=== PATIENT | female | born 1980 ===

== ENCOUNTER 2020-05-21 14:13 | Outpatient (REF) | payer OTHER, SELFPAY ==
[2020-05-22 10:16] LABS: BV Int Neg Control Negative (Negative); BV Int Pos Control Positive (Positive)
== END 2020-05-21 14:14 | disposition home or self-care (01) ==
LOC: HO.LAB 14:13
PROVIDERS: PCP Internal Medicine; Referring Provider Internal Medicine; Visit Provider Obstetrics & Gynecology
DX: B37.3 Candidiasis of vulva and vagina (principal); R87.610 Atypical squamous cells of undetermined significance on cytologic smear of cervix (ASC-US); R87.810 Cervical high risk human papillomavirus (HPV) DNA test positive
CPT/HCPCS: 57454; 87480; 87510; 87660; 88305; 99212

== ENCOUNTER → 2020-05-30 12:16 | Outpatient (BNVA) | payer OTHER, SELFPAY | PROVIDERS: PCP Internal Medicine; Visit Provider Obstetrics & Gynecology | DX: Z76.89 Persons encountering health services in other specified circumstances (principal) ==

== ENCOUNTER 2020-06-02 14:23 | Outpatient (REF) | payer OTHER, SELFPAY | END 2020-06-02 14:24 | disposition home or self-care (01) | LOC: HO.LAB 14:23 | PROVIDERS: PCP Internal Medicine; Visit Provider Internal Medicine | DX: Z20.822 Contact with and (suspected) exposure to COVID-19 (principal) | CPT/HCPCS: 36415; C9803; U0003 ==

== ENCOUNTER 2021-03-04 09:56 | Outpatient (REF) | payer OTHER, SELFPAY ==
[2021-03-04 11:57] LABS: Hematocrit 33.8 % (37-47); Hemoglobin 11.3 g/dl (12.0-16.0); Mean Corpuscular HGB Conc 33.4 g/dl (31.0-35.0); Mean Corpuscular Hemoglobin 31.3 pg (27.0-33.0); Mean Corpuscular Volume 93.6 fL (80-98); Mean Platelet Volume 10.5 fL (9.4-12.3); Platelet Count 194 X10*3/uL (160-400); Red Blood Count 3.61 X10*6/uL (4.20-5.50); Red Cell Distribution Width 13.1 % (11.0-16.0); White Blood Count 4.9 X10*3/uL (4.8-10.8)
[2021-03-04 12:49] LABS: Thyroid Stimulating Hormone 1.56 uIU/mL (0.32-4.0)
[2021-03-04 13:56] LABS: CT PCR NOT DETECTED (Not Detect.); NG PCR NOT DETECTED (Not Detect.)
[2021-03-05 08:40] LABS: BV Int Neg Control Negative (Negative); BV Int Pos Control Positive (Positive)
== END 2021-03-04 09:57 | disposition home or self-care (01) ==
LOC: HO.LAB 09:56
PROVIDERS: PCP Internal Medicine; Visit Provider Advanced Practice Midwife
DX: R10.2 Pelvic and perineal pain (principal); Z20.2 Contact with and (suspected) exposure to infections with a predominantly sexual mode of transmission; N76.0 Acute vaginitis; N92.0 Excessive and frequent menstruation with regular cycle
CPT/HCPCS: 36415; 84443; 85027; 87480; 87491; 87510; 87591; 87660; 99212

== ENCOUNTER 2021-03-23 09:40 | Outpatient (REF) | payer OTHER, SELFPAY ==
[2021-03-23 11:34] LABS: HBsAGNum1 0.77 S/CO (0.00-0.99); HIV AB/AG Nonreactive (Nonreactive); HIV Num 1 0.09 S/CO (0.00-0.99); Hepatitis B Surface Antigen Negative (Negative); ~HepC Num1 0.16 S/CO (0.00-0.79); ~Hepatitis C Antibody Nonreactive (Nonreactive)
[2021-03-23 12:04] LABS: Syphilis Screen Nonreactive (Nonreactive)
[2021-03-23 14:40] LABS: CT PCR NOT DETECTED (Not Detect.); NG PCR NOT DETECTED (Not Detect.)
[2021-03-24 11:12] LABS: BV Int Neg Control Negative (Negative); BV Int Pos Control Positive (Positive)
== END 2021-03-23 09:41 | disposition home or self-care (01) ==
LOC: HO.LAB 09:40
PROVIDERS: PCP Internal Medicine; Visit Provider Obstetrics & Gynecology
DX: Z11.3 Encounter for screening for infections with a predominantly sexual mode of transmission (principal); Z11.4 Encounter for screening for human immunodeficiency virus [HIV]; N76.0 Acute vaginitis; D22.9 Melanocytic nevi, unspecified
CPT/HCPCS: 36415; 86780; 86803; 87340; 87389; 87480; 87491; 87510; 87591; 87660; 99212

== ENCOUNTER 2021-03-26 09:55 | Outpatient (REF) | payer OTHER, SELFPAY ==
--- NOTE | ~2021-03-26 | US_ITS ---
EXAMINATION: ULTRASOUND OF THE PELVIS CLINICAL INFORMATION: Excessive and frequent menstruation. COMPARISON: 01/16/2020. TECHNIQUE: Transabdominal and transvaginal pelvic ultrasound. A transvaginal study was performed in addition to the transabdominal study which did not yield an adequate examination of the uterus and ovaries due to superimposed distended gas-filled loops of bowel. FINDINGS: The uterus is normal in size and appearance, measuring 10.9 x 4.3 x 6.2 cm longitudinally, anteroposteriorly and transversely. The endometrial stripe thickness is normal, measuring 0.7 cm in thickness. There is a 0.9 cm fibroid along the right uterine fundus myometrium. The ovaries bilaterally are visualized and appear normal, with the right ovary measuring 3.7 x 1.4 x 2.1 cm and the left ovary measuring 2.7 x 0.9 x 3.7 cm. No adnexal mass or free fluid collection seen. US/US pelvic and transvaginal IMPRESSION: Subcentimeter uterine fibroid. Otherwise unremarkable pelvic ultrasound.
== END 2021-03-26 09:56 | disposition home or self-care (01) ==
LOC: HO.US 09:55
PROVIDERS: PCP Internal Medicine; Visit Provider Advanced Practice Midwife
DX: N92.0 Excessive and frequent menstruation with regular cycle (principal)
CPT/HCPCS: 76830; 76856

== ENCOUNTER 2021-04-09 13:16 | Outpatient (REF) | payer OTHER, SELFPAY ==
[2021-04-10 08:42] LABS: BV Int Neg Control Negative (Negative); BV Int Pos Control Positive (Positive)
[2021-04-10 08:54] LABS: CT PCR NOT DETECTED (Not Detect.); NG PCR NOT DETECTED (Not Detect.)
== END 2021-04-09 13:17 | disposition home or self-care (01) ==
LOC: HO.LAB 13:16
PROVIDERS: PCP Internal Medicine; Visit Provider Advanced Practice Midwife
DX: Z12.4 Encounter for screening for malignant neoplasm of cervix (principal); Z11.3 Encounter for screening for infections with a predominantly sexual mode of transmission; N76.0 Acute vaginitis; N93.9 Abnormal uterine and vaginal bleeding, unspecified; D22.9 Melanocytic nevi, unspecified; Z71.2 Person consulting for explanation of examination or test findings
CPT/HCPCS: 58100; 87480; 87491; 87510; 87591; 87660; 88142; 88305

== ENCOUNTER → 2021-04-21 11:40 | Outpatient (BNVA) | payer OTHER, SELFPAY | PROVIDERS: PCP Internal Medicine; Visit Provider Advanced Practice Midwife ==

== ENCOUNTER 2021-05-21 14:09 | Outpatient (REF) | payer OTHER, SELFPAY | END 2021-05-21 14:10 | disposition home or self-care (01) | LOC: HO.LAB 14:09 | PROVIDERS: PCP Internal Medicine; Visit Provider Obstetrics & Gynecology | DX: R87.612 Low grade squamous intraepithelial lesion on cytologic smear of cervix (LGSIL) (principal); L91.8 Other hypertrophic disorders of the skin; E66.9 Obesity, unspecified; F17.210 Nicotine dependence, cigarettes, uncomplicated; Z68.23 Body mass index [BMI] 23.0-23.9, adult; Z98.51 Tubal ligation status; Z88.8 Allergy status to other drugs, medicaments and biological substances | CPT/HCPCS: 57454; 81025; 88305 ==

== ENCOUNTER → 2021-05-26 10:56 | Outpatient (BNVA) | payer OTHER, SELFPAY | PROVIDERS: PCP Internal Medicine; Visit Provider Advanced Practice Midwife ==

== ENCOUNTER 2021-06-15 11:35 | Outpatient (REF) | payer OTHER, SELFPAY ==
[2021-06-15 13:57] LABS: Syphilis Screen Nonreactive (Nonreactive)
[2021-06-15 16:25] LABS: CT PCR NOT DETECTED (Not Detect.); NG PCR NOT DETECTED (Not Detect.)
[2021-06-16 09:11] LABS: HBsAGNum1 0.17 S/CO (0.00-0.99); HIV AB/AG Nonreactive (Nonreactive); HIV Num 1 0.09 S/CO (0.00-0.99); Hepatitis B Surface Antigen Negative (Negative); ~HepC Num1 0.16 S/CO (0.00-0.79); ~Hepatitis C Antibody Nonreactive (Nonreactive)
[2021-06-16 09:17] LABS: BV Int Neg Control Negative (Negative); BV Int Pos Control Positive (Positive)
== END 2021-06-15 11:36 | disposition home or self-care (01) ==
LOC: HO.LAB 11:35
PROVIDERS: PCP Internal Medicine; Visit Provider Obstetrics & Gynecology
DX: Z11.4 Encounter for screening for human immunodeficiency virus [HIV] (principal); B96.89 Other specified bacterial agents as the cause of diseases classified elsewhere; N87.0 Mild cervical dysplasia; N76.0 Acute vaginitis
CPT/HCPCS: 36415; 86780; 86803; 87340; 87389; 87480; 87491; 87510; 87591; 87660; 99212

== ENCOUNTER 2021-07-09 09:26 | Day surgery (SDC) | payer OTHER, SELFPAY ==
--- NOTE | 2021-07-08 11:02 | HO.ANESPROP2 ---
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 (Acute) Multiple nevi (Acute) Encounter to discuss test results (Acute) Numerous moles (Acute) Screen for STD (sexually transmitted disease) (Acute) Vaginitis (Acute) Skin tag (Acute) Overweight (Acute) Past Medical History Medical History 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 Overweight Skin tag Takotsubo syndrome Family History Family History Father Medical history unknown Mother HIV (human immunodeficiency virus infection) Myocardial infarction Hypertension CVD (cardiovascular disease) Drug abuse Brother Legally blind Cancer Brother Albinism Maternal Grandfather Stroke H/O ETOH abuse Surgical History Surgical History History of section History of tubal ligation Social History Social History Alcohol intake: current Alcohol intake frequency: holidays/special occasions only Patient Tobacco Use Status: Current everyday Tobacco user Tobacco use type: Cigarette Cigarettes Per Day: 2 Years Smoked: 10 Use of substances other than those prescribed or required for medical reasons: Yes Substance Use Frequency: Daily Are you DNR?: No Advance Directives: No Advance Directives Information Provided: Yes Sexual orientation: Straight/Heterosexual Gender identity: Female Meds Allergies Allergy/AdvReac Type Severity Reaction Status Date / Time docusate [From COLACE] Allergy Intermediate SWELLING, Verified 07/03/21 10:37 swollen Home Medications Medication Instructions Recorded Confirmed Last Taken Type multivitamin (Daily Multi-Vitamin) 1 tab PO DAILY 05/21/21 07/03/21 Unknown History Exam Exam Date and Time: July 08, 2021 1102 Pertinent Lab Results Pertinent Lab Results: Laboratory Tests 03/04/21 11:15 WBC 4.9 Hgb 11.3 L Hct 33.8 L Plt Count 194 Assessment and Plan Assessment Anesthesia Assessment: Chart Reviewed Documented by User: Sri Dunne MD 07/09/21 12:19 PMFSH Past Medical History Medical History 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 Overweight Skin tag Takotsubo syndrome Family History Family History Father Medical history unknown Mother HIV (human immunodeficiency virus infection) Myocardial infarction Hypertension CVD (cardiovascular disease) Drug abuse Brother Legally blind Cancer Brother Albinism Maternal Grandfather Stroke H/O ETOH abuse Surgical History Surgical History History of section History of tubal ligation History of Problems with Anesthesia: No Social History Social History Alcohol intake: current Alcohol intake frequency: holidays/special occasions only Patient Tobacco Use Status: Current everyday Tobacco user Tobacco use type: Cigarette Cigarettes Per Day: 2 Years Smoked: 10 Use of substances other than those prescribed or required for medical reasons: Yes Substance Use Frequency: Daily Are you DNR?: No Advance Directives: No Advance Directives Information Provided: Yes Sexual orientation: Straight/Heterosexual Gender identity: Female Meds Allergies Allergy/AdvReac Type Severity Reaction Status Date / Time docusate [From COLACE] Allergy Intermediate SWELLING, Verified 07/03/21 10:37 swollen Home Medications Medication Instructions Recorded Confirmed Last Taken Type multivitamin (Daily Multi-Vitamin) 1 tab PO DAILY 05/21/21 07/03/21 Unknown History Exam Airway Mallampati Class: I TM Dist: >3cm Neck ROM: Full Loose/Missing/Broken Teeth: No Heart: RRR Lungs: CTA Assessment and Plan Assessment Anesthesia Assessment: Anesthesia Plan Discussed Final Anesthetic Review History of Problems with Anesthesia: No NPO: Yes ASA Class: II Final Preanesthetic Review: Meds/Allgs Chart Reviewed, Consent Obtained/Reviewed and Anes Risks/Benef Reviewed Patient Risk: Low Procedure Risk: Low Anesthetic Plan Anesthetic Plan: GA Disposition: Standard PACU
[2021-07-09] VITALS (9 sets, daily range): BP systolic 94–141; BP diastolic 51–69; PULSE 55–76; RESP 16–20; TEMP 36.2–36.6; O2SAT 98–100; BMI 23.3
[2021-07-09 10:27] LABS: UPreg QC Valid YES; Urine Pregnancy NEGATIVE (NEGATIVE)
[2021-07-09] MEDS: Lactated Ringers 1,000 ML 100 ML IVCONT (11:00)
--- NOTE | 2021-07-09 11:03 | MHC.SHP ---
Pre-Procedural Eval Section A Date of Service: 07/09/21 The patient is an INPATIENT: No Changes since office visit: No Cold of Flu in the past 2 weeks, No New Medical Problems, No Changes in Medication and No Patient answered all questions The History & Physical has been completed within 30 days and I have reviewed it.: Yes Section B Chief Complaint: C1N1 Allergies: Allergies Allergy/AdvReac Type Severity Reaction Status Date / Time docusate [From COLACE] Allergy Intermediate SWELLING, Verified 07/03/21 10:37 swollen Plan Diagnosis/Plan: Unchanged I have reviewed the history and physical and performed a pertinent physical examination on my patient. No changes have occurred unless specified.
--- NOTE | 2021-07-09 12:25 | P.BOP_ITS ---
Brief Operative Note Date of Service: 07/09/21 Pre-op diagnosis: Persistent DENIS 1, positive ECC Post-op diagnosis: same Procedure: LEEP CONE with post CONE ECC Surgeon: Isidro Mcpherson MD Anesthesia: MAC, local and other (Paracervical block) Was an Ep Specialist used for this Procedure?: No Estimated blood loss (mL): 0 Pathology: other (Cervical cone, Endocx, Post cone ECC) Condition: stable Disposition: other (Home)
--- NOTE | 2021-07-09 12:27 | P.OP_ITS ---
Operative Note Operative Note Date of Service: 07/09/21 Narrative: Preop diagnosis: Persistent DENIS 1 with + ECC Operation: LEEP Cone with post cone ECC Post op diagnosis: same Anesthesia: paracervical block Complications: none Pathology: Anterior and Posterior cervical lip with endocervix & post cone RCC QBL: minimal Procedure: The patient was put in the dorsal lithotomy position, was prepped and draped in the usual sterile fashion. A sterile speculum was inserted inside the pat ient vagina. Using Lugol solution the cervix with Dyed with Lugol solution to identifiy the abnormal demarcating line. 10 cc of Marcaine0.5% with epinephrine were given at 2,4 , 8, and 10 o'clock. Two 0 Vicryl sutures were put at 3 and 09:00 o'clock. a medium-size loop wire, the cervical cone was excised followed by the endocervix, post cone ECC was done afterwards. Hemostasis was assured us ing cautery and Monsel solution. All instruments were taken out of the patient's vaginal cavity. the patient tolerated the procedure well and was discharged home with the following instructions: call if temperature is above 100.4, vaginal bleeding, abdominal pain or nausea or vomiting. Follow-up in the office in 2 weeks for postop visit
[2021-07-09] MEDS: oxyCODONE HCl Immed Release 5 MG TABLET PO (12:54)
== END 2021-07-09 14:16 | disposition home or self-care (01) ==
PROVIDERS: PCP Internal Medicine; Visit Provider Obstetrics & Gynecology
PROC: 0UBC7ZZ Excision of Cervix, Via Natural or Artificial Opening (ICD-10-PCS; CPT 57522; principal; 2021-07-09 11:00)
DX: N87.0 Mild cervical dysplasia (principal); N76.0 Acute vaginitis; B96.89 Other specified bacterial agents as the cause of diseases classified elsewhere; F17.210 Nicotine dependence, cigarettes, uncomplicated
CPT/HCPCS: 57522; 81025; 88305; 88307; J1100; J2250; J2405; J3010

== ENCOUNTER → 2021-07-23 15:54 | Outpatient (BNVA) | payer OTHER, SELFPAY | PROVIDERS: PCP Internal Medicine; Visit Provider Obstetrics & Gynecology ==

== ENCOUNTER 2021-08-24 10:05 | Outpatient (REF) | payer OTHER, SELFPAY ==
[2021-08-24 10:22] LABS: MANUAL DIFF FLAG NO
[2021-08-24 10:39] LABS: Basophils Percent Auto 0.4 % (0-2); Eosinophils Absolute Auto 0.1 X10*3/uL (0.0-0.4); Eosinophils Percent Auto 1.7 % (0-4); Hematocrit 36.3 % (37.0-47.0); Hemoglobin 11.9 g/dl (12.0-16.0); Imm Gran Abs Auto 0.03 X10*3/uL (0.00-0.03); Imm Gran Pct Auto 0.6 % (0.0-0.4); Lymphocytes Absolute Auto 0.9 X10*3/uL (1.2-4.9); Lymphocytes Percent Auto 19.7 % (20-40); Mean Corpuscular HGB Conc 32.8 g/dl (31.0-35.0); Mean Corpuscular Hemoglobin 31.2 pg (27.0-33.0); Mean Corpuscular Volume 95.3 fL (80.0-98.0); Mean Platelet Volume 9.8 fL (9.4-12.3); Monocytes Absolute Auto 0.5 X10*3/uL (0.1-1.2); Monocytes Percent Auto 10.3 % (2-11); Neutrophils Absolute Auto 3.2 x10*3/uL (2.0-8.3); Neutrophils Percent Auto 67.3 % (45-73); Platelet Count 217 X10*3/uL (160-400); Red Blood Count 3.81 X10*6/uL (4.20-5.50); White Blood Count 4.8 X10*3/uL (4.8-10.8)
[2021-08-24 11:16] LABS: Appearance Urine CLEAR; Color Urine YELLOW; Glucose Urine UA NEG (NEG); Leukocyte Esterase Urine NEG (NEG); Nitrite Urine NEG (NEG); PH 5.5 (5.0-8.0); Specific Gravity - Urine >= 1.030 (1.005-1.025); Urine Blood NEG (NEG); Urine Ketones NEG (NEG); Urine Protein NEG (NEG-TRACE)
[2021-08-24 11:21] LABS: Alanine Aminotransferase 47 U/L (0-31); Albumin Level 4.1 g/dL (3.5-5.0); Alkaline Phosphatase 87 U/L (39-117); Anion Gap 11 (12-20); Aspartate Amino Transferase 34 U/L (5-31); Bilirubin Total 0.5 mg/dL (0.0-1.0); Blood Urea Nitrogen 7 mg/dL (9-16); Calcium 9.5 mg/dL (8.4-10.2); Carbon Dioxide 24 mmol/L (22-29); Chloride 105 mmol/L (96-108); Cholesterol 183 mg/dL; Estimated Glomerular Filt Rate > 60; Glucose Fasting 88 mg/dL (60-99); HDL Cholesterol 46 mg/dL; LDL Cholesterol Calculated 123 mg/dl; Sodium 136 mmol/L (135-145); Total Protein 7.9 g/dL (6.5-8.0); Triglycerides 70 mg/dL
[2021-08-24 12:00] LABS: Free T4 (Free Thyroxine) 0.95 ng/dL (0.71-1.85)
== END 2021-08-24 10:06 | disposition home or self-care (01) ==
LOC: HO.LAB 10:05
PROVIDERS: Obstetrics & Gynecology; PCP Internal Medicine; Visit Provider Internal Medicine
DX: Z00.00 Encounter for general adult medical examination without abnormal findings (principal); D72.819 Decreased white blood cell count, unspecified; R63.4 Abnormal weight loss; N39.0 Urinary tract infection, site not specified
CPT/HCPCS: 36415; 80053; 80061; 81003; 84439; 85025

== ENCOUNTER → 2022-05-26 14:51 | Outpatient (BNVA) | payer OTHER, SELFPAY | PROVIDERS: PCP Internal Medicine; Visit Provider Psychiatry & Neurology Neurology | DX: R20.2 Paresthesia of skin (principal); R20.0 Anesthesia of skin | CPT/HCPCS: 99202 ==

== ENCOUNTER 2022-07-15 13:44 | Outpatient (REF) | payer OTHER, SELFPAY ==
--- NOTE | 2022-07-15 09:00 | EMG_ITS ---
Bilateral median and ulnar motor and sensory studies were performed. Bilateral radial sensory studies were performed and paraspinal muscles were tested with a needle. IMPRESSION: Mild bilateral median neuropathy across carpal tunnel. MD BERE Senior/DINAH / [id number]
[2022-07-15 09:52] LABS: MANUAL DIFF FLAG NO
[2022-07-15 10:31] LABS: Basophils Percent Auto 0.6 % (0-2); Eosinophils Absolute Auto 0.1 X10*3/uL (0.0-0.4); Eosinophils Percent Auto 1.4 % (0-4); Hematocrit 37.5 % (37.0-47.0); Hemoglobin 12.2 g/dl (12.0-16.0); Imm Gran Abs Auto 0.01 X10*3/uL (0.00-0.03); Imm Gran Pct Auto 0.2 % (0.0-0.4); Lymphocytes Absolute Auto 1.3 X10*3/uL (1.2-4.9); Lymphocytes Percent Auto 25.3 % (20-40); Mean Corpuscular HGB Conc 32.5 g/dl (31.0-35.0); Mean Corpuscular Hemoglobin 28.6 pg (27.0-33.0); Mean Platelet Volume 10.5 fL (9.4-12.3); Monocytes Absolute Auto 0.6 X10*3/uL (0.1-1.2); Monocytes Percent Auto 10.8 % (2-11); Neutrophils Absolute Auto 3.1 x10*3/uL (2.0-8.3); Neutrophils Percent Auto 61.7 % (45-73); Platelet Count 216 X10*3/uL (160-400); Red Blood Count 4.26 X10*6/uL (4.20-5.50); Red Cell Distribution Width 14.6 % (11.0-16.0); White Blood Count 5.1 X10*3/uL (4.8-10.8)
[2022-07-15 11:07] LABS: Erythrocyte Sedimentation Rate 33 MM/HR (0-20)
[2022-07-15 12:07] LABS: Rheumatoid Factor < 13.0 IU/mL (<15.0)
[2022-07-16 21:49] LABS: Anti DNA DS Antibody 19 IU/mL
[2022-07-19 13:15] LABS: Cyclic Citrullinated Peptide <16 UNITS
[2022-07-19 13:48] LABS: Smooth Muscle Antibody <20 U (<20)
[2022-07-19 14:54] LABS: ANA Pattern 2 Nuclear, Homogeneous; Anti Nuclear Antibody Screen POSITIVE (NEGATIVE)
== END 2022-07-15 13:45 | disposition home or self-care (01) ==
LOC: HO.NEURO 13:44
PROVIDERS: PCP Internal Medicine; Visit Provider Internal Medicine
DX: R20.0 Anesthesia of skin (principal); D64.9 Anemia, unspecified; M25.50 Pain in unspecified joint
CPT/HCPCS: 36415; 85025; 85652; 86015; 86038; 86039; 86200; 86225; 86431; 95886; 95911

== ENCOUNTER → 2022-07-30 14:31 | Outpatient (BNVA) | payer OTHER, SELFPAY | PROVIDERS: PCP Internal Medicine; Visit Provider Nurse Practitioner Family | DX: R20.0 Anesthesia of skin (principal); R20.2 Paresthesia of skin; G56.03 Carpal tunnel syndrome, bilateral upper limbs | CPT/HCPCS: 99212 ==

== ENCOUNTER → 2022-08-05 10:54 | Outpatient (BNVA) | payer OTHER, SELFPAY | PROVIDERS: PCP Internal Medicine; Visit Provider Internal Medicine Rheumatology | DX: G56.03 Carpal tunnel syndrome, bilateral upper limbs (principal); M25.531 Pain in right wrist; M25.532 Pain in left wrist; R74.01 Elevation of levels of liver transaminase levels; R76.8 Other specified abnormal immunological findings in serum | CPT/HCPCS: 99202 ==

== ENCOUNTER 2022-08-05 12:38 | Outpatient (REF) | payer OTHER, SELFPAY ==
[2022-08-05 14:03] LABS: MANUAL DIFF FLAG NO
[2022-08-05 14:32] LABS: Basophils Percent Auto 0.4 % (0-2); Eosinophils Absolute Auto 0.1 X10*3/uL (0.0-0.4); Eosinophils Percent Auto 1.3 % (0-4); Hematocrit 33.9 % (37.0-47.0); Hemoglobin 11.1 g/dl (12.0-16.0); Imm Gran Abs Auto 0.01 X10*3/uL (0.00-0.03); Imm Gran Pct Auto 0.2 % (0.0-0.4); Lymphocytes Absolute Auto 1.3 X10*3/uL (1.2-4.9); Lymphocytes Percent Auto 28.2 % (20-40); Mean Corpuscular HGB Conc 32.7 g/dl (31.0-35.0); Mean Corpuscular Hemoglobin 29.5 pg (27.0-33.0); Mean Corpuscular Volume 90.2 fL (80.0-98.0); Mean Platelet Volume 11.4 fL (9.4-12.3); Monocytes Absolute Auto 0.5 X10*3/uL (0.1-1.2); Monocytes Percent Auto 9.8 % (2-11); Neutrophils Absolute Auto 2.8 x10*3/uL (2.0-8.3); Neutrophils Percent Auto 60.1 % (45-73); Platelet Count 221 X10*3/uL (160-400); Red Blood Count 3.76 X10*6/uL (4.20-5.50); Red Cell Distribution Width 14.8 % (11.0-16.0); White Blood Count 4.6 X10*3/uL (4.8-10.8)
[2022-08-05 15:06] LABS: Alanine Aminotransferase 9 U/L (0-31); Albumin Level 4.1 g/dL (3.5-5.0); Alkaline Phosphatase 79 U/L (39-117); Anion Gap 9 (12-20); Aspartate Amino Transferase 17 U/L (5-31); Bilirubin Total 0.2 mg/dL (0.0-1.0); Blood Urea Nitrogen 10 mg/dL (9-16); C Reactive Protein < 0.10 mg/dL (< or = 0.50); Calcium 9.4 mg/dL (8.4-10.2); Carbon Dioxide 25 mmol/L (22-29); Chloride 107 mmol/L (96-108); Estimated Glomerular Filt Rate > 60; Glucose Random 83 mg/dL (60-115); Potassium 4.4 mmol/L (3.3-5.1); Sodium 137 mmol/L (135-145); Total Protein 7.9 g/dL (6.5-8.0)
[2022-08-05 15:07] LABS: Creatinine Urine 49.71 mg/dL; Total Protein Urine Random < 7 mg/dL (<12)
[2022-08-09 11:14] LABS: Complement C3 94 mg/dL (83-193)
[2022-08-09 13:54] LABS: Anti DNA DS Antibody 24 IU/mL; SM/Ribonucleoprotein Ab <1.0 NEG AI (<1.0 NEG); Smith Protein <1.0 NEG AI (<1.0 NEG)
== END 2022-08-05 12:39 | disposition home or self-care (01) ==
LOC: HO.10HDL 12:38
PROVIDERS: Visit Provider Internal Medicine Rheumatology
DX: R76.8 Other specified abnormal immunological findings in serum (principal); M25.50 Pain in unspecified joint; G56.03 Carpal tunnel syndrome, bilateral upper limbs; R74.01 Elevation of levels of liver transaminase levels; M25.531 Pain in right wrist; M25.532 Pain in left wrist; Z79.899 Other long term (current) drug therapy
CPT/HCPCS: 36415; 80053; 84156; 85025; 86140; 86160; 86225; 86235

== ENCOUNTER 2022-09-07 10:46 | Outpatient (REF) | payer OTHER, SELFPAY ==
[2022-09-07 16:48] LABS: CT PCR NOT DETECTED (Not Detect.); NG PCR NOT DETECTED (Not Detect.)
[2022-09-08 09:38] LABS: BV Int Neg Control Negative (Negative); BV Int Pos Control Positive (Positive)
[2022-09-10 21:53] LABS: HPV 16 RNA DETECTED (NOT DETECTED); HPV mRNA E6/E7 rflx Detected (Not Detected)
== END 2022-09-07 10:47 | disposition home or self-care (01) ==
LOC: HO.LNP 10:46
PROVIDERS: PCP Internal Medicine; Visit Provider Advanced Practice Midwife
DX: Z01.419 Encounter for gynecological examination (general) (routine) without abnormal findings (principal); Z11.51 Encounter for screening for human papillomavirus (HPV); N87.0 Mild cervical dysplasia; N89.8 Other specified noninflammatory disorders of vagina; Z20.2 Contact with and (suspected) exposure to infections with a predominantly sexual mode of transmission
CPT/HCPCS: 0353U; 87480; 87510; 87624; 87625; 87660; 88142

== ENCOUNTER 2022-09-07 11:16 | Outpatient (REF) | payer OTHER, SELFPAY | END 2022-09-07 11:17 | disposition home or self-care (01) | LOC: HO.LAB 11:16 | PROVIDERS: Visit Provider Advanced Practice Midwife | DX: Z13.89 Encounter for screening for other disorder (principal) ==

== ENCOUNTER 2022-09-16 15:55 | Emergency (ER) | payer OTHER, SELFPAY ==
--- NOTE | ~2022-09-16 | XR_ITS ---
EXAMINATION: XR ABDOMEN KUB CLINICAL INDICATION: Pain. Question constipation. COMPARISON: None available. TECHNIQUE: AP view of the abdomen. FINDINGS: Nonobstructive bowel gas pattern. No dilated loops of bowel. Scattered gas throughout the small and large bowel. Mild stool burden. The lung bases are clear. No acute osseous abnormality. XR/XR KUB IMPRESSION: Nonobstructive bowel gas pattern. Mild stool burden.
[2022-09-16 16:38] LABS: MANUAL DIFF FLAG NO
[2022-09-16 16:40] LABS: Basophils Percent Auto 0.2 % (0-2); Eosinophils Absolute Auto 0.1 X10*3/uL (0.0-0.4); Eosinophils Percent Auto 1.6 % (0-4); Hematocrit 32.1 % (37.0-47.0); Hemoglobin 10.4 g/dl (12.0-16.0); Imm Gran Abs Auto 0.02 X10*3/uL (0.00-0.03); Imm Gran Pct Auto 0.4 % (0.0-0.4); Lymphocytes Absolute Auto 0.8 X10*3/uL (1.2-4.9); Lymphocytes Percent Auto 17.8 % (20-40); Mean Corpuscular HGB Conc 32.4 g/dl (31.0-35.0); Mean Corpuscular Volume 89.4 fL (80.0-98.0); Mean Platelet Volume 9.4 fL (9.4-12.3); Monocytes Absolute Auto 0.5 X10*3/uL (0.1-1.2); Monocytes Percent Auto 10.5 % (2-11); Neutrophils Absolute Auto 3.1 x10*3/uL (2.0-8.3); Neutrophils Percent Auto 69.5 % (45-73); Platelet Count 187 X10*3/uL (160-400); Red Blood Count 3.59 X10*6/uL (4.20-5.50); Red Cell Distribution Width 16.2 % (11.0-16.0); White Blood Count 4.5 X10*3/uL (4.8-10.8)
[2022-09-16 16:53] LABS: Alanine Aminotransferase 9 U/L (0-31); Albumin Level 4.1 g/dL (3.5-5.0); Alkaline Phosphatase 72 U/L (39-117); Anion Gap 11 (12-20); Aspartate Amino Transferase 17 U/L (5-31); Bilirubin Total 0.2 mg/dL (0.0-1.0); Blood Urea Nitrogen 17 mg/dL (9-16); Calcium 8.7 mg/dL (8.4-10.2); Carbon Dioxide 23 mmol/L (22-29); Chloride 109 mmol/L (96-108); Estimated Glomerular Filt Rate > 60; Glucose Random 75 mg/dL (60-115); Lipase 25 U/L (8-78); Magnesium 1.7 mg/dL (1.6-2.6); Sodium 139 mmol/L (135-145); Total Protein 7.6 g/dL (6.5-8.0)
--- NOTE | 2022-09-16 17:22 | ED_ITS ---
HPI - Abdominal Pain General Chief Complaint: Urogenital-Female <MABLE Sims - Last Filed: 09/16/22 17:23> Stated Complaint: Abdominal Pain <MABLE Sims - Last Filed: 09/16/22 17:23> Time Seen by Provider: 09/16/22 21:25 <MABLE Sims - Last Filed: 09/16/22 17:23> Source: patient, RN notes reviewed and old records reviewed <Surendra Schumacher - Last Filed: 09/17/22 01:44> Mode of arrival: ambulatory <Surendra Schumacher - Last Filed: 09/17/22 01:44> Limitations: no limitations <Surendra Schumacher - Last Filed: 09/17/22 01:44> History of Present Illness HPI narrative: 42-year-old female with history of lupus, MS presents for evaluation of left lower quadrant abdominal pain. The pain started at noon today, about 9-1/2 hours prior to my evaluation Patient denies any associated symptoms including fevers, chills, nausea vomiting diarrhea, constipation, black or bloody stool She reports that 2 days ago she finished a course of antibiotics for a UTI This feels different than the pain she is experiencing while that was being treated Currently her pain is an 8/10 and the pain is worse with movement. Denies any abnormal vaginal bleeding or discharge <Surendra Schumacher - Last Filed: 09/17/22 01:44> Related Data Home Medications: Home Medications Medication Instructions Recorded Confirmed multivitamin (Daily Multi-Vitamin 1 tab PO DAILY 05/21/21 08/18/22 tablet) ibuprofen 800 mg tablet 800 mg PO Q8H 03/23/22 08/18/22 Previous Rx's Medication Instructions Recorded hydroxyzine HCl 10 mg tablet 10 mg PO TID PRN anxiety 30 days 04/29/22 #90 tabs bupropion HCl 150 mg 24 hr tablet, 150 mg PO QAM 90 days #90 tabs 08/18/22 extended release fluconazole 150 mg tablet 150 mg PO ONCE 1 day #1 tab 09/08/22 (Diflucan) metronidazole 0.75 % (37.5 mg/5 1 appful vaginal BEDTIME 5 days 09/08/22 gram) vaginal gel #70 grams tramadol 50 mg tablet 50 mg PO TID PRN severe pain 09/17/22 (scale score 7-10) #12 tabs <MABLE Sims - Last Filed: 09/16/22 17:23> Allergies/Adverse Reactions: Allergies Allergy/AdvReac Type Severity Reaction Status Date / Time docusate [From COLACE] Allergy Intermediate SWELLING, Verified 09/16/22 17:28 swollen <MABLE Sims - Last Filed: 09/16/22 17:23> Review of Systems Constitutional: Reports as per HPI, Denies chills, Denies fatigue and Denies fever(s) <Surendra Schumacher - Last Filed: 09/17/22 01:44> Cardiovascular: Denies chest pain and Denies dyspnea <Surendra Schumacher - Last Filed: 09/17/22 01:44> Respiratory: Denies cough and Denies dyspnea <Surendra Schumacher - Last Filed: 09/17/22 01:44> Gastrointestinal: Denies constipation and Denies vomiting <Surendra Schumacher - Last Filed: 09/17/22 01:44> Genitourinary: Denies dysuria <Surendra Schumacher - Last Filed: 09/17/22 01:44> Denies focal weakness <Surendra Schumacher - Last Filed: 09/17/22 01:44> Endocrine: Denies fatigue <Surendra Schumacher - Last Filed: 09/17/22 01:44> PMFSH Past Medical History Medical History: Medical History Leukopenia 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 Lupus Overweight Physical exam Skin tag Takotsubo syndrome Transaminitis <MABLE Sims - Last Filed: 09/16/22 17:23> Surgical History: Surgical History H/O LEEP History of section History of tubal ligation <MABLE Sims - Last Filed: 09/16/22 17:23> Family History Family History: Family History Father Brain cancer Mother HIV (human immunodeficiency virus infection) Myocardial infarction Hypertension CVD (cardiovascular disease) Drug abuse Brother Legally blind Cancer Brother Albinism Maternal Grandfather Stroke H/O ETOH abuse Family/Other Mental health disorder <MABLE Sims - Last Filed: 09/16/22 17:23> Social History Social History: Social History Housing: Apartment Alcohol intake: current Alcohol intake frequency: holidays/special occasions only Alcohol type: hard liquor Patient Tobacco Use Status: Current everyday Tobacco user Tobacco use type: Cigarette Cigarettes Per Day: 6 Years Smoked: 10 Smoked in Last 30 Days: Yes e-Cigarette/Vaping Use: Never Used Second Hand Smoke Exposure: No Use of substances other than those prescribed or required for medical reasons: No Advance Directives: No Advance Directives Information Provided: Yes service: No Current occupational status: employed Current occupational exposures/hazards: No Sexual orientation: Straight/Heterosexual Gender identity: Female Cognitive needs: No Hearing needs: No Vision needs: Yes <MABLE Sims - Last Filed: 09/16/22 17:23> Physical Exam ED Vital Signs: Vital Signs - 24 hr 09/16/22 17:24 09/16/22 20:53 09/16/22 22:58 Temperature 98.2 F 98.3 F 97.0 F Pulse Rate 65 67 72 Respiratory Rate 18 16 18 Blood Pressure 114/68 133/74 149/82 H Pulse Oximetry 100 100 100 Oxygen Delivery Method Room Air Room Air Room Air Oxygen Flow Rate 09/16/22 23:36 09/17/22 01:03 09/17/22 01:31 Temperature 98.2 F Pulse Rate 112 H 62 56 Respiratory Rate 24 H 12 17 Blood Pressure 165/118 H 130/70 128/71 Pulse Oximetry 96 98 100 Oxygen Delivery Method Nasal Cannula Room Air Room Air Oxygen Flow Rate 2 BMI result Body Mass Index 21.9 <MABLE Sims Last Filed: 09/16/22 17:23> Vital Signs - 24 hr 09/16/22 17:24 09/16/22 20:53 09/16/22 22:58 Temperature 98.2 F 98.3 F 97.0 F Pulse Rate 65 67 72 Respiratory Rate 18 16 18 Blood Pressure 114/68 133/74 149/82 H Pulse Oximetry 100 100 100 Oxygen Delivery Method Room Air Room Air Room Air Oxygen Flow Rate 09/16/22 23:36 09/17/22 01:03 09/17/22 01:31 Temperature 98.2 F Pulse Rate 112 H 62 56 Respiratory Rate 24 H 12 17 Blood Pressure 165/118 H 130/70 128/71 Pulse Oximetry 96 98 100 Oxygen Delivery Method Nasal Cannula Room Air Room Air Oxygen Flow Rate 2 BMI result Body Mass Index 21.9 < - Last Filed: 09/17/22 01:44> Const General: healthy appearing, comfortable, no acute distress, alert and awake < - Last Filed: 09/17/22 01:44> Nutritional Appearance: well nourished < Last Filed: 09/17/22 01:44> Orientation/consciousness: patient oriented x3 < Last Filed: 09/17/22 01:44> HENMT Head: Yes normocephalic and Yes atraumatic < Last Filed: 09/17/22 01:44> Throat: Yes posterior oropharynx normal < Last Filed: 09/17/22 01:44> Eyes Eyelids: Yes eyelids normal < Last Filed: 09/17/22 01:44> Conjunctivae: conjunctivae normal < Last Filed: 09/17/22 01:44> Sclerae: sclerae normal < Last Filed: 09/17/22 01:44> Corneas: corneas normal < Last Filed: 09/17/22 01:44> Pupils: Equal, round and reactive pupils present < Last Filed: 09/17/22 01:44> EOM: EOMs intact bilaterally < Last Filed: 09/17/22 01:44> Neck Neck: Yes full ROM < Last Filed: 09/17/22 01:44> Resp Effort & Inspection: normal respiratory effort, able to speak in complete sentences, no audible wheezes and not labored <Surendra Ledezma Last Filed: 09/17/22 01:44> Auscultation: clear to auscultation bilaterally <Surendra [place] - Last Filed: 09/17/22 01:44> Cardio Rate: regular rate <Surendra Harish Last Filed: 09/17/22 01:44> Rhythm: regular rhythm <Surendra [place] - Last Filed: 09/17/22 01:44> GI Inspection: No distended <Surendra Harish Last Filed: 09/17/22 01:44> Palpation (GI): Soft to palpation, not firm, Tenderness to palpation present (GI) in the LLQ and Guarding due to palpation present (GI) <Surendra O Last Filed: 09/17/22 01:44> Auscultation: normoactive bowel sounds <Surendra [place] - Last Filed: 09/17/22 01:44> Skin General skin exam: no rashes or lesions noted and elasticity normal <Surendra Harish Last Filed: 09/17/22 01:44> Neuro General: patient oriented x3 <Surendra O Last Filed: 09/17/22 01:44> Cranial nerves: Yes CN's II-XII intact bilaterally, Yes Equal, round and reactive pupils present and Yes Bilaterally intact EOM present <Surendra [place] - Last Filed: 09/17/22 01:44> Cognition (Neuro): normal cognition <Surendra Harish Last Filed: 09/17/22 01:44> Extrem Other: Moving all extremities well without any obvious deformities <Surendra O Last Filed: 09/17/22 01:44> Course Course Course Narrative: This is an RME: Additional HPI, ROS, PE not included below will be deferred to primary provider 42-year-old female presents with suprapubic discomfort going on for the past few days, worsening despite antibiotics which she was taking for yeast and a ?bladder infection ?. Patient reports pain is ongoing and symptoms have persisted. Denies fevers, chills, nausea, vomiting, vaginal bleeding or discharge. Exam benign Plan labs, urine <MABLE Sims - Last Filed: 09/16/22 17:23> Reevaluation(s) Reevaluation #1: Unfortunately, psis somehow the patient's CT scan the abdomen pelvis had been canceled without my knowledge. I have been waiting to get the CT scan. However the patient reports feeling better at this time. Her labs are reassuring, urine is negative. She is quite comfortable after medication. The patient most likely has constipation versus ovarian cyst. The patient has OBGYN follow-up next week on 09/22/2022. I discussed the patient because still do the CT scan but will likely be at least another hour or 2. She is comfortable with getting a KUB to rule out constipation at this time. And she will follow-up with her OBGYN. I have a very low suspicion for surgical abdomen <Surendra Schumacher - Last Filed: 09/17/22 01:44> Time: 00:58 <Surendra Schumacher - Last Filed: 09/17/22 01:44> Medical Decision Making Medical Decision Making [facility] Narrative: 42-year-old female presents for evaluation abdominal pain. Her abdomen is soft, but tender exam with guarding left lower quadrant. She denies associated symptoms including nausea vomiting, diarrhea, bloody stool, urinary complaints or complaints. There is a broad diagnosis at this time including muscle str ain, ovarian cyst, constipation, diverticulitis. Her labs are significant for a mild anemia which is chronic for the patient. Will be a CT scan to better evaluate. Patient medicated with Toradol <Surendra Schumacher - Last Filed: 09/17/22 01:44> Differential Diagnosis Abdominal pain Abdominal wall strain Constipation Colitis Diverticulitis UTI Obstructive uropathy Ovarian cyst Inguinal hernia <Surendra Schumacher - Last Filed: 09/17/22 01:44> Lab Data [facility] Lab Attestation statement: I reviewed the patient's lab results. <Surendra Schumacher - Last Filed: 09/17/22 01:44> Result Diagrams: 09/16/22 16:35 09/16/22 16:35 <MABLE Sims - Last Filed: 09/16/22 17:23> Labs: Lab Results 09/16/22 09/16/22 09/16/22 Range/Units 16:35 16:35 17:33 WBC 4.5 L (4.8-10.8) X10*3/uL RBC 3.59 L (4.20-5.50) X10*6/uL Hgb 10.4 L (12.0-16.0) g/dl Hct 32.1 L (37.0-47.0) % MCV 89.4 (80.0-98.0) fL MCH 29.0 (27.0-33.0) pg MCHC 32.4 (31.0-35.0) g/dl RDW 16.2 H (11.0-16.0) % Plt Count 187 (160-400) X10*3/uL MPV 9.4 (9.4-12.3) fL Immature Gran % (Auto) 0.4 (0.0-0.4) % Neut % (Auto) 69.5 (45-73) % Lymph % (Auto) 17.8 L (20-40) % [place] % (Auto) 10.5 (2-11) % Eos % (Auto) 1.6 (0-4) % Baso % (Auto) 0.2 (0-2) % Lymph # (Auto) 0.8 L (1.2-4.9) X10*3/uL [place] # (Auto) 0.5 (0.1-1.2) X10*3/uL Eos # (Auto) 0.1 (0.0-0.4) X10*3/uL Baso # (Auto) 0.0 (0.0-0.2) X10*3/uL Abs Immat Gran (auto) 0.02 (0.00-0.03) X10*3/uL Absolute Neuts (auto) 3.1 (2.0-8.3) x10*3/uL Absolute Nucleated RBC 0.000 (0.0-0.012) X10*3/uL Nucleated RBC % (auto) 0.0 (0.0-0.2) /100WBC Sodium 139 (135-145) mmol/L Potassium 4.0 (3.3-5.1) mmol/L Chloride 109 H (96-108) mmol/L Carbon Dioxide 23 (22-29) mmol/L Anion Gap 11 L (12-20) BUN 17 H (9-16) mg/dL Creatinine 0.76 (0.5-1.4) mg/dL Estim Creat Clear Calc TNP Estimated GFR > 60 Random Glucose 75 (60-115) mg/dL Calcium 8.7 D (8.4-10.2) mg/dL Magnesium 1.7 (1.6-2.6) mg/dL Total Bilirubin 0.2 (0.0-1.0) mg/dL AST 17 (5-31) U/L ALT 9 (0-31) U/L Alkaline Phosphatase 72 (39-117) U/L Total Protein 7.6 (6.5-8.0) g/dL Albumin 4.1 (3.5-5.0) g/dL Lipase 25 (8-78) U/L Beta HCG, Quant < 2 mIU/mL Urine Color Yellow Urine Appearance Clear Urine pH 6.0 (5.0-9.0) Ur Specific [place] >= 1.030 H (1.005-1.025) Urine Protein Negative (Neg-Trace) mg/dL Urine Glucose (UA) Negative (Negative) mg/dL Urine Ketones Negative (Negative) mg/dL Urine Blood Negative (Negative) Urine Nitrite Negative (Negative) Ur Leukocyte Esterase Negative (Negative) <MABLE Sims - Last Filed: 09/16/22 17:23> Lab Results 09/16/22 09/16/22 09/16/22 Range/Units 16:35 16:35 17:33 WBC 4.5 L (4.8-10.8) X10*3/uL RBC 3.59 L (4.20-5.50) X10*6/uL Hgb 10.4 L (12.0-16.0) g/dl Hct 32.1 L (37.0-47.0) % MCV 89.4 (80.0-98.0) fL MCH 29.0 (27.0-33.0) pg MCHC 32.4 (31.0-35.0) g/dl RDW 16.2 H (11.0-16.0) % Plt Count 187 (160-400) X10*3/uL MPV 9.4 (9.4-12.3) fL Immature Gran % (Auto) 0.4 (0.0-0.4) % Neut % (Auto) 69.5 (45-73) % Lymph % (Auto) 17.8 L (20-40) % [place] % (Auto) 10.5 (2-11) % Eos % (Auto) 1.6 (0-4) % Baso % (Auto) 0.2 (0-2) % Lymph # (Auto) 0.8 L (1.2-4.9) X10*3/uL [place] # (Auto) 0.5 (0.1-1.2) X10*3/uL Eos # (Auto) 0.1 (0.0-0.4) X10*3/uL Baso # (Auto) 0.0 (0.0-0.2) X10*3/uL Abs Immat Gran (auto) 0.02 (0.00-0.03) X10*3/uL Absolute Neuts (auto) 3.1 (2.0-8.3) x10*3/uL Absolute Nucleated RBC 0.000 (0.0-0.012) X10*3/uL Nucleated RBC % (auto) 0.0 (0.0-0.2) /100WBC Sodium 139 (135-145) mmol/L Potassium 4.0 (3.3-5.1) mmol/L Chloride 109 H (96-108) mmol/L Carbon Dioxide 23 (22-29) mmol/L Anion Gap 11 L (12-20) BUN 17 H (9-16) mg/dL Creatinine 0.76 (0.5-1.4) mg/dL Estim Creat Clear Calc TNP Estimated GFR > 60 Random Glucose 75 (60-115) mg/dL Calcium 8.7 D (8.4-10.2) mg/dL Magnesium 1.7 (1.6-2.6) mg/dL Total Bilirubin 0.2 (0.0-1.0) mg/dL AST 17 (5-31) U/L ALT 9 (0-31) U/L Alkaline Phosphatase 72 (39-117) U/L Total Protein 7.6 (6.5-8.0) g/dL Albumin 4.1 (3.5-5.0) g/dL Lipase 25 (8-78) U/L Beta HCG, Quant < 2 mIU/mL Urine Color Yellow Urine Appearance Clear Urine pH 6.0 (5.0-9.0) Ur Specific [place] >= 1.030 H (1.005-1.025) Urine Protein Negative (Neg-Trace) mg/dL Urine Glucose (UA) Negative (Negative) mg/dL Urine Ketones Negative (Negative) mg/dL Urine Blood Negative (Negative) Urine Nitrite Negative (Negative) Ur Leukocyte Esterase Negative (Negative) <Surendra Schumacher - Last Filed: 09/17/22 01:44> Radiology Impression Discussion of test interpretation with radiology: I have reviewed the radiologist's reading. (Mild constipation) <Surendra Schumacher - Last Filed: 09/17/22 01:44> Medications Administered Discontinued Medications Generic Name Dose Route Start Last Admin Trade Name Freq PRN Reason Stop Dose Admin Ketorolac Tromethamine 30 mg 09/16/22 21:33 09/16/22 21:37 Ketorolac Tromethamine 30 Mg/Ml Vial IVPUSH 09/16/22 21:34 30 mg ONCE ONE Administration Morphine Sulfate 4 mg 09/16/22 22:24 09/16/22 22:34 Morphine Sulfate 4 Mg/Ml Cartridge IVPUSH 09/16/22 22:25 4 mg ONCE ONE Administration Protocol Ondansetron HCl 4 mg 09/16/22 22:24 09/16/22 22:34 Ondansetron Hcl 4 Mg/2 Ml Vial IVPUSH 09/16/22 22:25 4 mg ONCE ONE Administration <MABLE Sims - Last Filed: 09/16/22 17:23> Medications Administered Discontinued Medications Generic Name Dose Route Start Last Admin Trade Name Freq PRN Reason Stop Dose Admin Ketorolac Tromethamine 30 mg 09/16/22 21:33 09/16/22 21:37 Ketorolac Tromethamine 30 Mg/Ml Vial IVPUSH 09/16/22 21:34 30 mg ONCE ONE Administration Morphine Sulfate 4 mg 09/16/22 22:24 09/16/22 22:34 Morphine Sulfate 4 Mg/Ml Cartridge IVPUSH 09/16/22 22:25 4 mg ONCE ONE Administration Protocol Ondansetron HCl 4 mg 09/16/22 22:24 09/16/22 22:34 Ondansetron Hcl 4 Mg/2 Ml Vial IVPUSH 09/16/22 22:25 4 mg ONCE ONE Administration <Surendra Schumacher - Last Filed: 09/17/22 01:44> Discharge Plan Discharge Clinical Impression: Abdominal pain, left lower quadrant <MABLE Sims - Last Filed: 09/16/22 17:23> Patient Disposition: Home, Self-Care <MABLE Sims - Last Filed: 09/16/22 17:23> Instructions: Acute Abdominal Pain (ED) <MABLE Sims Last Filed: 09/16/22 17:23> Additional Instructions: Your blood work was reassuring today. Your urine did not show any signs of persistent UTI. Your x-ray showed mild constipation but no other significant abnormalities Your pain is most likely from an ovarian cyst. Follow-up with your OBGYN next week as planned In the meantime you can use tramadol for severe or breakthrough pain This may make you sleepy, did not drink alcohol or drive after taking <MABLE Sims - Last Filed: 09/16/22 17:23> Prescriptions: New tramadol 50 mg tablet 50 mg PO TID PRN (Reason: severe pain (scale score 7-10)) Qty: 12 0RF No Action metronidazole 0.75 % (37.5mg/5 gram) gel 1 appful vaginal BEDTIME 5 Days Qty: 70 0RF fluconazole [Diflucan] 150 mg tablet 150 mg PO ONCE 1 Days Qty: 1 0RF bupropion HCl 150 mg tablet extended release 24 hr 150 mg PO QAM 90 Days Qty: 90 1RF hydroxyzine HCl 10 mg tablet 10 mg PO TID PRN (Reason: anxiety) 30 Days Qty: 90 0RF ibuprofen 800 mg tablet 800 mg PO Q8H multivitamin [Daily Multi-Vitamin] Tablet 1 tab PO DAILY <MABLE Sims Last Filed: 09/16/22 17:23>
[2022-09-16 17:24] VITALS: BP 114/68; PULSE 65; RESP 18; TEMP 36.8; O2SAT 100; BMI 21.9
[2022-09-16 17:44] LABS: Appearance Urine Clear; Color Urine Yellow; Glucose Urine UA Negative (Negative); Leukocyte Esterase Urine Negative (Negative); Nitrite Urine Negative (Negative); Specific Gravity - Urine >= 1.030 (1.005-1.025); Urine Blood Negative (Negative); Urine Ketones Negative (Negative); Urine Protein Negative (Neg-Trace)
[2022-09-16 20:53] VITALS: BP 133/74; PULSE 67; RESP 16; TEMP 36.8; O2SAT 100
--- NOTE | 2022-09-16 20:59 | PC.NURSE ---
pt a&o, no sob or chest pain, pt report in frequency of urination, voiding a small amount, denied any n/v or any issues with bowel movement. pt reports intermittent pain ranges from 5 or 7/10. Will continue to monitor.
[2022-09-16] MEDS: Ketorolac Tromethamine 30 MG/ML VIAL IVPUSH (21:37)
--- NOTE | 2022-09-16 21:39 | PC.NURSE ---
pt medicated per mar for pain management. Will continue monitor.
[2022-09-16] MEDS: ondansetron HCL 4 MG/2 ML VIAL IVPUSH (22:34)
[2022-09-16] MEDS: Morphine Sulfate 4 MG/ML CARTRIDGE IVPUSH (22:34)
--- NOTE | 2022-09-16 22:36 | PC.NURSE ---
pt medicated per mar for pain management. Will continue monitor
[2022-09-16 22:58] VITALS: BP 149/82; PULSE 72; RESP 18; TEMP 36.1; O2SAT 100
[2022-09-16 23:06] LABS: HCG Quantitative < 2 mIU/mL
[2022-09-16 23:36] VITALS: BP 165/118; PULSE 112; RESP 24; O2SAT 96
--- NOTE | 2022-09-16 23:45 | PC.NURSE ---
pt is comfortable and sleeping at this time, no sign of distress.
[2022-09-17 01:03] VITALS: BP 130/70; PULSE 62; RESP 12; O2SAT 98
--- NOTE | 2022-09-17 01:04 | PC.NURSE ---
Pt states feels better now, no longer in pain. Vitals done.
[2022-09-17 01:31] VITALS: BP 128/71; PULSE 56; RESP 17; TEMP 36.8; O2SAT 100
--- NOTE | 2022-09-17 01:40 | PC.NURSE ---
provider into discuss Kub results, will medicate per order, plan is for pt to be discharge home.
[2022-09-17] MEDS: oxyCODONE HCl Immed Release 5 MG TABLET PO (01:50)
--- NOTE | 2022-09-17 01:52 | PC.NURSE ---
Medicated pt at discharge, Reviewed discharge instruction with pt, pt verbalized understanding. pt a&o, no sob or chest pain, no sign of respiratory distress.
== END 2022-09-17 01:54 | disposition home or self-care (01) ==
PROVIDERS: Physician Assistant; Emergency Provider Emergency Medicine; PCP Internal Medicine
DX: R10.32 Left lower quadrant pain (principal); F17.210 Nicotine dependence, cigarettes, uncomplicated; Z79.899 Other long term (current) drug therapy
CPT/HCPCS: 36415; 74018; 80053; 81003; 83690; 83735; 84702; 85025; 96374; 96375; 99284; 99285; J1885; J2270; J2405

== ENCOUNTER 2022-09-22 14:35 | Outpatient (REF) | payer OTHER, SELFPAY ==
--- NOTE | ~2022-09-22 | US_ITS ---
EXAMINATION: US PELVIS CLINICAL INFORMATION: Abnormal uterine vaginal bleeding; the last menstrual period was 3 weeks prior. COMPARISON: Pelvic ultrasound dated 03/26/2021. TECHNIQUE: Ultrasound of the pelvis is performed using both transabdominal and transvaginal transducers along with Doppler. Transvaginal imaging is performed due to inadequate visualization transabdominally. FINDINGS: Uterus: The uterus is anteverted and retroflexed. The uterus measures 8.9 x 4.1 x 4.6 cm. Within the rightward fundus, a 6 x 5 x 7 mm myometrial cyst is noted. The double wall endometrial thickness is 0.3 mm. The uterus is smooth in contour and has normal myometrial echogenicity. No uterine fibroid is presently seen. Adnexa: Both ovaries are visualized. There is normal color flow to the adnexa. There is no ovarian torsion. The right ovary measures 4.7 x 4.0 x 4.6 cm, volume 44.9 mL. The right ovary contains a 3.2 x 3.3 x 3.2 cm hemorrhagic cyst with characteristic internal reticulated contents. This shows a small amount of adjacent free fluid. The left ovary measures 3.2 x 1.2 x 2.2 cm, volume 4.6 mL. The left ovary contains a 1.7 cm in maximal diameter benign, simple cyst. US/US pelvic and transvaginal IMPRESSION: 1. A 3.3 cm right ovarian hemorrhagic cyst and a 1.7 cm simple left ovarian cyst are noted. 2. A nabothian cyst is seen within the cervix. 3. No uterine fibroid is presently seen. 4. A 7 mm myometrial cyst is seen, which can be seen in association with adenomyosis. If of continued clinical concern, this can be further evaluated with MRI.
== END 2022-09-22 14:36 | disposition home or self-care (01) ==
LOC: HO.US 14:35
PROVIDERS: PCP Internal Medicine; Visit Provider Advanced Practice Midwife
DX: N93.9 Abnormal uterine and vaginal bleeding, unspecified (principal)
CPT/HCPCS: 76830; 76856

== ENCOUNTER 2022-10-07 11:02 | Outpatient (REF) | payer OTHER, SELFPAY ==
[2022-10-08 03:07] LABS: Syphilis Screen Nonreactive (Nonreactive)
[2022-10-08 04:19] LABS: HBc Num1 0.13 S/CO (0.00-0.79); HIV AB/AG Nonreactive (Nonreactive); Hepatitis B Core Antibody Nonreactive (Nonreactive); ~HepC Num1 0.19 S/CO (0.00-0.79); ~Hepatitis C Antibody Nonreactive (Nonreactive)
== END 2022-10-07 11:03 | disposition home or self-care (01) ==
LOC: HO.LAB 11:02
PROVIDERS: PCP Internal Medicine; Visit Provider Advanced Practice Midwife
DX: N83.202 Unspecified ovarian cyst, left side (principal); N92.1 Excessive and frequent menstruation with irregular cycle; R53.83 Other fatigue; N88.8 Other specified noninflammatory disorders of cervix uteri; N93.9 Abnormal uterine and vaginal bleeding, unspecified; R10.2 Pelvic and perineal pain; Z71.2 Person consulting for explanation of examination or test findings; Z32.02 Encounter for pregnancy test, result negative; Z20.2 Contact with and (suspected) exposure to infections with a predominantly sexual mode of transmission
CPT/HCPCS: 36415; 81025; 84443; 86704; 86780; 86803; 87389; 99212

== ENCOUNTER 2022-10-09 14:31 | Outpatient (REF) | payer OTHER, SELFPAY ==
--- NOTE | ~2022-10-09 | MR_ITS ---
EXAMINATION: MR PELVIS WITHOUT AND WITH CONTRAST CLINICAL INFORMATION: Other specified noninflammatory disorder of uterus. Abnormal Pap smear. Pelvic pain. COMPARISON: Previous pelvic ultrasound most recent September 2022 TECHNIQUE: Sagittal, axial, and coronal sequences through the pelvis with and without contrast. Patient received 6.5 mL IV Gadavist contrast. FINDINGS: The uterus is anteverted and retroflexed. There is abnormal signal in the anterior body of the uterus probably related to a scar. Endometrial thickness is normal measuring up to 4 mm. The junctional zone does not appear thickened. No evidence of adenomyomatosis is seen. There is a small cyst in the right fundus of the uterus near the endometrium measuring 5 mm. No other focal uterine lesion. The left ovary is normal-appearing. There is a 1.5 cm complex cyst in the right ovary that is low signal on T1 and heterogeneous signal on T2-weighted sequences. This has a low signal, slightly thickened wall, and demonstrates no evidence of enhancement. This probably represents a hemorrhagic cyst and is decreased from 3.2 x 3.3 x 3.2 cm on September 2022 ultrasound. The bladder is empty. No ascites or adenopathy. Visualized bowel is normal. Signal loss from postsurgical changes in the anterior abdominal wall. No hernia. Visualized bowel is normal. Visualized vascular structures are normal. Degenerative disc disease at L5-S1. MR/MR pelvis wo/w con IMPRESSION: A 5 mm cyst in the right fundus of the uterus near the endometrium. Normal thickness junctional zone with no evidence of adenomyosis. Abnormal signal in the anterior wall of the uterus likely related to a scar. Interval decrease in size in the now 1.5 cm complex right ovarian cyst probably representing a hemorrhagic cyst.
== END 2022-10-09 14:32 | disposition home or self-care (01) ==
LOC: HO.MRI 14:31
PROVIDERS: Visit Provider Advanced Practice Midwife
DX: N85.8 Other specified noninflammatory disorders of uterus (principal); R10.2 Pelvic and perineal pain; N93.9 Abnormal uterine and vaginal bleeding, unspecified
CPT/HCPCS: 72197; A9585

== ENCOUNTER 2022-11-10 10:59 | Outpatient (REF) | payer OTHER, SELFPAY | END 2022-11-10 11:00 | disposition home or self-care (01) | LOC: HO.LNP 10:59 | PROVIDERS: PCP Internal Medicine; Visit Provider Obstetrics & Gynecology | DX: N93.9 Abnormal uterine and vaginal bleeding, unspecified (principal); R87.612 Low grade squamous intraepithelial lesion on cytologic smear of cervix (LGSIL); Z32.02 Encounter for pregnancy test, result negative | CPT/HCPCS: 57454; 58100; 58110; 81025; 88305 ==

== ENCOUNTER → 2022-11-17 10:14 | Outpatient (BNVA) | payer OTHER, SELFPAY | PROVIDERS: PCP Internal Medicine; Visit Provider Internal Medicine Rheumatology | DX: N93.9 Abnormal uterine and vaginal bleeding, unspecified (principal); R87 Abnormal findings in specimens from female genital organs; N83.209 Unspecified ovarian cyst, unspecified side; R76.8 Other specified abnormal immunological findings in serum; G56.03 Carpal tunnel syndrome, bilateral upper limbs | CPT/HCPCS: 99212 ==

== ENCOUNTER 2022-12-05 16:45 | Emergency (ER) | payer OTHER, SELFPAY ==
--- NOTE | ~2022-12-05 | XR_ITS ---
EXAMINATION: XR LUMBOSACRAL SPINE CLINICAL INFORMATION: Atraumatic low back pain COMPARISON: Pelvic MR 10/09/2022 TECHNIQUE: Three views of the lumbosacral spine. FINDINGS: The vertebral bodies and posterior elements are unremarkable aside from some mild spondylitic endplate changes at L4 and L5.. The disc spaces are preserved and the vertebral alignment is normal. The paraspinal soft tissues are normal. The degenerative disc changes present at L5-S1 seen on the prior MR with protrusion of disc material posteriorly cannot be appreciated on the plain film radiograph. XR/XR lumbar spine 2-3V IMPRESSION: Minimal degenerative changes at L4 and L5. The disc spaces are preserved.
--- NOTE | 2022-12-05 17:17 | ED_ITS ---
HPI - Back Pain/Injury General Chief Complaint: Back Pain/Injury Stated Complaint: lower back pain Time Seen by Provider: 12/05/22 18:51 Source: patient, RN notes reviewed and old records reviewed Mode of arrival: ambulatory Limitations: no limitations History of Present Illness HPI Narrative: 42-year-old female presents for evaluation of lower back pain Patient denies any trauma or heavy lifting. She reports that she woke up at noon today, 7 hours ago with the pain Her pain does not radiate She reports that it is mild but aching in nature She reports history of back pain related to constipation but ?this feels different. ? Denies any numbness or tingling No other complaints or concerns at this time Related Data Home Medications Medication Instructions Recorded Confirmed multivitamin (Daily Multi-Vitamin 1 tab PO DAILY 05/21/21 11/17/22 tablet) Previous Rx's Medication Instructions Recorded nicotine 7 mg/24 hr daily 1 patch transdermal Q24H #14 ea 09/29/22 transdermal patch bupropion HCl 150 mg 24 hr tablet, 150 mg PO QAM 90 days #90 tabs 11/15/22 extended release hydroxyzine HCl 10 mg tablet 10 mg PO TID PRN anxiety 30 days 11/15/22 #90 tabs ibuprofen 200 mg capsule 600 mg PO Q6H 10 days #120 caps 11/15/22 methocarbamol 500 mg tablet 500 mg PO TID #15 tabs 12/05/22 Allergies Allergy/AdvReac Type Severity Reaction Status Date / Time docusate [From COLACE] Allergy Intermediate SWELLING, Verified 12/05/22 17:17 swollen Review of Systems Constitutional: Constitutional: Reports as per HPI, Denies chills, Denies fatigue, Denies fever(s) and Denies headache(s) ENT: Denies headache(s) Cardiovascular: Cardiovascular: Denies chest pain and Denies dyspnea Respiratory: Respiratory: Denies cough and Denies dyspnea Gastrointestinal: Gastrointestinal: Denies abdominal pain, Denies constipation and Denies vomiting Genitourinary: Genitourinary: Denies dysuria Musculoskeletal: Musculoskeletal: Reports back pain, Denies numbness, Reports stiffness and Denies tingling Neurologic: Denies headache(s), Denies focal weakness, Denies numbness and Denies tingling Endocrine: Endocrine: Denies fatigue [facility] Past Medical History Medical History (Updated 12/05/22 @ 19:08 by Surendra Schumacher) Left ovarian cyst Leukopenia 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 Lupus Nabothian cyst Overweight Physical exam Prolonged menstrual cycle Skin tag Takotsubo syndrome Transaminitis Surgical History H/O LEEP History of section History of tubal ligation Family History Family History Father Brain cancer Mother HIV (human immunodeficiency virus infection) Myocardial infarction Hypertension CVD (cardiovascular disease) Drug abuse Brother Legally blind Cancer Brother Albinism Maternal Grandfather Stroke H/O ETOH abuse Family/Other Mental health disorder Social History Social History Housing: Apartment Alcohol intake: current Alcohol intake frequency: holidays/special occasions only Alcohol type: hard liquor Patient Tobacco Use Status: Current everyday Tobacco user Tobacco use type: Cigarette Cigarettes Per Day: 6 Years Smoked: 10 e-Cigarette/Vaping Use: Never Used Second Hand Smoke Exposure: No Advance Directives: No Advance Directives Information Provided: Yes service: No Current occupational status: employed Current occupational exposures/hazards: No Sexual orientation: Straight/Heterosexual Gender identity: Female Cognitive needs: No Hearing needs: No Vision needs: Yes Physical Exam Vital Signs: Vital Signs: Last Vital Signs Temp 96.8 F 12/05/22 17:18 Pulse 62 12/05/22 17:18 Resp 18 12/05/22 17:18 BP 121/81 12/05/22 17:18 Pulse Ox 99 12/05/22 17:18 O2 Del Method Room Air 12/05/22 17:18 BMI result Body Mass Index 23.0 Const: General: healthy appearing, comfortable, no acute distress, alert and awake Nutritional Appearance: well nourished Orientation/consciousness: patient oriented x3 HEENT: Head: Yes normocephalic and Yes atraumatic Eyes: Eyelids: Yes eyelids normal Conjunctivae: conjunctivae normal Sclerae: sclerae normal Corneas: corneas normal Pupils: Equal, round and reactive pupils present EOM: EOMs intact bilaterally Neck: Neck: Yes full ROM Resp: Effort & Inspection: normal respiratory effort, able to speak in complete sentences and not labored Back/Spine/Pelvis: Cervical Spine: No cervical muscular tenderness Thoracic/Lumbar Spine: thoracic and lumbar spine normal to inspection, straight leg raise negative bilaterally, No thoracic spinal tenderness and lumbar spinal tenderness Sacrum: tenderness Skin: General skin exam: elasticity normal Neuro: General: patient oriented x3 Cranial nerves: Yes Equal, round and reactive pupils present and Yes Bilaterally intact EOM present Cognition (Neuro): normal cognition Motor exam (neuro): 5/5 motor strength present throughout Course Course Course Narrative: RME- 17:20pm - 42yoF with a PMHx of Lupus, MS and scoliosis presenting to the ED with c/o of a stiff back since 12 noon. Currently has a brace which she placed on today only due to the pain she does not normally wear this every day. It is worse when she is sitting on the toilet near her tailbone and with movement and sitting. She reports it feels better when she stays still standing. Currently on her menstrual period. She reports she took Motrin [id number] 3 hours ago which provided little symptomatic relief. Denies fevers, dysuria, hematuria, recent falls or trauma, paresthesias, saddle anesthesia or any other symptoms complaints or concerns at this time. Plan: UA and x-ray of lumbar spine ordered. Patient will be sent back to the waiting room to be evaluated in EM. Medical Decision Making Medical Decision Making [facility] Narrative: 6-year-old female presents for evaluation of atraumatic lower back pain. Her pain is reproducible on exam, she has no neuro signs or symptoms. She has a reassuring exam. X-ray lumbar spine shows mild arthritic changes. She is not . Symptoms are most likely musculoskeletal in origin, will treat with ibuprofen and methocarbamol. Differential Diagnosis Muscle strain Radiculopathy Sciatica Arthritis Back pain Lab Data Labs: Lab Results 12/05/22 12/05/22 Range/Units 17:33 17:33 Urine Color Yellow Urine Appearance Clear Urine pH 5.5 (5.0-9.0) Ur Specific [place] >= 1.030 H (1.005-1.025) Urine Protein Negative (Neg-Trace) mg/dL Urine Glucose (UA) Negative (Negative) mg/dL Urine Ketones Trace (Negative) mg/dL Urine Blood Negative (Negative) Urine Nitrite Negative (Negative) Ur Leukocyte Esterase Negative (Negative) Urine Test NEGATIVE (NEGATIVE) Independent Interpretation I performed an independent interpretation of an: Plain X-Ray Interpretation: No acute compression fractures Radiology Impression Radiologist Impression: Mild arthritic changes of the lumbar spine Discharge Plan Discharge Clinical Impression: Lower back pain Patient Disposition: Home, Self-Care Instructions: Acute Low Back Pain (ED) Additional Instructions: Your x-ray showed mild arthritis of the lumbar spine. Your pain is most likely musculoskeletal in origin Use ibuprofen as needed for discomfort Use methocarbamol as needed for muscle spasms This may make you sleepy, did not drink alcohol or drive after taking it Follow-up with your primary doctor Prescriptions: New methocarbamol 500 mg tablet 500 mg PO TID Qty: 15 0RF No Action bupropion HCl 150 mg tablet extended release 24 hr 150 mg PO QAM 90 Days Qty: 90 1RF hydroxyzine HCl 10 mg tablet 10 mg PO TID PRN (Reason: anxiety) 30 Days Qty: 90 0RF ibuprofen 200 mg capsule 600 mg PO Q6H 10 Days Qty: 120 0RF nicotine 7 mg/24 hr patch 24 hour 1 patch transdermal Q24H Qty: 14 2RF multivitamin [Daily Multi-Vitamin] Tablet 1 tab PO DAILY Stand Alone Forms: Work/School Release
[2022-12-05 17:18] VITALS: BP 121/81; PULSE 62; RESP 18; TEMP 36; O2SAT 99; BMI 23.0
[2022-12-05 17:40] LABS: Appearance Urine Clear; Color Urine Yellow; Glucose Urine UA Negative (Negative); Leukocyte Esterase Urine Negative (Negative); Nitrite Urine Negative (Negative); PH 5.5 (5.0-9.0); Specific Gravity - Urine >= 1.030 (1.005-1.025); Urine Blood Negative (Negative); Urine Ketones Trace mg/dL (Negative); Urine Protein Negative (Neg-Trace)
[2022-12-05 18:26] LABS: UPreg QC Valid YES; Urine Pregnancy NEGATIVE (NEGATIVE)
[2022-12-05] MEDS: Ketorolac Tromethamine 30 MG/ML VIAL IM (19:03)
== END 2022-12-05 19:14 | disposition home or self-care (01) ==
PROVIDERS: Physician Assistant Medical; Emergency Provider Emergency Medicine; PCP Internal Medicine
DX: M54.50 Low back pain, unspecified (principal); F17.210 Nicotine dependence, cigarettes, uncomplicated; Z71.6 Tobacco abuse counseling; Z79.899 Other long term (current) drug therapy
CPT/HCPCS: 72100; 81003; 81025; 96372; 99283; 99284; J1885

== ENCOUNTER 2022-12-29 09:45 | Outpatient (AMB) | payer OTHER, SELFPAY ==
[2022-12-29 09:47] VITALS: BP 98/72; PULSE 64; O2SAT 99; BMI 23.0
--- NOTE | 2022-12-29 09:47 | A.OFFPC_ITS ---
Vital Signs 12/29/22 09:47 Height 5 ft 7 in Weight 147 lb BMI 23.0 BP 98/72 Blood Pressure Location Lt brachial Position Sitting Pulse 64 Pulse Source Pulse Oximeter Temp Source Skin Pulse Oximetry (%) 99 Oxygen Delivery Method Room Air [place] [facility] Back Pain Intake Note: Patient is here to follow-up after a visit [place] [facility] for back pain Humane Agent Required: No Allergies docusate [From COLACE] Allergy (Intermediate, Verified 12/29/22 09:54) SWELLING, swollen Medication List - Last Reconciled 12/29/22 by Charo Barcenas, SUPPLIER QUALITY SPECIALIST bupropion HCl 150 mg PO QAM 90 days hydroxyzine HCl 10 mg PO TID PRN 30 days ibuprofen 600 mg (3 x 200 mg) PO Q6H 10 days methocarbamol 500 mg PO TID multivitamin (Daily Multi-Vitamin tablet) 1 tab PO DAILY nicotine 1 patch transdermal Q24H Tobacco use date assessed: 12/29/22 Dental Screening Dental Screen Date: 12/29/22 Did you have a dental visit in the last 12 months?: Yes Did you have a dental problem in the last 6 months where you did not have access to dental care?: No [place]PI [facility] Back Pain HPI Details Patient is a 42-year-old female presents today to follow-up after [place] [facility] visit 12/05/2022 due to back pain. Patient of Dr. Huffman. Per ED notes: 42-year-old female presents for evaluation of lower back pain Patient denies any trauma or heavy lifting. She reports that she woke up at noon today, 7 hours ago with the pain Her pain does not radiate She reports that it is mild but aching in nature She reports history of back pain related to constipation but ?this feels different. ? Denies any numbness or tingling No other complaints or concerns at this time. 42yoF with a PMHx of Lupus, MS and scoliosis presenting to the ED with c/o of a stiff back since 12 noon. Currently has a brace which she placed on today only due to the pain she does not normally wear this every day. It is worse when she is sitting on the toilet near her tailbone and with movement and sitting. She reports it feels better when she stays still standing. Currently on her menstrual period. She reports she took Motrin [id number] 3 hours ago which provided little symptomatic relief. Denies fevers, dysuria, hematuria, recent falls or trauma, paresthesias, saddle anesthesia or any other symptoms complaints or concerns at this time. 42-year-old female presents for evaluation of atraumatic lower back pain. Her pain is reproducible on exam, she has no neuro signs or symptoms. She has a reassuring exam. X-ray lumbar spine shows mild arthritic changes. She is not . Symptoms are most likely musculoskeletal in origin, will treat with ibuprofen and methocarbamol. Today, patient reports that this low back pain resolved after emergency department visit, although she woke up yesterday with the same back pain. She reports taking methocarbamol and ibuprofen with improvement in pain. She denies changes in bowel/bladder, no numbness or tingling, no extremity weakness. She reports low back pain/tailbone 3/10 scale throbbing. Pain is worse with sitting, bending, pain is better with standing and walking. No shortness of breath or chest pain. Denies injury. COUNTS INCLUDE 234 BEDS AT THE [facility] Medical History Left ovarian cyst Leukopenia 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 Lupus Nabothian cyst Overweight Physical exam Prolonged menstrual cycle Skin tag Takotsubo syndrome Transaminitis Surgical History H/O LEEP History of section History of tubal ligation Family History Father Brain cancer Mother HIV (human immunodeficiency virus infection) Myocardial infarction Hypertension CVD (cardiovascular disease) Drug abuse Brother Legally blind Cancer Brother Albinism Maternal Grandfather Stroke H/O ETOH abuse Family/Other Mental health disorder Social History Housing: Apartment Alcohol intake: current Alcohol intake frequency: holidays/special occasions only Alcohol type: hard liquor Patient Tobacco Use Status: Current everyday Tobacco user Tobacco use type: Cigarette Cigarettes Per Day: 6 Years Smoked: 10 Packs per year/per ci.00 e-Cigarette/Vaping Use: Never Used Second Hand Smoke Exposure: No service: No Current occupational status: employed Current occupational exposures/hazards: No Sexual orientation: Straight/Heterosexual Gender identity: Female Cognitive needs: No Hearing needs: No Vision needs: Yes Questionnaire PHQ-9 Over the last 2 weeks, how often have you been bothered by any of the following problems? 1. Little interest or pleasure in doing things: more than half the days 2. Feeling down, depressed, or hopeless: several days 3. Trouble falling or staying asleep, or sleeping too much: not at all 4. Feeling tired or having little energy: more than half the days 5. Poor appetite or overeating: more than half the days 6. Feeling bad about yourself - or that you are a failure or have let yourself or your family down: several days 7. Trouble concentrating on things, such as reading the newspaper or watching television: not at all 8. Moving or speaking so slowly that other people could have noticed. Or the opposite - being so fidgety or restless that you have been moving around a lot more than usual: not at all 9. Thoughts that you would be better off or of hurting yourself in some way: not at all Total score: 8 Depression Screening Interpretation: Positive Depression Screening Follow-up: Existing condition [id number] - PHQ-9 Billing: Yes Source: Developed by Drs. Nathaniel Khalil, Chelsea Garcia, Fercho Hathaway and colleagues, with an educational shay from [employer]. Thrive Questionnaire Date Thrive assessed: 12/29/22 I am a: Patient What is your living situation today?: I have a steady place to live Within the past 12 months, did the food you bought not last and you didn't have the money to get more?: Never true Within the past 12 months, did you worry whether your food would run out before you got money to buy more?: Never true Currently or been in a relationship where the following occur: no concerns reported AUDIT C Alcohol Use Questionnaire (AUDIT-C) 1. How often do you have a drink containing alcohol?: Never 3. How often do you have six or more drinks on one occasion?: Never Total Score: 0 Score Reviewed/Action Taken: No NISHI-7 AMB Questionnaire NISHI-7 Date NISHI - 7 assessed: 08/18/22 Source: Developed by Drs. Nathaniel Khalil, Chelsea Garcia, Fercho Hathaway and colleagues, with an educational shay from [employer]. Review of Systems Const Denies body aches, Denies chills, Denies fever(s) and Denies headache(s) Eyes Denies change in vision ENT Denies dizziness, Denies otalgia, Denies headache(s), Denies nasal discharge, Denies sinus pain and Denies sore throat Card Denies chest pain, Denies edema, Denies lightheadedness and Denies dyspnea Resp Denies cough, Denies dyspnea and Denies wheezing GI Denies constipation, Denies diarrhea, Denies nausea and Denies vomiting Denies dysuria Musc Reports back pain, Denies myalgias, Denies numbness and Denies tingling Skin/Breast Denies rash Neuro Denies dizziness, Denies headache(s), Denies numbness and Denies tingling Aller/Immun Denies wheezing Physical exam (Primary Care) Vital Signs: Last Vital Signs Pulse 64 12/29/22 09:47 BP 98/72 12/29/22 09:47 Pulse Ox 99 12/29/22 09:47 Oxygen Delivery Method Room Air 12/29/22 09:47 BMI result Body Mass Index 23.0 Tobacco/Smoking Status: Tobacco use Status Tobacco use date assessed 12/29/22 12/29/22 09:48 Patient Tobacco Use Status Current everyday Tobacco 12/29/22 09:48 Tobacco use type Cigarette 12/29/22 09:48 e-Cigarette/Vaping Use Never Used 12/29/22 09:48 PHQ-9: PHQ-9 Score PHQ-9: Total score 8 12/29/22 09:48 Depression Screening Interpretation: Positive Depression Screening Follow-up: Existing condition Thrive Assessment: Date of Thrive Assessment Date Thrive assessed 12/29/22 12/29/22 09:48 Currently or been in a relationship where the following occur: no concerns reported Const General: cooperative and no acute distress Orientation/consciousness: patient oriented x3 HENMT Head: Yes normocephalic and Yes atraumatic Face and sinus: Yes sinuses nontender Mouth: oropharynx normal and moist mucous membranes Throat: Yes posterior oropharynx normal Eyes General: appearance normal, both eyes and all related structures Neck Neck: Yes normal visual inspection, Yes full ROM and Yes no lymphadenopathy Resp Effort & Inspection: normal respiratory effort and able to speak in complete sentences Auscultation: clear to auscultation bilaterally, no crackles, no rales, no rhonchi and no wheezes Cardio Rate: regular rate Rhythm: regular rhythm Heart sounds: S1 normal heart sound present and S2 normal heart sound present GI Auscultation: normal bowel sounds General: No CVA tenderness Back/Spine/Pelvis Back: No CVA tenderness Thoracic/Lumbar Spine: straight leg raise negative bilaterally, pain with thoraco-lumbar ROM, No paraspinal muscle tenderness, No thoracic spinal tenderness and No lumbar spinal tenderness Pelvis: no buttock tenderness Skin General skin exam: no rashes or lesions noted Neuro General: patient oriented x3 Gait exam (Neuro): Normal gait present Extrem General: Yes full ROM and No edema Assessment and Plan Assessment & Plan (1) Lower back pain: Code(s): M54.50 - Low back pain, unspecified Plan: Patient presents today to follow-up after emergency department visit in regards to low back pain. Most likely musculoskeletal in origin. Urgent referral to physical therapy. Encouraged heating packs p.r.n.. Patient is to continue ibuprofen 600 mg every 6 hours as needed, methocarbamol 500 mg t.i.d. p.r.n.- educated about drowsiness. Follow-up if no improvement after physical therapy. Signs and symptoms reviewed when to notify provider or go to the emergency department. Patient agreed with the plan. Orders: Orders PT Evaluation and Treatment Today M54.50 - Low back pain, unspecified Medications: Refilled methocarbamol 500 mg PO TID 15 tabs 0RF Coding Level of Care Code Est Pt Level 3 (45107) Diagnoses Lower back pain M54.50
== END 2022-12-29 10:13 | disposition home or self-care (01) ==
PROVIDERS: PCP Internal Medicine; Visit Provider Nurse Practitioner Family
DX: M54.50 Low back pain, unspecified (principal)
CPT/HCPCS: 99213

== ENCOUNTER 2022-12-30 11:48 | Outpatient (AMB) | payer OTHER, SELFPAY ==
[2022-12-30 11:54] VITALS: BMI 23.0
--- NOTE | 2022-12-30 11:54 | A.OFFVIS_ITS ---
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 States both hands are as bad. States her numbness has worsen in the last year. Patient has tried wrist brace but states its uncomfortable. EMG done. Patient referred by her PCP Dr. Blanchard. Allergies docusate [From COLACE] Allergy (Intermediate, Verified 12/30/22 11:58) SWELLING, swollen Medication List - Last Reconciled 12/30/22 by Roxanne Fuentes MD bupropion HCl 150 mg PO QAM 90 days hydroxyzine HCl 10 mg PO TID PRN 30 days ibuprofen 600 mg (3 x 200 mg) PO Q6H 10 days methocarbamol 500 mg PO TID multivitamin (Daily Multi-Vitamin tablet) 1 tab PO DAILY HPI HPI Comments History of Present Illness Details Over a year of hand numbness. No injuries. All fingers/whole hand goes numb, radiates to her elbow. Feels like funny bone on elbows. Also has feet numbness but seldom. No DM. No neck pain. No noted atrophy. Drops things. Walking is ok. Did go recently to ED for low back pain. Takes muscle relaxer. Patient was following Dr. Carlin from Rheumatology. He was considering repeat EMG, and consideration of surgery and/or injection. [facility] Medical History Left ovarian cyst Leukopenia 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 Lupus Nabothian cyst Overweight Physical exam Prolonged menstrual cycle Skin tag Takotsubo syndrome Transaminitis Surgical History H/O LEEP History of section History of tubal ligation Family History Father Brain cancer Mother HIV (human immunodeficiency virus infection) Myocardial infarction Hypertension CVD (cardiovascular disease) Drug abuse Brother Legally blind Cancer Brother Albinism Maternal Grandfather Stroke H/O ETOH abuse Family/Other Mental health disorder Social History (Updated 12/30/22 @ 11:58 by ALEX Suh Housing: Apartment Alcohol intake: current Alcohol intake frequency: holidays/special occasions only Alcohol type: hard liquor Patient Tobacco Use Status: Current everyday Tobacco user Tobacco use type: Cigarette Cigarettes Per Day: 6 Years Smoked: 10 e-Cigarette/Vaping Use: Never Used Second Hand Smoke Exposure: No service: No Current occupational status: employed 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 MSK: Inspection reveals appropriate head and neck positioning. Tender and trigger point on the upper trapezius. Cervical ROM was full. Spurling's sign slightly positive on left which I think is from presence of trigger point on left upper trapezius. Bilateral shoulder ROM WNL. No ligamentous laxity or crepitance. No increased effusion. Hawkin's test is negative. No joint effusion noted. No deformity noted. No intrinsic hand weakness noted. No atrophy noted. Monie test negative. Carpal compression test positive bilateral. Tinel sign positive bilaterally on wrist and elbows. Strength is 5/5 in all muscle groups tested. No increased tone noted. Neurological: Neurologic examination of the upper and lower extremities was nonfocal with intact sensation, muscle stretch reflexes and without focal motor deficits . Acevedo?s negative bilaterally. Babinski was down going bilaterally. Clonus was negative. Gait is non-antalgic without loss of balance. Results Reviewed Results Reviewed: I independently revied: Nerve conduction/EMG she reported mild bilateral Carpal Tunnel Syndrome. However nerve conduction tables actually showed increased distal latency the left APB and prolonged bilateral palmar sensory median, which would make left- sided moderate Carpal Tunnel Syndrome. Bilateral median and ulnar motor and sensory studies were performed. Bilateral radial sensory studies were performed and paraspinal muscles were tested with a needle. IMPRESSION: Mild bilateral median neuropathy across carpal tunnel. 07/15/22 I reviewed records from the following: Rheumatology Assessment & Plan Assessment & Plan (1) Carpal tunnel syndrome on both sides: Code(s): G56.03 - Carpal tunnel syndrome, bilateral upper limbs Plan: It is reasonable to repeat nerve conduction/EMG to see for any worsening of median neuropathy and also to rule out ulnar neuropathy. Continue to wear wrist splints at night. Patient may consider surgery depending on NCS/EMG studies. (2) Myofascial pain on left side: Code(s): M79.18 - Myalgia, other site Plan: Will watch this for now, there is some trigger points on upper trapezius. Patient has been already referred to physical therapy and await scheduling. Plan Assessment and plan discussed with patent, and patient was agreeable. All questions were answered thoroughly. Orders: Orders NE nerve conduction velocity Today G56.03 - Carpal tunnel syndrome, bilateral upper limbs Coding Level of Care Code New Pt Level 4 (78523) Diagnoses Carpal tunnel syndrome on both sides G56.03 Myofascial pain on left side M79.18
== END 2022-12-30 12:16 | disposition home or self-care (01) ==
PROVIDERS: PCP Internal Medicine; Visit Provider Physical Medicine & Rehabilitation
DX: G56.03 Carpal tunnel syndrome, bilateral upper limbs (principal); M79.18 Myalgia, other site
CPT/HCPCS: 99204

== ENCOUNTER → 2022-12-30 11:48 | Outpatient (BNVA) | payer OTHER, SELFPAY | PROVIDERS: PCP Internal Medicine; Visit Provider Physical Medicine & Rehabilitation | DX: G56.03 Carpal tunnel syndrome, bilateral upper limbs (principal); M79.18 Myalgia, other site | CPT/HCPCS: 99202 ==

== ENCOUNTER 2023-02-15 17:00 | Outpatient (RCR) | payer OTHER, SELFPAY ==
--- NOTE | 2023-01-18 15:40 | MHC.PT.EP ---
[facility] [place] Office [place] Office [place] Office [address] [phone] F: [phone] F: [phone] F: [phone] F: [phone] Physical Therapy Plan of Care Date of Evaluation: Date of Surgery: Diagnosis: low back pain (MD Dx) post disc protrusion L5/S1 seen on pelvic MRI (PT Dx) Assessment: Patient is a 42 y.o. female with PMHx of lupus and multiple sclerosis who is referred to PT by JAE Lamas with Dx of low back pain. PT diagnosis is L5/S1 post disc protrusion. Patient impairments include poor posture, pain, hypermobility of lumbar spine, decreased core strength/stability. Patient current functional limitations are prolonged sitting and bending. Patient will benefit from skilled PT to address aforementioned impairments and functional limitations to meet established goals. Frequency and Duration: The patient will be seen 2x/week for 4 weeks Short Term Goals: 2 weeks Patient demonstrates consistency and independence with HEP to self manage symptoms. Patient demonstrates good lumbar posture in neutral with prolonged sitting. Entertainment Musician Goals: 4 weeks Patient presents with increased TA contraction, strong on both sides to improve stability to be able to sit for 1 hour. Treatment Plan: Modalities to reduce pain, spasms and effusion. Manual therapy to restore motion and function. Therapeutic exercise to improve strength and flexibility. Neuromuscular re-education for posture and balance. Therapeutic activities to return to functional activities of daily living. Electronically signed by: Milly Mcdonald, PT, DPT Please sign and return to therapist. Thank you for your referral.
--- NOTE | 2023-05-02 16:26 | MHC.PT.DC ---
[facility] [place] Office [place] Office [place] Office [address] Jordan Mendes [address] [phone] F: [phone] F: [phone] F: [phone] F: [phone] Physical Therapy Discharge Report Diagnosis: low back pain (MD Dx) post disc protrusion L5/S1 seen on pelvic MRI (PT Dx) Date of Surgery: Date of Evaluation: 01/18/23 Date of Discharge: 05/02/23 Treatments to Date: 8 Cancellations to Date: 1 No Shows to Date: Discharge Status: Improved Function Independent with HEP Discharge Summary: Stephanie attended all scheduled PT visits then finished attending on her own accord. Her last PT visit on 02/15/23 the assessment reads, She did well with core stabilization exercises without c/o sacral pain or LE sxs. Trialed lumbar traction this session due to c/o radicular sxs in bilateral feet at night. She reports relief during traction in low back feels like I have space/air in my back. Will continue with traction if patient finds it is beneficial. Electronically signed by: Milly Mcdonald, PT, DPT Please sign and return to therapist. Thank you for your referral.
== END 2023-05-02 16:26 | disposition home or self-care (01) ==
LOC: HO.PT 17:00
PROVIDERS: PCP Internal Medicine; Visit Provider Nurse Practitioner Family
DX: M54.50 Low back pain, unspecified (principal)
CPT/HCPCS: 97012; 97110; 97140; 97162; 97530

== ENCOUNTER 2023-02-17 10:57 | Outpatient (REF) | payer OTHER, SELFPAY ==
--- NOTE | ~2023-02-17 | US_ITS ---
EXAMINATION: US PELVIS CLINICAL INFORMATION: Follow-up ovarian cyst; the last menstrual period was on 02/13/2023. COMPARISON: Portions of the MRI pelvis dated 10/09/2022; prior pelvic ultrasound examinations, most recently 09/22/2022. TECHNIQUE: Ultrasound of the pelvis is performed using both transabdominal and transvaginal transducers along with Doppler. Transvaginal imaging is performed due to inadequate visualization transabdominally. FINDINGS: Uterus: The uterus is anteverted and measures 9.4 x 3.3 x 5.0 cm. Within the rightward uterine body, a 7 mm simple appearing cyst is redemonstrated. The double wall endometrial thickness is 0.8 mm (poorly visualized). Nabothian cysts are seen within the cervix. The uterus is smooth in contour and has normal myometrial echogenicity. No visible fibroid. Adnexa: Both ovaries are visualized. There is normal color flow to the adnexa. There is no ovarian torsion. There is no pelvic ascites or fluid collection. Right ovary measures 2.4 x 1.6 x 1.6 cm, volume 3.2 mL. Left ovary measures 2.3 x 1.2 x 2.4 cm, volume 3.5 mL. The left ovary contains a 1.2 x 0.9 x 1.0 cm anechoic cyst with hyperechoic, nonshadowing wall, likely a resorbing hemorrhagic cyst. US/US pelvic and transvaginal IMPRESSION: 1. There is interim resolution of the previously seen complex right ovarian cyst. 2. The left ovary contains a 1.2 cm probable resorbing hemorrhagic cyst. 3. Nabothian cysts are seen within the cervix.
== END 2023-02-17 10:58 | disposition home or self-care (01) ==
LOC: HO.US 10:57
PROVIDERS: PCP Internal Medicine; Visit Provider Obstetrics & Gynecology
DX: N83.209 Unspecified ovarian cyst, unspecified side (principal)
CPT/HCPCS: 76830; 76856

== ENCOUNTER 2023-02-17 13:32 | Outpatient (AMB) | payer OTHER, SELFPAY ==
[2023-02-17 13:36] VITALS: BP 112/80; BMI 22.9
--- NOTE | 2023-02-17 13:36 | A.OFFPC_ITS ---
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 Required: No Accompanied by: Self / Same As Patient Allergies docusate [From COLACE] Allergy (Intermediate, Verified 02/17/23 13:43) SWELLING, swollen Medication List - Last Reconciled 02/17/23 by Donna Levine MD bupropion HCl 150 mg PO QAM 90 days hydroxyzine HCl 10 mg PO TID PRN 30 days ibuprofen 600 mg (3 x 200 mg) PO Q6H 30 days methocarbamol 500 mg PO TID multivitamin (Daily Multi-Vitamin tablet) 1 tab PO DAILY Tobacco use date assessed: 12/29/22 Dental Screening Dental Screen Date: 02/17/23 Did you have a dental visit in the last 12 months?: No Did you have a dental problem in the last 6 months where you did not have access to dental care?: No Was dental information given to patient?: Patient has dentist HPI HPI Comments History of Present Illness Details This is a 42-year-old female with mild major depression and positive DONNA that comes today for follow-up on her conditions. Depression has been st able with bupropion. Still has diffuse joint pain and hand numbness. Nerve conduction studies pending. Has a positive DONNA with low complement C4 and mildly positive [id number]-[id number] DNA with mild leukopenia that may be related to a connective tissue disease and this is follow by Rheumatology. Needs to see Ophthalmology to rule out bull's-eye just in case hydroxychloroquine needs to be started. No chest pain or shortness of breath. PFSH Medical History Nabothian cyst Left ovarian cyst Prolonged menstrual cycle Lupus Transaminitis Leukopenia Physical exam Takotsubo syndrome 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 Skin tag Overweight Surgical History H/O LEEP History of tubal ligation History of section Family History Father Brain cancer Mother HIV (human immunodeficiency virus infection) Myocardial infarction Hypertension CVD (cardiovascular disease) Drug abuse Brother Legally blind Cancer Brother Albinism Maternal Grandfather Stroke H/O ETOH abuse Family/Other Mental health disorder Social History Housing: Apartment Alcohol intake: current Alcohol intake frequency: holidays/special occasions only Alcohol type: hard liquor Patient Tobacco Use Status: Current everyday Tobacco user Tobacco use type: Cigarette Cigarettes Per Day: 6 Years Smoked: 10 e-Cigarette/Vaping Use: Never Used Second Hand Smoke Exposure: No service: No Current occupational status: employed 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 Nathaniel Khalil, Chelsea Garcia, Fercho Hathaway and colleagues, with an educational shay from [employer]. Review of Systems Const All systems reviewed & are unremarkable except as noted in HPI and below Eyes Reports no additional complaints, Denies change in vision and Denies other visual disturbances Card Denies chest pain at rest, Denies chest pain with activity, Denies edema, Denies irregular heart rhythm, Denies claudication, Denies dyspnea, Denies dyspnea on exertion, Denies orthopnea, Denies paroxysmal nocturnal dyspnea and Denies slow heart rate Resp Denies cough, Denies dyspnea and Denies dyspnea on exertion GI Denies abdominal pain, Denies change in bowel habits, Denies excessive flatus, Denies nausea and Denies vomiting Denies urinary incontinence, Denies urinary hesitancy and Denies urinary urgency Musc Denies abnormal gait, Denies atrophy, Denies deformity, Reports arthralgias, Denies limited range of motion and Reports numbness Skin/Breast Denies bleeding lesions, Denies changing lesions and Denies rash Neuro Denies abnormal gait, Denies lack of coordination and Reports numbness Psych Reports depression Physical exam (Primary Care) Vital Signs: Last Vital Signs BP 112/80 02/17/23 13:36 BMI result Body Mass Index 22.9 Tobacco/Smoking Status: Tobacco use Status Tobacco use date assessed 12/29/22 02/17/23 13:41 Patient Tobacco Use Status Current everyday Tobacco 02/17/23 13:41 Tobacco use type Cigarette 02/17/23 13:41 e-Cigarette/Vaping Use Never Used 02/17/23 13:41 Thrive Assessment: Date of Thrive Assessment Date Thrive assessed 12/29/22 02/17/23 13:41 Eyes General: appearance normal, both eyes and all related structures Eyelids: Yes eyelids normal Conjunctivae: conjunctivae normal Neck Neck: Yes normal visual inspection and Yes supple Resp Effort & Inspection: normal respiratory effort Auscultation: clear to auscultation bilaterally Cardio Jugular venous distension: no JVD Rate: regular rate Rhythm: regular rhythm Heart sounds: S1 normal heart sound present and S2 normal heart sound present Extrem General: Yes full ROM Assessment and Plan Assessment & Plan (1) Mild major depression: Code(s): F32.0 - Major depressive disorder, single episode, mild Plan: Continue bupropion (2) Positive DONNA (antinuclear antibody): Comment: 2022 DONNA 1:1280, homogeneuous. Mildly positive anti DNA antibody. Clinical syndrome not suggestive of SLE. Code(s): R76.8 - Other specified abnormal immunological findings in serum Plan: Follow-up with rheumatology Orders: Referrals Ophthalmology Referral H53.8 - Other visual disturbances Coding Level of Care Code Est Pt Level 3 (51832) Diagnoses Mild major depression F32.0 Positive DONNA (antinuclear antibody) R76.8 Time Spent (min) 19
== END 2023-02-17 13:56 | disposition home or self-care (01) ==
PROVIDERS: Visit Provider Internal Medicine
DX: F32.0 Major depressive disorder, single episode, mild (principal); R76.0 Raised antibody titer
CPT/HCPCS: 99213

== ENCOUNTER 2023-03-03 10:22 | Outpatient (AMB) | payer OTHER, SELFPAY ==
--- NOTE | 2023-03-03 10:22 | MHC.OFFVIS ---
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 Ultrasound done recently showed the following: Uterus: The uterus is anteverted and measures 9.4 x 3.3 x 5.0 cm. Within the rightward uterine body, a 7 mm simple appearing cyst is redemonstrated. The double wall endometrial thickness is 0.8 mm (poorly visualized). Nabothian cysts are seen within the cervix. The uterus is smooth in contour and has normal myometrial echogenicity. No visible fibroid. Adnexa: Both ovaries are visualized. There is normal color flow to the adnexa. There is no ovarian torsion. There is no pelvic ascites or fluid collection. Right ovary measures 2.4 x 1.6 x 1.6 cm, volume 3.2 mL. Left ovary measures 2.3 x 1.2 x 2.4 cm, volume 3.5 mL. The left ovary contains a 1.2 x 0.9 x 1.0 cm anechoic cyst with hyperechoic, nonshadowing wall, likely a resorbing hemorrhagic cyst. [facility] Medical History (Reviewed 03/03/23 @ 10:24 by Yadira Mak [facility]) Nabothian cyst Left ovarian cyst Prolonged menstrual cycle Lupus Transaminitis Leukopenia Physical exam Takotsubo syndrome 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 Skin tag Overweight Surgical History H/O LEEP History of tubal ligation History of section Family History Father Brain cancer Mother HIV (human immunodeficiency virus infection) Myocardial infarction Hypertension CVD (cardiovascular disease) Drug abuse Brother Legally blind Cancer Brother Albinism Maternal Grandfather Stroke H/O ETOH abuse Family/Other Mental health disorder Social History Housing: Apartment Alcohol intake: current Alcohol intake frequency: holidays/special occasions only Alcohol type: hard liquor Patient Tobacco Use Status: Current everyday Tobacco user Tobacco use type: Cigarette Cigarettes Per Day: 6 Years Smoked: 10 e-Cigarette/Vaping Use: Never Used Second Hand Smoke Exposure: No service: No Current occupational status: employed 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 Current occupational exposures/hazards: No Sexual orientation: Straight/Heterosexual Gender identity: Female Cognitive needs: No Hearing needs: No Vision needs: Yes Female Reproductive History Menstrual Date of last menstrual period: 02/22/23 Review of Systems Const All systems reviewed & are unremarkable except as noted in HPI and below Reports as per HPI and Reports no additional complaints GI Reports no additional complaints Reports no additional complaints Assessment & Plan Assessment & Plan (1) Ovarian cyst: Comment: Right hemorrhagic cyst resolved Left resolving hemorrhagic cyst Code(s): N83.209 - Unspecified ovarian cyst, unspecified side Plan: Discussed with the patient ultrasound findings showing the previously identified right complex cyst/hemorrhagic cyst has resolved. In addition discussed with the patient in you left resolving hemorrhagic cyst identified by ultrasound. Repeat follow-up pelvic ultrasound in 3-4 months to ensure resolution of the left resolving hemorrhagic cyst. The patient was instructed to schedule an ultrasound follow-up appointment. All questions were answered the patient verbalized understanding. Orders: Orders US pelvic and transvaginal 4 Months N83.299 - Other ovarian cyst, unspecified side Coding Level of Care Code Est Pt Level 3 (69840) Diagnoses Ovarian cyst N83.209
[2023-03-03 10:24] VITALS: BP 110/74; BMI 22.8
== END 2023-03-03 10:42 | disposition home or self-care (01) ==
LOC: HO.HWS 10:22
PROVIDERS: PCP Internal Medicine; Visit Provider Obstetrics & Gynecology
DX: N83.209 Unspecified ovarian cyst, unspecified side (principal)
CPT/HCPCS: 99213

== ENCOUNTER → 2023-03-03 10:22 | Outpatient (BNVA) | payer OTHER, SELFPAY | PROVIDERS: PCP Internal Medicine; Visit Provider Obstetrics & Gynecology | DX: N83.202 Unspecified ovarian cyst, left side (principal) | CPT/HCPCS: 99212 ==

== ENCOUNTER 2023-04-28 12:15 | Outpatient (AMB) | payer OTHER, SELFPAY ==
[2023-04-28 12:27] VITALS: BP 120/60; PULSE 75; TEMP 36.1; O2SAT 98; BMI 22.7
--- NOTE | 2023-04-28 12:27 | AM.OFFWIN_ITS ---
Intake Vital Signs 3 04/28/23 12:27 Height 5 ft 7 in Weight 145 lb BMI 22.7 BP 120/60 Blood Pressure Location Lt brachial Position Sitting Pulse 75 Pulse Source Pulse Oximeter Temp 96.9 F Temp Source Temporal Artery Scan Pulse Oximetry (%) 98 Oxygen Delivery Method Room Air Intake Visit Reasons: EP, Left ankle pain Intake Note: pt is here today for lft ankle pain started last tuesday Patient Tobacco Use Status: Current everyday Tobacco user Allergies docusate [From COLACE] Allergy (Intermediate, Verified 04/28/23 12:27) SWELLING, swollen Do you need a note to return to daycare/school/sports/work: Yes HPI EP, Left ankle pain 2 HPI0 Details 43 year old female patient presents toda y with a 9 day history of left foot pain. Reports pain along lower/lateral aspect of left foot and also at the bottom of her left foot beneath first and second toes. Denies trauma or injury. Has been taking Motrin and doing epsom salt soaks. Also has been wearing compression socks and supportive shoes. Denies any warmth or redness of foot. [facility] Medical History Nabothian cyst Left ovarian cyst Prolonged menstrual cycle Lupus Transaminitis Leukopenia Physical exam Takotsubo syndrome 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 Skin tag Overweight Surgical History H/O LEEP History of tubal ligation History of section Family History Father Brain cancer Mother HIV (human immunodeficiency virus infection) Myocardial infarction Hypertension CVD (cardiovascular disease) Drug abuse Brother Legally blind Cancer Brother Albinism Maternal Grandfather Stroke H/O ETOH abuse Family/Other Mental health disorder Social History Housing: Apartment Alcohol intake: current Alcohol intake frequency: holidays/special occasions only Alcohol type: hard liquor Patient Tobacco Use Status: Current everyday Tobacco user Tobacco use type: Cigarette Cigarettes Per Day: 6 Years Smoked: 10 e-Cigarette/Vaping Use: Never Used Second Hand Smoke Exposure: No service: No Current occupational status: employed 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 Current occupational exposures/hazards: No Sexual orientation: Straight/Heterosexual Gender identity: Female Cognitive needs: No Hearing needs: No Vision needs: Yes Review of Systems Const All systems reviewed & are unremarkable except as noted in HPI and below Physical Exam Vital Signs: Last Vital Signs Temp 96.9 F 04/28/23 12:27 Pulse 75 04/28/23 12:27 BP 120/60 04/28/23 12:27 Pulse Ox 98 04/28/23 12:27 Oxygen Delivery Method Room Air 04/28/23 12:27 BMI result Body Mass Index 22.7 Const General: cooperative and healthy appearing Resp Effort & Inspection: normal respiratory effort Skin General skin exam: no rashes or lesions noted Extrem Left lower extremity: foot (no excessive warmth, no erythema) Details: normal capillary refill, normal to inspection, tenderness Location: of the plantar foot Location: distally and of the lateral foot Location: proximally, toes with normal ROM and no edema Ankle/foot/toe images: 2 1. tenderness 2. tenderness Psych Appearance: grossly normal Mental Status: mental status grossly normal Speech and movement: Normal speech and movement present Assessment & Plan Assessment & Plan (1) Left foot pain: Code(s): M79.672 - Pain in left foot Plan: Patient's presentation consistent with plantar fasciitis. XR left foot in the office today was normal with no fracture or dislocation. We reviewed treatment modalities including NSAIDs, foot stretches, rolling of the plantar fascia. I will start her on a short course of meloxicam. We reviewed indications, use, possible s/e. We discussed an orthotic to help with this and she states she will purchase one otc or online to help. If she does not improve with this she will discuss podiatry referral from PCP. She agrees with plan today. Work note provided. (2) Plantar fasciitis, left: Code(s): M72.2 - Plantar fascial fibromatosis Plan: See above plan. Orders: Orders 2 XR foot LT 2V 04/28/23 M79.672 - Pain in left foot Medications: New 2 meloxicam 15 mg PO DAILY 7 tabs 0RF 7 days M72.2 - Plantar fascial fibromatosis Coding Level of Care Code Est Pt Level 3 (53397) Diagnoses Left foot pain M79.672 Plantar fasciitis, left M72.2
== END 2023-04-28 13:56 | disposition home or self-care (01) ==
PROVIDERS: PCP Internal Medicine; Visit Provider Nurse Practitioner Family
DX: M79.672 Pain in left foot (principal); M72.2 Plantar fascial fibromatosis
CPT/HCPCS: 99213

== ENCOUNTER 2023-04-28 13:16 | Outpatient (REF) | payer OTHER, SELFPAY ==
--- NOTE | ~2023-04-28 | XR_ITS ---
EXAMINATION: XR FOOT, LEFT CLINICAL INFORMATION: Left foot pain beneath the left lateral malleolus and base of first and second metatarsals COMPARISON: None available. TECHNIQUE: AP, lateral, and oblique views of the left foot. FINDINGS: BONES: Bony structures are intact. There is no focal bone destruction or periosteal reaction seen. JOINTS: Alignment of joints is normal. SOFT TISSUE: Soft tissue is normal. No radiopaque foreign body or abnormal air collection is seen. XR/XR foot LT 2V IMPRESSION: 1. Normal x-rays of left foot. No fracture or dislocation or signs of osteomyelitis are found.
== END 2023-04-28 13:17 | disposition home or self-care (01) ==
LOC: HO.HMGCX 13:16
PROVIDERS: PCP Internal Medicine; Visit Provider Nurse Practitioner Family
DX: M79.672 Pain in left foot (principal)
CPT/HCPCS: 73620

== ENCOUNTER 2023-05-02 14:53 | Outpatient (AMB) | payer OTHER, SELFPAY ==
--- NOTE | 2023-05-02 14:54 | A.OFFVIS_ITS ---
Intake Vital Signs 05/02/23 14:55 Height 5 ft 7 in Weight 153 lb 3.54 oz BMI 24.0 BP 102/70 Blood Pressure Location Rt brachial Position Sitting Pulse 71 Pulse Source Pulse Oximeter Intake Visit Reasons: pos flora Intake Note: Patient presents today to follow up on +FLORA. Last seen by LAKE on 11/17/22. 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 At her last visit we determined she had carpal tunnel symptoms, worse in the left hand. She did see physiatry and another EMG was recommended to look at the possibility of ulnar neuropathy. For whatever reason that never got scheduled. She is wearing the wrist splints every night. In spite of that she is getting hand paresthesias most nights and often in the daytime. She also notes a small cystic structure on the volar aspect of the left wrist. This is only occasionally uncomfortable to palpation. There is no redness or swelling in the wrist area. On TuesdayApril 26 she woke with pain in the left foot. This is described as pain mostly over the 1st and 2nd metatarsal heads and a little bit with the lateral instep region. There was no obvious trauma involved. She did visit urgent care on the . An x-ray was read as normal. The patient was told she probably had plantar fasciitis. She was told to acquire a brace which she has ordered. She has been missing work intermittently and did not going to work today because of increased pain in the foot. 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 Skin tag Overweight Surgical History H/O LEEP History of tubal ligation History of section Family History Father Brain cancer Mother HIV (human immunodeficiency virus infection) Myocardial infarction Hypertension CVD (cardiovascular disease) Drug abuse Brother Legally blind Cancer Brother Albinism Maternal Grandfather Stroke H/O ETOH abuse Family/Other Mental health disorder Social History Housing: Apartment Alcohol intake: current Alcohol intake frequency: holidays/special occasions only Alcohol type: hard liquor Patient Tobacco Use Status: Current everyday Tobacco user Tobacco use type: Cigarette Cigarettes Per Day: 6 Years Smoked: 10 e-Cigarette/Vaping Use: Never Used Second Hand Smoke Exposure: No service: No Current occupational status: employed 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 Card Details: Negative chest pain, edema and syncope Resp Details: Negative for SOB, cough and wheezing GI Details: Negative indigestion/heartburn, nausea, abdominal pain, bowel changes, diarrhea, constipation and bloody stool. Skin/Breast Details: Negative for itching, rash, hives, Raynaud's symptoms, sun sensitivity, and skin cancer Neuro Details: Intermittent hand paresthesias as noted above. Negative for epilepsy, palsy, stroke, changes in speech, and weakness Endo Details: Negative for polyuria and polydypsia Tone/Lymph Details: Negative for excessive bruising or bleeding. Physical Exam Vital Signs: Last Vital Signs Pulse 71 05/02/23 14:55 BP 102/70 05/02/23 14:55 BMI result Body Mass Index 24.0 APPEARANCE: Patient in no acute distress EYES no redness, pupils equal and reactive to light, eyelids normal THROAT: Oral mucosa moist, no ulcerations NECK: No thyromegaly or masses, no adenopathy, trachea midline. HEART: Regulrar rhythm, S1-S2 heard, no murmurs, rubs or gallops. LUNG: Clear to percussion and auscultation ABD: Normal bowel sounds, no organomegaly, masses or tenderness. EXTREMITIES: No edema, no calf tenderness, normal peripheral pulses. SKIN: No inflammatory or neoplastic lesions. Normal color and turgor JOINT EXAM: ?? Cervical Spine:.? Full range of motion without pain; no tenderness. Thoracic Spine:.? No scoliosis.? No tenderness on palpation. Lumbar Spine:.? Alignment normal.? Full range of motion without pain, no tenderness. Chest Wall:.? No tenderness, swelling, increased warmth or erythema. Hands: Right: Normal pain-free range of motion. There is some slight tenderness along the thumb flexor tendon but other joints do not have any tenderness or swelling. No thenar atrophy or sensory loss. Left: Slight pain with range of motion at the 1st 2 digits. Most of this pain is along the flexor tendons with there is some mild tenderness but no triggering today. There is a 4-5 mm soft tissue swelling on the radial aspect of the volar side of the wri st. This is not tender. It looks like a ganglion cyst. There is no thenar atrophy or sensory loss. Wrists:.? Right: Slight discomfort with flexion extension at 80 degrees with some minimal volar tenderness. Slightly positive Phalen's test and negative Tinel sign. Left: There is mild pain with flexion extension at 60 degrees with some mild dorsal and ventral tenderness.? I do not detect any outside of the ganglion cyst as noted above. There was a positive Phalen's sign and negative Tinel sign. Elbows:. Normal pain-free range of motion without tenderness, swelling, increased warmth or erythema. Shoulders:.?? Full range of motion without pain. No tenderness, weakness, swelling, increased warmth or erythema. Hips:.? Full range of motion without pain. Hip bursa:.? No tenderness. Knees:.?? Normal pain-free range of motion without tenderness, swelling, increased warmth or erythema.? There is no effusion or crepitation Ankles:.? Normal pain-free range of motion without tenderness, swelling, increased warmth or erythema. Feet:? Left: There is moderate tenderness at the 2nd MTP and metatarsal. There is some less severe tenderness at the 1st MTP in the 1st metatarsal and over the instep around the 3rd metatarsal. There may be some puffiness in the instep info anterior foot. There is no redness, warmth, or bruising. No sensory loss. Right: Normal pain-free range of motion without tenderness, swelling, increased warmth or erythema. Tender points:? No tenderness to digital palpation at the occiput, trapezius, second rib, lateral epicondyle, knees, greater trochanter and gluteal area bilaterally. Results Reviewed Results Reviewed: Laboratory Tests 07/15/22 07/15/22 08/05/22 09:49 09:49 12:42 WBC Hgb C-Reactive Protein Rheumatoid Factor < 13.0 Cycl Citrul Peptide IgG <16 Sm (Rodriguez) Antibody <1.0 NEG SM/LIP AND GATE BUILDER IgG Antibody <1.0 NEG Double Strand DNA Ab 24 H Complement C3 94 Complement C4 10 L 08/05/22 09/16/22 12:42 16:35 WBC 4.5 L Hgb 10.4 L C-Reactive Protein < 0.10 Rheumatoid Factor Cycl Citrul Peptide IgG Sm (Rodriguez) Antibody SM/LIP AND GATE BUILDER IgG Antibody Double Strand DNA Ab Complement C3 Complement C4 Assessment & Plan Assessment & Plan (1) Bilateral hand numbness: Code(s): R20.0 - Anesthesia of skin (2) Ganglion cyst of flexor tendon sheath of finger of left hand: Code(s): M67.442 - Ganglion, left hand (3) Positive FLORA (antinuclear antibody): Comment: 2022 FLORA 1:1280, homogeneuous. Mildly positive anti DNA antibody. Clinical syndrome not suggestive of SLE. Code(s): R76.8 - Other specified abnormal immunological findings in serum (4) Left foot pain: Code(s): M79.672 - Pain in left foot (5) Carpal tunnel syndrome on both sides: Code(s): G56.03 - Carpal tunnel syndrome, bilateral upper limbs Plan The patient still has hand paresthesias consistent with bilateral carpal tunnel syndrome, worse on the left. I will put in a request for the nerve conduction study to look at the possibility of ulnar neuropathy as well. She is to call us when she gets that appointment and I will then refer her to Hand surgery for definitive management. There is also evidence for ganglion cyst in the left wrist and this could also be evaluated in Hand surgery. The current problem with pain in the foot is a new problem. On exam it is localized over the 1st 2 metatarsals and is not accompanied by much swelling. The location is suggestive of the pain that one might get with a stress fracture so I think a repeat x-ray next week would be helpful. I have ordered that x-ray if she is not any better at the time. Further orthopedic evaluation may be necessary. Also, she is given a work note to be out until next Tuesday. We will see if the foot pain symptoms improve with the prescription of the support prescribed by urgent care. This monoarticular pain is not particularly suggestive of SLE although she does have a positive FLORA and anti DNA double-stranded DNA antibody; she has not had inflammatory symptoms before. A follow-up will be planned on the basis of her x-ray and clinical improvement. Orders: Orders NE nerve conduction velocity Today G56.03 - Carpal tunnel syndrome, bilateral upper limbs, R20.0 - Anesthesia of skin XR foot LT min 3V Today M79.672 - Pain in left foot Coding Level of Care Code Est Pt Level 4 (67138) Diagnoses Bilateral hand numbness R20.0 Ganglion cyst of flexor tendon sheath of finger of left hand M67.442 Positive FLORA (antinuclear antibody) R76.8 Left foot pain M79.672 Carpal tunnel syndrome on both sides G56.03
[2023-05-02 14:55] VITALS: BP 102/70; PULSE 71; BMI 24.0
== END 2023-05-02 15:34 | disposition home or self-care (01) ==
PROVIDERS: PCP Internal Medicine; Visit Provider Internal Medicine Rheumatology
DX: R20.0 Anesthesia of skin (principal); M67.442 Ganglion, left hand; R76.8 Other specified abnormal immunological findings in serum; M79.672 Pain in left foot; G56.03 Carpal tunnel syndrome, bilateral upper limbs
CPT/HCPCS: 99214

== ENCOUNTER → 2023-05-02 14:53 | Outpatient (BNVA) | payer OTHER, SELFPAY | PROVIDERS: PCP Internal Medicine; Visit Provider Internal Medicine Rheumatology | DX: R76.8 Other specified abnormal immunological findings in serum (principal); R20.0 Anesthesia of skin; M67.442 Ganglion, left hand; M79.672 Pain in left foot; G56.03 Carpal tunnel syndrome, bilateral upper limbs | CPT/HCPCS: 99212 ==

== ENCOUNTER 2023-05-18 10:21 | Outpatient (REF) | payer OTHER, SELFPAY ==
--- NOTE | 2023-05-18 10:23 | EMG_ITS ---
Please see scanned EMG / Nerve Conduction Report. MTDD
== END 2023-05-18 10:22 | disposition home or self-care (01) ==
LOC: HO.NEURO 10:21
PROVIDERS: PCP Internal Medicine; Visit Provider Internal Medicine Rheumatology
DX: G56.03 Carpal tunnel syndrome, bilateral upper limbs (principal); R20.0 Anesthesia of skin
CPT/HCPCS: 95885; 95913

== ENCOUNTER 2023-06-02 11:11 | Outpatient (AMB) | payer OTHER, SELFPAY ==
--- NOTE | 2023-06-02 11:19 | A.OFFVIS_ITS ---
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 EMG was done on the left. She states that both of her hands are equal to the numbness and tingling. Patient reports off and on tingling and then it goes numb every day. Allergies docusate [From COLACE] Allergy (Intermediate, Verified 06/02/23 11:23) SWELLING, swollen Medication List - Last Reconciled 06/02/23 by Roxanne Fuentes MD amoxicillin 500 mg PO Q12H 7 days bupropion HCl 150 mg PO QAM 90 days hydroxyzine HCl 10 mg PO TID PRN 30 days ibuprofen 600 mg (3 x 200 mg) PO Q6H 30 days meloxicam 15 mg PO DAILY 7 days methocarbamol 500 mg PO TID multivitamin (Daily Multi-Vitamin tablet) 1 tab PO DAILY HPI HPI Comments History of Present Illness Details Over a year of hand numbness. No injuries. All fingers/whole hand goes numb, radiates to her elbow. Feels like funny bone on elbows. Also has feet numbness but seldom. No DM. No neck pain. No noted atrophy. Drops things. Walking is ok. Patient was following Dr. Carlin from Rheumatology. He was considering repeat EMG, and consideration of surgery and/or injection. I saw her in December 2022. We agreed on repeating EMG. It was done by Dr. Rodriguez on 05/18/2023. Patient says symptoms are the same. Affects both hands, all fingers goes numb, wrist pain, left worse than right. She had the episode of plantar fasciitis last April, left foot, much improved. 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 Skin tag Overweight Surgical History H/O LEEP History of tubal ligation History of section Family History Father Brain cancer Mother HIV (human immunodeficiency virus infection) Myocardial infarction Hypertension CVD (cardiovascular disease) Drug abuse Brother Legally blind Cancer Brother Albinism Maternal Grandfather Stroke H/O ETOH abuse Family/Other Mental health disorder Social History Housing: Apartment Alcohol intake: current Alcohol intake frequency: holidays/special occasions only Alcohol type: hard liquor Patient Tobacco Use Status: Current everyday Tobacco user Tobacco use type: Cigarette Cigarettes Per Day: 6 Years Smoked: 10 e-Cigarette/Vaping Use: Never Used Second Hand Smoke Exposure: No service: No Current occupational status: employed 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 MSK: No joint effusion noted. No deformity noted. No intrinsic hand weakness noted. No atrophy noted. Monie test negative. Carpal compression test positive left. Tinel sign negative on wrist and elbows. Strength is 5/5 in all muscle groups tested. No increased tone noted. Neurological: Neurologic examination of the upper and lower extremities was nonfocal with intact sensation, muscle stretch reflexes and without focal motor deficits . Acevedo?s negative bilaterally. Gait is non-antalgic without loss of balance. Office Procedures Therapeutic Injection Therapeutic Injection Details: Consent obtained. Patient places left hand palm up. Wrist is cleansed with betadine solution. A 27 gauge 1/2 inch needle is inserted just ulnar to the palmaris longus tendon and at the proximal wrist crease. The needle is inserted at a 30-degree angle and directed towards the ring finger. A solution containing 20mg Kenalog is injected. Patient tolerated procedure well without complications. Post-injection instructions given. [id number]-[id number] Tunnel Injection, therapeutic All charges added?: Procedure code (CPT) selection complete Office Meds triamcinolone acetonide 40 mg/mL suspension for injection Performing Provider: Roxanne Fuentes MD Performing Location: [facility] [place] Orthopedic Surgeons Documented (not given) by: Roxanne Fuentes MD on 06/02/23 13:28 Dose Route Admin Location Dispensed Lot Number Expiration Date NDC Business Analytics Specialist 20 mg Tendon Sheath Inj. mL Results Reviewed Results Reviewed: EMG done by Dr. Rodriguez 05/18/2023 Independently reviewed by me- mildly prolonged median palmar sensory? No other findings suggestive of ulnar neuropathy or radiculopathy. Assessment & Plan Assessment & Plan (1) Carpal tunnel syndrome on both sides: Comment: emg 04/2023: more prominent on the left with mild ulnar neuropathy Code(s): G56.03 - Carpal tunnel syndrome, bilateral upper limbs Plan Clinically her symptoms are consistent with carpal tunnel syndrome. EMG shows at least mild bilateral. We discussed typical treatment options which include but are not limited to therapy, injections, surgery. She would like to trial injections first. I agree because first, it could give her enough relief. An 2nd, it could confirm diagnosis. We can do injection to left side today. It if it helps, we could do right side in 3 weeks. Assessment and plan discussed with patient, and patient was agreeable. All questions were answered thoroughly. Follow-up 3 weeks. Roxanne Fuentes MD, PASQUAEL Board Certified, [place] Board of Physical Medicine and Rehabilitation (ABPMR) Board Certified, [place] Board of Electrodiagnostic Medicine (ABEM) Orders: Orders Trigger Point Injection Today G56.03 - Carpal tunnel syndrome, bilateral upper limbs Medications: New triamcinolone acetonide 20 mg (0.5 mL) Tendon Sheath Inj. ONCE 0.5 mL 0RF G56.03 - Carpal tunnel syndrome, bilateral upper limbs Coding Level of Care Code Est Pt Level 4 (44237) Diagnoses Carpal tunnel syndrome on both sides G56.03 CPT Codes Therapeutic Injection - Ther Injection 3: 08164-Yxokbn Tunnel Injection, therapeutic ([id number])
[2023-06-02 11:24] VITALS: BMI 24.0
== END 2023-06-02 11:50 | disposition home or self-care (01) ==
PROVIDERS: PCP Internal Medicine; Visit Provider Physical Medicine & Rehabilitation
DX: G56.03 Carpal tunnel syndrome, bilateral upper limbs (principal)
CPT/HCPCS: 20526; 99214

== ENCOUNTER → 2023-06-02 11:11 | Outpatient (BNVA) | payer OTHER, SELFPAY | PROVIDERS: PCP Internal Medicine; Visit Provider Physical Medicine & Rehabilitation | DX: G56.03 Carpal tunnel syndrome, bilateral upper limbs (principal) | CPT/HCPCS: 20526; 99212; J3301 ==

== ENCOUNTER 2023-06-22 12:41 | Outpatient (REF) | payer OTHER, SELFPAY ==
--- NOTE | ~2023-06-22 | US_ITS ---
EXAMINATION: US PELVIS COMPLETE CLINICAL INFORMATION: Ovarian cyst COMPARISON: Pelvic ultrasound 02/09/2023 TECHNIQUE: Transabdominal and transvaginal imaging was performed. FINDINGS: The uterus is of normal size and echogenicity measuring 9.8 x 3.6 x 4.8 cm. And is anteverted and retroflexed in position A regular homogeneous endometrium is identified measuring 1.0 cm. Minimal subendometrial cystic change which can be seen in the setting of adenomyosis though the junctional zone appears otherwise unremarkable. Both ovaries are unremarkable in appearance. The right measures 2.2 x 1.3 x 1.5 cm for a volume of 2.2 mL. The left measures 3.1 x 3.1 x 2.9 cm for a volume of 14.6 mL. No suspicious ovarian cyst. There is no pelvic free fluid. US/US pelvic and transvaginal IMPRESSION: 1. Minimal subendometrial cystic change which can be seen in the setting of adenomyosis though the junctional zone appears otherwise unremarkable. MR pelvis could be confirmatory if warranted clinically. 2. Unremarkable sonographic appearance of the ovaries. No suspicious ovarian cyst.
== END 2023-06-22 12:42 | disposition home or self-care (01) ==
LOC: HO.US 12:41
PROVIDERS: PCP Internal Medicine; Visit Provider Obstetrics & Gynecology
DX: N83.299 Other ovarian cyst, unspecified side (principal)
CPT/HCPCS: 76830; 76856

== ENCOUNTER 2023-06-23 09:52 | Outpatient (AMB) | payer OTHER, SELFPAY ==
[2023-06-23 09:54] VITALS: BMI 24.0
--- NOTE | 2023-06-23 09:54 | A.OFFVIS_ITS ---
Intake Vital Signs 06/23/23 09:54 Height 5 ft 7 in Weight 153 lb BMI 24.0 Intake Visit Reasons: ov-CTS B/L EMG done L Intake Note: Stephanie 43 yr old female presents today for her follow up visit s/p rt hand CTS injection from 06/02/[address] Koch. States injection helped and would like to have her right hand injected. Allergies docusate [From COLACE] Allergy (Intermediate, Verified 06/23/23 09:58) SWELLING, swollen HPI HPI Comments History of Present Illness Details Did very well from left Carpal Tunnel Syndrome injection, without complications. Happy with improvement. Here for right Carpal Tunnel Syndrome injection. 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 Skin tag Overweight Surgical History H/O LEEP History of tubal ligation History of section Family History Father Brain cancer Mother HIV (human immunodeficiency virus infection) Myocardial infarction Hypertension CVD (cardiovascular disease) Drug abuse Brother Legally blind Cancer Brother Albinism Maternal Grandfather Stroke H/O ETOH abuse Family/Other Mental health disorder Social History Housing: Apartment Alcohol intake: current Alcohol intake frequency: holidays/special occasions only Alcohol type: hard liquor Patient Tobacco Use Status: Current everyday Tobacco user Tobacco use type: Cigarette Cigarettes Per Day: 6 Years Smoked: 10 e-Cigarette/Vaping Use: Never Used Second Hand Smoke Exposure: No service: No Current occupational status: employed 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 Patient places right hand palm up. Wrist is cleansed with betadine solution. A 25 gauge needle is inserted just ulnar to the palmaris longus tendon and at the proximal wrist crease. The needle is inserted at a 30- degree angle and directed towards the ring finger. A solution containing 20mg Kenalog is injected. Patient tolerated procedure well without complications. Post-injection instructions given. [id number] Tunnel Injection, therapeutic All charges added?: Procedure code (CPT) selection complete Office Meds triamcinolone acetonide 40 mg/mL suspension for injection Performing Provider: Roxanne Fuentes MD Performing Location: [facility] [place] Orthopedic Surgeons Documented (not given) by: Roxanne Fuentes MD on 06/23/23 10:37 Dose Route Admin Location Dispensed Lot Number Expiration Date [facility] Supervisor [employer] 20 mg Tendon Sheath Inj. mL Assessment & Plan Assessment & Plan (1) Carpal tunnel syndrome of right wrist: Code(s): G56.01 - Carpal tunnel syndrome, right upper limb Plan Procedure done as above. Patient tolerated procedure well. Post-injection instructions given. No heavy lifting for at least 4 hours. Out of work note requested, can return to work on Tuesday. If Carpal Tunnel Syndrome symptoms return, we may consider repeat EMG. She showed me that she was having mouth sores around/below lower lip. Advised to see PCP to ask for possible antivirals medication. Discussed that steroid injection can lower her immune system temporarily. She will continue to wear a mask. Assessment and plan discussed with patient, and patient was agreeable. All questions were answered thoroughly. Roxanne Fuentes MD, PASQUALE Board Certified, [place] Board of Physical Medicine and Rehabilitation (ABPMR) Board Certified, [place] Board of Electrodiagnostic Medicine (ABEM) Orders: Orders Trigger Point Injection Today G56.01 - Carpal tunnel syndrome, right upper limb Medications: New triamcinolone acetonide 20 mg (0.5 mL) Tendon Sheath Inj. ONCE 0.5 mL 0RF G56.01 - Carpal tunnel syndrome, right upper limb Coding Level of Care Code Procedure Only Diagnoses Carpal tunnel syndrome of right wrist G56.01 CPT Codes Therapeutic Injection - Ther Injection 3: [id number] Tunnel Injection, therapeutic ([id number])
== END 2023-06-23 10:16 | disposition home or self-care (01) ==
PROVIDERS: PCP Internal Medicine; Visit Provider Physical Medicine & Rehabilitation
DX: G56.01 Carpal tunnel syndrome, right upper limb (principal)
CPT/HCPCS: 20526

== ENCOUNTER → 2023-06-23 09:52 | Outpatient (BNVA) | payer OTHER, SELFPAY | PROVIDERS: PCP Internal Medicine; Visit Provider Physical Medicine & Rehabilitation | DX: G56.01 Carpal tunnel syndrome, right upper limb (principal) | CPT/HCPCS: 20526; J3301 ==

== ENCOUNTER 2023-08-09 12:55 | Outpatient (AMB) | payer OTHER, SELFPAY ==
--- NOTE | 2023-08-09 13:21 | A.OFFPC_ITS ---
Vital Signs 08/09/23 13:22 Height 5 ft 7 in Weight 149 lb BMI 23.3 BP 120/70 Blood Pressure Location Lt brachial Position Sitting Intake Visit Reasons: pe Intake Note: Patient here for a physical exam Procurement Cost Coordinator Required: No Accompanied by: Self / Same As Patient Allergies docusate [From COLACE] Allergy (Intermediate, Verified 08/09/23 14:10) SWELLING, swollen Medication List - Last Reconciled 08/09/23 by Donna Levine MD bupropion HCl 150 mg PO QAM 90 days hydroxyzine HCl 10 mg PO TID PRN 30 days ibuprofen 600 mg (3 x 200 mg) PO Q6H 30 days meloxicam 15 mg PO DAILY 7 days methocarbamol 500 mg PO TID multivitamin (Daily Multi-Vitamin tablet) 1 tab PO DAILY Tobacco use date assessed: 08/09/23 Dental Screening Dental Screen Date: 08/09/23 Did you have a dental visit in the last 12 months?: No Did you have a dental problem in the last 6 months where you did not have access to dental care?: No Was dental information given to patient?: Patient has dentist HPI HPI Comments History of Present Illness Details This is a 43-year-old female with mild major depression that comes for her physical exam. Depression still present with bupropion. Last Pap smear was 2022 showing HPV and had a biopsy after. No chest pain or shortness of breath. 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 Skin tag Overweight Surgical History H/O LEEP History of tubal ligation History of section Family History (Updated 08/09/23 @ 14:13 by Donna Levine MD) Father Brain cancer Mother HIV (human immunodeficiency virus infection) Myocardial infarction Hypertension CVD (cardiovascular disease) Drug abuse Brother Legally blind Cancer H/O ETOH abuse Albinism Stroke Maternal Grandfather Stroke H/O ETOH abuse Family/Other Mental health disorder Social History (Updated 08/09/23 @ 14:13 by Donna Levine MD) Housing: Apartment Alcohol intake: former Patient Tobacco Use Status: Former Tobacco user Tobacco use type: Cigarette Years Smoked: 10 e-Cigarette/Vaping Use: Never Used Second Hand Smoke Exposure: No service: No Current occupational status: employed 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 1. Little interest or pleasure in doing things: several days 2. Feeling down, depressed, or hopeless: more than half the days 3. Trouble falling or staying asleep, or sleeping too much: more than half the days 4. Feeling tired or having little energy: not at all 5. Poor appetite or overeating: more than half the days 6. Feeling bad about yourself - or that you are a failure or have let yourself or your family down: not at all 7. Trouble concentrating on things, such as reading the newspaper or watching television: several days 8. Moving or speaking so slowly that other people could have noticed. Or the opposite - being so fidgety or restless that you have been moving around a lot more than usual: several days 9. Thoughts that you would be better off or of hurting yourself in some way: not at all Total score: 9 Depression Screening Interpretation: Positive Depression Screening Follow-up: Existing condition and Community Mental Health Worker F/U Depression Screening Done: Yes 88656 - PHQ-9 Billing: Yes Source: Developed by Drs. Nathaniel Khalil, Chelsea Garcia, Fercho Hathaway and colleagues, with an educational shay from [employer]. Thrive Questionnaire Date Thrive assessed: 08/09/23 I am a: Patient What is your living situation today?: I have a steady place to live Within the past 12 months, did the food you bought not last and you didn't have the money to get more?: Never true Within the past 12 months, did you worry whether your food would run out before you got money to buy more?: Never true Do you have trouble paying for medicines?: No Do you have trouble getting transportation to medical appointments?: No Do you have trouble paying your heating and electricity bill?: No Do you have trouble taking care of your child, family member or friend?: No Do you have trouble with day-to-day activities such as bathing, preparing meals, shopping, managing finances, etc.?: No Are you currently unemployed and looking for a job?: No Are you interested in more education?: No Please select the resources that you would like help with: None Currently or been in a relationship where the following occur: no concerns reported THRIVE Score: 0 AUDIT C Alcohol Use Questionnaire (AUDIT-C) 1. How often do you have a drink containing alcohol?: Never Total Score: 0 NISHI-7 AMB Questionnaire NISHI-7 Date NISHI - 7 assessed: 08/09/23 Feeling nervous, anxious, or on edge: 3 = Nearly every day Not being able to stop or control worryin = Several days Worrying too much about different things: 2 = More than half the days Trouble relaxin = More than half the days Being so restless that it is hard to sit still: 1 = Several days Becoming easily annoyed or irritable: 0 = Not at all Feeling afraid as if something awful might happen: 1 = Several days Total NISHI-7 score (0-4 normal; 5-9 mild; 10-14 moderate; 15-21 severe): 10 Source: Developed by Drs. Nathaniel Khalil, Chelsea Garcia, Fercho Hathaway and colleagues, with an educational shay from [employer]. NISHI-7 Assessment Billing NISHI-7 Assessment Tool: NISHI-7 Assessment 04579 Review of Systems Const All systems reviewed & are unremarkable except as noted in HPI and below Eyes Reports no additional complaints, Denies change in vision and Denies other visual disturbances Card Denies chest pain at rest, Denies chest pain with activity, Denies edema, Denies irregular heart rhythm, Denies claudication, Denies dyspnea, Denies dyspnea on exertion, Denies orthopnea, Denies paroxysmal nocturnal dyspnea and Denies slow heart rate Resp Denies cough, Denies dyspnea and Denies dyspnea on exertion GI Denies abdominal pain, Denies change in bowel habits, Denies excessive flatus, Denies nausea and Denies vomiting Denies urinary incontinence, Denies urinary hesitancy and Denies urinary urgency Musc Denies abnormal gait, Denies atrophy, Denies deformity and Denies limited range of motion Skin/Breast Denies bleeding lesions, Denies changing lesions and Denies rash Neuro Denies abnormal gait, Denies behavioral changes, Denies confusion and Denies lack of coordination Psych Denies behavioral changes and Denies confusion Physical exam (Primary Care) Vital Signs: Last Vital Signs BP 120/70 08/09/23 13:22 BMI result Body Mass Index 23.3 Tobacco/Smoking Status: Tobacco use Status Tobacco use date assessed 08/09/23 08/09/23 13:31 Patient Tobacco Use Status Former Tobacco user 08/09/23 14:13 Tobacco use type Cigarette 08/09/23 14:13 e-Cigarette/Vaping Use Never Used 08/09/23 14:13 PHQ-9: PHQ-9 Score PHQ-9: Total score 9 08/09/23 14:14 Depression Screening Interpretation: Positive Depression Screening Follow-up: Existing condition and Community Mental Health Worker F/U Thrive Assessment: Date of Thrive Assessment Date Thrive assessed 08/09/23 08/09/23 13:31 Currently or been in a relationship where the following occur: no concerns reported Const General: No confusion Orientation/consciousness: patient oriented x3 and No confusion HENMT Head: Yes normal to inspection, Yes normocephalic and Yes atraumatic Ears: external ears normal Eyes General: appearance normal, both eyes and all related structures Eyelids: Yes eyelids normal Conjunctivae: conjunctivae normal Neck Neck: Yes normal visual inspection and Yes supple Resp Effort & Inspection: normal respiratory effort Auscultation: clear to auscultation bilaterally Cardio Jugular venous distension: no JVD Rate: regular rate Rhythm: regular rhythm Heart sounds: S1 normal heart sound present and S2 normal heart sound present GI Inspection: Yes normal to inspection Palpation (GI): Soft to palpation and nontender Auscultation: normal bowel sounds Skin General skin exam: no rashes or lesions noted Neuro General: patient oriented x3, no focal motor deficits and No confusion Extrem General: Yes full ROM Psych Appearance: grossly normal Assessment and Plan Assessment & Plan (1) Physical exam: Code(s): Z00.00 - Encounter for general adult medical examination without abnormal findings Plan: Repeat in a year. (2) Mild major depression: Code(s): F32.0 - Major depressive disorder, single episode, mild Plan: Continue bupropion. Orders: Orders Comprehensive Tunas. Panel Fast Today Z00.00 - Encounter for general adult medical examination without abnormal findings Celiac Diagnostic Gliadin TTG Today R14.0 - Abdominal distension (gaseous) Lipid Panel Today Z00.00 - Encounter for general adult medical examination without abnormal findings Complete Blood Count Auto Diff Today D64.9 - Anemia, unspecified Coding Level of Care Code Est Pt Prev Care 40-64y(77777) Diagnoses Physical exam Z00.00 Mild major depression F32.0 Additional Codes NISHI-7 Assessment Billing - NISHI-7 Assessment Tool: NISHI-7 Assessment 55911 ([id number]) Time Spent (min) 32
[2023-08-09 13:22] VITALS: BP 120/70; BMI 23.3
== END 2023-08-09 14:26 | disposition home or self-care (01) ==
PROVIDERS: PCP Internal Medicine; Visit Provider Internal Medicine
DX: Z00.00 Encounter for general adult medical examination without abnormal findings (principal); F32.0 Major depressive disorder, single episode, mild; Z87.891 Personal history of nicotine dependence
CPT/HCPCS: 99396

== ENCOUNTER 2023-08-12 08:22 | Emergency (ER) | payer OTHER, SELFPAY ==
--- NOTE | ~2023-08-12 | XR_ITS ---
EXAMINATION: XR FINGER, LEFT CLINICAL INFORMATION: Thumb laceration COMPARISON: None available. TECHNIQUE: 2 views of the left thumb. FINDINGS: There is mild deformity of the first digit but no visible acute fracture, dislocation or subluxation seen. There is mild soft tissue swelling. XR/XR finger LT min 2V IMPRESSION: Mild soft tissue swelling without any bony abnormality or skin laceration.
[2023-08-12 08:33] VITALS: BP 130/81; PULSE 64; RESP 18; TEMP 36.6; O2SAT 99; BMI 23.1
--- NOTE | 2023-08-12 09:20 | ED_ITS ---
HPI - Wound/Laceration General Chief Complaint: Wound/Laceration Stated Complaint: R Hand Lac Work Injury 08/12/23 Time Seen by Provider: 08/12/23 09:08 Source: patient and RN notes reviewed Mode of arrival: ambulatory Limitations: no limitations History of Present Illness HPI narrative: This is a 43-year-old female with no known medical problems, presenting to the emergency department with complaints of laceration to left thumb which occurred just prior to arrival. She states that while at work she accidentally lacerated the dorsum of her left thumb on a hot box checker. She endorses slight numbness and tingling down her finger. She states that she is right handed. No fevers or chills. She is unsure when her last tetanus immunization was. Denies any other complaints or concerns at this time. Onset (ago): day(s) Place: work Patient tetanus UTD: No Context: accidental Associated symptoms: loss of feeling/numbness Treatments prior to arrival: bandage Related Data Home Medications Medication Instructions Recorded Confirmed multivitamin (Daily Multi-Vitamin 1 tab PO DAILY 05/21/21 08/09/23 tablet) Previous Rx's Medication Instructions Recorded methocarbamol 500 mg tablet 500 mg PO TID #15 tabs 12/29/22 meloxicam 15 mg tablet 15 mg PO DAILY 7 days #7 tabs 04/28/23 bupropion HCl 150 mg 24 hr tablet, 150 mg PO QAM 90 days #90 tabs 07/04/23 extended release hydroxyzine HCl 10 mg tablet 10 mg PO TID PRN anxiety 30 days 07/04/23 #90 tabs ibuprofen 200 mg capsule 600 mg (3 x 200 mg) PO Q6H 30 days 07/04/23 #360 caps acetaminophen 500 mg tablet 1,000 mg (2 x 500 mg) PO Q6H PRN 08/12/23 (Tylenol Extra Strength) pain #30 tabs cephalexin 250 mg capsule 250 mg PO QID 5 days #20 caps 08/12/23 ibuprofen 600 mg tablet 600 mg PO Q6H PRN pain #30 tabs 08/12/23 Allergies Allergy/AdvReac Type Severity Reaction Status Date / Time docusate [From COLACE] Allergy Intermediate SWELLING, Verified 08/16/23 13:45 swollen Review of Systems 2 Review of Systems: Yes all other systems are reviewed and are negative Constitutional: Constitutional: Reports as per HPI PMFSH Past Medical History Attestation statement: The following information was validated with the patient. 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 Skin tag Overweight Surgical History H/O LEEP History of tubal ligation History of section Family History Family History Father Brain cancer Mother HIV (human immunodeficiency virus infection) Myocardial infarction Hypertension CVD (cardiovascular disease) Drug abuse Brother Legally blind Cancer H/O ETOH abuse Albinism Stroke Maternal Grandfather Stroke H/O ETOH abuse Family/Other Mental health disorder Social History Social History Housing: Apartment Alcohol intake: former Patient Tobacco Use Status: Former Tobacco user Tobacco use type: Cigarette Years Smoked: 10 e-Cigarette/Vaping Use: Never Used Second Hand Smoke Exposure: No Substance Use Type: Marijuana service: No Current occupational status: employed 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 Current occupational exposures/hazards: No Sexual orientation: Straight/Heterosexual Gender identity: Female Cognitive needs: No Hearing needs: No Vision needs: Yes Physical Exam 2 Vital Signs: Vital Signs: Last Vital Signs Temp 97.0 F 08/12/23 12:25 Pulse 56 08/12/23 12:25 Resp 16 08/12/23 12:25 BP 125/76 08/12/23 12:25 Pulse Ox 95 08/12/23 12:25 O2 Del Method Room Air 08/12/23 12:25 BMI result Body Mass Index 23.1 Const: General: cooperative, comfortable and no acute distress O rientation/consciousness: patient oriented x3 Limitations: no limitations HEENT: Head: Yes normal to inspection, Yes normocephalic and Yes atraumatic Ears: hearing grossly normal bilaterally General nose exam: Normal external nose present Face and sinus: Yes normal facial exam Mouth: Normal oral and palatal mucosa present, oropharynx normal and moist mucous membranes Throat: Yes posterior oropharynx normal Eyes: General: appearance normal, both eyes and all related structures E yelids: Yes eyelids normal Conjunctivae: conjunctivae normal Sclerae: s clerae normal Pupils: Equal, round and reactive pupils present EOM: EOMs intact bilaterally Neck: Neck: Yes normal visual inspection, Yes full ROM and Yes no lymphadenopathy Lymphatic: no lymphadenopathy noted Chest: Chest palpation & inspection: normal inspection of the chest Resp: Effort & Inspection: normal respiratory effort and able to speak in complete sentences Auscultation: clear to auscultation bilaterally, no crackles, no rales, no rhonchi and no wheezes Cardio: Rate: regular rate Rhythm: regular rhythm Heart sounds: S1 normal heart sound present and S2 normal heart sound present GI: Inspection: Yes normal to inspection Skin: General skin exam: no rashes or lesions noted Trauma: no lacerations or abrasions Wounds: no wounds Neuro: General: patient oriented x3 and moves all extremities Cranial nerves: Yes Equal, round and reactive pupils present Extrem: Other: Left dorsum of the thumb with 2 cm laceration noted just distal to the IP. Able to flex at DIP an IP however , able to extend thumb upwards. Severed tendon noted. Able to oppose thumb to all digits. Strong radial pulse. See photo for further evaluation. General: Yes normal to inspection Right upper extremity: normal to inspection Left upper extremity: normal to inspection Right lower extremity: normal to inspection Left lower extremity: normal to inspection Medications Administered Discontinued Medications Generic Name Dose Route Start Last Admin Trade Name Freq PRN Reason Stop Dose Admin Acetaminophen 975 mg 08/12/23 10:10 08/12/23 11:05 Acetaminophen 325 Mg Tablet PO 08/12/23 10:11 975 mg ONCE ONE Administration Bacitracin 1 appl 08/12/23 12:07 08/12/23 12:21 Bacitracin Oint 0.9 Gm Packet TOPICAL 08/12/23 12:08 1 appl ONCE ONE Administration Protocol Diphtheria/Tetanus/Acell Pertussis 0.5 ml 08/12/23 09:08 08/12/23 09:56 Diphth,Pertus(Acell),Tet Adult 0.5 Ml Syringe IM 08/12/23 09:09 0.5 ml .ONCE ONE Administration Hydroxyzine HCl 10 mg 08/12/23 11:52 08/12/23 11:57 Hydroxyzine Hcl 10 Mg Tablet PO 08/12/23 11:53 10 mg ONCE ONE Administration Lidocaine HCl 5 ml 08/12/23 09:22 08/12/23 09:56 Lidocaine Hcl 1 % Mpf 5 Ml Vial INFILTRATI 08/12/23 09:23 5 ml ONCE ONE Administration Lidocaine HCl 5 ml 08/12/23 09:26 08/12/23 11:06 Lidocaine Hcl 1 % Mpf 5 Ml Vial INFILTRATI 08/12/23 09:27 Not Given ONCE ONE Medical Decision Making Medical Decision Making MDM Narrative: This is a 43-year-old female presenting to the emergency department for evaluation of left thumb laceration. On arrival, vital signs within normal limits. On examination, patient has severed thumb tendon. I consulted orthopedic PAMarcia, who recommends extensive cleaning, and repair with sutures. She will follow-up with the orthopedic surgeon on August 15 at 1:15PM outpatient. Wound repaired using 6 5-0 nylon sutures, see procedure note for details. Patient placed on Keflex. Also placed in thumb spica splint. Patient given return precautions. She understands and agrees with plan. Patient stable for discharge. X-ray was performed, no bony involvement seen on images. Differential Diagnosis Differential Diagnoses: The differential diagnosis associated with the presentation includes Laceration, tendon involvement, contusion, fracture Admission/Observation Consideration of admission/observation: Escalation of care including admission/observation considered Escalation of care including admission/observation considered however given workup today not warranted at this time. Consult Healthcare Provider Management of the patient was discussed with: Die Engraving Supervisor Orthopedic Marcia AKINS Independent Interpretation I performed an independent interpretation of an: Plain X-Ray Interpretation: I reviewed the x-ray and agree with the radiology report. Radiology Impression Discussion of test interpretation with radiology: I have reviewed the radiologist's reading. Radiologist Impression: FINDINGS: There is mild deformity of the first digit but no visible acute fracture, dislocation or subluxation seen. There is mild soft tissue swelling. XR/XR finger LT min 2V IMPRESSION: Mild soft tissue swelling without any bony abnormality or skin laceration. Prescription Management I considered prescription management with: Pain Medication and Antibiotic Procedures Laceration Laceration 1: Side (If applicable): left Size (cm): 3 Description: linear Depth: involves tendon Local Anesthetic: lidocaine 1% Amount of anesthesia used (mL): 4 Pre-repair: wound explored and irrigated extensively Skin layer closed with: nylon Size (cm): 5-0 Number of sutures: 6 Technique: simple, interrupted Critical Care Time Critical Care Time Critical Care Time: Yes Total Critical Care Time: 35 Attestation: I have personally provided critical care time exclusive of time spent on separately billable procedures. Time includes review of lab data, radiology results, discussion with consultants, and monitoring for potential decompensation. Intervention performed as documented. Discharge Plan Discharge Clinical Impression: Laceration of thumb, left, with tendon involvement Patient Disposition: Home, Self-Care Instructions: Laceration (ED), Finger Laceration (ED) Additional Instructions: You were seen in the emergency department after lacerating your left thumb. You unfortunately have lacerated the tendon, it is unclear how much damage to the tendon there is. You need to follow-up with Orthopedics as you may need surgery to have this repaired. Please take prescribed antibiotic as directed. Finish the entire course. Keep wound clean and dry. Do not submerge wound. Keep a close eye on her symptoms, return if you have any increased redness, swelling, fevers, chills, or drainage. Keep splint on at all times, you may remove to wash wound however please placed back on afterwards. You have an appointment with Orthopedics on August 15 at 1:15PM. You may alternate between ibuprofen and Tylenol as needed for pain. If any new or worsening symptoms occur including but not limited to worsening pain, swelling, redness, drainage, fevers or chills, please return for re- evaluation. Prescriptions: New cephalexin 250 mg capsule 250 mg PO QID 5 Days Qty: 20 0RF ibuprofen 600 mg tablet 600 mg PO Q6H PRN (Reason: pain) Qty: 30 0RF acetaminophen [Tylenol Extra Strength] 500 mg tablet 1,000 mg PO Q6H PRN (Reason: pain) Qty: 30 0RF No Action methocarbamol 500 mg tablet 500 mg PO TID Qty: 15 0RF ibuprofen 200 mg capsule 600 mg PO Q6H 30 Days Qty: 360 0RF hydroxyzine HCl 10 mg tablet 10 mg PO TID PRN (Reason: anxiety) 30 Days Qty: 90 0RF bupropion HCl 150 mg tablet extended release 24 hr 150 mg PO QAM 90 Days Qty: 90 1RF meloxicam 15 mg tablet 15 mg PO DAILY 7 Days Qty: 7 0RF multivitamin [Daily Multi-Vitamin] Tablet 1 tab PO DAILY triamcinolone acetonide 40 mg/mL suspension 20 mg Tendon Sheath Inj. ONCE Qty: 0.5 0RF triamcinolone acetonide 40 mg/mL suspension 20 mg Tendon Sheath Inj. ONCE Qty: 0.5 0RF [place] [facility] [place] [facility] [place] Group[place] Stand Alone Forms: Work/School Release Interventions: ED Discharge Assessment Last Done: 08/12/23 12:25 Discharge Date/Time: 08/12/23 12:26
[2023-08-12] MEDS: Diphth,Pertus(ACell),Tet Adult 0.5 ML SYRINGE IM (09:56)
[2023-08-12] MEDS: Lidocaine HCl 1 % MPF 5 ML VIAL INFILTRATI (09:56)
[2023-08-12] MEDS: Acetaminophen 325 MG TABLET 975 MG PO (11:05)
[2023-08-12] MEDS: hydrOXYzine HCL 10 MG TABLET PO (11:57)
[2023-08-12 12:12] VITALS: BP 125/76; PULSE 56; RESP 16; TEMP 36.1; O2SAT 95
[2023-08-12] MEDS: Bacitracin Oint 0.9 GM PACKET 1 APPL TOPICAL (12:21)
[2023-08-12 12:22] VITALS: BP 125/76; PULSE 56; RESP 16; TEMP 36.1
[2023-08-12 12:25] VITALS: BP 125/76; PULSE 56; RESP 16; TEMP 36.1; O2SAT 95
== END 2023-08-12 12:26 | disposition home or self-care (01) ==
PROVIDERS: Emergency Provider Emergency Medicine; PCP Internal Medicine
DX: S61.012A Laceration without foreign body of left thumb without damage to nail, initial encounter (principal); S56.322A Laceration of extensor or abductor muscles, fascia and tendons of left thumb at forearm level, initial encounter; W26.8XXA Contact with other sharp object(s), not elsewhere classified, initial encounter; Y93.9 Activity, unspecified; Y92.89 Other specified places as the place of occurrence of the external cause; Y99.0 Civilian activity done for income or pay
CPT/HCPCS: 12042; 73140; 90471; 90715; 99284

== ENCOUNTER 2023-08-16 13:29 | Outpatient (AMB) | payer OTHER, SELFPAY ==
[2023-08-16 13:37] VITALS: BMI 23.0
--- NOTE | 2023-08-16 13:37 | MHC.OFFVIS ---
Intake Vital Signs 08/16/23 13:37 Height 5 ft 7 in Weight 147 lb BMI 23.0 Intake Visit Reasons: FC - lt thumb extensor tendon lac., DOI 08/12/23 Intake Note: Stephanie is a 43 year old female who presents with Left thumb laceration, DOI 08/12/2023. Patient reports she cut her thumb cutting a box at work. She state she has minor pain and swelling and denies numbness and tingling. Allergies docusate [From COLACE] Allergy (Intermediate, Verified 08/16/23 13:45) SWELLING, swollen HPI FC - lt thumb extensor tendon lac., DOI 08/12/23 HPI Details Stephanie is a 43 year old right hand dominant woman who presents for a left thumb laceration, DOI: 08/12/23. this is a work-related injury form a boxcutter. She was seen in the ED on 08/12/23, this was cleaned, sutured, and she was placed on Keflex before being referred here. She says she has some pain in her thumb, along with some swelling. She says she has a childhood injury to her left thumb, where it was severed by a metal window frame and was re-attached. This occurred when she was 4 years old. She denies any numbness or tingling. She has a hx of bilateral carpal tunnel syndrome and has received bilateral carpal tunnel injections by Dr. Koch. She says prior to her injections she had numbness daily, which has improved since she had her injections. She says she has Lupus & MS, and denies any current medications for Lupus while she is waiting for another test. She has Takotsubo syndrome/stress cardiomyopathy and occasionally sees a sales engineering manager for this. Of note, she is got some significant stressors at this time. Evidently her 9-year-old daughter recently came down with lice. Her fortunately also just asked for a divorce. She did become briefly tearful when describing this to me in clinic. [facility] Medical History (Updated 08/16/23 @ 13:58 by Ranjit Oconnell) Physical exam Carpal tunnel syndrome on both sides Nabothian cyst Left ovarian cyst Prolonged menstrual cycle Lupus Transaminitis Leukopenia Takotsubo syndrome 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 Skin tag Overweight Surgical History H/O LEEP History of tubal ligation History of section Family History Father Brain cancer Mother HIV (human immunodeficiency virus infection) Myocardial infarction Hypertension CVD (cardiovascular disease) Drug abuse Brother Legally blind Cancer H/O ETOH abuse Albinism Stroke Maternal Grandfather Stroke H/O ETOH abuse Family/Other Mental health disorder Social History Housing: Apartment Alcohol intake: former Patient Tobacco Use Status: Former Tobacco user Tobacco use type: Cigarette Years Smoked: 10 e-Cigarette/Vaping Use: Never Used Second Hand Smoke Exposure: No Substance Use Type: Marijuana service: No Current occupational status: employed 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 Current occupational exposures/hazards: No Sexual orientation: Straight/Heterosexual Gender identity: Female Cognitive needs: No Hearing needs: No Vision needs: Yes Review of Systems Const All systems reviewed & are unremarkable except as noted in HPI and below Physical Exam Vital Signs: BMI result Body Mass Index 23.0 Const General: cooperative, healthy appearing and no acute distress Orientation/consciousness: patient oriented x3 HEENT Head: Yes normocephalic and Yes atraumatic Eyes EOM: EOMs intact bilaterally Resp Effort & Inspection: normal respiratory effort and able to speak in complete sentences Cardio Jugular venous distension: no JVD Skin General skin exam: turgor normal Rashes: no rashes Neuro General: patient oriented x3 Extrem Other: Evaluation of Left Upper Extremity: The patient is alert, oriented, and in no acute distress Neuro: Median, Ulnar, Radial nerves motor and sensory intact Decreased sensation over the dorsal aspect of the left thumb distal to the laceration. Vascular: Cap refill brisk ROM: She can make a fist and extend all her digits She has a 2 cm oblique laceration over the dorsal aspect of the left thumb roughly over the MCP joint or just distal to it. A photograph of the laceration taken in the ED on the day of injury shows a laceration of the extensor tendon. She has decreased sensation over the dorsal aspect of the left thumb distal to the laceration Intact sensation to the palmar aspect of the thumb at the pad. She is able to weakly demonstrates some flexion at the IP joint. No laceration or other new injury on the volar aspect of the thumb Cap refill brisk to the tip of all digits. No other lacerations or injury seen. Mild swelling generally in the left hand. Of note, the left thumb is noted to be shortened in comparison with the right thumb. Patient describes an amputation or near amputation with reconstruction of the thumb as a 4 or 5-year-old child Psych Appearance: grossly normal Affect: normal affect Attitude: cooperative Assessment & Plan Assessment & Plan (1) Laceration of thumb, left, with tendon involvement: Code(s): S61.012A - Laceration without foreign body of left thumb without damage to nail, initial encounter Qualifiers: Encounter type: initial encounter Qualified Code(s): S61.012A - Laceration without foreign body of left thumb without damage to nail, initial encounter (2) Carpal tunnel syndrome on both sides: Comment: emg 04/2023: more prominent on the left with mild ulnar neuropathy Code(s): G56.03 - Carpal tunnel syndrome, bilateral upper limbs (3) Takotsubo syndrome: Comment: diagnosed in 20s Code(s): I51.81 - Takotsubo syndrome Plan Assessment & Plan: 1. 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 These risks include, but are not limited to risk of damage to blood vessels, nerves, tendons, infection, recurrence, incomplete relief of preoperative symptoms, persistent pain, possible need for further surgery and the risks associated with regional blocks and anesthesia. The plan is to take the patient to the operating room sometime in the next few weeks for the following procedures: 1. Left thumb extensor tendon repair, under general All of the preoperative paperwork including the consent was reviewed today. All the patient's questions were answered. The patient understands that they will be contacted by our press machine operator soon to schedule this procedure She denies Diabetes, blood thinners, asthma, lung, kidney issues She has stress cardiomyopathy and occasionally sees a Personal Property Assessor. She will need cardiac clearance prior to surgery She has Lupus & MS, and denies any current medications for this Scribed for Elham Barreto MD by Ranjit Oconnell, medical or surgical instrument maker, on 08/16/23 at 2:00 PM, EST. Coding Level of Care Code New Pt Level 4 (63019) Diagnoses Laceration of thumb, left, with tendon involvement S61.012A Encounter type: initial encounter Carpal tunnel syndrome on both sides G56.03 Takotsubo syndrome I51.81
== END 2023-08-16 14:04 | disposition home or self-care (01) ==
PROVIDERS: PCP Internal Medicine; Visit Provider Orthopaedic Surgery
DX: S61.012A Laceration without foreign body of left thumb without damage to nail, initial encounter (principal); G56.03 Carpal tunnel syndrome, bilateral upper limbs; I51.81 Takotsubo syndrome
CPT/HCPCS: 99204

== ENCOUNTER → 2023-08-16 13:29 | Outpatient (BNVA) | payer OTHER, SELFPAY | PROVIDERS: PCP Internal Medicine; Visit Provider Orthopaedic Surgery | DX: S61.012A Laceration without foreign body of left thumb without damage to nail, initial encounter (principal); G56.03 Carpal tunnel syndrome, bilateral upper limbs; I51.81 Takotsubo syndrome | CPT/HCPCS: 99202 ==

== ENCOUNTER → 2023-08-23 10:40 | Outpatient (REF) | payer OTHER, SELFPAY ==
--- NOTE | 2023-08-23 10:43 | CA_ITS ---
Transthoracic Echocardiogram Patient (Last, First, Middle): Stephanie Silva, Gender: Female Date of : 1980 Age: 43 Procedure Date: 08/23/2023 Procedure Type: Transthoracic Echocardiogram Location: OP Height: 170.18 cm Weight: 65.77 kg BSA: 1.76 m2 Heart Rate: bpm BP: 120 / 70 mmHg Porter Head: TO Referring MD: Donna Levine MD Ceramics Artist: Neto Ellison MD Symptoms: I51.81 - Takotsubo syndrome Study Quality: Adequate w contrast ECG Rhythm: Sinus Conclusions: - Normal study Findings Procedure Information Contrast agent, definity, is being given per protocol without apparent complications. Left Ventricle Normal left ventricular size, thickness, and systolic function. The visually estimated ejection fraction is between 60-65%. Diastolic function is normal for age. Peak GLS is -22.9%, within normal limits. Right Ventricle Normal right ventricular cavity size and systolic function. Atria Both atria are normal in size. There is no evidence of interatrial shunt. Aortic Valve Normal aortic valve structure and function. There is no aortic valve stenosis. There is no aortic valve regurgitation. Mitral Valve Normal mitral valve structure and function. There is trace mitral valve regurgitation. There is no mitral valve stenosis. Pulmonic Valve The pulmonic valve is likely normal. There is trace pulmonic valve regurgitation. Tricuspid Valve Normal tricuspid valve structure. There is trace tricuspid valve regurgitation. The right ventricular systolic pressure is normal. The right ventricular systolic pressure is 22 mmHg. Normal right atrial pressure. There is no evidence of pulmonary hypertension. Great Vessels All visible segments of the aorta are normal in size. The pulmonary artery was not well visualized. Venous The inferior vena cava is normal in size and collapses greater than 50% with inspiration. Pericardium/Pleural There is no evidence of pericardial effusion. Prior Study Comparison No change compared to prior study dated: 04/18/2017. Measurements 2D Linear Measurements IVSd: 0.99 0.6-0.9/0.6-1.0 cm LVIDd: 4.83 3.9-5.3/4.2-5.9 cm LVIDd Index: 2.74 2.4-3.2/2.2-3.1 cm/m2 LVIDs: 3.19 2.0-3.6 cm LVPWd: 0.79 0.7-1.1 cm LA Diam: 3.20 2.7-3.8/3.0-4.0 cm LAIDs Index: 1.82 1.5-2.3 cm/m2 LV Mass: 183.44 67-162/88-224 g LV Mass Index: 104.23 43-95/49-115 g/m2 LVOT Diam: 2.00 3.0+(-)1.3 cm Mitral Valve MV Pk E: 0.87 MV PK A: 0.35 MV Decel Time: 215.00 E/A: 2.50 E'Lateral: 11.30 E'Medial: 8.49 E/E' Med: 10.20 E/E' Lat: 7.70 PHT: 63.00 MVA PHT: 3.49 Decel [place]: 4.02 Aortic Valve AoV Pk Pablo: 1.43 AoV Mn Pablo: 1.01 AoV VTI: 0.36 AoV Pk Grad: 8.00 Aov Mn Grad: 4.00 ISHA Cont.VTI: 2.23 LVOT LVOT Pk Pablo: 1.13 LVOT Mn Pablo: 0.71 LVOT VTI: 0.26 LVOT Pk Grad: 5.00 LVOT Mn Grad: 2.00 LVOT Diam: 2.00 LVOT Area: 3.14 Diastolic Function MV Pk E: 0.87 MV Pk A: 0.35 E/A: 2.50 E'Medial: 8.49 E/E' Med: 10.20 E' Laterial: 11.30 E/E' Lat: 7.70 Right Ventricle TAPSE (mm): 21.20 TVS' Pablo: 10.70 Tricuspid Valve TR Pk Pablo: 2.19 TR Pk Grad: 19.00 RA Press: 3.00 RVSP: 22.00 Great Vessels Aorta Sinus of Valsalva: 3.01 2.0-3.[address] [place]: 2.53 1.7-3.4 cm Ao Asc: 3.20 2.1-3.4 cm Ao Arch: 2.70 Updated in Other Vendor System with Status of Final Neto Ellison MD electronically signed on 08/23/2023 4:07:01 PM with status of Final
== END ==
LOC: HO.CARD 10:40
PROVIDERS: PCP Internal Medicine; Visit Provider Internal Medicine
DX: I51.81 Takotsubo syndrome (principal)
CPT/HCPCS: 93306; 93356; Q9957

== ENCOUNTER → 2023-08-23 10:43 | Outpatient (BNV) | payer OTHER, SELFPAY | PROVIDERS: PCP Internal Medicine; Visit Provider Internal Medicine Cardiovascular Disease | DX: I51.81 Takotsubo syndrome (principal) | CPT/HCPCS: 93306; 93356 ==

== ENCOUNTER 2023-08-25 05:56 | Day surgery (SDC) | payer OTHER, SELFPAY ==
--- NOTE | 2023-08-18 13:51 | HO.ANESPROP2 ---
Documented by User: Natali Cerda NP 08/24/23 09:20 HPI - Anesthesia Eval Consult details Narrative: 43yo F for Left Thumb Extensor Tendon Repair, I&D MCP Joint Cardiac clearance requested by surgeon for hx laya. Echo completed 08/2023 and nml. [facility] Active Problems Active Problems: All Active Problems (Updated 08/18/23 @ 05:31 by Heri High) Takotsubo syndrome (Acute) Abdominal bloating (Acute) Physical exam (Acute) Carpal tunnel syndrome of right wrist (Acute) Carpal tunnel syndrome on both sides (Acute) Ganglion cyst of flexor tendon sheath of finger of left hand (Acute) Left foot pain (Acute) Bilateral hand numbness (Acute) Ovarian cyst (Acute) Abnormal uterine bleeding (Acute) Nabothian cyst (Acute) Left ovarian cyst (Acute) Nicotine dependence (Acute) Mild major depression (Acute) Positive CHEVY (antinuclear antibody) (Acute) Anxiety (Acute) Transaminitis (Acute) Leukopenia (Acute) UTI (urinary tract infection) (Acute) Numerous moles (Acute) LGSIL on Pap smear of cervix (Acute) Dysplasia of cervix, low grade (DENIS 1) (Acute) 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 (Acute) Overweight (Acute) Past Medical History Medical History (Updated 08/25/23 @ 06:34 by Shirley Chow RN) Anxiety Depression Nabothian cyst Left ovarian cyst Prolonged menstrual cycle Lupus Carpal tunnel syndrome on both sides Transaminitis Leukopenia Physical exam Takotsubo syndrome 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 Skin tag Overweight Family History Family History Father Brain cancer Mother HIV (human immunodeficiency virus infection) Myocardial infarction Hypertension CVD (cardiovascular disease) Drug abuse Brother Legally blind Cancer H/O ETOH abuse Albinism Stroke Maternal Grandfather Stroke H/O ETOH abuse Family/Other Mental health disorder Surgical History Surgical History (Updated 08/25/23 @ 06:07 by Shirley Chow RN) Hx of foot surgery H/O LEEP History of tubal ligation History of section History of Problems with Anesthesia: No Social History Social History Housing: Apartment Alcohol intake: former Patient Tobacco Use Status: Former Tobacco user Quit Date: 2022 Tobacco use type: Cigarette Years Smoked: 10 e-Cigarette/Vaping Use: Never Used Second Hand Smoke Exposure: No Use of substances other than those prescribed or required for medical reasons: Yes Substance Use Type: Marijuana Substance Use Frequency: Daily Are you DNR?: No Advance Directives: No Advance Directives Information Provided: Yes service: No Current occupational status: employed 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 Current occupational exposures/hazards: No Sexual orientation: Straight/Heterosexual Gender identity: Female Cognitive needs: No Hearing needs: No Vision needs: Yes Meds Allergies Allergy/AdvReac Type Severity Reaction Status Date / Time docusate [From COLACE] Allergy Intermediate SWELLING, Verified 08/25/23 06:07 swollen Home Medications ?Medication ?Instructions ?Recorded ?Confirmed ?Last Taken ?Type multivitamin (Daily Multi-Vitamin 1 tab PO DAILY 05/21/21 08/25/23 Unknown History tablet) Exam Narrative Narrative: ECHO 08/2023 Conclusions: - Normal study Assessment and Plan Assessment Anesthesia Assessment: Chart Reviewed Final Anesthetic Review History of Problems with Anesthesia: No Documented by User: Zack Rodriguez MD 08/25/23 07:20 PMFSH Past Medical History Medical History (Updated 08/25/23 @ 06:34 by Shirley Chow RN) Anxiety Depression Nabothian cyst Left ovarian cyst Prolonged menstrual cycle Lupus Carpal tunnel syndrome on both sides Transaminitis Leukopenia Physical exam Takotsubo syndrome 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 Skin tag Overweight Family History Family History Father Brain cancer Mother HIV (human immunodeficiency virus infection) Myocardial infarction Hypertension CVD (cardiovascular disease) Drug abuse Brother Legally blind Cancer H/O ETOH abuse Albinism Stroke Maternal Grandfather Stroke H/O ETOH abuse Family/Other Mental health disorder Family history of problems with anesthesia: No Surgical History Surgical History (Updated 08/25/23 @ 06:07 by Shirley Chow RN) Hx of foot surgery H/O LEEP History of tubal ligation History of section Social History Social History Housing: Apartment Alcohol intake: former Patient Tobacco Use Status: Former Tobacco user Quit Date: 2022 Tobacco use type: Cigarette Years Smoked: 10 e-Cigarette/Vaping Use: Never Used Second Hand Smoke Exposure: No Use of substances other than those prescribed or required for medical reasons: Yes Substance Use Type: Marijuana Substance Use Frequency: Daily Are you DNR?: No Advance Directives: No Advance Directives Information Provided: Yes service: No Current occupational status: employed 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 Current occupational exposures/hazards: No Sexual orientation: Straight/Heterosexual Gender identity: Female Cognitive needs: No Hearing needs: No Vision needs: Yes Meds Allergies Allergy/AdvReac Type Severity Reaction Status Date / Time docusate [From COLACE] Allergy Intermediate SWELLING, Verified 08/25/23 06:07 swollen Home Medications ?Medication ?Instructions ?Recorded ?Confirmed ?Last Taken ?Type multivitamin (Daily Multi-Vitamin 1 tab PO DAILY 05/21/21 08/25/23 Unknown History tablet) Exam Airway Mallampati Class: I TM Dist: >3cm Neck ROM: Full Loose/Missing/Broken Teeth: No Heart: rrr Lungs: cta Assessment and Plan Final Anesthetic Review Family History of Problems with Anesthesia: No NPO: Yes ASA Class: II Final Preanesthetic Review: No Changes in Pt Med Stat, Meds/Allgs Chart Reviewed, Consent Obtained/Reviewed and Anes Risks/Benef Reviewed Patient Risk: Low Procedure Risk: Low Anesthetic Plan Anesthetic Plan: GA Disposition: Standard PACU
[2023-08-25] VITALS (9 sets, daily range): BP systolic 117–151; BP diastolic 64–86; PULSE 53–73; RESP 14–16; TEMP 36.3–36.7; O2SAT 92–100; BMI 23.8
[2023-08-25] MEDS: Lactated Ringers 1,000 ML 100 ML IVCONT (06:32)
--- NOTE | 2023-08-25 07:45 | MHC.SHP ---
Pre-Procedural Eval Section A - 24 Hr Update-Section A only Date of Service: 08/25/23 The patient is an INPATIENT: No Changes since office visit: No Cold of Flu in the past 2 weeks, No New Medical Problems, No Changes in Medication and No Patient answered all questions The patient has been examined within 24 hours of the surgical procedure. The History & Physical has been completed within 30 days and I have reviewed it.: Yes Section B - Complete if H&P > 30 days Chief Complaint: Laceration without foreign body of left thumb with Allergies: Allergies Allergy/AdvReac Type Severity Reaction Status Date / Time docusate [From COLACE] Allergy Intermediate SWELLING, Verified 08/25/23 06:07 swollen Plan I have reviewed the history and physical and performed a pertinent physical examination on my patient. No changes have occurred unless specified. Time Spent With Patient Time: Total time managing care of this patient today ____ minutes.
--- NOTE | 2023-08-25 07:46 | W.PM.OPN ---
Operative Note Operative Note Date of Service: 08/25/23 Narrative: Operative Note Narrative: Preop diagnosis: 1. Left thumb extensor pollicis longus tendon laceration 2. Left thumb extensor pollicis brevis tendon laceration Postop diagnosis: 1. Left thumb extensor pollicis longus tendon laceration 2. Left thumb extensor pollicis brevis tendon laceration 3. Left thumb open MCP joint laceration Procedure: 1. Left thumb extensor pollicis longus tendon repair 2. Left thumb extensor pollicis brevis tendon repair 3. Left thumb MCP joint and irrigation and debridement Surgeon: Elham Barreto MD Anesthesia: General Anesthesia Findings: Laceration of the EPL and EPB tendons directly over the MCP joint. Laceration also of the dorsal capsule of the MCP joint, penetrating the MCP joint. There was also some watery fluid within the MCP joint that was cultured. Implants: None Tourniquet time: 43 minutes EBL: 5.0 ml Specimen: Left thumb MCP joint culture Drains: None Complications: None Disposition: Brought to the recovery room in stable condition Plan: Follow-up in 10-14 days for wound check, suture removal, check cultures and placement in a short-arm thumb spica cast Indications: The patient is a 43 year old left dorsal thumb laceration with laceration of the extensor tendons . The risks and benefits of operative treatment, including but not limited to risk of damage to blood vessels, nerves, tendons, infection, recurrence, persistent pain or numbness, incomplete resolution of preoperative symptoms, or need for further surgery were discussed with the patient and they wished to proceed with surgery. Procedure: Once consent was obtained patient was brought back to the operating suite and placed in the operating table in a supine position. Perioperative antibiotics and anesthesia was administered by the anesthesia team. A tourniquet was applied to the proximal aspect of the left upper extremity and the limb was prepped and draped in a standard surgical fashion. The limb was elevated exsanguinated with Esmarch bandage and the tourniquet inflated to 250 mm of mercury for a total tourniquet time of 43 minutes. The sutures were removed from the left dorsal thumb laceration. I then extended with an incision proximally on 1 end and distally on the other extending on each side by approximately 1 cm. The incisions were made with a 15. Blade through the skin to the subcutaneous tissues. Then carefully dissected down to the level of the extensor tendon lacerations. The wound was then evaluated. She had a laceration across both the EPL and EPB tendons where they crossed over the MCP joint. The laceration also extended deeply through the dorsal capsule of the MCP joint and into the MCP joint itself. There was some watery fluid found within the MCP joint, and I cultured this fluid. I then performed an I&D of this wound end of the MCP joint, copiously irrigated the MCP joint with normal saline using an Angiocath and a 10 mL syringe. I then turned my attention to the tendon repairs. First the EPB tendon was repaired using some 4-0 FiberWire suture. Then the EPL tendon was also repaired using some 4-0 FiberWire suture. I was satisfied with our repair. At this point the tourniquet was deflated and hemostasis obtained with a brief period of local pressure and bipolar electrocautery. The wound was copiously irrigated with normal saline. The skin edges were reapproximated with 4-0 and 5 0 Prolene suture. The wound was infiltrated with some 0.5% plain ropivacaine for postop pain control and a sterile dressing and a short-arm thumb spica splint were applied. The patient appears to have tolerated the procedure well and with no complications. All digits were well vascularized conclusion of the case.
[2023-08-25] MEDS: ondansetron HCL 4 MG/2 ML VIAL IVPUSH (10:15)
--- NOTE | 2023-08-25 13:37 | PC.NURSE ---
12:50- patient had returned to PACU after DC for episode of diaphoresis+N/V. VSS. No further nausea, patient rested without issue in Bed 10. Tolerated small sips PO and small bites of crackers. Patient verbalized feeling better and departed PACU at 1255. HR 73, BP 142/73, SpO2 100% RA. No diaphoresis noted. Patient stood/pivoted to wheelchair without dizziness. Accompanied to main entrance to wait for her spouse to get the car. Transferred into car without complication at 12:55.
== END 2023-08-25 12:55 | disposition home or self-care (01) ==
PROVIDERS: PCP Internal Medicine; Visit Provider Orthopaedic Surgery
PROC: (CPT 26080; principal; 2023-08-25 07:30)
PROC: (CPT 26080; 2023-08-25 07:30)
DX: S61.012A Laceration without foreign body of left thumb without damage to nail, initial encounter (principal); S66.222A Laceration of extensor muscle, fascia and tendon of left thumb at wrist and hand level, initial encounter; W27.8XXA Contact with other nonpowered hand tool, initial encounter; Y93.89 Activity, other specified; Y92.69 Other specified industrial and construction area as the place of occurrence of the external cause; Y99.8 Other external cause status; M32.9 Systemic lupus erythematosus, unspecified; G35 Multiple sclerosis; G56.03 Carpal tunnel syndrome, bilateral upper limbs; I51.81 Takotsubo syndrome; Z98.890 Other specified postprocedural states; Z87.891 Personal history of nicotine dependence
CPT/HCPCS: 26080; 26418 ×2; 87070; 87205; J0690; J1100; J1170; J2250; J2405; J2704; J2795; J3010

== ENCOUNTER → 2023-08-25 05:56 | Outpatient (BNV) | payer OTHER, SELFPAY | PROVIDERS: PCP Internal Medicine; Visit Provider Orthopaedic Surgery | DX: S66.222A Laceration of extensor muscle, fascia and tendon of left thumb at wrist and hand level, initial encounter (principal) | CPT/HCPCS: 26418 ==

== ENCOUNTER 2023-09-07 14:05 | Outpatient (AMB) | payer OTHER, SELFPAY ==
--- NOTE | 2023-09-07 14:11 | A.OFFVIS_ITS ---
Intake Vital Signs 09/07/23 14:15 Height 5 ft 7 in Weight 140 lb BMI 21.9 Intake Visit Reasons: PO LT Thumb tendon repair 08/25/23 AR Intake Note: Stephanie 43 yr old female presents today for her p/o visit for her left thumb tendon repair from 08/25/23. States she has minimally pain. Dressing removed in office. Allergies docusate [From COLACE] Allergy (Intermediate, Verified 09/07/23 14:18) SWELLING, swollen HPI PO LT Thumb tendon repair 08/25/23 AR HPI Details Stephanie is a 43 year old right hand dominant woman who presents S/P left thumb EPL & EPB tendon repair and MCP joint I&D, DOS: 08/25/23. This was a work- related injury form a boxcutter, DOI: 08/12/23. She says she is doing well, and says she has only minimal pain. She says she was taking Abx following her surgery, but she developed a yeast infection which she is now treating. She completed her course of Abx prescribed after her surgery. 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 Skin tag Overweight Surgical History Hx of foot surgery H/O LEEP History of tubal ligation History of section Family History Father Brain cancer Mother HIV (human immunodeficiency virus infection) Myocardial infarction Hypertension CVD (cardiovascular disease) Drug abuse Brother Legally blind Cancer H/O ETOH abuse Albinism Stroke Maternal Grandfather Stroke H/O ETOH abuse Family/Other Mental health disorder Social History Housing: Apartment Alcohol intake: former Patient Tobacco Use Status: Former Tobacco user Quit Date: 2022 Tobacco use type: Cigarette Years Smoked: 10 e-Cigarette/Vaping Use: Never Used Second Hand Smoke Exposure: No Substance Use Type: Marijuana service: No Current occupational status: employed 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 Sutures removed and Steri-Strips applied Her splint was intact and her thumb held in an extended position. Sensation is intact Cap refill is brisk Microbiology Report: 08/25/23 Routine Culture Final 08/27/23-1016 Organism 1 Coag negative Staphylococcus Quantity 1+ Unlikely pathogen; call Micro if full workup indicate Psych Appearance: grossly normal Affect: normal affect Attitude: cooperative Assessment & Plan Assessment & Plan (1) Takotsubo syndrome: Comment: diagnosed in 20s Code(s): I51.81 - Takotsubo syndrome Plan Assessment & Plan: 1. Left thumb EPL tendon laceration 2. Left thumb EPB tendon laceration 3. 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 Her cultures grew out coag-negative staph. She has completed her course of Augmentin given to her on her day of surgery. Her wound appears to be healing well and with no evidence of infection. 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 She will follow up in 4 weeks She will likely need a referral to OT hand therapy at her next appointment. Scribed for Elham Barreto MD by Ranjit Oconnell, medical information officer, on 09/07/23 at 2:40 PM, EST. Coding Level of Care Code Global (31646) Diagnoses Takotsubo syndrome I51.81
[2023-09-07 14:15] VITALS: BMI 21.9
== END 2023-09-07 15:15 | disposition home or self-care (01) ==
PROVIDERS: PCP Internal Medicine; Visit Provider Orthopaedic Surgery
DX: I51.81 Takotsubo syndrome (principal)
CPT/HCPCS: 99024

== ENCOUNTER → 2023-09-07 14:05 | Outpatient (BNVA) | payer OTHER, SELFPAY | PROVIDERS: PCP Internal Medicine; Visit Provider Orthopaedic Surgery | DX: I51.81 Takotsubo syndrome (principal) | CPT/HCPCS: 99212 ==

== ENCOUNTER 2023-09-13 10:10 | Outpatient (AMB) | payer OTHER, SELFPAY ==
--- NOTE | 2023-09-13 10:24 | A.OFFVIS_ITS ---
Vital Signs 09/13/23 10:26 Height 5 ft 7 in Weight 140 lb BMI 21.9 Handedness Right Intake Visit Reasons: PO-LT thumb tendon repair, 08/25/23 AR Intake Note: Stephanie is a 43 year old right hand dominate female who presents today for a cast change. She reports that she was giving her daughter lice treatments and got the chemicals on the cast as well as it is dirty and smells bad. This is a WC injury from 08/12/23 & S/P tendon repair & MCP joint I&D 08/25/23. Routine follow up is booked for 10/05/23 Allergies docusate [From COLACE] Allergy (Intermediate, Verified 09/13/23 10:25) SWELLING, swollen HPI HPI PO-LT thumb tendon repair, 08/25/23 AR: Details: Stephanie is a 43 year old right hand dominant woman who presents S/P left thumb EPL & EPB tendon repair and MCP joint I&D, DOS: 08/25/23. This was a work-related injury form a boxcutter, DOI: 08/12/23. She is here for a cast change, she says her cast became dirty while she was treating her daughter for lice. She says she is doing well, and says she has only minimal pain. She is happy with the results of her surgery. She says she was taking Abx following her surgery, but she developed a yeast infection which she is now treating. She completed her course of Abx prescribed after her surgery. [facility] Medical History Anxiety Depression Nabothian cyst Left ovarian cyst Prolonged menstrual cycle Lupus Carpal tunnel syndrome on both sides Transaminitis Leukopenia Physical exam Takotsubo syndrome 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 Skin tag Overweight Surgical History Hx of foot surgery H/O LEEP History of tubal ligation History of section Family History Father Brain cancer Mother HIV (human immunodeficiency virus infection) Myocardial infarction Hypertension CVD (cardiovascular disease) Drug abuse Brother Legally blind Cancer H/O ETOH abuse Albinism Stroke Maternal Grandfather Stroke H/O ETOH abuse Family/Other Mental health disorder Social History Housing: Apartment Alcohol intake: former Patient Tobacco Use Status: Former Tobacco user Quit Date: 2022 Tobacco use type: Cigarette Years Smoked: 10 e-Cigarette/Vaping Use: Never Used Second Hand Smoke Exposure: No Substance Use Type: Marijuana service: No Current occupational status: employed 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 She is seen holding her CMC joint in slight flexion and with some hyperflexion of the MCP joint Sensation is intact Cap refill is brisk Microbiology Report: 08/25/23 Routine Culture Final 08/27/23-1016 Organism 1 Coag negative Staphylococcus Quantity 1+ Unlikely pathogen; call Micro if full workup indicate Psych Appearance: grossly normal Affect: normal affect Attitude: cooperative Assessment & Plan Assessment & Plan (1) Laceration of thumb, left, with tendon involvement: Code(s): S61.012A - Laceration without foreign body of left thumb without damage to nail, initial encounter Category: Medical Qualifiers: Encounter type: initial encounter Qualified Code(s): S61.012A - Laceration without foreign body of left thumb without damage to nail, initial encounter (2) Takotsubo syndrome: Comment: diagnosed in 20s Code(s): I51.81 - Takotsubo syndrome Category: Medical Plan Assessment & Plan: 1. Left thumb EPL tendon laceration 2. Left thumb EPB tendon laceration 3. 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 Her cultures grew out coag-negative staph. She has completed her course of Augmentin given to her on her day of surgery. Her wound appears to be healing well and with no evidence of infection. She was placed in a new short arm thumb spica cast to be worn for the next 3 weeks I discussed activity modifications, she is to lift nothing heavier than a cellphone for the next 3 weeks She will follow up as scheduled on 10/05/23 She will likely need a referral to OT hand therapy at her next appointment. Scribed for Elham Barreto MD by karlos Lacy scribe, on 09/13/23 at 10:35 AM, EST. Scribe Plan - Not visible on output: Scribed for Elham Barreto MD by karlos Lacy scribe, on [ ] at [ ], EST. Coding Level of Care Code Global (07229) Diagnoses Laceration of thumb, left, with tendon involvement S61.012A Encounter type: initial encounter Takotsubo syndrome I51.81
[2023-09-13 10:26] VITALS: BMI 21.9
== END 2023-09-13 11:00 | disposition home or self-care (01) ==
PROVIDERS: PCP Internal Medicine; Visit Provider Orthopaedic Surgery
DX: S61.012A Laceration without foreign body of left thumb without damage to nail, initial encounter (principal); I51.81 Takotsubo syndrome
CPT/HCPCS: 99024

== ENCOUNTER → 2023-09-13 10:10 | Outpatient (BNVA) | payer OTHER, SELFPAY | PROVIDERS: PCP Internal Medicine; Visit Provider Orthopaedic Surgery | DX: S61.012D Laceration without foreign body of left thumb without damage to nail, subsequent encounter (principal); I51.81 Takotsubo syndrome; Z98.890 Other specified postprocedural states; W26.8XXD Contact with other sharp object(s), not elsewhere classified, subsequent encounter | CPT/HCPCS: 99212 ==

== ENCOUNTER 2023-09-14 14:03 | Outpatient (REF) | payer OTHER, SELFPAY ==
[2023-09-20 20:18] LABS: HPV 16 RNA DETECTED (NOT DETECTED); HPV mRNA E6/E7 rflx Detected (Not Detected)
== END 2023-09-14 14:04 | disposition home or self-care (01) ==
LOC: HO.LNP 14:03
PROVIDERS: PCP Internal Medicine; Visit Provider Advanced Practice Midwife
DX: Z01.419 Encounter for gynecological examination (general) (routine) without abnormal findings (principal); Z11.51 Encounter for screening for human papillomavirus (HPV); N87.0 Mild cervical dysplasia
CPT/HCPCS: 87624; 87625; 88142; 99396

== ENCOUNTER 2023-09-14 14:03 | Outpatient (AMB) | payer OTHER, SELFPAY ==
[2023-09-14 14:05] VITALS: BP 100/64; BMI 24.1
--- NOTE | 2023-09-14 14:05 | A.OFFVIS_ITS ---
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 Doing well with no concerns. She tries to eat healthy and stays active with exercise. Regular monthly menses, up to 2 wks, US in September, follow up w/Dr. Mcpherson for US/AUB. Currently is not sexually active. She denies vaginal itching and irritation. STI screening offered; she declines. Denies family history of breast, ovarian or colon cancer. Colpo CIN1/HPV+-pap today. Mammogram: not up to date. [facility] Medical History Anxiety Depression Nabothian cyst Left ovarian cyst Prolonged menstrual cycle Lupus Carpal tunnel syndrome on both sides Transaminitis Leukopenia Physical exam Takotsubo syndrome 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 Skin tag Overweight Surgical History (Updated 09/14/23 @ 14:19 by SCOT Shi) History of surgery on arm Hx of foot surgery H/O LEEP History of tubal ligation History of section Family History Father Brain cancer Mother HIV (human immunodeficiency virus infection) Myocardial infarction Hypertension CVD (cardiovascular disease) Drug abuse Brother Legally blind Cancer H/O ETOH abuse Albinism Stroke Maternal Grandfather Stroke H/O ETOH abuse Family/Other Mental health disorder Social History Housing: Apartment Alcohol intake: former Patient Tobacco Use Status: Former Tobacco user Quit Date: 2022 Tobacco use type: Cigarette Years Smoked: 10 e-Cigarette/Vaping Use: Never Used Second Hand Smoke Exposure: No Substance Use Type: Marijuana service: No Current occupational status: employed 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 Current occupational exposures/hazards: No Sexual orientation: Straight/Heterosexual Gender identity: Female Cognitive needs: No Hearing needs: No Vision needs: Yes Female Reproductive History Menstrual Date of last menstrual period: 08/22/23 control method: permanent sterilization Permanent Sterilization: BTL Date of last pap smear: 09/07/22 (lgsil +hpv 11/12 colpo) History of abnormal pap smear: Yes (see intake note) Date of Mammogram: 05/08/22 (Birad 1) Review of Systems Const All systems reviewed & are unremarkable except as noted in HPI and below Reports as per HPI Eyes Reports no additional complaints ENT Reports no additional complaints Card Reports no additional complaints Resp Reports no additional complaints GI Reports as per HPI and Reports no additional complaints Reports as per HPI Musc Reports no additional complaints Skin/Breast Reports as per HPI Neuro Reports no additional complaints Psych Reports no additional complaints Endo Reports no additional complaints Tone/Lymph Reports no additional complaints Aller/Immun Reports no additional complaints Physical Exam Vital Signs: Last Vital Signs BP 100/64 09/14/23 14:05 BMI result Body Mass Index 24.1 Const General: cooperative, healthy appearing, no acute distress, well developed and alert Orientation/consciousness: patient oriented x3 HEENT Head: Yes normal to inspection Eyes General: appearance normal, both eyes and all related structures Neck Neck: Yes normal visual inspection Thyroid: Thyroid normal Chest Chest palpation & inspection: normal inspection of the chest and other (no puckering, dimpling, peau de orange, retraction, discharge, masses) Breast/axilla inspection: normal inspection of the breasts Breast/axilla palpation: normal palpation of the breasts Resp Effort & Inspection: normal respiratory effort GI Inspection: Yes normal to inspection Palpation (GI): Soft to palpation Rectal Exam - Female: deferred Other: multiple nevi on vulva-pt. reports negative biopsy at derm General: Yes bladder normal to palpation External Female Exam: normal external appearance and normal appearance of the urethra Speculum Exam - Vagina: normal appearance of the vagina, normal palpation, normal vaginal discharge and vaginal bleeding Speculum Exam - Cervix: normal appearance of the cervix, normal palpation and Other cervical findings present (short, ant. Post LEEP appearance) Bimanual exam- vagina & uterus: normal bimanual exam, normal palpation, uterine size normal, bladder normal to palpation, normal palpation and non-tender Bimanual Exam- Adnexa, other: no masses OB/external & speculum: vaginal bleeding Skin General skin exam: no rashes or lesions noted Rashes: no rashes Neuro General: patient oriented x3 Cognition (Neuro): normal cognition Extrem General: Yes normal to inspection Psych Attitude: cooperative Thought process: Normal thought process present Assessment & Plan Assessment & Plan (1) Encounter for well woman exam with routine gynecological exam: Code(s): Z01.419 - Encounter for gynecological examination (general) (routine) without abnormal findings Plan Discussed: Current recommendations for pap smears per ASCCP guidelines. Breast awareness and periodic breast exams. Maintain a healthy lifestyle including a well balanced diet and routine exercise. Use condoms for STI prevention. Mammogram yearly. Patient verbalizes understanding and agrees to the plan of care. She was given opportunity to ask questions and all questions were answered to the best of my ability. RTO in one year for annual shelter case manager examination. This note is constructed using voice recognition software. While every effort has been made to ensure accuracy, religion instructor errors may have been included. Orders: Orders Pap Smear Today N87.0 - Mild cervical dysplasia, Z01.419 - Encounter for gynecological examination (general) (routine) without abnormal findings MM tomosynthesis screening BI Today Z12.31 - Encounter for screening mammogram for malignant neoplasm of breast Coding Level of Care Code Est Pt Prev Care 40-64y(28227) Diagnoses Encounter for well woman exam with routine gynecological exam Z01.419
== END 2023-09-14 14:52 | disposition home or self-care (01) ==
LOC: HO.HWS 14:03
PROVIDERS: PCP Internal Medicine; Visit Provider Advanced Practice Midwife
DX: Z01.419 Encounter for gynecological examination (general) (routine) without abnormal findings (principal)
CPT/HCPCS: 99396

== ENCOUNTER 2023-09-20 11:42 | Outpatient (REF) | payer OTHER, SELFPAY | END 2023-09-20 11:43 | disposition home or self-care (01) | LOC: HO.MAMMO 11:42 | PROVIDERS: PCP Internal Medicine; Visit Provider Advanced Practice Midwife | DX: Z12.31 Encounter for screening mammogram for malignant neoplasm of breast (principal) | CPT/HCPCS: 29075; 77063; 77067; 99212 ==

== ENCOUNTER → 2023-09-20 12:15 | Outpatient (BNV) | payer OTHER, SELFPAY | PROVIDERS: PCP Internal Medicine; Visit Provider Radiology Diagnostic Radiology | DX: Z12.31 Encounter for screening mammogram for malignant neoplasm of breast (principal) | CPT/HCPCS: 77063; 77067 ==

== ENCOUNTER 2023-09-20 12:23 | Outpatient (AMB) | payer OTHER, SELFPAY ==
--- NOTE | 2023-09-20 12:39 | MHC.OFFVIS ---
Intake Visit Reasons: PO- LT Thumb tendon repair 08/25/23-cast change Intake Note: Stephanie is a 43 year old right hand dominant female who presents today for a cast change do to it being too loose and its very itchy. Patient expresses that she was having throbbing pain for the last 2 days. Allergies docusate [From COLACE] Allergy (Intermediate, Verified 09/20/23 12:42) SWELLING, swollen HPI HPI PO- LT Thumb tendon repair 08/25/23-cast change: Details: 43-year-old female who presents in the office today for a cast change; 26 days status post left thumb extensor pollicis longus tendon repair, extensor pollicis brevis tendon repair, and MCP joint and irrigation and debridement, which was performed by Dr. Barreto on 08/25/2023. Patient was seen in the office on 09/13/[address] Barreto for a cast change. While in the office today the patient reports the cast is too loose and itchy. She also reports a throbbing pain for the past two days. [facility] Medical History Anxiety Depression Nabothian cyst Left ovarian cyst Prolonged menstrual cycle Lupus Carpal tunnel syndrome on both sides Transaminitis Leukopenia Physical exam Takotsubo syndrome 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 Skin tag Overweight Surgical History (Updated 09/14/23 @ 14:19 by SCOT Shi) History of surgery on arm Hx of foot surgery H/O LEEP History of tubal ligation History of section Family History Father Brain cancer Mother HIV (human immunodeficiency virus infection) Myocardial infarction Hypertension CVD (cardiovascular disease) Drug abuse Brother Legally blind Cancer H/O ETOH abuse Albinism Stroke Maternal Grandfather Stroke H/O ETOH abuse Family/Other Mental health disorder Social History Housing: Apartment Alcohol intake: former Patient Tobacco Use Status: Former Tobacco user Quit Date: 2022 Tobacco use type: Cigarette Years Smoked: 10 e-Cigarette/Vaping Use: Never Used Second Hand Smoke Exposure: No Substance Use Type: Marijuana service: No Current occupational status: employed 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 Current occupational exposures/hazards: No Sexual orientation: Straight/Heterosexual Gender identity: Female Cognitive needs: No Hearing needs: No Vision needs: Yes Review of Systems Const All systems reviewed & are unremarkable except as noted in HPI and below Physical Exam Const General: cooperative, healthy appearing and no acute distress Resp Effort & Inspection: normal respiratory effort and able to speak in complete sentences Cardio Rate: regular rate Peripheral pulses: Peripheral pulses 2+ throughout GI Palpation (GI): Soft to palpation Skin Lesions: no lesions Rashes: no rashes Extrem Other: Left hand: Incision site over the dorsal aspect of the left hand is clean, dry, and intact. No surrounding erythema or drainage. No signs of infection. Sensation intact. Capillary refill is brisk. Office Procedures Casting/Splints 42533-Tjkh/Wrist Cast Application Procedure code (CPT) selection complete Assessment & Plan Assessment & Plan (1) Takotsubo syndrome: Comment: diagnosed in 20s Code(s): I51.81 - Takotsubo syndrome Category: Medical Plan Ms. Silva is a 43-year-old female who presents in the office today for a cast change; 26 days status post left thumb extensor pollicis longus tendon repair, extensor pollicis brevis tendon repair, and MCP joint and irrigation and debridement, which was performed by Dr. Barreto on 08/25/2023. Patient was seen in the office on 09/13/[address] Barreto for a cast change. While in the office today the patient reports the cast is too loose and itchy. She also reports a throbbing pain for the past two days. Patient was placed into a new custom-made thumb spica short arm cast in the office today. Follow up will be at her regularly scheduled appointment, or sooner if needed. Patient Instructions: Scribed by Shahnaz Yanez medical staff credentialing coordinator, for Marcia Starr PA-C on 09/20/2023 at 12:34 pm, EST. Coding Level of Care Code Global (54747) Diagnoses Takotsubo syndrome I51.81 CPT Codes Casting - CPT: 50017-Nncu/Wrist Cast Application ([id number])
== END 2023-09-20 13:15 | disposition home or self-care (01) ==
LOC: HO.HOS 12:23
PROVIDERS: PCP Internal Medicine; Visit Provider Physician Assistant
DX: S66.222D Laceration of extensor muscle, fascia and tendon of left thumb at wrist and hand level, subsequent encounter (principal)
CPT/HCPCS: 29075; 99024

== ENCOUNTER 2023-09-20 13:18 | Outpatient (REF) | payer OTHER, SELFPAY ==
[2023-09-20 13:33] LABS: MANUAL DIFF FLAG NO
[2023-09-20 13:40] LABS: Basophils Percent Auto 0.2 % (0-2); Eosinophils Absolute Auto 0.1 X10*3/uL (0.0-0.4); Eosinophils Percent Auto 1.1 % (0-4); Hematocrit 34.6 % (37.0-47.0); Hemoglobin 12.1 g/dl (12.0-16.0); Imm Gran Abs Auto 0.04 X10*3/uL (0.00-0.03); Imm Gran Pct Auto 0.7 % (0.0-0.4); Lymphocytes Absolute Auto 1.2 X10*3/uL (1.2-4.9); Lymphocytes Percent Auto 20.2 % (20-40); Mean Corpuscular Hemoglobin 33.2 pg (27.0-33.0); Mean Corpuscular Volume 94.8 fL (80.0-98.0); Mean Platelet Volume 9.6 fL (9.4-12.3); Monocytes Absolute Auto 0.6 X10*3/uL (0.1-1.2); Monocytes Percent Auto 10.3 % (2-11); Neutrophils Absolute Auto 4.1 x10*3/uL (2.0-8.3); Neutrophils Percent Auto 67.5 % (45-73); Platelet Count 230 X10*3/uL (160-400); Red Blood Count 3.65 X10*6/uL (4.20-5.50); Red Cell Distribution Width 14.1 % (11.0-16.0); White Blood Count 6.1 X10*3/uL (4.8-10.8)
[2023-09-20 14:58] LABS: Alanine Aminotransferase 13 U/L (0-31); Albumin Level 4.2 g/dL (3.5-5.0); Alkaline Phosphatase 87 U/L (39-117); Anion Gap 13 (12-20); Aspartate Amino Transferase 16 U/L (5-31); Bilirubin Total 0.3 mg/dL (0.0-1.0); Blood Urea Nitrogen 9 mg/dL (9-16); Calcium 9.4 mg/dL (8.4-10.2); Carbon Dioxide 27 mmol/L (22-29); Chloride 102 mmol/L (96-108); Cholesterol 196 mg/dL (<200); Estimated Glomerular Filt Rate > 60; Glucose Fasting 86 mg/dL (60-99); HDL Cholesterol 41 mg/dL (>40); LDL Cholesterol Calculated 138 mg/dL (<100); Potassium 3.8 mmol/L (3.3-5.1); Sodium 138 mmol/L (135-145); Total Protein 8.1 g/dL (6.5-8.0); Triglycerides 86 mg/dL (<150)
[2023-09-21 18:38] LABS: Gliadin Deamidated IgA Ab <1.0 U/mL; Gliadin Deamidated IgG Ab 2.2 U/mL; Immunoglobulin A 334 mg/dL (47-310); Transglutaminase Ab IgG 2.8 U/mL; Transglutaminase IgA <1.0 U/mL
== END 2023-09-20 13:19 | disposition home or self-care (01) ==
LOC: HO.LAB 13:18
PROVIDERS: Visit Provider Internal Medicine
DX: Z00.00 Encounter for general adult medical examination without abnormal findings (principal); R14.0 Abdominal distension (gaseous); D64.9 Anemia, unspecified
CPT/HCPCS: 36415; 80053; 80061; 82784; 85025; 86258; 86364

== ENCOUNTER 2023-09-26 09:47 | Outpatient (AMB) | payer OTHER, SELFPAY ==
--- NOTE | 2023-09-26 09:49 | MHC.OFFVIS ---
Vital Signs 09/26/23 09:55 Height 5 ft 7 in Weight 154 lb BMI 24.1 Intake Visit Reasons: PO LT Thumb tendon repair 08/25/23 AR-cast change Intake Note: Patient presents today requesting cast change. She reports she wet it a little bit' but dried it with the blow dryer. Patient states Tuesday night she experienced pain on her thumb for which she took a total of 1000 mg of Ibuprofen that helped her pain. Rn Liaison Required: No Accompanied by: Self / Same As Patient Allergies docusate [From COLACE] Allergy (Intermediate, Verified 09/26/23 09:58) SWELLING, swollen HPI HPI PO LT Thumb tendon repair 08/25/23 AR-cast change: Details: 43-year-old female who returns to the office today for a cast change s/p left thumb tendon repair, 08/25/[address] Barreto. She reports she hugged her grandchild infested with lice infection and experienced itching in her cast. She is doing well overall and has no concerns today. 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 Skin tag Overweight Surgical History (Updated 09/14/23 @ 14:19 by SCOT Shi) History of surgery on arm Hx of foot surgery H/O LEEP History of tubal ligation History of section Family History Father Brain cancer Mother HIV (human immunodeficiency virus infection) Myocardial infarction Hypertension CVD (cardiovascular disease) Drug abuse Brother Legally blind Cancer H/O ETOH abuse Albinism Stroke Maternal Grandfather Stroke H/O ETOH abuse Family/Other Mental health disorder Social History Housing: Apartment Alcohol intake: former Patient Tobacco Use Status: Former Tobacco user Quit Date: 2022 Tobacco use type: Cigarette Years Smoked: 10 e-Cigarette/Vaping Use: Never Used Second Hand Smoke Exposure: No Substance Use Type: Marijuana service: No Current occupational status: employed 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 Current occupational exposures/hazards: No Sexual orientation: Straight/Heterosexual Gender identity: Female Cognitive needs: No Hearing needs: No Vision needs: Yes Review of Systems Const All systems reviewed & are unremarkable except as noted in HPI and below Physical Exam Vital Signs: BMI result Body Mass Index 24.1 Const General: cooperative, healthy appearing and no acute distress Resp Effort & Inspection: normal respiratory effort and able to speak in complete sentences Cardio Rate: regular rate Peripheral pulses: Peripheral pulses 2+ throughout GI Palpation (GI): Soft to palpation Skin Lesions: no lesions Rashes: no rashes Extrem Other: Left hand: Incision site over the dorsal aspect of the left hand is clean, dry, and intact. No surrounding erythema or drainage. No signs of infection. Sensation intact. Capillary refill is brisk. Office Procedures Casting/Splints 08229-Unxn/Wrist Cast Application Procedure code (CPT) selection complete Assessment & Plan Assessment & Plan (1) Laceration of thumb, left, with tendon involvement: Code(s): S61.012A - Laceration without foreign body of left thumb without damage to nail, initial encounter Category: Medical Qualifiers: Encounter type: initial encounter Qualified Code(s): S61.012A - Laceration without foreign body of left thumb without damage to nail, initial encounter Plan Patient was placed in a thumb spica cast which she will keep clean, dry and intact till her next appointment with Dr. Barreto, sooner if needed. Patient Instructions: Scribed for Tomi Garzon PA-C, by Julian Hua medical or surgical instrument maker, on 09/26/2023 at 10:00 AM EST. I, Tomi Garzon PA-C, have personally reviewed and agree with the information entered by the scribe. Scribe Plan - Not visible on output: Scribed for Elham Barreto MD by Ranjit Oconnell medical or surgical instrument maker, on [ ] at [ ], EST. Coding Level of Care Code Global (64002) Diagnoses Laceration of thumb, left, with tendon involvement S61.012A Encounter type: initial encounter CPT Codes Casting - CPT: 27709-Kdxx/Wrist Cast Application ([id number])
[2023-09-26 09:55] VITALS: BMI 24.1
== END 2023-09-26 10:26 | disposition home or self-care (01) ==
PROVIDERS: PCP Internal Medicine; Visit Provider Physician Assistant
DX: S61.012D Laceration without foreign body of left thumb without damage to nail, subsequent encounter (principal); Z48.89 Encounter for other specified surgical aftercare
CPT/HCPCS: 29125; 99024

== ENCOUNTER → 2023-09-26 09:47 | Outpatient (BNVA) | payer OTHER, SELFPAY | PROVIDERS: PCP Internal Medicine; Visit Provider Physician Assistant | DX: S61.012A Laceration without foreign body of left thumb without damage to nail, initial encounter (principal); X58.XXXA Exposure to other specified factors, initial encounter; Y93.9 Activity, unspecified; Y92.9 Unspecified place or not applicable; Y99.9 Unspecified external cause status | CPT/HCPCS: 29085; 99212 ==

== ENCOUNTER 2023-10-03 12:07 | Outpatient (AMB) | payer OTHER, SELFPAY ==
--- NOTE | 2023-10-03 12:12 | MHC.OFFVIS ---
Vital Signs 10/03/23 12:15 Height 5 ft 7 in Weight 150 lb BMI 23.5 BP 102/60 Intake Visit Reasons: Ultra sound follow up Grain Distributor Required: No Information Interpreted: clinical only Allergies docusate [From COLACE] Allergy (Intermediate, Verified 10/03/23 12:16) SWELLING, swollen Is last menstrual period known: Yes Last menstrual period: 10/03/23 Do you need a note to return to daycare/school/sports/work: No HPI Comments Details: Presenting for follow-up ultrasound regarding left ovarian probable hemorrhagic cyst on ultrasound done in 02/12. Pelvic ultrasound done in 06/15 showed the following: The uterus is of normal size and echogenicity measuring 9.8 x 3.6 x 4.8 cm. And is anteverted and retroflexed in position A regular homogeneous endometrium is identified measuring 1.0 cm. Minimal subendometrial cystic change which can be seen in the setting of adenomyosis though the junctional zone appears otherwise unremarkable. Both ovaries are unremarkable in appearance. The right measures 2.2 x 1.3 x 1.5 cm for a volume of 2.2 mL. The left measures 3.1 x 3.1 x 2.9 cm for a volume of 14.6 mL. No suspicious ovarian cyst. There is no pelvic free fluid. [facility] Medical History Anxiety Depression Nabothian cyst Left ovarian cyst Prolonged menstrual cycle Lupus Carpal tunnel syndrome on both sides Transaminitis Leukopenia Physical exam Takotsubo syndrome 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 Skin tag Overweight Surgical History History of surgery on arm Hx of foot surgery H/O LEEP History of tubal ligation History of section Family History Father Brain cancer Mother HIV (human immunodeficiency virus infection) Myocardial infarction Hypertension CVD (cardiovascular disease) Drug abuse Brother Legally blind Cancer H/O ETOH abuse Albinism Stroke Maternal Grandfather Stroke H/O ETOH abuse Family/Other Mental health disorder Social History Housing: Apartment Alcohol intake: former Patient Tobacco Use Status: Former Tobacco user Quit Date: 2022 Tobacco use type: Cigarette Years Smoked: 10 e-Cigarette/Vaping Use: Never Used Second Hand Smoke Exposure: No Substance Use Type: Marijuana service: No Current occupational status: employed 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 Current occupational exposures/hazards: No Sexual orientation: Straight/Heterosexual Gender identity: Female Cognitive needs: No Hearing needs: No Vision needs: Yes Female Reproductive History Menstrual Age of Menarche: 14 Duration of menses: other Date of last menstrual period: 10/03/23 control method: permanent sterilization Total pregnancies: 4 Full term: 4 Review of Systems Const All systems reviewed & are unremarkable except as noted in HPI and below Reports as per HPI and Reports no additional complaints GI Reports no additional complaints Reports no additional complaints Physical Exam Vital Signs: Last Vital Signs BP 102/60 10/03/23 12:15 BMI result Body Mass Index 23.5 Assessment & Plan Assessment & Plan (1) Ovarian cyst: Code(s): N83.209 - Unspecified ovarian cyst, unspecified side Category: Medical Plan: Discussed with the patient pelvic ultrasound findings showing the previously identified left hemorrhagic cyst has resolved. The patient was instructed to call if symptoms recur. All questions were answered the patient verbalized understanding. Coding Level of Care Code Est Pt Level 3 (65473) Diagnoses Ovarian cyst N83.209
[2023-10-03 12:15] VITALS: BP 102/60; BMI 23.5
== END 2023-10-03 14:06 | disposition home or self-care (01) ==
LOC: HO.HWS 12:07
PROVIDERS: PCP Internal Medicine; Visit Provider Obstetrics & Gynecology
DX: N83.209 Unspecified ovarian cyst, unspecified side (principal)
CPT/HCPCS: 99213

== ENCOUNTER → 2023-10-03 12:07 | Outpatient (BNVA) | payer OTHER, SELFPAY | PROVIDERS: PCP Internal Medicine; Visit Provider Obstetrics & Gynecology | DX: N83.209 Unspecified ovarian cyst, unspecified side (principal) | CPT/HCPCS: 99212 ==

== ENCOUNTER 2023-10-05 09:33 | Outpatient (AMB) | payer OTHER, SELFPAY ==
[2023-10-05 09:34] VITALS: BMI 23.5
--- NOTE | 2023-10-05 09:34 | A.OFFVIS_ITS ---
Vital Signs 10/05/23 09:34 Height 5 ft 7 in Weight 150 lb BMI 23.5 Intake Visit Reasons: PO LT Thumb tendon repair 08/25/23 AR Intake Note: Stephanie 43 yr old female presents today for her P/O visit for her WC injury from 08/12/23 & S/P tendon repair & MCP joint I&D 08/25/23. Cast removed in office. States she has no pain just dry skin and its itchy. Allergies docusate [From COLACE] Allergy (Intermediate, Verified 10/05/23 09:35) SWELLING, swollen HPI HPI PO LT Thumb tendon repair 08/25/23 AR: Details: Stepahnie is a 43-year-old right hand dominant woman who presents 5 weeks and 6 days status post S/P left thumb EPL & EPB tendon repair and MCP joint I&D, DOS: 08/25/23. This was a work-related injury from a boxcutter, DOI: 08/12/23. Her cast was removed in the office today. She confirms keeping her fingers moving while in the cast. 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 [facility] Medical History Anxiety Depression Nabothian cyst Left ovarian cyst Prolonged menstrual cycle Lupus Carpal tunnel syndrome on both sides Transaminitis Leukopenia Physical exam Takotsubo syndrome 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 Skin tag Overweight Surgical History History of surgery on arm Hx of foot surgery H/O LEEP History of tubal ligation History of section Family History Father Brain cancer Mother HIV (human immunodeficiency virus infection) Myocardial infarction Hypertension CVD (cardiovascular disease) Drug abuse Brother Legally blind Cancer H/O ETOH abuse Albinism Stroke Maternal Grandfather Stroke H/O ETOH abuse Family/Other Mental health disorder Social History Housing: Apartment Alcohol intake: former Patient Tobacco Use Status: Former Tobacco user Quit Date: 2022 Tobacco use type: Cigarette Years Smoked: 10 e-Cigarette/Vaping Use: Never Used Second Hand Smoke Exposure: No Substance Use Type: Marijuana service: No Current occupational status: employed 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 Current occupational exposures/hazards: No Sexual orientation: Straight/Heterosexual Gender identity: Female Cognitive needs: No Hearing needs: No Vision needs: Yes Female Reproductive History Menstrual Age of Menarche: 14 Review of Systems Const All systems reviewed & are unremarkable except as noted in HPI and below Physical Exam Vital Signs: BMI result Body Mass Index 23.5 Const General: cooperative, healthy appearing and no acute distress Orientation/consciousness: patient oriented x3 HEENT Head: Yes normocephalic and Yes atraumatic Eyes EOM: EOMs intact bilaterally Resp Effort & Inspection: normal respiratory effort and able to speak in complete sentences Cardio Jugular venous distension: no JVD Skin General skin exam: turgor normal Rashes: no rashes Neuro General: patient oriented x3 Extrem Other: Evaluation of Left Upper Extremity: The patient was alert oriented and in no acute distress The incision is now well healed with no erythema drainage or evidence of infection. Scab over the laceration site. Left thumb is somewhat smaller some than the other thumb because of the injury she had as a young child sensation to the tip of the thumb. Prior to her injury, she does not appear to have flexion at the IP joint of the thumb but she said that this is the way she was before the laceration. The thumb is in a held in an extended position. Able to make a closed fist and extend all digits. Sensation is normal for her to the tip of the digit, sensation intact and normal to other digits. Cap refill is brisk Microbiology Report: 08/25/23 Routine Culture Final 08/27/23-1016 Organism 1 Coag negative Staphylococcus Quantity 1+ Unlikely pathogen; call Micro if full workup indicate Psych Appearance: grossly normal Affect: normal affect Attitude: cooperative Assessment & Plan Assessment & Plan (1) Takotsubo syndrome: Comment: diagnosed in 20s Code(s): I51.81 - Takotsubo syndrome Category: Medical (2) Laceration of extensor tendon of left thumb at hand level: Code(s): S66.222A - Laceration of extensor muscle, fascia and tendon of left thumb at wrist and hand level, initial encounter Category: Medical Plan Assessment & Plan: 1. Left thumb EPL tendon laceration 2. Left thumb EPB tendon laceration 3. 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 I educated her about the postoperative course. We discontinued the cast today. Able to wash hand in the shower and since. Order for occupational therapy was placed. She may return to work on light duty with a 2 lb weight limit. Able to lift light weight, no more than 2 pounds. Will work up to a can of soup for light to medium weight activities increase. Follow up will be in 3-4 weeks for a ROM check. Hopefully we can return her to full duty at that time. Scribed by Shahnaz Yanez, medical billing instructor, for Dr. lEham Barreto on 10/05/2023 at 9:45 am, EST. Orders: Orders OT Evaluation and Treatment Today S66.222A - Laceration of extensor muscle, fascia and tendon of left thumb at wrist and hand level, initial encounter Scribe Plan - Not visible on output: Scribed for Elham Barreto MD by Ranjit Oconnell medical billing instructor, on [ ] at [ ], EST. Coding Level of Care Code Global (87593) Diagnoses Takotsubo syndrome I51.81 Laceration of extensor tendon of left thumb at hand level S66.222A
== END 2023-10-05 10:06 | disposition home or self-care (01) ==
PROVIDERS: PCP Internal Medicine; Visit Provider Orthopaedic Surgery
DX: I51.81 Takotsubo syndrome (principal); S66.222A Laceration of extensor muscle, fascia and tendon of left thumb at wrist and hand level, initial encounter
CPT/HCPCS: 99024

== ENCOUNTER → 2023-10-05 09:33 | Outpatient (BNVA) | payer OTHER, SELFPAY | PROVIDERS: PCP Internal Medicine; Visit Provider Orthopaedic Surgery | DX: S66.222D Laceration of extensor muscle, fascia and tendon of left thumb at wrist and hand level, subsequent encounter (principal); I51.81 Takotsubo syndrome | CPT/HCPCS: 99212 ==

== ENCOUNTER 2023-10-06 00:13 | Emergency (ER) | payer OTHER, SELFPAY ==
[2023-10-06 00:35] VITALS: BP 104/59; PULSE 83; RESP 16; TEMP 37.1; O2SAT 99; BMI 22.8
[2023-10-06 01:20] LABS: UPreg QC Valid YES; Urine Pregnancy NEGATIVE (NEGATIVE)
[2023-10-06 01:22] LABS: Bacteria Urine None Seen (None Seen); Hyaline Casts Urine 0-2 /LPF (0-2); RBC Urine >20 /HPF (0-2)
[2023-10-06 01:31] LABS: Appearance Urine Turbid; Color Urine Red; Glucose Urine UA Negative (Negative); Leukocyte Esterase Urine Small (1+) (Negative); Nitrite Urine Negative (Negative); Specific Gravity - Urine 1.025 (1.005-1.025); UACC Culture Trigger YES; UMIC TRIGGER UACC YES; Urine Blood Large (3+) (Negative); Urine Ketones Negative (Negative); Urine Protein 100 (2+) mg/dL (Neg-Trace)
--- NOTE | 2023-10-06 05:07 | ED.FEMALEGU ---
HPI - Female Genitourinary General Chief complaint: Urogenital-Female Stated complaint: lower back pain Time Seen by Provider: 10/06/23 04:57 Source: patient Mode of arrival: ambulatory Limitations: no limitations History of Present Illness HPI Narrative: Patient comes to the emergency room complaining of bilateral back pain. Patient states that she feels sort, denies any trauma. Patient states that her urine is very red. Denies foul-smelling urine, no fever chills, no abdominal pain. Patient states that she is prone to having UTIs, and usually when she starts having a UTI, her symptoms started with bilateral lower back pain. Related Data Home Medications ?Medication ?Instructions ?Recorded ?Confirmed multivitamin (Daily Multi-Vitamin 1 tab PO DAILY 05/21/21 08/25/23 tablet) Previous Rx's ?Medication ?Instructions ?Recorded bupropion HCl 150 mg 24 hr tablet, 150 mg PO QAM 90 days #90 tabs 07/04/23 extended release hydroxyzine HCl 10 mg tablet 10 mg PO TID PRN anxiety 30 days 07/04/23 #90 tabs ibuprofen 200 mg capsule 600 mg (3 x 200 mg) PO Q6H 30 days 07/04/23 #360 caps acetaminophen 500 mg tablet 1,000 mg (2 x 500 mg) PO Q6H PRN 08/12/23 (Tylenol Extra Strength) pain #30 tabs ibuprofen 600 mg tablet 600 mg PO Q6H PRN pain #30 tabs 08/12/23 levofloxacin 500 mg tablet 500 mg PO DAILY #9 tabs 10/06/23 Allergies Allergy/AdvReac Type Severity Reaction Status Date / Time docusate [From COLACE] Allergy Intermediate SWELLING, Verified 10/06/23 00:36 swollen Review of Systems Review of Systems: Constitutional : No Weight loss, No Fever, No Chills, No Night Sweats, No Fatigue, No Malaise ENT/Mouth : No Hearing loss, No Ear Pain, No Nasal Congestion, No Sinus Pain, No Hoarseness, No sore throat, No Rhinorrhea, No Swallowing Difficulty Eyes: No Eye Pain, No Swelling, No Redness, No Foreign Body, No Discharge, No Vision Changes Cardiovascular : No Chest Pain, No SOB, No Dyspnea on Exertion, No Orthopnea, No Edema, No Palpitations Respiratory : No Cough, No Sputum, No Wheezing, No Smoke Exposure, No Dyspnea Gastrointestinal : No Nausea, No Vomiting, No Diarrhea, No Constipation, No abdominal Pain, No Hematochezia, No Melena Genitourinary : no irregular bleeding, No Dysuria, No Urinary Frequency, complaining of reddish urine, hematuria, no foul-smelling urine. Complaining of bilateral lower back pain Musculoskeletal : No joint pain, No Myalgias, No Joint Swelling Skin : No Skin Lesions, No rash Neuro : No Weakness, No Numbness, No Paresthesias, No Loss of Consciousness, No Dizziness, No Headache Psych : No Anxiety/Panic, No Depression, No SI/HI/AH/VH, No Social Issues, Heme/Lymph: No Bruising, No Bleeding,No Lymphadenopathy Endocrine : No Polyuria, No Polydipsia, No Temperature Intolerance COUNTS INCLUDE 234 BEDS AT THE [facility] Past Medical History Medical History Anxiety Depression Nabothian cyst Left ovarian cyst Prolonged menstrual cycle Lupus Carpal tunnel syndrome on both sides Transaminitis Leukopenia Physical exam Takotsubo syndrome 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 Skin tag Overweight Surgical History History of surgery on arm Hx of foot surgery H/O LEEP History of tubal ligation History of section Family History Family History Father Brain cancer Mother HIV (human immunodeficiency virus infection) Myocardial infarction Hypertension CVD (cardiovascular disease) Drug abuse Brother Legally blind Cancer H/O ETOH abuse Albinism Stroke Maternal Grandfather Stroke H/O ETOH abuse Family/Other Mental health disorder Social History Social History Housing: Apartment Alcohol intake: former Patient Tobacco Use Status: Former Tobacco user Quit Date: 2022 Tobacco use type: Cigarette Years Smoked: 10 e-Cigarette/Vaping Use: Never Used Second Hand Smoke Exposure: No Substance Use Type: Marijuana Advance Directives: No service: No Current occupational status: employed 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 Oriented X3. No acute distress. Eyes: Pupils equal, round and reactive to light. ENT: Pharynx normal. Neck: Normal inspection. Neck supple. No lymph nodes noted. No crepitus CVS: Normal heart rate and rhythm. Pulses normal. Normal S1 and S2 Respiratory: No respiratory distress. Breath sounds normal. No Wheezing. No rales Abdomen: Soft and nontender. No rigidity. No distention. Skin: Skin warm and dry. Normal skin color. Normal skin turgor. Back: Pain to palpation in bilateral sides of the lower back Extremities: No lower extremity edema. No Lacerations. No Rash Neuro: Oriented X 3. No motor deficit. No sensory deficit. Moving all extremities. No slurred speech. CN 2 through 12 grossly intact Psych: calm, cooperative, normal affect Medical Decision Making Medical Decision Making MDM Narrative: Patient denies any suprapubic pain, no foul-smelling urine, no fever, vitals are normal. -patient's urine is positive for UTI. Sepsis is not suspected. Given the patient's symptoms, clinically patient has pyelonephritis. -patient was given the 1st dose of levofloxacin in the emergency room. Discussed with the patient that if she does not improve over if anything changes within the next few days, she needs to return immediately to the emergency room for possible admission. Agrees with plan. -patient declined pain medication at this time. States that she feels well. Lab Data MDM Lab Attestation statement: I reviewed the patient's lab results. Labs: Lab Results 10/06/23 Range/Units 01:12 Urine Color Red A Urine Appearance Turbid Urine pH 5.0 (5.0-9.0) Ur Specific Cecil 1.025 (1.005-1.025) Urine Protein 100 (2+) H (Neg-Trace) mg/dL Urine Glucose (UA) Negative (Negative) mg/dL Urine Ketones Negative (Negative) mg/dL Urine Blood Large (3+) H (Negative) Urine Nitrite Negative (Negative) Ur Leukocyte Esterase Small (1+) H (Negative) Urine RBC >20 H (0-2) /HPF Urine WBC 11-20 H (0-5) /HPF Ur Squamous Epith Cells 6-10 (0-2) /HPF Urine Bacteria None Seen (None Seen) Hyaline Casts 0-2 (0-2) /LPF Urine Test NEGATIVE (NEGATIVE) Discharge Plan Discharge Clinical Impression: Pyelonephritis Patient Disposition: Home, Self-Care Instructions: Kidney Infection (ED) Additional Instructions: Please follow-up with your primary care physician tomorrow. If you have any worsening or new symptoms, please return to the emergency room or call 911 Prescriptions: New levofloxacin 500 mg tablet 500 mg PO DAILY Qty: 9 0RF No Action ibuprofen 200 mg capsule 600 mg PO Q6H 30 Days Qty: 360 0RF hydroxyzine HCl 10 mg tablet 10 mg PO TID PRN (Reason: anxiety) 30 Days Qty: 90 0RF bupropion HCl 150 mg tablet extended release 24 hr 150 mg PO QAM 90 Days Qty: 90 1RF ibuprofen 600 mg tablet 600 mg PO Q6H PRN (Reason: pain) Qty: 30 0RF acetaminophen [Tylenol Extra Strength] 500 mg tablet 1,000 mg PO Q6H PRN (Reason: pain) Qty: 30 0RF multivitamin [Daily Multi-Vitamin] Tablet 1 tab PO DAILY triamcinolone acetonide 40 mg/mL suspension 20 mg Tendon Sheath Inj. ONCE Qty: 0.5 0RF Print Language: Danish
[2023-10-06] MEDS: levoFLOXacin 750 MG TABLET PO (05:49)
[2023-10-06 05:52] VITALS: BP 110/71; PULSE 72; RESP 16; TEMP 36.9; O2SAT 99
[2023-10-06 05:53] VITALS: BP 110/71; PULSE 72; RESP 16; TEMP 36.9; O2SAT 99
== END 2023-10-06 05:54 | disposition home or self-care (01) ==
PROVIDERS: Emergency Provider Emergency Medicine
DX: N12 Tubulo-interstitial nephritis, not specified as acute or chronic (principal); Z87.440 Personal history of urinary (tract) infections
CPT/HCPCS: 81001; 81025; 87086; 99283

== ENCOUNTER 2023-10-12 11:28 | Outpatient (AMB) | payer OTHER, SELFPAY ==
--- NOTE | 2023-10-12 11:28 | A.OFFVIS_ITS ---
Intake Visit Reasons: Questions about colposcopy Set Up Mechanic Required: No Information Interpreted: non-clinical & clinical Allergies docusate [From COLACE] Allergy (Intermediate, Verified 10/12/23 11:29) SWELLING, swollen HPI Comments Details: The patient is scheduled tele health visit regarding questions for colposcopy. Last Pap smear in 09/13 was ascus/HPV E6/E7 positive, HPV 16 positive, HPV 18/45 negative Here is a summary of the patient's history of abnormal Pap smears: 08/03 asc-h 09/05 ascus 01/07 ascus +hpv 12/ colpo/biopsy/ECC DENIS 1 02/09 ascus +hpv 05/11 colpo/biopsy/ECC DENIS 1 04/12 LGSIL 05/12 colpo/biopsy/ECC DENIS 1 07/14 Leep cone with post cone ECC, pathology DENIS 1 09/12 LGSIL HPV positive, colpo/biopsy/ECC atypical cells possible DENIS 1 09/13 ascus/HPV E6/E7 positive, HPV 16 positive, HPV 18/45 negative [facility] Medical History Anxiety Depression Nabothian cyst Left ovarian cyst Prolonged menstrual cycle Lupus Carpal tunnel syndrome on both sides Transaminitis Leukopenia Physical exam Takotsubo syndrome 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 Skin tag Overweight Surgical History History of surgery on arm Hx of foot surgery H/O LEEP History of tubal ligation History of section Family History Father Brain cancer Mother HIV (human immunodeficiency virus infection) Myocardial infarction Hypertension CVD (cardiovascular disease) Drug abuse Brother Legally blind Cancer H/O ETOH abuse Albinism Stroke Maternal Grandfather Stroke H/O ETOH abuse Family/Other Mental health disorder Social History Housing: Apartment Alcohol intake: former Patient Tobacco Use Status: Former Tobacco user Quit Date: 2022 Tobacco use type: Cigarette Years Smoked: 10 e-Cigarette/Vaping Use: Never Used Second Hand Smoke Exposure: No Substance Use Type: Marijuana service: No Current occupational status: employed 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 Current occupational exposures/hazards: No Sexual orientation: Straight/Heterosexual Gender identity: Female Cognitive needs: No Hearing needs: No Vision needs: Yes Female Reproductive History Menstrual Age of Menarche: 14 Review of Systems Const All systems reviewed & are unremarkable except as noted in HPI and below Reports as per HPI and Reports no additional complaints GI Reports no additional complaints Reports no additional complaints Telehealth Telehealth Telehealth Platform: Telephone Location of provider rendering services: practice address Location of patient: address on file Patient Identification confirmed using: Name, : Yes Telehealth method: video Patient verbally consented to treatment: Yes Patient verbally consented to billing insurance company: Yes Patient informed of any privacy concerns related to visit: Yes Assessment & Plan Assessment & Plan (1) ASCUS with positive high risk HPV cervical: Comment: h/o DENIS I s/p LEEP cone in 2021 Code(s): R87.610 - Atypical squamous cells of undetermined significance on cytologic smear of cervix (ASC-US); R87.810 - Cervical high risk human papillomavirus (HPV) DNA test positive Category: Medical Plan: Discussed with the patient the result of her abnormal pap, its significance, risk of progression, persistence, and regression. the false positive/negative rate of a Pap smear as a screening test in detecting cervical cancer and the indication for a diagnostic test -colposcopy, biopsy, endocervical curettage. The patient verbalized understanding and agreed with the plan, all questions answered. I spent a total of 20 minutes reviewing the chart, talking to the patient via video and documenting in the medical record. Coding Level of Care Code Tele Est Pt Level 1 (41532) Diagnoses ASCUS with positive high risk HPV cervical R87.610; R87.810
== END 2023-10-12 14:59 | disposition home or self-care (01) ==
LOC: HO.HWS 11:28
PROVIDERS: PCP Internal Medicine; Visit Provider Obstetrics & Gynecology
DX: R87.610 Atypical squamous cells of undetermined significance on cytologic smear of cervix (ASC-US) (principal); R87.810 Cervical high risk human papillomavirus (HPV) DNA test positive
CPT/HCPCS: 99211

== ENCOUNTER → 2023-10-12 11:28 | Outpatient (BNVA) | payer OTHER, SELFPAY | PROVIDERS: PCP Internal Medicine; Visit Provider Obstetrics & Gynecology ==

== ENCOUNTER 2023-11-08 09:54 | Outpatient (AMB) | payer OTHER, SELFPAY ==
--- NOTE | 2023-11-08 09:57 | A.OFFVIS_ITS ---
Vital Signs 11/08/23 10:12 Height 5 ft 7 in Weight 140 lb BMI 21.9 Handedness Right Intake Visit Reasons: PO LT Thumb tendon repair 08/25/23 AR Intake Note: Stephanie is a 43 yr old female presents today for a post op visit regarding her left thumb tendon repair 08/25/[address] Barreto and ROM check. Patient reports she has been going to OT twice a week. She feels she is gaining more mobility but when she closes her fist she feels tightness and stiffness in the volvar aspect of her hand that causes pain which she describes as electricity and zapping through the volvar aspect of her left hand that lingers after. This pain she describes causes her to have to release whatever object she grasps immediately. She has not returned to work because they do not have light duty and does not feel ready to return to full duty since she still is unable to hold to mop, broom, or her her tools. Allergies docusate [From COLACE] Allergy (Intermediate, Verified 11/08/23 10:07) SWELLING, swollen HPI HPI PO LT Thumb tendon repair 08/25/23 AR: Details: Stephanie is a 43-year-old right hand dominant woman who presents for a ROM check S/P left thumb EPL & EPB tendon repair and MCP joint I&D, DOS: 08/25/23. This was a work-related injury from a boxcutter, DOI: 08/12/23. 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 She says she is not doing well. She complains of a shooting, zapping pain in the volar aspect of her hand extending from the base of the middle finger up her volar forearm when making a fist. She says she is not able to hold objects with her left hand as this pain makes her release what she is holding. She say she cannot hold a cup or water bottle at home, let alone a broom or mop. She has been working on ROM with OT hand therapy and has made some improvement in her motion, but still feels limited. She complains of numbness to her entire hand bilaterally, R>L. She says her hands go numb & cold all the time . Symptoms intermittent but daily. She received a left carpal tunnel injection by Dr. Koch on 06/02/23, with relief & a right carpal tunnel injection by Dr. Koch on 06/23/23, with relief. She says she has not been able to return to work as she has not felt able to perform her duties. 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 Skin tag Overweight Surgical History History of surgery on arm Hx of foot surgery H/O LEEP History of tubal ligation History of section Family History Father Brain cancer Mother HIV (human immunodeficiency virus infection) Myocardial infarction Hypertension CVD (cardiovascular disease) Drug abuse Brother Legally blind Cancer H/O ETOH abuse Albinism Stroke Maternal Grandfather Stroke H/O ETOH abuse Family/Other Mental health disorder Social History Housing: Apartment Alcohol intake: former Patient Tobacco Use Status: Former Tobacco user Tobacco use type: Cigarette Years Smoked: 10 e-Cigarette/Vaping Use: Never Used Second Hand Smoke Exposure: No Substance Use Type: Marijuana service: No Current occupational status: employed 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 Current occupational exposures/hazards: No Sexual orientation: Straight/Heterosexual Gender identity: Female Cognitive needs: No Hearing needs: No Vision needs: Yes Female Reproductive History Menstrual Age of Menarche: 14 Review of Systems Const All systems reviewed & are unremarkable except as noted in HPI and below Physical Exam Vital Signs: BMI result Body Mass Index 21.9 Const General: no acute distress and alert Orientation/consciousness: patient oriented x3 Neuro General: patient oriented x3 Extrem Other: Evaluation of Left Upper Extremity: The patient is alert, oriented, and in no acute distress Neuro: Median, Ulnar, Radial nerves motor and sensory intact and sensation is normal to the tips of all digits Vascular: Cap refill brisk ROM: Her laceration and all surgical incisions are well healed with no evidence of infection. She has good active thumb extension, & can oppose her thumb to the index & middle fingertips. She has some trouble opposing to the ring & small fingers, but this may have been present prior to her injury No mass or abnormality felt in palm today, though the patient complains of a knot in her palm No swelling or tenderness in the palm. She can bring all her fingers close to a fist. Left thumb is somewhat smaller some than the other thumb because of the injury she had as a young child sensation to the tip of the thumb. Nerve Conduction Studies: Impression: Early right carpal tunnel syndrome Mild right cubital tunnel syndrome Normal left side with no carpal or cubital tunnel syndrome Dr. Rodriguez 05/18/23 IMPRESSION: Mild bilateral median neuropathy across carpal tunnel. Carol Marquez MD 07/15/2022 Psych Appearance: grossly normal Affect: normal affect Attitude: cooperative Assessment & Plan Assessment & Plan (1) Laceration of extensor tendon of left thumb at hand level: Code(s): S66.222A - Laceration of extensor muscle, fascia and tendon of left thumb at wrist and hand level, initial encounter Category: Medical (2) Takotsubo syndrome: Comment: diagnosed in 20s Code(s): I51.81 - Takotsubo syndrome Category: Medical (3) Carpal tunnel syndrome of right wrist: Code(s): G56.01 - Carpal tunnel syndrome, right upper limb Category: Medical (4) Carpal tunnel syndrome of left wrist: Code(s): G56.02 - Carpal tunnel syndrome, left upper limb Category: Medical (5) Cubital tunnel syndrome on right: Code(s): G56.21 - Lesion of ulnar nerve, right upper limb Category: Medical Plan Assessment & Plan: 1. Left thumb EPL tendon laceration 2. Left thumb EPB tendon laceration 3. 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 She complains of difficulty with grasping activities, and and worries that she will have difficulty holding a broom or a mop for periods of time. I recommend she continue with OT on ROM exercises, and begin using her hand for normal daily activities I do think that it is important to get her back to work, with think it is best to have her start with only half the hours as she starts to get her strength back. She was given a note for work saying she will return to work on half-time, maximum 4-5 hours daily and maximum 20 hours weekly. 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 Please note that the following conditions as a part of her health insurance rather than her workmen's compensation insurance: They will be addressed in a separate appointment. 4. Right carpal tunnel syndrome, early Symptoms intermittent, but daily, worse at night S/P injection by Dr. Koch on 06/02/23 5. Left carpal tunnel syndrome, mild Seen on [facility] on 07/15/22, not seen on [facility] on 05/18/23 S/P injection by Dr. Koch on 06/23/23 6. Right cubital tunnel syndrome, mild Symptoms intermittent, but daily, worse at night These issues were not addressed today She will make an appointment to be seen for this issue in the next few weeks. This should be a separate visit than her follow-up for her left thumb laceration as they are not related to the workplace injury Scribed for Elham Barreto MD by Ranjit Oconnell, medical equipment repair technician, on 11/08/23 at 10:10 AM, EST. Coding Level of Care Code Global (29598) Diagnoses Laceration of extensor tendon of left thumb at hand level S66.222A Takotsubo syndrome I51.81 Carpal tunnel syndrome of right wrist G56.01 Carpal tunnel syndrome of left wrist G56.02 Cubital tunnel syndrome on right G56.21
[2023-11-08 10:12] VITALS: BMI 21.9
== END 2023-11-08 10:24 | disposition home or self-care (01) ==
PROVIDERS: PCP Internal Medicine; Visit Provider Orthopaedic Surgery
DX: S66.222A Laceration of extensor muscle, fascia and tendon of left thumb at wrist and hand level, initial encounter (principal); I51.81 Takotsubo syndrome; G56.03 Carpal tunnel syndrome, bilateral upper limbs; G56.21 Lesion of ulnar nerve, right upper limb
CPT/HCPCS: 99024

== ENCOUNTER → 2023-11-08 09:54 | Outpatient (BNVA) | payer OTHER, SELFPAY | PROVIDERS: PCP Internal Medicine; Visit Provider Orthopaedic Surgery | DX: S66.222D Laceration of extensor muscle, fascia and tendon of left thumb at wrist and hand level, subsequent encounter (principal); G56.03 Carpal tunnel syndrome, bilateral upper limbs; G56.21 Lesion of ulnar nerve, right upper limb; I51.81 Takotsubo syndrome | CPT/HCPCS: 99212 ==

== ENCOUNTER 2023-11-16 13:30 | Outpatient (RCR) | payer OTHER, SELFPAY ==
--- NOTE | 2023-10-20 16:26 | MHC.OT.EP ---
[address] [phone] Occupational Therapy Plan of Care Patient Name: Stephanie Silva Date of Evaluation: 10/20/23 Diagnosis: laceration of extensor tendon; thumb Pain Location: dorsal side of thumb Pain Score: 6 Pain Scale Used: Numeric (0 - 10) Aggravating Factors: movement/ sharp sudden movemement Alleviating Factors: avoiding use Assessment: Pt is a L hand dominant 15 yr. old male who injured the distal tip of his R Thumb while helping his friend to fix his bicycle. He went to [place] that evening and had surgery; pt was placed in a prefabricated orthoses and was d/charged from that last week and a finger orthoses was fabricated by [employer] ([place]) to be worn while pt. is at school and during activity. Pt was referred to skilled OT therapy for increased ROM, and functional use of his non dominant hand Frequency and Duration: The patient will be seen 2 xs a week for 6 weeks Short Term Goals: Pt will be compliant w/ her HEP Pt will report 1/10 pain Pt will gain 40 (60) MP J flexion Usp Goals: Pt will RTW w/out restrictions Pt will report Bilaterally lifting 20 lbs Pt will use her L hand to push a broom to sweep w/ out difficulty Treatment Plan: Therapeutic Exercise Therapeutic Activity Home Exercise Program Splinting Neuro Re-ed Patient Education Desensitization/Sensory Re-ed Edema Control ADL Training Ultrasound NMES Iontophoresis Paraffin Fluidotherapy MHP Cold Packs Joint Mobilization Soft Tissue Mobilization Kinesiotaping Other (see comments) Electronically Signed By: Reema Garner OTR/L Please Sign and return to therapist. Thank you once again for your referral.
--- NOTE | 2023-10-24 13:38 | MHC.OT.EP ---
[address] [phone] Occupational Therapy Plan of Care Patient Name: Stephanie Silva Date of Evaluation: 10/20/23 Diagnosis: laceration of extensor tendon; thumb Pain Location: dorsal side of thumb Pain Score: 6 Pain Scale Used: Numeric (0 - 10) Aggravating Factors: movement/ sharp sudden movemement Alleviating Factors: avoiding use Assessment: Pt is a R hand dominant 43 yr. old female who lacerated her thumb while using a box strapper to break up boxes while at work. She reported originally seeing MD who stitched the laceration but had to have surgery on 09/06 to repair the extensor tendon. Pt has a pre morbid condition of a P1 injury of her L thumb which happened when she was a child (shortened thumb). She has been referred to skilled OT therapy for decreased pain/ sensitivity, and increased ROM, strength, and functional use of her L thumb Frequency and Duration: The patient will be seen 2 xs a week for 6 weeks Short Term Goals: Pt will be compliant w/ her HEP Pt will report 1/10 pain Pt will gain 40 (60) MP J flexion Champagne Maker Goals: Pt will RTW w/out restrictions Pt will report Bilaterally lifting 20 lbs Pt will use her L hand to push a broom to sweep w/ out difficulty Treatment Plan: Therapeutic Exercise Therapeutic Activity Home Exercise Program Splinting Neuro Re-ed Patient Education Desensitization/Sensory Re-ed Edema Control ADL Training Ultrasound NMES Iontophoresis Paraffin Fluidotherapy MHP Cold Packs Joint Mobilization Soft Tissue Mobilization Kinesiotaping Other (see comments) Electronically Signed By: Reema Garner OTR/L Please Sign and return to therapist. Thank you once again for your referral.
== END 2023-11-23 13:57 | disposition home or self-care (01) ==
LOC: HO.OT 13:30
PROVIDERS: PCP Internal Medicine; Visit Provider Orthopaedic Surgery
DX: S66.222D Laceration of extensor muscle, fascia and tendon of left thumb at wrist and hand level, subsequent encounter (principal)
CPT/HCPCS: 97035; 97110; 97112; 97140; 97166; 97535

== ENCOUNTER 2023-12-05 13:10 | Outpatient (AMB) | payer OTHER, SELFPAY ==
[2023-12-05 13:11] VITALS: BP 124/80; PULSE 80; O2SAT 98; BMI 23.0
--- NOTE | 2023-12-05 13:11 | AM.OFFWIN_ITS ---
Intake Vital Signs 12/05/23 13:11 Height 5 ft 7 in Weight 147 lb BMI 23.0 BP 124/80 Blood Pressure Location Lt brachial Position Sitting Pulse 80 Pulse Source Pulse Oximeter Pulse Oximetry (%) 98 Oxygen Delivery Method Room Air Intake Visit Reasons: EP pink eye/heat rash Intake Note: Pt is here today for a walk in visit. Pt c/o pink eye in her L eye. Pt states that she has a rash in her vaginal area that is itchy and pinsul and it spreads to her abdomen. Patient Tobacco Use Status: Former Tobacco user Allergies docusate [From COLACE] Allergy (Intermediate, Verified 12/05/23 13:15) SWELLING, swollen HPI HPI Comments History of Present Illness Details Patient is a 43-year-old female who is here today with 2 complaints. Her 1st complaint is that her left eye is runny with a yellow liquid, she states it is crusted shut in the morning and she keeps having to clear it. She is also complaining and is a little bloodshot. She denies any changes in her vision. Her 2nd complaint is that she has had vaginal itching and swelling for the past few days, she states she has a rash now above the hairline in her lower abdomen that is very itchy. She tried putting aloe and astringent patches on it with no relief. She states she is sexually active with her of 10 years and they are monogamous. 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 Skin tag Overweight Surgical History History of surgery on arm Hx of foot surgery H/O LEEP History of tubal ligation History of section Family History Father Brain cancer Mother HIV (human immunodeficiency virus infection) Myocardial infarction Hypertension CVD (cardiovascular disease) Drug abuse Brother Legally blind Cancer H/O ETOH abuse Albinism Stroke Maternal Grandfather Stroke H/O ETOH abuse Family/Other Mental health disorder Social History Housing: Apartment Alcohol intake: former Patient Tobacco Use Status: Former Tobacco user Tobacco use type: Cigarette Years Smoked: 10 e-Cigarette/Vaping Use: Never Used Second Hand Smoke Exposure: No Substance Use Type: Marijuana service: No Current occupational status: employed 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 Current occupational exposures/hazards: No Sexual orientation: Straight/Heterosexual Gender identity: Female Cognitive needs: No Hearing needs: No Vision needs: Yes Female Reproductive History Menstrual Age of Menarche: 14 Review of Systems Const All systems reviewed & are unremarkable except as noted in HPI and below Physical Exam Vital Signs: Last Vital Signs Pulse 80 12/05/23 13:11 BP 124/80 12/05/23 13:11 Pulse Ox 98 12/05/23 13:11 Oxygen Delivery Method Room Air 12/05/23 13:11 BMI result Body Mass Index 23.0 Const General: cooperative, healthy appearing, comfortable, no acute distress and well developed Orientation/consciousness: patient oriented x3 Limitations: no limitations HEENT Head: Yes normal to inspection Eyes Conjunctivae: conjunctival abnormal left conjunctival injection (slight) diffuse and discharge (slight) purulent Pupils: Equal, round and reactive pupils present EOM: EOMs intact bilaterally Neck Neck: Yes normal visual inspection and Yes full ROM Resp Effort & Inspection: normal respiratory effort and able to speak in complete sentences Other: Suprapubic area has a2cm x 1cm area of open erythematous lesions weeping liquid, no signs of infection noted External Female Exam: externally tender, external swelling and lesion (several small healed, scabbed lesions ) Neuro General: patient oriented x3 Cranial nerves: Yes Equal, round and reactive pupils present Extrem General: Yes normal to inspection Assessment & Plan Assessment & Plan (1) Itching with irritation: Code(s): L29.9 - Pruritus, unspecified Plan: See below (2) Vaginal itching: Code(s): N89.8 - Other specified noninflammatory disorders of vagina Plan: Swabbed lesions in the suprapubic area, sent to lab, recommended Vagisil until we have results. (3) Conjunctivitis: Code(s): H10.9 - Unspecified conjunctivitis Qualifiers: Conjunctivitis type: acute Acute conjunctivitis type: bacterial Laterality: left Qualified Code(s): H10.32 - Unspecified acute conjunctivitis, left eye Plan: Sent erythromycin ointment to pharmacy, educated patient if she experiences any visual changes she should go to the emergency department Plan See above Orders: Orders Viral Culture Today L29.9 - Pruritus, unspecified, N89.8 - Other specified noninflammatory disorders of vagina Medications: New erythromycin Apply to lower left eyelid as directed 0.5 inches ophthalmic (eye) QID 3.5 grams 0RF Coding Level of Care Code Est Pt Level 4 (74890) Diagnoses Itching with irritation L29.9 Vaginal itching N89.8 Acute bacterial conjunctivitis of left eye H10.32 Conjunctivitis type: acute Acute conjunctivitis type: bacterial Laterality: left
== END 2023-12-05 13:54 | disposition home or self-care (01) ==
PROVIDERS: PCP Internal Medicine; Visit Provider Physician Assistant
DX: L29.9 Pruritus, unspecified (principal); N89.8 Other specified noninflammatory disorders of vagina; H10.32 Unspecified acute conjunctivitis, left eye
CPT/HCPCS: 99214

== ENCOUNTER 2023-12-05 16:54 | Outpatient (REF) | payer OTHER, SELFPAY | END 2023-12-05 16:55 | disposition home or self-care (01) | LOC: HO.LNP 16:54 | PROVIDERS: Visit Provider Physician Assistant | DX: L29.9 Pruritus, unspecified (principal); N89.8 Other specified noninflammatory disorders of vagina | CPT/HCPCS: 87252; 87255 ==

== ENCOUNTER 2023-12-07 07:35 | Emergency (ER) | payer OTHER, SELFPAY ==
[2023-12-07 07:40] VITALS: BP 135/90; PULSE 70; RESP 16; TEMP 36; O2SAT 100; BMI 23.5
[2023-12-07 08:41] LABS: Appearance Urine Cloudy; Color Urine Dark Yellow; Glucose Urine UA Negative (Negative); Leukocyte Esterase Urine Small (1+) (Negative); Nitrite Urine Negative (Negative); PH 5.5 (5.0-9.0); Specific Gravity - Urine 1.025 (1.005-1.025); UMIC TRIGGER UACC YES; Urine Blood Large (3+) (Negative); Urine Ketones Negative (Negative); Urine Protein Trace mg/dL (Neg-Trace)
--- NOTE | 2023-12-07 09:04 | ED.FEMALEGU ---
HPI - Female Genitourinary General Chief complaint: Urogenital-Female Stated complaint: Vaginal discomfort Time Seen by Provider: 12/07/23 08:26 Source: patient Mode of arrival: ambulatory Limitations: no limitations History of Present Illness ED Provider: DEVIN HOROWITZ PA-C HPI Narrative: 43 year old female with pmhx significant for anxiety, depression, takotsubo syndrome presents to the ED today for evaluation of vaginal irritations/ burning x3 days. Reports redness/ irritation to her external genitalia. Patient states that she was evaluated for this at Urgent Care 2 days ago. A culture of one of the lesions along her suprapubic region was sent to the lab to test for herpes simplex. She has not yet received the results from this test. She was started on Acyclovir 5 times daily which she has been taking as prescribed with minimal improvement. Denies history of herpes simplex. Endorses history of genital warts which have previously been biopsied and were determined to be benign. Patient states she is currently sexually active with 1 partner, her partner of the last 9 years. She denies concern for other sexually transmitted infection. Denies fever, chills, skin rashes, vaginal discharge, dysuria. Related Data Home Medications ?Medication ?Instructions ?Recorded ?Confirmed multivitamin (Daily Multi-Vitamin 1 tab PO DAILY 05/21/21 08/25/23 tablet) black seed oil PO 12/05/23 Previous Rx's ?Medication ?Instructions ?Recorded bupropion HCl 150 mg 24 hr tablet, 150 mg PO QAM 90 days #90 tabs 07/04/23 extended release hydroxyzine HCl 10 mg tablet 10 mg PO TID PRN anxiety 30 days 07/04/23 #90 tabs ibuprofen 200 mg capsule 600 mg (3 x 200 mg) PO Q6H 30 days 07/04/23 #360 caps acetaminophen 500 mg tablet 1,000 mg (2 x 500 mg) PO Q6H PRN 08/12/23 (Tylenol Extra Strength) pain #30 tabs ibuprofen 600 mg tablet 600 mg PO Q6H PRN pain #30 tabs 08/12/23 acyclovir 200 mg capsule 200 mg PO .COMPLEX #50 caps 12/05/23 erythromycin 5 mg/gram (0.5 %) eye 0.5 inch ophthalmic (eye) QID #3.5 12/05/23 ointment grams nitrofurantoin 100 mg PO BID 7 days #14 caps 12/07/23 monohydrate/macrocrystals 100 mg capsule valacyclovir 500 mg tablet 500 mg PO BID 3 days #6 tabs 12/07/23 Allergies Allergy/AdvReac Type Severity Reaction Status Date / Time docusate [From COLACE] Allergy Intermediate SWELLING, Verified 12/07/23 07:43 swollen Review of Systems Review of Systems: Constitutional: No fever, chills, fatigue, night sweats, weight changes ENT/Mouth: No ear pain, hearing loss, nasal congestion, sinus pain, rhinorrhea, sore throat Eyes: No eye pain, swelling, redness, vision changes, discharge Cardio: No chest pain, palpitations, MARINO, orthopnea, peripheral edema Pulm: No SOB, cough, sputum, wheezing, dyspnea, hemoptysis GI: No nausea, vomiting, hematemesis, abdominal pain, diarrhea, constipation, hematochezia, melena : No irregular bleeding, dysuria, frequency, urgency, hesitancy, hematuria, flank pain, urinary flow changes, urinary incontinence or retention, +vaginal burning MSK: No back pain, neck pain, joint pain, myalgias Skin: No lesions, rashes Neuro: No weakness, numbness, paresthesias, LOC, dizziness, headache Psych: No anxiety/panic, depression, SI/HI, AH/VH All other systems reviewed and are negative. [facility] Past Medical History Attestation statement: The following information was validated with the patient. 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 Skin tag Overweight Surgical History History of surgery on arm Hx of foot surgery H/O LEEP History of tubal ligation History of section Family History Family History Father Brain cancer Mother HIV (human immunodeficiency virus infection) Myocardial infarction Hypertension CVD (cardiovascular disease) Drug abuse Brother Legally blind Cancer H/O ETOH abuse Albinism Stroke Maternal Grandfather Stroke H/O ETOH abuse Family/Other Mental health disorder Social History Social History Housing: Apartment Alcohol intake: former Patient Tobacco Use Status: Former Tobacco user Tobacco use type: Cigarette Years Smoked: 10 e-Cigarette/Vaping Use: Never Used Second Hand Smoke Exposure: No Substance Use Type: Marijuana service: No Current occupational status: employed 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 Current occupational exposures/hazards: No Sexual orientation: Straight/Heterosexual Gender identity: Female Cognitive needs: No Hearing needs: No Vision needs: Yes Physical Exam Vital Signs: Vital Signs: Last Vital Signs Temp 97.2 F 12/07/23 11:40 Pulse 55 12/07/23 11:40 Resp 16 12/07/23 11:40 BP 118/76 12/07/23 11:40 Pulse Ox 99 12/07/23 11:40 O2 Del Method Room Air 12/07/23 11:40 BMI result Body Mass Index 23.5 vital signs stable, afebrile Const: General: cooperative, healthy appearing, comfortable and no acute distress Orientation/consciousness: patient oriented x3 Limitations: no limitations HEENT: Head: Yes normal to inspection, Yes No palpable skull fracture present, Yes normocephalic and Yes atraumatic Eyes: General: appearance normal, both eyes and all related structures Pupils: Equal, round and reactive pupils present Resp: Effort & Inspection: normal respiratory effort and able to speak in complete sentences Auscultation: clear to auscultation bilaterally Cardio: Rate: regular rate Rhythm: regular rhythm GI: Other: singular pustular lesion noted to suprapubic abdomen Inspection: Yes normal to inspection Palpation (GI): Soft to palpation and nontender : Other: Sensitive exam performed with Kamini davis present in room to train operations supervisor. External genitalia without swelling, masses or tenderness. there are multiple genital warts noted to external genitalia. no pustular lesions noted to vulva. no inguinal LAD. patient declining pelvic/ bimanual examination. General: Yes no CVA tenderness Back/Spine/Pelvis: Back: no CVA tenderness Neuro: General: patient oriented x3, gait normal, tone normal and moves all extremities Cranial nerves: Yes Equal, round and reactive pupils present Extrem: General: Yes normal to inspection Course Course Course Narrative: 1134-- Urinalysis shows large amount of blood and 6-10 RBCs likely secondary to current menstruation. Small amount of leukocyte esterase however trace bacteria. Negative nitrites. Will treat for urinary tract infection as patient reports some discomfort with urination. Nitrofurantoin sent to pharmacy for treatment. Urine negative for gonorrhea and chlamydia. > physical exam findings consistent with both resolving herpes simplex and genital warts. Advised patient to discontinue acyclovir given continued symptoms despite 2 days of treatment. Three day course of bowel acyclovir sent to pharmacy. Advised patient to follow up with OBGYN. She tells me she currently follows with Dr. Mcpherson and will call their office for an appointment. Patient has remained stable throughout ED visit today. Discussed worrisome signs and symptoms and when to return to the ED. All questions answered at this time. Patient is agreeable with disposition and stable for discharge. Medical Decision Making Medical Decision Making [facility] Narrative: 43 year old female with pmhx significant for anxiety, depression, takotsubo syndrome presents to the ED today for evaluation of vaginal irritations/ burning x3 days. Vital stable, patient nontoxic appearing in acute distress. On exam, abdomen soft, nondistended, nontender to palpation, no rebound tenderness or guarding. There is 1 singular pustular lesion noted to suprapubic abdomen. External genitalia without swelling, masses or tenderness. there are multiple genital warts noted to external genitalia. no pustular lesions noted to vulva. no inguinal LAD. patient declining pelvic/ bimanual examination. Differential diagnosis includes urinary tract infection, herpes simpex, genital warts. unlikely herpes zoster, SJS/TEN, dermatitis, trichamonas, BV. Plan for UA, CT/NG testing, disposition. Differential Diagnosis Differential Diagnoses: The differential diagnosis associated with the presentation includes as above. Admission/Observation Not indicated. Lab Data [facility] Lab Attestation statement: I reviewed the patient's lab results. as above. Labs: Lab Results 12/07/23 12/07/23 Range/Units 08:24 08:56 Urine Color Dark Yellow Urine Appearance Cloudy Urine pH 5.5 (5.0-9.0) Ur Specific [place] 1.025 (1.005-1.025) Urine Protein Trace (Neg-Trace) mg/dL Urine Glucose (UA) Negative (Negative) mg/dL Urine Ketones Negative (Negative) mg/dL Urine Blood Large (3+) H (Negative) Urine Nitrite Negative (Negative) Ur Leukocyte Esterase Small (1+) H (Negative) Urine RBC 6-10 H (0-2) /HPF Urine WBC 0-5 (0-5) /HPF Ur Squamous Epith Cells 0-2 (0-2) /HPF Urine Bacteria Trace (None Seen) Hyaline Casts 0-2 (0-2) /LPF Chlam trachomat DNA PCR NOT DETECTED (Not Detect.) N.gonorrhoeae DNA (PCR) NOT DETECTED (Not Detect.) Prescription Management I considered prescription management with: Antiviral (valacyclovir) Social Determinants Patient?s care significantly limited by Social Determinants of Health including: Other Social Determinant of Health Critical Care Time Critical Care Time Critical Care Time: No Discharge Plan Discharge Clinical Impression: Genital herpes, Condyloma acuminata, Urinary tract infection Patient Disposition: Home, Self-Care Instructions: Genital Herpes Simplex (ED), Genital Warts (ED), Urinary Tract Infection in Women (ED) Additional Instructions: Your physical exam is consistent with genital warts. There are certain lesions that are consistent with genital herpes. You were tested for this at urgent care however have not received the results yet. You will be treated for this in the meantime. Stop taking the acyclovir that was prescribed by urgent care. Valacyclovir is an antiviral that has been sent to your pharmacy. Take 500 mg twice daily for the next 3 days. Take this to completion and do not skip any doses. Take Tylenol and ibuprofen at home as needed for discomfort. Please follow-up with your OBGYN regarding genital warts. Your urine is also positive for urinary tract infection. Nitrofurantoin is an antibiotic that has been sent to your pharmacy. Take this as prescribed and do not miss any doses. You must complete the entire course of antibiotics. If you do not, there is a risk of the infection coming back or worsening. Your urine was sent to test for other sexually transmitted infections including chlamydia and gonorrhea. You will be called with any positive results and treated at that time if necessary. Follow up with your primary care provider as needed. If you develop a fever or new/ worsening symptoms call 911 or come back to the ER for further evaluation. Prescriptions: New valacyclovir 500 mg tablet 500 mg PO BID 3 Days Qty: 6 0RF nitrofurantoin monohyd/m-cryst 100 mg capsule 100 mg PO BID 7 Days Qty: 14 0RF Rx Instructions: must administer with a meal/food No Action ibuprofen 200 mg capsule 600 mg PO Q6H 30 Days Qty: 360 0RF hydroxyzine HCl 10 mg tablet 10 mg PO TID PRN (Reason: anxiety) 30 Days Qty: 90 0RF bupropion HCl 150 mg tablet extended release 24 hr 150 mg PO QAM 90 Days Qty: 90 1RF ibuprofen 600 mg tablet 600 mg PO Q6H PRN (Reason: pain) Qty: 30 0RF acetaminophen [Tylenol Extra Strength] 500 mg tablet 1,000 mg PO Q6H PRN (Reason: pain) Qty: 30 0RF black seed oil PO erythromycin 5 mg/gram (0.5 %) ointment 0.5 inch ophthalmic (eye) QID Qty: 3.5 0RF Rx Instructions: Apply to lower left eyelid as directed acyclovir 200 mg capsule 200 mg PO .COMPLEX Qty: 50 0RF Rx Instructions: 200 mg orally five times a day; multivitamin [Daily Multi-Vitamin] Tablet 1 tab PO DAILY triamcinolone acetonide 40 mg/mL suspension 20 mg Tendon Sheath Inj. ONCE Qty: 0.5 0RF Referrals: Isidro Mcpherson MD [Physician] - Stand Alone Forms: Work/School Release Discharge Date/Time: 12/07/23 11:40 Print Language: Estonian
[2023-12-07 11:15] LABS: Bacteria Urine Trace (None Seen); Hyaline Casts Urine 0-2 /LPF (0-2); Squamous Epithelial Cell Urine 0-2 /HPF (0-2); UACC Culture Trigger YES; WBC Urine 0-5 /HPF (0-5)
[2023-12-07 11:40] VITALS: BP 118/76; PULSE 55; RESP 16; TEMP 36.2; O2SAT 99
[2023-12-07 14:16] LABS: CT PCR NOT DETECTED (Not Detect.); NG PCR NOT DETECTED (Not Detect.)
== END 2023-12-07 11:40 | disposition home or self-care (01) ==
PROVIDERS: Emergency Provider Emergency Medicine; PCP Internal Medicine
DX: A60.04 Herpesviral vulvovaginitis (principal); A63.0 Anogenital (venereal) warts; N39.0 Urinary tract infection, site not specified; R10.2 Pelvic and perineal pain; Z79.899 Other long term (current) drug therapy
CPT/HCPCS: 81001; 87086; 87491; 87591; 99282; 99283

== ENCOUNTER 2023-12-12 13:40 | Outpatient (REF) | payer OTHER, SELFPAY | END 2023-12-12 13:41 | disposition home or self-care (01) | LOC: HO.LAB 13:40 | PROVIDERS: Visit Provider Physician Assistant | DX: Z13.89 Encounter for screening for other disorder (principal) ==

== ENCOUNTER 2023-12-28 08:57 | Outpatient (AMB) | payer OTHER, SELFPAY ==
[2023-12-28 09:15] VITALS: BMI 23.5
--- NOTE | 2023-12-28 09:15 | MHC.OFFVIS ---
Vital Signs 12/28/23 09:15 Height 5 ft 7 in Weight 150 lb BMI 23.5 Intake Visit Reasons: PO 1 month f/u LT Thumb tendon repair 08/25/23. Intake Note: Stephanie is a 43 yr old female presents today for a post op visit regarding her left thumb tendon repair 08/25/[address] Barreto. Patient reports she completed OT. She does not have any concerns today. Allergies docusate [From COLACE] Allergy (Intermediate, Verified 12/28/23 09:15) SWELLING, swollen HPI HPI PO 1 month f/u LT Thumb tendon repair 08/25/23.: Details: Stephanie is a 43-year-old right hand dominant woman who presents for a ROM check S/P left thumb EPL & EPB tendon repair and MCP joint I&D, DOS: 08/25/23. This was a work-related injury from a boxcutter, DOI: 08/12/23. 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 She says she has completed her course of OT hand therapy and she is doing well today. She says she has returned to work full-time without difficulty, and is happy with the results of her surgery. She feels her thumb function is back to what it was before her injury She continues to complain of bilateral hand numbness. Symptoms intermittent but daily. She received a left carpal tunnel injection by Dr. Koch on 06/02/23, with relief & a right carpal tunnel injection by Dr. Koch on 06/23/23, with relief. 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 Skin tag Overweight Surgical History History of surgery on arm Hx of foot surgery H/O LEEP History of tubal ligation History of section Family History Father Brain cancer Mother HIV (human immunodeficiency virus infection) Myocardial infarction Hypertension CVD (cardiovascular disease) Drug abuse Brother Legally blind Cancer H/O ETOH abuse Albinism Stroke Maternal Grandfather Stroke H/O ETOH abuse Family/Other Mental health disorder Social History Housing: Apartment Alcohol intake: former Patient Tobacco Use Status: Former Tobacco user Tobacco use type: Cigarette Years Smoked: 10 e-Cigarette/Vaping Use: Never Used Second Hand Smoke Exposure: No Substance Use Type: Marijuana service: No Current occupational status: employed 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 Current occupational exposures/hazards: No Sexual orientation: Straight/Heterosexual Gender identity: Female Cognitive needs: No Hearing needs: No Vision needs: Yes Female Reproductive History Menstrual Age of Menarche: 14 Physical Exam Vital Signs: BMI result Body Mass Index 23.5 Const General: no acute distress and alert Orientation/consciousness: patient oriented x3 Neuro General: patient oriented x3 Extrem Other: Evaluation of Left Upper Extremity: The patient is alert, oriented, and in no acute distress Neuro: Median, Ulnar, Radial nerves motor and sensory intact and sensation is normal to the tips of all digits Vascular: Cap refill brisk ROM: Her laceration and all surgical incisions are well healed with no evidence of infection. She can make a tight fist with good strength and back into full extension She has painless range of motion of the thumb without difficulty. Sensation to the tip of the thumb is normal for her. Left thumb is somewhat smaller some than the other thumb because of the injury she had as a young child sensation to the tip of the thumb. Nerve Conduction Studies: Impression: Early right carpal tunnel syndrome Mild right cubital tunnel syndrome Normal left side with no carpal or cubital tunnel syndrome Dr. Rodriguez 05/18/23 IMPRESSION: Mild bilateral median neuropathy across carpal tunnel. Carol Marquez MD 07/15/2022 Psych Appearance: grossly normal Affect: normal affect Attitude: cooperative Assessment & Plan Assessment & Plan (1) Laceration of extensor tendon of left thumb at hand level: Code(s): S66.222A - Laceration of extensor muscle, fascia and tendon of left thumb at wrist and hand level, initial encounter Category: Medical (2) Takotsubo syndrome: Comment: diagnosed in 20s Code(s): I51.81 - Takotsubo syndrome Category: Medical (3) Carpal tunnel syndrome of right wrist: Code(s): G56.01 - Carpal tunnel syndrome, right upper limb Category: Medical (4) Carpal tunnel syndrome of left wrist: Code(s): G56.02 - Carpal tunnel syndrome, left upper limb Category: Medical Plan Assessment & Plan: 1. Left thumb EPL tendon laceration 2. Left thumb EPB tendon laceration 3. 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 She has been working full-duty for the last few weeks, without difficulty. He will declare her at [facility] today. She said that she did not need a note for work, but understands that she may return to work full-duty, without restrictions. Please note that the following conditions as a part of her health insurance rather than her workmen's compensation insurance: They will be addressed in a separate appointment. 4. Right carpal tunnel syndrome, early Symptoms intermittent, but daily, worse at night S/P injection by Dr. Koch on 06/02/23 5. Left carpal tunnel syndrome, mild Seen on [facility] on 07/15/22, not seen on [facility] on 05/18/23 S/P injection by Dr. Koch on 06/23/23 These issues were not addressed today, but she is having difficulty with hand numbness She will make an appointment to be seen for this issue at the next available appointment. This should be a separate visit than her follow-up for her left thumb laceration as they are not related to the workplace injury Scribed for Elham Barreto MD by Ranjit Oconnell, medical records director, on 12/28/23 at 9:40 AM, EST. Coding Level of Care Code Est Pt Level 3 (00769) Global (97643) Diagnoses Laceration of extensor tendon of left thumb at hand level S66.222A Takotsubo syndrome I51.81 Carpal tunnel syndrome of right wrist G56.01 Carpal tunnel syndrome of left wrist G56.02
== END 2023-12-28 10:09 | disposition home or self-care (01) ==
PROVIDERS: PCP Internal Medicine; Visit Provider Orthopaedic Surgery
DX: G56.03 Carpal tunnel syndrome, bilateral upper limbs (principal); I51.81 Takotsubo syndrome; S66.222A Laceration of extensor muscle, fascia and tendon of left thumb at wrist and hand level, initial encounter
CPT/HCPCS: 99213

== ENCOUNTER → 2023-12-28 08:57 | Outpatient (BNVA) | payer OTHER, SELFPAY | PROVIDERS: PCP Internal Medicine; Visit Provider Orthopaedic Surgery | DX: S66.222D Laceration of extensor muscle, fascia and tendon of left thumb at wrist and hand level, subsequent encounter (principal); I51.81 Takotsubo syndrome; G56.03 Carpal tunnel syndrome, bilateral upper limbs | CPT/HCPCS: 99212 ==

== ENCOUNTER 2024-01-11 11:23 | Outpatient (AMB) | payer OTHER, SELFPAY ==
--- NOTE | 2024-01-11 11:40 | A.OFFVIS_ITS ---
Vital Signs 01/11/24 11:42 Height 5 ft 7 in Weight 150 lb BMI 23.5 Intake Visit Reasons: PO 1 month f/u LT Thumb tendon repair 08/25/23. Intake Note: Stephanie is a 43 yo female who presents today to discuss bilateral CTR. Patient reports on and off bilateral tingling on the 1st, 2nd, 3rd, and 4rth fingers. She would like to discuss sx today. Allergies docusate [From COLACE] Allergy (Intermediate, Verified 01/11/24 11:42) SWELLING, swollen HPI HPI PO 1 month f/u LT Thumb tendon repair 08/25/23.: Details: Stephanie is a 43 year old right hand dominant woman who presents to discuss her bilateral carpal tunnel syndrome. She continues to complain of bilateral hand numbness in the median nerve distribution and ring finger. She denies any small finger numbness. Symptoms intermittent but daily, worse at night. She finds her right hand more bothersome as this is her dominant hand. She received a left carpal tunnel injection by Dr. Koch on 06/02/23, with relief & a right carpal tunnel injection by Dr. Koch on 06/23/23, with relief. She has a Hx of Tatsukobo syndrome, Lupus, & MS. 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 Skin tag Overweight Surgical History History of surgery on arm Hx of foot surgery H/O LEEP History of tubal ligation History of section Family History Father Brain cancer Mother HIV (human immunodeficiency virus infection) Myocardial infarction Hypertension CVD (cardiovascular disease) Drug abuse Brother Legally blind Cancer H/O ETOH abuse Albinism Stroke Maternal Grandfather Stroke H/O ETOH abuse Family/Other Mental health disorder Social History Housing: Apartment Alcohol intake: former Patient Tobacco Use Status: Former Tobacco user Tobacco use type: Cigarette Years Smoked: 10 e-Cigarette/Vaping Use: Never Used Second Hand Smoke Exposure: No Substance Use Type: Marijuana service: No Current occupational status: employed 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 Current occupational exposures/hazards: No Sexual orientation: Straight/Heterosexual Gender identity: Female Cognitive needs: No Hearing needs: No Vision needs: Yes Female Reproductive History Menstrual Age of Menarche: 14 Physical Exam Vital Signs: BMI result Body Mass Index 23.5 Const General: no acute distress and alert Orientation/consciousness: patient oriented x3 Neuro General: patient oriented x3 Extrem Other: Evaluation of Bilateral Upper Extremity: The patient is alert, oriented, and in no acute distress Neuro: Decreased sensation in the median nerve distribution & ring finger bilaterally today in clinic. Normal sensation to the small finger today in clinic No thenar or intrinsic wasting Good APB muscle belly firing and good finger cross Vascular: Cap refill brisk ROM: She can make a fist and extend all her digits No locking or catching Left thumb is somewhat smaller some than the other thumb because of the injury she had as a young child sensation to the tip of the thumb. Nerve Conduction Studies: Impression: Early right carpal tunnel syndrome Mild right cubital tunnel syndrome Normal left side with no carpal or cubital tunnel syndrome Dr. Rodriguez 05/18/23 IMPRESSION: Mild bilateral median neuropathy across carpal tunnel. Carol Marquez MD 07/15/2022 Psych Appearance: grossly normal Affect: normal affect Attitude: cooperative Assessment & Plan Assessment & Plan (1) Takotsubo syndrome: Comment: diagnosed in 20s Code(s): I51.81 - Takotsubo syndrome Category: Medical (2) Carpal tunnel syndrome of right wrist: Code(s): G56.01 - Carpal tunnel syndrome, right upper limb Category: Medical (3) Carpal tunnel syndrome of left wrist: Code(s): G56.02 - Carpal tunnel syndrome, left upper limb Category: Medical Plan Assessment & Plan: 1. Right carpal tunnel syndrome, early Symptoms intermittent, but daily, worse at night S/P injection by Dr. Koch on 06/02/23 This is her primary complaint today 2. Left carpal tunnel syndrome, mild Seen on [facility] on 07/15/22, not seen on [facility] on 05/18/23 S/P injection by Dr. Koch on 06/23/23 This is a separate problem and should be under her normal health insurance. not related to her workplace injury and left thumb laceration I educated her about this condition I discussed operative and non-operative treatment options The patient would like to proceed with surgery, beginning with her right hand We will discuss treatment for her left hand when she has recovered from surgery The risks and benefits of operative treatment were discussed with the patient and the patient wishes to proceed with surgery. These risks include, but are not limited to risk of damage to blood vessels, nerves, tendons, infection, recurrence, incomplete relief of preoperative symptoms, persistent pain, possible need for further surgery and the risks associated with regional blocks and anesthesia. The plan is to take the patient to the operating room sometime in the next few weeks for the following procedures: 1. Right carpal tunnel release, under local All of the preoperative paperwork including the consent was reviewed today. All the patient's questions were answered. The patient understands that they will be contacted by our tape recorder repairer soon to schedule this procedure She denies Diabetes, blood thinners, asthma, lung, kidney issues She has Cardiomyopathy, Lupus, & MS, and denies any current medications for this. 3. Left thumb EPL tendon laceration 4. Left thumb EPB tendon laceration 5. 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 Resolved & at [employer] Scribed for Elham Barreto MD by Ranjit Oconnell, veterinary medical officer, on 01/11/24 at 11:55 AM, EST. Coding Level of Care Code Est Pt Level 4 (96661) Diagnoses Takotsubo syndrome I51.81 Carpal tunnel syndrome of right wrist G56.01 Carpal tunnel syndrome of left wrist G56.02
[2024-01-11 11:42] VITALS: BMI 23.5
== END 2024-01-11 12:01 | disposition home or self-care (01) ==
PROVIDERS: PCP Internal Medicine; Visit Provider Orthopaedic Surgery
DX: I51.81 Takotsubo syndrome (principal); G56.03 Carpal tunnel syndrome, bilateral upper limbs
CPT/HCPCS: 99214

== ENCOUNTER → 2024-01-11 11:23 | Outpatient (BNVA) | payer OTHER, SELFPAY | PROVIDERS: PCP Internal Medicine; Visit Provider Orthopaedic Surgery | DX: G56.03 Carpal tunnel syndrome, bilateral upper limbs (principal); I51.81 Takotsubo syndrome | CPT/HCPCS: 99212 ==

== ENCOUNTER 2024-01-20 09:34 | Outpatient (REF) | payer OTHER, SELFPAY ==
[2024-01-20 13:38] LABS: Bacterial Vaginosis PCR NEGATIVE (Negative); Candida Group PCR NOT DETECTED (Not Detect); Candida glab krusei PCR NOT DETECTED (Not Detect); Trichomonas vaginalis PCR NOT DETECTED (Not Detect)
== END 2024-01-20 09:35 | disposition home or self-care (01) ==
LOC: HO.LNP 09:34
PROVIDERS: PCP Internal Medicine; Visit Provider Advanced Practice Midwife
DX: L29.2 Pruritus vulvae (principal); N89.8 Other specified noninflammatory disorders of vagina; R19.00 Intra-abdominal and pelvic swelling, mass and lump, unspecified site; A51.31 Condyloma latum; N92.6 Irregular menstruation, unspecified
CPT/HCPCS: 0352U; 87102; 99212

== ENCOUNTER 2024-01-20 09:34 | Outpatient (AMB) | payer OTHER, SELFPAY ==
--- NOTE | 2024-01-20 09:40 | A.OFFVIS_ITS ---
Vital Signs 01/20/24 09:42 BP 112/60 Intake Visit Reasons: rash Intake Note: pt c/o rash on groin that comes and goes Ultrasound Coordinator: Ultrasound Coordinator Present (Meaghan) Allergies docusate [From COLACE] Allergy (Intermediate, Verified 01/20/24 09:41) SWELLING, swollen Is last menstrual period known: Yes Last menstrual period: 01/10/24 HPI Comments Details: Patient is here today with concerns of chronic vulvar itching. Seen in the ED last month and was diagnosed with possible HSV, she has not had an episode of HSV in the past. 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 History of abnormal Pap has a colposcopy scheduled February 01. She revealed pictures on her cell phone of the rash in 2 areas, 1. mons pubis which appear to be folliculitis in the shave an area, 2. pic of right labial which appeared to be fungal, and increases in severity with the heat. She admits to scratching nightly, has recently started using boy cut shorts undergarments, due to the groin irritation from the elastic. She admits to having some irregular bleeding episodes. History of tubal ligation. GC and chlamydia were negative in November. [facility] Medical History Anxiety Depression Nabothian cyst Left ovarian cyst Prolonged menstrual cycle Lupus Carpal tunnel syndrome on both sides Transaminitis Leukopenia Physical exam Takotsubo syndrome 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 Skin tag Overweight Surgical History History of surgery on arm Hx of foot surgery H/O LEEP History of tubal ligation History of section Family History Father Brain cancer Mother HIV (human immunodeficiency virus infection) Myocardial infarction Hypertension CVD (cardiovascular disease) Drug abuse Brother Legally blind Cancer H/O ETOH abuse Albinism Stroke Maternal Grandfather Stroke H/O ETOH abuse Family/Other Mental health disorder Social History Housing: Apartment Alcohol intake: former Patient Tobacco Use Status: Former Tobacco user Tobacco use type: Cigarette Years Smoked: 10 e-Cigarette/Vaping Use: Never Used Second Hand Smoke Exposure: No Substance Use Type: Marijuana service: No Current occupational status: employed 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 Current occupational exposures/hazards: No Sexual orientation: Straight/Heterosexual Gender identity: Female Cognitive needs: No Hearing needs: No Vision needs: Yes Female Reproductive History Menstrual Age of Menarche: 14 Date of last menstrual period: 01/10/24 Review of Systems Const All systems reviewed & are unremarkable except as noted in HPI and below Physical Exam Vital Signs: Last Vital Signs BP 112/60 01/20/24 09:42 Const General: cooperative, healthy appearing and no acute distress Orientation/consciousness: patient oriented x3 GI Inspection: Yes normal to inspection Palpation (GI): Soft to palpation and Other GI palpation findings present (Nontender) Rectal Exam - Female: visual inspection normal Other: External: Condylomata lesions on the labia, andria clitoral region. No rash noted in mons area. Erythema and mild edema consistent with chronic scratching of the right labia. General: Yes bladder normal to palpation External Female Exam: normal appearance of the urethra Speculum Exam - Vagina: normal appearance of the vagina, normal palpation, abnormal vaginal discharge (Thick adherent white discharge posterior vaginal canal) and vaginal bleeding (Brown blood) Speculum Exam - Cervix: normal appearance of the cervix and normal palpation Bimanual exam- vagina & uterus: normal bimanual exam, normal palpation, uterine size normal, bladder normal to palpation, normal palpation, uterine shape normal and non-tender Bimanual Exam- Adnexa, other: normal adnexae and Adnexal mass present on the right OB/external & speculum: vaginal bleeding (Brown blood) Neuro General: patient oriented x3 Assessment & Plan Assessment & Plan (1) Pelvic fullness: Code(s): R19.00 - Intra-abdominal and pelvic swelling, mass and lump, unspecified site Category: Medical (2) Condylomata dodie of vulva: Code(s): A51.31 - Condyloma latum Category: Medical (3) Vulvar itching: Code(s): L29.2 - Pruritus vulvae (4) Vaginal discharge: Code(s): N89.8 - Other specified noninflammatory disorders of vagina (5) Irregular bleeding: Code(s): N92.6 - Irregular menstruation, unspecified Plan BV panel obtained, external yeast culture obtained from right labial surface. Plan pelvic ultrasound due to right-sided pelvic fullness. Return to the office for results. If any pelvic pain or concerns to call the office sooner. Await culture results for plan of care. Rx for topical antifungal medications to be sent in. Advised no shaving, avoid soap, loose cotton underwear such as the boy cut shorts, and avoidance of scratching. Keep Colpo appointment February 01. Monitor menses, follow up further discussion and evaluation at next visit. All of her questions and concerns were addressed to the best of my ability and shared decision making. She is agreeable to the plan of care. This note is constructed using voice recognition software. While every effort has been made to ensure accuracy, paper sealer errors may have been included. Orders: Orders Fungus Cult Other Today L29.2 - Pruritus vulvae Bacterial Vaginosis Panel Today N89.8 - Other specified noninflammatory disorders of vagina US pelvic and transvaginal Today R19.00 - Intra-abdominal and pelvic swelling, mass and lump, unspecified site Medications: New clotrimazole-betamethasone 1-0.05 % apply externally a thin coat to the area 1 appl topical BID 7 days 45 grams 0RF itching Coding Level of Care Code Est Pt Level 4 (78003) Diagnoses Pelvic fullness R19.00 Condylomata dodie of vulva A51.31 Vulvar itching L29.2 Vaginal discharge N89.8 Irregular bleeding N92.6
[2024-01-20 09:42] VITALS: BP 112/60
== END 2024-01-20 10:11 | disposition home or self-care (01) ==
LOC: HO.HWS 09:34
PROVIDERS: PCP Internal Medicine; Visit Provider Advanced Practice Midwife
DX: R19.00 Intra-abdominal and pelvic swelling, mass and lump, unspecified site (principal); A51.31 Condyloma latum; L29.2 Pruritus vulvae; N89.8 Other specified noninflammatory disorders of vagina; N92.6 Irregular menstruation, unspecified
CPT/HCPCS: 99214

== ENCOUNTER 2024-01-20 10:02 | Outpatient (REF) | payer OTHER, SELFPAY | END 2024-01-20 10:03 | disposition home or self-care (01) | LOC: HO.LAB 10:02 | PROVIDERS: Visit Provider Advanced Practice Midwife | DX: Z13.89 Encounter for screening for other disorder (principal) ==

== ENCOUNTER 2024-01-30 15:20 | Outpatient (REF) | payer OTHER, SELFPAY ==
--- NOTE | ~2024-01-30 | US_ITS ---
EXAMINATION: US PELVIS CLINICAL INFORMATION: Intra-abdominal and pelvic swelling with mass and lump and abnormal uterine bleeding COMPARISON: Pelvic ultrasound 06/22/2023 TECHNIQUE: Ultrasound of the pelvis is performed using both transabdominal and transvaginal transducers along with Doppler. Transvaginal imaging is performed due to inadequate visualization transabdominally. FINDINGS: Uterus: The uterus is anteverted and retroflexed measuring 11.0 x 3.9 x 5.3 cm. The double wall endometrial thickness is 3 mm. A small cyst is present in the myometrium adjacent to the endometrium on the right measuring 5 x 3 x 4 mm, unchanged when compared to 06/22/2023. Nabothian cysts are present in the cervix. The uterus is smooth in contour and has normal myometrial echogenicity. No visible fibroid. Adnexa: Both ovaries are visualized. There is normal color flow to the adnexa. There is no ovarian torsion. There is no pelvic ascites or fluid collection. Right ovary measures 3.4 x 2.6 x 3.8 cm for a volume of 17.6 mL which includes a 2.6 x 1.8 x 2.6 cm benign cyst. Left ovary measures 1.6 x 1.4 x 1.6 cm for a volume of 0.9 mL US/US pelvic and transvaginal IMPRESSION: 1. No significant abnormality is seen. A small stable myometrial cyst is present. 2. Benign-appearing right ovarian cyst needs no further follow-up. Electronically signed by: Roland Bocanegra MD 01/31/2024 09:39 AM EDT
== END 2024-01-30 15:21 | disposition home or self-care (01) ==
LOC: HO.US 15:20
PROVIDERS: PCP Internal Medicine; Visit Provider Advanced Practice Midwife
DX: R19.00 Intra-abdominal and pelvic swelling, mass and lump, unspecified site (principal)
CPT/HCPCS: 76830; 76856

== ENCOUNTER 2024-02-01 12:10 | Outpatient (AMB) | payer OTHER, SELFPAY ==
--- NOTE | 2024-02-01 12:35 | A.OFFVIS_ITS ---
Vital Signs 02/01/24 12:41 Height 5 ft 7 in Weight 146 lb 2.664 oz BMI 22.9 BP 115/70 Blood Pressure Location Rt brachial Position Sitting Pulse 60 Pulse Source Pulse Oximeter Pulse Oximetry (%) 98 Oxygen Delivery Method Room Air Intake Visit Reasons: Lupus Intake Note: Patient presents for Lupus. Allergies docusate [From COLACE] Allergy (Intermediate, Verified 02/01/24 12:39) SWELLING, swollen Medication List - Last Reconciled 02/01/24 by Dixie Amaral MD acetaminophen (Tylenol Extra Strength) 1,000 mg (2 x 500 mg) PO Q6H PRN acyclovir 200 mg orally five times a day; [black seed oil PO] bupropion HCl XL 150 mg PO QAM 90 days clotrimazole-betamethasone 1-0.05 % 1 appl topical BID 7 days erythromycin 0.5 inches ophthalmic (eye) QID hydroxyzine HCl 10 mg PO TID PRN 30 days ibuprofen 600 mg PO Q6H PRN ibuprofen 600 mg (3 x 200 mg) PO Q6H 30 days multivitamin (Daily Multi-Vitamin tablet) 1 tab PO DAILY nitrofurantoin monohyd/m-cryst 100 mg 100 mg PO BID 7 days valacyclovir 500 mg PO BID 3 days HPI Comments Details: This is a 43-year-old female previously evaluated by Dr. Carlin for a positive CHEVY who presents for follow-up. Subsequent labs showed positive dsDNA and low C4. Per Dr. Carlin there was not enough symptoms to diagnosed her with an autoimmune rheumatic disease. She is not on any DMARDs. She states that for the last 2 years or so she has been having waves of fatigue. She has developed bilateral carpal tunnel syndrome slightly worse on the right and she will be going for surgery in the coming few weeks. She states that she has been having skin lesions in the back of her scalp, her vagina and her legs for years. She was evaluated by her OBGYN for them. She never had a skin biopsy. She states that her fingers change color into pale white, in the cold associated with numbness, she does not recall it changing to blue. She denies any history of DVT/PE. She had 5 pregnancies in total, 4 children and 1 miscarriage, denies any fevers or weight loss. She mentions that she was recently evaluated by Dr. Pacheco and cleared to start a medication for lupus PFSH Medical History Thumb tendonitis Anxiety Depression Nabothian cyst Left ovarian cyst Prolonged menstrual cycle Lupus Carpal tunnel syndrome on both sides Transaminitis Leukopenia Physical exam Takotsubo syndrome 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 Skin tag Overweight Surgical History History of surgery on arm Hx of foot surgery H/O LEEP History of tubal ligation History of section Family History Father Brain cancer Mother HIV (human immunodeficiency virus infection) Myocardial infarction Hypertension CVD (cardiovascular disease) Drug abuse Brother Legally blind Cancer H/O ETOH abuse Albinism Stroke Maternal Grandfather Stroke H/O ETOH abuse Family/Other Mental health disorder Social History Housing: Apartment Alcohol intake: former Patient Tobacco Use Status: Former Tobacco user Tobacco use type: Cigarette Years Smoked: 10 e-Cigarette/Vaping Use: Never Used Second Hand Smoke Exposure: No Substance Use Type: Marijuana service: No Current occupational status: employed 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 Current occupational exposures/hazards: No Sexual orientation: Straight/Heterosexual Gender identity: Female Cognitive needs: No Hearing needs: No Vision needs: Yes Female Reproductive History Menstrual Age of Menarche: 14 Date of last menstrual period: 01/10/24 Age of menopause: 14 Total pregnancies: 5 Number of Living Children: 4 Ab spontaneous: 1 Review of Systems Const Reports fatigue, Denies fever(s) and Denies weight loss Musc Reports myalgias Skin/Breast Reports lesions Endo Reports fatigue Physical Exam Vital Signs: Last Vital Signs Pulse 60 02/01/24 12:41 BP 115/70 02/01/24 12:41 Pulse Ox 98 02/01/24 12:41 Oxygen Delivery Method Room Air 02/01/24 12:41 BMI result Body Mass Index 22.9 Const General: cooperative, healthy appearing and comfortable Nutritional Appearance: average body habitus Orientation/consciousness: patient oriented x3 Limitations: no limitations HEENT Head: Yes normocephalic and Yes atraumatic Mouth: moist mucous membranes Resp Effort & Inspection: normal respiratory effort and able to speak in complete sentences Auscultation: clear to auscultation bilaterally Cardio Rate: regular rate Rhythm: regular rhythm Skin Other: Wart at the posterior hairline and right calf Neuro General: patient oriented x3 Extrem Other: No active synovitis Deformity of left thumb related to injury Normal nailfold capillaroscopy Assessment & Plan Assessment & Plan (1) Positive CHEVY (antinuclear antibody): Comment: 2022 CHEVY 1:1280, homogeneuous. positive anti DNA antibody. Low C4 Code(s): R76.8 - Other specified abnormal immunological findings in serum Category: Medical Plan: This is a 43-year-old female previously evaluated by Dr. Carlin for a positive CHEVY who presents for follow-up.? Subsequent labs showed positive dsDNA and low C4.? Per Dr. Carlin there was not enough symptoms to diagnosed her with an autoimmune rheumatic disease.? She is not on any DMARDs. Today patient is mentioning symptoms suggestive of Raynaud's, waves of fatigue. I will order comprehensive serology to better understand her immune process. She mentioned that she was recently evaluated by Dr. Pacheco and cleared to start a medication for lupus. We will request records from Dr. Pacheco Follow-up in one-month (2) Wart: Code(s): B07.9 - Viral wart, unspecified Category: Medical Plan: Affecting different areas. Have been reoccurring for years. Advised patient to request referral glass cutting machine feeder Plan I spent 30 minutes reviewing patient's chart, evaluating patient, ordering diagnostic workup, counseling patient and documenting in the chart Orders: Orders DNA Double Stranded-Crithidia Today M32.9 - Systemic lupus erythematosus, unspecified Protein Creatinine Ratio, Ur Today M32.9 - Systemic lupus erythematosus, unspecified Sjogren's Antibodies Today M32.9 - Systemic lupus erythematosus, unspecified UA w Microscopic Today M32.9 - Systemic lupus erythematosus, unspecified Complete Blood Count Auto Diff Today M32.9 - Systemic lupus erythematosus, unspecified Comprehensive Met. Panel Today M32.9 - Systemic lupus erythematosus, unspecifie d T Spot TB Today Z11.7 - Encounter for testing for latent tuberculosis infection Scleroderma 12 Panel Today M34.9 - Systemic sclerosis, unspecified Anti DNA DS Antibody Today M32.9 - Systemic lupus erythematosus, unspecified Complement C3 Today M32.9 - Systemic lupus erythematosus, unspecified Complement C4 Today M32.9 - Systemic lupus erythematosus, unspecified C Reactive Protein Today M32.9 - Systemic lupus erythematosus, unspecified Erythrocyte Sedimentation Rate Today M32.9 - Systemic lupus erythematosus, unspecified Hepatitis A,B,C Profile Today Z11.59 - Encounter for screening for other viral diseases Protein Electrophoresis, Serum Today M32.9 - Systemic lupus erythematosus, unspecified Immunofixation Pnl, Serum Today M32.9 - Systemic lupus erythematosus, unspecified Coding Level of Care Code Est Pt Level 4 (32727) Diagnoses Positive CHEVY (antinuclear antibody) R76.8 Wart B07.9
[2024-02-01 12:41] VITALS: BP 115/70; PULSE 60; O2SAT 98; BMI 22.9
== END 2024-02-01 14:03 | disposition home or self-care (01) ==
PROVIDERS: PCP Internal Medicine; Visit Provider Student in an Organized Health Care Education/Training Program
DX: R76.8 Other specified abnormal immunological findings in serum (principal); B07.9 Viral wart, unspecified
CPT/HCPCS: 99214

== ENCOUNTER → 2024-02-01 12:10 | Outpatient (BNVA) | payer OTHER, SELFPAY | PROVIDERS: PCP Internal Medicine; Visit Provider Student in an Organized Health Care Education/Training Program | DX: M32.9 Systemic lupus erythematosus, unspecified (principal); R76.8 Other specified abnormal immunological findings in serum; B07.9 Viral wart, unspecified; M34.9 Systemic sclerosis, unspecified; Z11.7 Encounter for testing for latent tuberculosis infection; Z11.59 Encounter for screening for other viral diseases | CPT/HCPCS: 99212 ==

== ENCOUNTER 2024-02-02 14:23 | Outpatient (REF) | payer OTHER, SELFPAY | END 2024-02-02 14:24 | disposition home or self-care (01) | LOC: HO.LNP 14:23 | PROVIDERS: PCP Internal Medicine; Visit Provider Obstetrics & Gynecology | DX: R87.610 Atypical squamous cells of undetermined significance on cytologic smear of cervix (ASC-US) (principal); R87.810 Cervical high risk human papillomavirus (HPV) DNA test positive; N90.89 Other specified noninflammatory disorders of vulva and perineum; Z32.02 Encounter for pregnancy test, result negative | CPT/HCPCS: 57456; 81025; 88305 ==

== ENCOUNTER 2024-02-02 14:23 | Outpatient (AMB) | payer OTHER, SELFPAY ==
[2024-02-02 14:31] VITALS: BMI 21.8
--- NOTE | 2024-02-02 14:31 | MHC.OFFVIS ---
Vital Signs 02/02/24 14:31 Height 5 ft 7 in Weight 138 lb 14.259 oz BMI 21.8 Intake Visit Reasons: Colposcopy Pre School Manager Required: No Information Interpreted: non-clinical & clinical Mail Distributor: Mail Distributor Present (Yadira Mak JEREMYDenia) Accompanied by: Self / Same As Patient Allergies docusate [From COLACE] Allergy (Intermediate, Verified 02/02/24 14:40) SWELLING, swollen Is last menstrual period known: Yes Last menstrual period: 01/17/24 HPI Comments Details: Presenting for colposcopy for ascus/HPV E6/E7/E 16 positive, HPV 18/45 negative Complaining of multiple vulvar lesions that has increased in numbers over the last few years [facility] Medical History Thumb tendonitis Anxiety Depression Nabothian cyst Left ovarian cyst Prolonged menstrual cycle Lupus Carpal tunnel syndrome on both sides Transaminitis Leukopenia Physical exam Takotsubo syndrome 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 Skin tag Overweight Surgical History History of surgery on arm Hx of foot surgery H/O LEEP History of tubal ligation History of section Family History Father Brain cancer Mother HIV (human immunodeficiency virus infection) Myocardial infarction Hypertension CVD (cardiovascular disease) Drug abuse Brother Legally blind Cancer H/O ETOH abuse Albinism Stroke Maternal Grandfather Stroke H/O ETOH abuse Family/Other Mental health disorder Social History Housing: Apartment Alcohol intake: former Patient Tobacco Use Status: Former Tobacco user Tobacco use type: Cigarette Years Smoked: 10 e-Cigarette/Vaping Use: Never Used Second Hand Smoke Exposure: No Substance Use Type: Marijuana service: No Current occupational status: employed 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 Current occupational exposures/hazards: No Sexual orientation: Straight/Heterosexual Gender identity: Female Cognitive needs: No Hearing needs: No Vision needs: Yes Female Reproductive History Menstrual Age of Menarche: 14 Date of last menstrual period: 01/17/24 control method: permanent sterilization Review of Systems Const All systems reviewed & are unremarkable except as noted in HPI and below Reports as per HPI and Reports no additional complaints GI Reports no additional complaints Reports no additional complaints Physical Exam Vital Signs: BMI result Body Mass Index 21.8 External Female Exam: other (Multiple bilateral dark vulvar lesions) Office Procedures Colposcopy Colposcopy: Pre-Procedure Counseling: Before beginning the procedure, I conducted comprehensive counseling with the patient. We thoroughly discussed the procedure itself, including its details, alternatives, and all associated risks. This included but not limited to the following complications such as bleeding, infection, and injury to the vagina, bladder, and vessels, as well as the potential need for transfusion with all its associated risks. Subsequently, the patient sign the consent. Pap smear result: Ascus/HPV E6/E7 positive, HPV 16 positive, HPV 18/40 5- Procedure: During the procedure, the following steps were performed: A speculum was inserted, and acetic acid was applied. Colposcopy was conducted, allowing visualization of the transformation zone. No Acetowhite lesions were identified Cervical biopsies were obtained , endocervical curettage (ECC) done, cervical stenosis identified difficulty introducing the curette inside the endocervical canal. Vaginoscopy of the upper vagina revealed no evidence of aceto-white lesions. Hemostasis was achieved using Monsel solution, and the patient tolerated the procedure well. Post-Procedure Instructions: The patient was advised to promptly contact the office or the after hours answering service or go to the emergency room if experiencing a temperature exceeding 100.4?F, abdominal pain, nausea/vomiting, or bleeding. Additionally, the patient was instructed to abstain from vaginal intercourse and bathtub use. The patient confirmed understanding of these instructions. Discharge Instructions: The patient was instructed to schedule a follow-up appointment in 2 weeks for further evaluation and management. Please note that this note was generated using a voice recognition program, and errors may have occurred during rock room worker. [id number] of cervix including upper vagina with ECC Procedure code (CPT) selection complete Results AMB Test Urine AMB Test Urine Negative Last Edit by Yadira Mak CMA on 02/02/24 14:41 Results Reviewed Results Reviewed: Laboratory Last Values Tst Clinic Negative 02/02/24 14:40 Assessment & Plan Assessment & Plan (1) ASCUS with positive high risk HPV cervical: Comment: HPV E6 E7 in 16 positive, HPV 18/45 negative h/o DENIS I s/p LEEP cone in 2021 Code(s): R87.610 - Atypical squamous cells of undetermined significance on cytologic smear of cervix (ASC-US); R87.810 - Cervical high risk human papillomavirus (HPV) DNA test positive Category: Medical Plan: Discussed with the patient the result of her abnormal pap, its significance, risk of progression, persistence, and regression. the false positive/negative rate of a Pap smear as a screening test in detecting cervical cancer and the indication for a diagnostic test -colposcopy, biopsy, endocervical curettage. The patient verbalized understanding and agreed with the plan, all questions answered. Colposcopy/biopsy/ECC done, see procedure note (2) Vulvar lesion: Code(s): N90.89 - Other specified noninflammatory disorders of vulva and perineum Category: Medical Plan: Discussed with the patient the finding on pelvic exam, recommended vulvar lesions biopsy. Instructions given the patient to schedule vulvar lesion biopsy within 2 weeks Orders: Orders AMB Colposcopy Today N90.89 - Other specified noninflammatory disorders of vulva and perineum AMB HCG Urine Test Today Z32.02 - Encounter for test, result negative Coding Level of Care Code Est Pt Level 3 (36015) Procedure Only Diagnoses ASCUS with positive high risk HPV cervical R87.610; R87.810 Vulvar lesion N90.89 CPT Codes Colposcopy - CPT: 56397-[id number] of cervix including upper vagina with ECC ([id number])
== END 2024-02-02 15:05 | disposition home or self-care (01) ==
LOC: HO.HWS 14:23
PROVIDERS: PCP Internal Medicine; Visit Provider Obstetrics & Gynecology
DX: R87.610 Atypical squamous cells of undetermined significance on cytologic smear of cervix (ASC-US) (principal); R87.810 Cervical high risk human papillomavirus (HPV) DNA test positive; N90.89 Other specified noninflammatory disorders of vulva and perineum; Z32.02 Encounter for pregnancy test, result negative
CPT/HCPCS: 57456

== ENCOUNTER 2024-02-09 09:53 | Outpatient (AMB) | payer OTHER, SELFPAY ==
--- NOTE | 2024-02-09 09:56 | MHC.PC.OV ---
Vital Signs 02/09/24 09:58 Height 5 ft 7 in Weight 150 lb BMI 23.5 BP 112/70 Blood Pressure Location Lt brachial Position Sitting Intake Visit Reasons: depression Intake Note: Patient here for a follow up Depression Helper [employer] Required: No Accompanied by: Self / Same As Patient Allergies docusate [From COLACE] Allergy (Intermediate, Verified 02/09/24 10:06) SWELLING, swollen Medication List - Last Reconciled 02/09/24 by Donna Levine MD acetaminophen (Tylenol Extra Strength) 1,000 mg (2 x 500 mg) PO Q6H PRN [black seed oil PO] bupropion HCl XL 150 mg PO QAM 90 days clotrimazole-betamethasone 1-0.05 % 1 appl topical BID 7 days hydroxyzine HCl 10 mg PO TID PRN 30 days ibuprofen 600 mg PO Q6H PRN multivitamin (Daily Multi-Vitamin tablet) 1 tab PO DAILY Tobacco use date assessed: 08/09/23 Dental Screening Dental Screen Date: 08/09/23 HPI HPI Comments History of Present Illness Details This is a 43-year-old female with mild major depression, anxiety and positive DONNA that comes today complaining of diarrhea that started about 3 days ago associated with abdominal cramping that wakes her up at night. The color is dark brown and green but no blood. Denies eating burgers or oysters. Denies swimming in any river. Denies recent traveling. No fever or rash. Has diffuse joint pain and positive DONNA follow by Rheumatology to rule out lupus. Depression and anxiety present but has been out of her medications for over a month. 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 Skin tag Overweight Surgical History History of surgery on arm Hx of foot surgery H/O LEEP History of tubal ligation History of section Family History Father Brain cancer Mother HIV (human immunodeficiency virus infection) Myocardial infarction Hypertension CVD (cardiovascular disease) Drug abuse Brother Legally blind Cancer H/O ETOH abuse Albinism Stroke Maternal Grandfather Stroke H/O ETOH abuse Family/Other Mental health disorder Social History Housing: Apartment Alcohol intake: former Patient Tobacco Use Status: Former Tobacco user Tobacco use type: Cigarette Years Smoked: 10 e-Cigarette/Vaping Use: Never Used Second Hand Smoke Exposure: No Substance Use Type: Marijuana service: No Current occupational status: employed 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 How many drinks containing alcohol do you have on a typical day when you are drinking?: 1 or 2 3. How often do you have six or more drinks on one occasion?: Less than monthly Total Score: 1 NISHI-7 AMB Questionnaire NISHI-7 Date NISHI - 7 assessed: 08/09/23 Source: Developed by Drs. Nathaniel Khalil, Chelsea Garcia, Fercho Hathaway and colleagues, with an educational shay from [employer]. Review of Systems Const All systems reviewed & are unremarkable except as noted in HPI and below Card Denies chest pain at rest, Denies chest pain with activity, Denies edema, Denies irregular heart rhythm, Denies claudication, Denies dyspnea, Denies dyspnea on exertion, Denies orthopnea, Denies paroxysmal nocturnal dyspnea and Denies slow heart rate Resp Denies cough, Denies dyspnea and Denies dyspnea on exertion GI Reports abdominal pain, Reports change in bowel habits, Reports GI cramping, Denies excessive flatus, Reports diarrhea, Denies nausea and Denies vomiting Denies urinary incontinence, Denies urinary hesitancy and Denies urinary urgency Musc Denies atrophy, Denies deformity, Reports arthralgias and Denies limited range of motion Skin/Breast Denies bleeding lesions, Denies changing lesions and Denies rash Psych Reports depression Physical exam (Primary Care) Vital Signs: Last Vital Signs BP 112/70 02/09/24 09:58 BMI result Body Mass Index 23.5 Tobacco/Smoking Status: Tobacco use Status Tobacco use date assessed 08/09/23 02/09/24 10:04 Patient Tobacco Use Status Former Tobacco user 02/09/24 10:04 Tobacco use type Cigarette 02/09/24 10:04 e-Cigarette/Vaping Use Never Used 02/09/24 10:04 Thrive Assessment: Date of Thrive Assessment Date Thrive assessed 08/09/23 02/09/24 10:04 Resp Effort & Inspection: normal respiratory effort Auscultation: clear to auscultation bilaterally Cardio Jugular venous distension: no JVD Rate: regular rate Rhythm: regular rhythm Heart sounds: S1 normal heart sound present and S2 normal heart sound present Extrem General: Yes full ROM Assessment and Plan Assessment & Plan (1) Acute diarrhea: Code(s): R19.7 - Diarrhea, unspecified Plan: Stool samples ordered to rule out organism. (2) Mild major depression: Code(s): F32.0 - Major depressive disorder, single episode, mild Plan: Restart bupropion. (3) Anxiety: Code(s): F41.9 - Anxiety disorder, unspecified Plan: Restart hydroxyzine as needed. (4) Positive DONNA (antinuclear antibody): Comment: 2022 DONNA 1:1280, homogeneuous. positive anti DNA antibody. Low C4 Code(s): R76.8 - Other specified abnormal immunological findings in serum Plan: Follow-up with rheumatology. Orders: Orders Leukocytes Stool Qualitative Today R19.7 - Diarrhea, unspecified H pylori Ag Stool Today R19.7 - Diarrhea, unspecified Giardia Ag Stool EIA Today R19.7 - Diarrhea, unspecified Medications: Refilled hydroxyzine HCl 10 mg PO TID PRN 90 tabs 6RF anxiety 30 days F41.9 - Anxiety disorder, unspecified bupropion HCl XL 150 mg PO QAM 90 tabs 1RF 90 days F32.0 - Major depressive disorder, single episode, mild Coding Level of Care Code Est Pt Level 4 (51363) Complex EM visit Add On G2211 Diagnoses Acute diarrhea R19.7 Mild major depression F32.0 Anxiety F41.9 Positive DONNA (antinuclear antibody) R76.8 Time Spent (min) 23
[2024-02-09 09:58] VITALS: BP 112/70; BMI 23.5
== END 2024-02-09 10:26 | disposition home or self-care (01) ==
PROVIDERS: PCP Internal Medicine; Visit Provider Internal Medicine
DX: R19.7 Diarrhea, unspecified (principal); F32.0 Major depressive disorder, single episode, mild; F41.9 Anxiety disorder, unspecified; R76.8 Other specified abnormal immunological findings in serum

== ENCOUNTER 2024-02-09 09:53 | Outpatient (REF) | payer OTHER, SELFPAY ==
[2024-02-09 11:24] LABS: MANUAL DIFF FLAG NO
[2024-02-09 11:44] LABS: Basophils Percent Auto 0.3 % (0-2); Eosinophils Absolute Auto 0.1 X10*3/uL (0.0-0.4); Hematocrit 35.6 % (37.0-47.0); Hemoglobin 12.1 g/dl (12.0-16.0); Imm Gran Abs Auto 0.03 X10*3/uL (0.00-0.03); Imm Gran Pct Auto 0.5 % (0.0-0.4); Lymphocytes Percent Auto 17.1 % (20-40); Mean Corpuscular Hemoglobin 31.5 pg (27.0-33.0); Mean Corpuscular Volume 92.7 fL (80.0-98.0); Mean Platelet Volume 10.3 fL (9.4-12.3); Monocytes Absolute Auto 0.5 X10*3/uL (0.1-1.2); Monocytes Percent Auto 8.7 % (2-11); Neutrophils Absolute Auto 4.4 x10*3/uL (2.0-8.3); Neutrophils Percent Auto 72.4 % (45-73); Platelet Count 205 X10*3/uL (160-400); Red Blood Count 3.84 X10*6/uL (4.20-5.50); Red Cell Distribution Width 13.6 % (11.0-16.0)
[2024-02-09 12:04] LABS: Appearance Urine Clear; Color Urine Yellow; Glucose Urine UA Negative (Negative); Leukocyte Esterase Urine Negative (Negative); Nitrite Urine Negative (Negative); Urine Blood Negative (Negative); Urine Ketones Negative (Negative); Urine Protein Negative (Neg-Trace)
[2024-02-09 12:10] LABS: Bacteria Urine None Seen (None Seen); Hyaline Casts Urine 0-2 /LPF (0-2); RBC Urine 0-2 /HPF (0-2); WBC Urine 0-5 /HPF (0-5)
[2024-02-09 12:18] LABS: Alanine Aminotransferase 14 U/L (0-31); Albumin Level 3.9 g/dL (3.5-5.0); Alkaline Phosphatase 78 U/L (39-117); Anion Gap 9 (12-20); Aspartate Amino Transferase 17 U/L (5-31); Bilirubin Total 0.3 mg/dL (0.0-1.0); Blood Urea Nitrogen 8 mg/dL (9-16); C Reactive Protein 0.17 mg/dL (< or = 0.50); Calcium 8.6 mg/dL (8.4-10.2); Carbon Dioxide 23 mmol/L (22-29); Chloride 111 mmol/L (96-108); Estimated Glomerular Filt Rate > 60; Glucose Random 83 mg/dL (60-115); Potassium 3.8 mmol/L (3.3-5.1); Sodium 139 mmol/L (135-145); Total Protein 7.7 g/dL (6.5-8.0)
[2024-02-09 12:26] LABS: Creatinine Urine 175.07 mg/dL; Total Protein Urine Random < 7 mg/dL (<12)
[2024-02-09 12:30] LABS: Erythrocyte Sedimentation Rate 17 MM/HR (0-20)
[2024-02-09 12:38] LABS: HBS Num1 91.13 mIU/mL (0-7.99); HBc Num1 0.18 S/CO (0.00-0.79); HBsAGNum1 0.47 S/CO (0.00-0.99); Hepatitis A Antibody IgM 0.19 Index (0-0.79); Hepatitis B Core Antibody Nonreactive (Nonreactive); Hepatitis B Surface Antigen Negative (Negative); ~HepC Num1 0.14 S/CO (0.00-0.79); ~Hepatitis A Antibody IgM Nonreactive (Nonreactive); ~Hepatitis B Surface Antibody REACTIVE (Nonreactive); ~Hepatitis C Antibody Nonreactive (Nonreactive)
[2024-02-10 11:54] LABS: Complement C3 98 mg/dL (83-193)
[2024-02-12 23:28] LABS: TS Negative Control Passed; TS Panel A 0; TS Panel B 0; TS Positive Control Passed; TSpotTB Negative (Negative)
[2024-02-13 20:33] LABS: Anti DNA DS Antibody 16 IU/mL; Antibody to SS-A Antigen <1.0 NEG AI (<1.0 NEG); Antibody to SS-B Antigen <1.0 NEG AI (<1.0 NEG)
[2024-02-13 22:37] LABS: Prot Elec - Albumin 3.9 g/dL (3.8-4.8); Prot Elec - Alpha1 0.2 g/dL (0.2-0.3); Prot Elec - Alpha2 0.6 g/dL (0.5-0.9); Prot Elec - Beta 1 0.4 g/dL (0.4-0.6); Prot Elec - Beta 2 0.3 g/dL (0.2-0.5); Prot Elec - Gamma 1.8 g/dL (0.8-1.7); Prot Elec - Total Protein 7.3 g/dL (6.1-8.1)
[2024-02-14 19:19] LABS: IgA 305 mg/dL (47-310); IgG 1895 mg/dL (600-1640); IgM 106 mg/dL (50-300)
[2024-02-16 16:23] LABS: Centromere Protein A Ab <11 SI (<11); Centromere Protein B Ab <11 SI (<11); Fibrillarin Ab <11 SI (<11); PM SCL 100 Ab <11 SI (<11); PM SCL 75 Ab <11 SI (<11); RNA Polymerase III RP11 Ab <11 SI (<11); RNA Polymerase III RP155 Ab <11 SI (<11); SCL-70 Extractable Nuclear Ab <11 SI (<11); Th-To Ab <11 SI (<11); U1 SNRNP RNP 70KD <11 SI (<11); U1 SNRNP RNP A <11 SI (<11); U1 SNRNP RNP C <11 SI (<11)
[2024-02-17 05:28] LABS: DNAds, Crithidia Antibody Positive (Negative)
== END 2024-02-09 09:54 | disposition home or self-care (01) ==
LOC: HO.LAB 09:53
PROVIDERS: Absent Provider Student in an Organized Health Care Education/Training Program; PCP Internal Medicine; Visit Provider Internal Medicine
DX: M32.9 Systemic lupus erythematosus, unspecified (principal); M34.9 Systemic sclerosis, unspecified; R19.7 Diarrhea, unspecified; F32.0 Major depressive disorder, single episode, mild; F41.9 Anxiety disorder, unspecified; R76.8 Other specified abnormal immunological findings in serum; Z11.59 Encounter for screening for other viral diseases; Z11.7 Encounter for testing for latent tuberculosis infection
CPT/HCPCS: 36415; 80053; 81001; 82570; 82784; 84156; 84165; 84182; 85025; 85652; 86140; 86160; 86225; 86235; 86255; 86334; 86481; 86704; 86706; 86709; 86803; 87340; 99212

== ENCOUNTER 2024-02-27 15:47 | Outpatient (AMB) | payer OTHER, SELFPAY ==
[2024-02-27 15:53] VITALS: BP 112/68; PULSE 60; O2SAT 99; BMI 23.7
--- NOTE | 2024-02-27 15:53 | MHC.OFFVIS ---
Vital Signs 02/27/24 15:53 Height 5 ft 7 in Weight 151 lb 7.321 oz BMI 23.7 BP 112/68 Blood Pressure Location Lt brachial Position Sitting Pulse 60 Pulse Source Pulse Oximeter Pulse Oximetry (%) 99 Oxygen Delivery Method Room Air Intake Visit Reasons: lupus/CM Intake Note: Patient last seen by Doctor Dixie Amaral on 02/01/24. Presents today for Lupus follow up and test results. Allergies docusate [From COLACE] Allergy (Intermediate, Verified 02/27/24 15:56) SWELLING, swollen Medication List - Last Reconciled 02/27/24 by Dixie Amaral MD acetaminophen (Tylenol Extra Strength) 1,000 mg (2 x 500 mg) PO Q6H PRN [black seed oil PO] bupropion HCl XL 150 mg PO QAM 90 days clotrimazole-betamethasone 1-0.05 % 1 appl topical BID 7 days hydroxyzine HCl 10 mg PO TID PRN 30 days ibuprofen 600 mg PO Q6H PRN multivitamin (Daily Multi-Vitamin tablet) 1 tab PO DAILY HPI Comments Details: Patient returns for follow-up after completion of her diagnostic workup. She states that she feels well today. No joint pains or swelling. She states however that her right shoulder was quite stiff for 3 days and it self-resolved 2 days ago Initial history: This is a 43-year-old female previously evaluated by Dr. Carlin for a positive CHEVY who presents for follow-up. Subsequent labs showed positive dsDNA and low C4. Per Dr. Carlin there was not enough symptoms to diagnosed her with an autoimmune rheumatic disease. She is not on any DMARDs. She states that for the last 2 years or so she has been having waves of fatigue. She has developed bilateral carpal tunnel syndrome slightly worse on the right and she will be going for surgery in the coming few weeks. She states that she has been having skin lesions in the back of her scalp, her vagina and her legs for years. She was evaluated by her OBGYN for them. She never had a skin biopsy. She states that her fingers change color into pale white, in the cold associated with numbness, she does not recall it changing to blue. She denies any history of DVT/PE. She had 5 pregnancies in total, 4 children and 1 miscarriage, denies any fevers or weight loss. She mentions that she was recently evaluated by Dr. 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 Skin tag Overweight Surgical History History of surgery on arm Hx of foot surgery H/O LEEP History of tubal ligation History of section Family History Father Brain cancer Mother HIV (human immunodeficiency virus infection) Myocardial infarction Hypertension CVD (cardiovascular disease) Drug abuse Brother Legally blind Cancer H/O ETOH abuse Albinism Stroke Maternal Grandfather Stroke H/O ETOH abuse Family/Other Mental health disorder Social History Housing: Apartment Alcohol intake: former Patient Tobacco Use Status: Former Tobacco user Tobacco use type: Cigarette Years Smoked: 10 e-Cigarette/Vaping Use: Never Used Second Hand Smoke Exposure: No Substance Use Type: Marijuana service: No Current occupational status: employed 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 Current occupational exposures/hazards: No Sexual orientation: Straight/Heterosexual Gender identity: Female Cognitive needs: No Hearing needs: No Vision needs: Yes Female Reproductive History Menstrual Age of Menarche: 14 Review of Systems Const Reports fatigue Musc Reports arthralgias, Denies joint swelling, Reports limited range of motion and Reports stiffness Skin/Breast Denies rash Endo Reports fatigue Physical Exam Vital Signs: Last Vital Signs Pulse 60 02/27/24 15:53 BP 112/68 02/27/24 15:53 Pulse Ox 99 02/27/24 15:53 Oxygen Delivery Method Room Air 02/27/24 15:53 BMI result Body Mass Index 23.7 Const General: cooperative, healthy appearing and comfortable Nutritional Appearance: average body habitus Orientation/consciousness: patient oriented x3 Limitations: no limitations HEENT Head: Yes normocephalic and Yes atraumatic Resp Effort & Inspection: normal respiratory effort and able to speak in complete sentences Cardio Rate: regular rate Rhythm: regular rhythm Neuro General: patient oriented x3 Extrem Other: No active synovitis Deformity of left thumb related to injury Normal nailfold capillaroscopy Assessment & Plan Assessment & Plan (1) Positive CHEVY (antinuclear antibody): Comment: 2022 CHEVY 1:1280, homogeneuous. positive anti DNA antibody. Low C4 dx 02/2024 (intermittent arthralgias, fatigue, lymphopenia, +++ CHEVY + dsDNA, low C4) Code(s): R76.8 - Other specified abnormal immunological findings in serum Category: Medical Plan: This is a 43-year-old female previously evaluated by Dr. Carlin for a positive CHEVY who presents for follow-up. Patient gets waves of fatigue, arthralgias, skin rashes, labs show intermittent lymphopenia, low C4, positive dsDNA. Possible mild SLE. Discussed risks and benefits of hydroxychloroquine. Patient agreed to proceed. Start hydroxychloroquine 400 mg daily x5 days a week and 200 mg daily x2 days a week Labs before next visit in 3 months (2) Long-term use of hydroxychloroquine: Comment: Eye exam okay 01/2024 Code(s): Z79.899 - Other intermediate (current) drug therapy Category: Medical Plan: Discussed risk of retinopathy associated with hydroxychloroquine. Patient already cleared by Dr. Pacheco start hydroxychloroquine Patient takes hydroxyzine 10 mg 2 to 3 times a day. Possible QTC prolongation with hydroxychloroquine. Advised patient to get an EKG before starting hydroxychloroquine. Start hydroxychloroquine and repeat EKG 2 weeks after Plan I spent 30 minutes reviewing patient's chart, evaluating patient, ordering diagnostic workup, counseling patient and documenting in the chart Orders: Orders ECG 12 lead EKG Today Z79.899 - Other watermelon harvesting supervisor (current) drug therapy Complement C3 3 Months M32.9 - Systemic lupus erythematosus, unspecified Protein Creatinine Ratio, Ur 3 Months M32.9 - Systemic lupus erythematosus, unspecified UA w Microscopic 3 Months M32.9 - Systemic lupus erythematosus, unspecified Complete Blood Count Auto Diff 3 Months M32.9 - Systemic lupus erythematosus, unspecified ECG 12 lead EKG Today Z79.899 - Other watermelon harvesting supervisor (current) drug therapy Anti DNA DS Antibody 3 Months M32.9 - Systemic lupus erythematosus, unspecified Complement C4 3 Months M32.9 - Systemic lupus erythematosus, unspecified C Reactive Protein 3 Months M32.9 - Systemic lupus erythematosus, unspecified DNA Double Stranded-Crithidia 3 Months M32.9 - Systemic lupus erythematosus, unspecified Erythrocyte Sedimentation Rate 3 Months M32.9 - Systemic lupus erythematosus, unspecified Comprehensive Met. Panel 3 Months M32.9 - Systemic lupus erythematosus, unspecified Medications: New hydroxychloroquine Take 2 tabs daily x5 days a week and 1 tab daily x2 days a week 48 tabs 2RF Coding Level of Care Code Est Pt Level 4 (13884) Diagnoses Positive CHEVY (antinuclear antibody) R76.8 Long-term use of hydroxychloroquine Z79.899
== END 2024-02-27 16:25 | disposition home or self-care (01) ==
PROVIDERS: PCP Internal Medicine; Visit Provider Student in an Organized Health Care Education/Training Program
DX: R76.8 Other specified abnormal immunological findings in serum (principal); Z79.899 Other long term (current) drug therapy
CPT/HCPCS: 99214

== ENCOUNTER → 2024-02-27 15:47 | Outpatient (BNVA) | payer OTHER, SELFPAY | PROVIDERS: PCP Internal Medicine; Visit Provider Student in an Organized Health Care Education/Training Program | DX: R76.8 Other specified abnormal immunological findings in serum (principal); Z79.899 Other long term (current) drug therapy | CPT/HCPCS: 99212 ==

== ENCOUNTER 2024-03-01 07:03 | Day surgery (SDC) | payer OTHER, SELFPAY ==
[2024-03-01 11:02] VITALS: BMI 21.9
[2024-03-01 11:03] VITALS: BP 130/72; PULSE 60; RESP 18; TEMP 36.6; O2SAT 100
--- NOTE | 2024-03-01 11:22 | MHC.SHP ---
Pre-Procedural Eval Section A - 24 Hr Update-Section A only Date of Service: 03/01/24 The patient is an INPATIENT: No Changes since office visit: No Cold of Flu in the past 2 weeks, No New Medical Problems, No Changes in Medication and No Patient answered all questions The patient has been examined within 24 hours of the surgical procedure. The History & Physical has been completed within 30 days and I have reviewed it.: Yes Section B - Complete if H&P > 30 days Chief Complaint: carpal tunnel release Allergies: Allergies Allergy/AdvReac Type Severity Reaction Status Date / Time docusate [From COLACE] Allergy Intermediate SWELLING, Verified 03/01/24 11:04 swollen Plan Diagnosis/Plan: Unchanged I have reviewed the history and physical and performed a pertinent physical examination on my patient. No changes have occurred unless specified. Time Spent With Patient Time: Total time managing care of this patient today ____ minutes.
--- NOTE | 2024-03-01 11:22 | W.PM.OPN ---
Operative Note Operative Note Date of Service: 03/01/24 Narrative: Preop diagnosis: 1. Right Carpal tunnel syndrome Postop diagnosis: same Procedure: 1. Right Carpal tunnel release Surgeon: Elham Barreto MD Auto Leasing Manager: Charlie AKINS Anesthesia: local block using 1% lidocaine with epinephrine Findings: Thickened transverse carpal ligament. EBL: Less than 5 mL Specimens: None Complications: None Disposition: Brought to recovery room in stable condition Plan: Follow-up for 10-14 days for wound check and suture removal Indications: The patient is 43 years old, with right carpal tunnel syndrome that has been unresponsive to nonoperative management. The risks and benefits of operative treatment including but not limited to risk of damage to blood vessels, nerves, tendons, infection, persistent pain, persistent symptoms, or possible need for additional surgery were discussed with the patient and the patient wishes to proceed with surgery. Procedure: Once consent was obtained a local block was performed using a combination of 1% lidocaine with epinephrine. The patient was then brought back to the operating suite and placed on the operative table in supine position. The right upper extremity was prepped and draped in a standard surgical fashion. Once assured that we had a good block, a 2.0 cm longitudinal incision was made centered over the carpal tunnel. The incision was made through the skin to the subcutaneous tissues using a #15 blade. Dissection was made down to the level of the transverse carpal ligament with care being taken to protect the palmar cutaneous nerve. Once the transverse carpal ligament was clearly visualized, a longitudinal incision was made in the transverse carpal ligament 1st using a #15 blade, then using tenotomy scissors under direct visualization. Care was taken to look for and protect the motor branch of the median nerve when seen in this area. Once satisfied with our carpal tunnel release the wound was copiously irrigated with normal saline and hemostasis was obtained with a brief period of local pressure. The skin edges were reapproximated with some 5.0 nylon suture material and a sterile dressing was applied. The patient appears to have tolerated the procedure well and with no complications. All digits were well vascularized at the conclusion of the case.
[2024-03-01 12:57] VITALS: BP 121/63; PULSE 63; RESP 16; O2SAT 100
== END 2024-03-01 13:18 | disposition home or self-care (01) ==
PROVIDERS: PCP Internal Medicine; Visit Provider Orthopaedic Surgery
PROC: (CPT 64721; principal; 2024-03-01 13:50)
DX: G56.01 Carpal tunnel syndrome, right upper limb (principal); R20.0 Anesthesia of skin; I51.81 Takotsubo syndrome; M32.9 Systemic lupus erythematosus, unspecified; G35 Multiple sclerosis; F32.A Depression, unspecified; F41.9 Anxiety disorder, unspecified; Z88.8 Allergy status to other drugs, medicaments and biological substances; Z87.891 Personal history of nicotine dependence
CPT/HCPCS: 64721; J0171; J2003

== ENCOUNTER → 2024-03-01 07:03 | Outpatient (BNV) | payer OTHER, SELFPAY | PROVIDERS: PCP Internal Medicine; Visit Provider Orthopaedic Surgery | DX: G56.01 Carpal tunnel syndrome, right upper limb (principal) | CPT/HCPCS: 64721 ==

== ENCOUNTER 2024-03-13 15:53 | Outpatient (AMB) | payer OTHER, SELFPAY ==
--- NOTE | 2024-03-13 15:57 | A.OFFVIS_ITS ---
Intake Visit Reasons: US follow up Polls Or Surveys Interviewer: Polls Or Surveys Interviewer Present Allergies docusate [From COLACE] Allergy (Intermediate, Verified 03/13/24 15:58) SWELLING, swollen Is last menstrual period known: Yes HPI Comments Details: Patient is here today for a follow up pelvic ultrasound. She previously was seen in reported that her menstrual cycles were irregular, after reviewed today she reports that the cycles only for the last few months have been shorter and little less frequent than her normal. She has no pelvic pain or any other concerns. 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 Skin tag Overweight Surgical History History of surgery on arm Hx of foot surgery H/O LEEP History of tubal ligation History of section Family History Father Brain cancer Mother HIV (human immunodeficiency virus infection) Myocardial infarction Hypertension CVD (cardiovascular disease) Drug abuse Brother Legally blind Cancer H/O ETOH abuse Albinism Stroke Maternal Grandfather Stroke H/O ETOH abuse Family/Other Mental health disorder Social History Housing: Apartment Are you a primary resident care supervisor to a significant other at home: No Do you presently have visiting nurse or other home services: No Alcohol intake: former Patient Tobacco Use Status: Former Tobacco user Tobacco use type: Cigarette Years Smoked: 10 e-Cigarette/Vaping Use: Never Used Second Hand Smoke Exposure: No Substance Use Type: Marijuana service: No Current occupational status: employed 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 Current occupational exposures/hazards: No Sexual orientation: Straight/Heterosexual Gender identity: Female Cognitive needs: No Hearing needs: No Vision needs: Yes Female Reproductive History Menstrual Age of Menarche: 14 Review of Systems Const All systems reviewed & are unremarkable except as noted in HPI and below Endo Reports no additional complaints Physical Exam Const General: cooperative, healthy appearing and no acute distress Psych Appearance: well kempt Attitude: cooperative Thought process: Normal thought process present Results Reviewed Results Reviewed: [address] [address] Ultrasound Report Signed Patient: Stephanie Silva MR#: [id number] : 1980 Acct:[id number] Age/Sex: 43 / F ADM Date: 01/30/24 Loc: HO.US Attending Dr: Tami Jacobo CNM Ordering Physician: Tami Jacobo CNM Date of Service: 01/30/24 Procedure(s): US pelvic and transvaginal Accession Number(s): [id number] cc: Tami Jacobo CNM; Donna Galindo MD~ EXAMINATION: US PELVIS CLINICAL INFORMATION: Intra-abdominal and pelvic swelling with mass and lump and abnormal uterine bleeding COMPARISON: Pelvic ultrasound 06/22/2023 TECHNIQUE: Ultrasound of the pelvis is performed using both transabdominal and transvaginal transducers along with Doppler. Transvaginal imaging is performed due to inadequate visualization transabdominally. FINDINGS: Uterus: The uterus is anteverted and retroflexed measuring 11.0 x 3.9 x 5.3 cm. The double wall endometrial thickness is 3 mm. A small cyst is present in the myometrium adjacent to the endometrium on the right measuring 5 x 3 x 4 mm, unchanged when compared to 06/22/2023. Nabothian cysts are present in the cervix. The uterus is smooth in contour and has normal myometrial echogenicity. No visible fibroid. Adnexa: Both ovaries are visualized. There is normal color flow to the adnexa. There is no ovarian torsion. There is no pelvic ascites or fluid collection. Right ovary measures 3.4 x 2.6 x 3.8 cm for a volume of 17.6 mL which includes a 2.6 x 1.8 x 2.6 cm benign cyst. Left ovary measures 1.6 x 1.4 x 1.6 cm for a volume of 0.9 mL US/US pelvic and transvaginal IMPRESSION: 1. No significant abnormality is seen. A small stable myometrial cyst is present. 2. Benign-appearing right ovarian cyst needs no further follow-up. Electronically signed by: Roland Bocanegra MD 01/31/2024 09:39 AM EDT Dictated By: Roland Bocanegra MD Signed By: <Electronically signed by Roland Bocanegra MD in OV> 01/31/24 0939 DD/ 1535 TD/TT: 01/30/24 1548 Multicultural Services Librarian: PENELOPE Assessment & Plan Assessment & Plan (1) Encounter to discuss test results: Code(s): Z71.2 - Person consulting for explanation of examination or test findings Plan Discussed: Ultrasound findings- IMPRESSION: 1. No significant abnormality is seen. A small stable myometrial cyst is present. 2. Benign-appearing right ovarian cyst needs no further follow-up. If any irregular bleeding patterns prolonged or heavy or bleeding less than 24 days apart to return to the office for further evaluation. Discussed perimenopausal changes and diagnosis of menopause which is no cycles for consecutive 12 months. If any pelvic pain to report back to the office for further eval. All of her questions and concerns were addressed to the best of my ability and shared decision making. She is agreeable to the plan of care. She is her follow up with Dr. Mcpherson scheduled in an annual exam and mammogram booked. This note is constructed using voice recognition software. While every effort has been made to ensure accuracy, sheep farm worker errors may have been included. Coding Level of Care Code Est Pt Level 3 (70649) Diagnoses Encounter to discuss test results Z71.2
== END 2024-03-13 16:27 | disposition home or self-care (01) ==
LOC: HO.HWS 15:53
PROVIDERS: PCP Internal Medicine; Visit Provider Advanced Practice Midwife
DX: N92.6 Irregular menstruation, unspecified (principal); Z71.2 Person consulting for explanation of examination or test findings
CPT/HCPCS: 99212

== ENCOUNTER → 2024-03-13 15:53 | Outpatient (BNVA) | payer OTHER, SELFPAY | PROVIDERS: PCP Internal Medicine; Visit Provider Advanced Practice Midwife | DX: N92.6 Irregular menstruation, unspecified (principal); Z71.2 Person consulting for explanation of examination or test findings | CPT/HCPCS: 99212 ==

== ENCOUNTER 2024-03-14 14:42 | Outpatient (AMB) | payer OTHER, SELFPAY ==
--- NOTE | 2024-03-14 14:52 | MHC.OFFVIS ---
Intake Visit Reasons: PO RT CTR 03/01/24 AR Intake Note: Stephanie is a 43 year old right hand dominant female who presents today post operatively s/p right carpal tunnel release DOS: 03/01/24 AR. Patient denies any numbness and tingling in her hand or fingers. Pt states she has a shock sensation every once in a while but denies any other pain. Allergies docusate [From COLACE] Allergy (Intermediate, Verified 03/14/24 14:52) SWELLING, swollen HPI HPI PO RT CTR 03/01/24 AR: Details: Patient is a 44-year-old female who presents for postoperative evaluation status post right carpal tunnel release, DOS 03/01/[address] Barreto. Today, the patient reports that she is feeling well, and isn't experiencing any pain. The patient reports that she did have 1 episode of a shock-like pain in her right hand, but this has since resolved. Patient reports that she is experiencing numbness and tingling in the left hand, but states she is unsure what the findings on her EMG and nerve conduction study were. No other acute complaints or concerns at this time. [facility] Medical History Thumb tendonitis Anxiety Depression Nabothian cyst Left ovarian cyst Prolonged menstrual cycle Lupus Carpal tunnel syndrome on both sides Transaminitis Leukopenia Physical exam Takotsubo syndrome 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 Skin tag Overweight Surgical History History of surgery on arm Hx of foot surgery H/O LEEP History of tubal ligation History of section Family History Father Brain cancer Mother HIV (human immunodeficiency virus infection) Myocardial infarction Hypertension CVD (cardiovascular disease) Drug abuse Brother Legally blind Cancer H/O ETOH abuse Albinism Stroke Maternal Grandfather Stroke H/O ETOH abuse Family/Other Mental health disorder Social History Housing: Apartment Are you a primary home care assistant to a significant other at home: No Do you presently have visiting nurse or other home services: No Alcohol intake: former Patient Tobacco Use Status: Former Tobacco user Tobacco use type: Cigarette Years Smoked: 10 e-Cigarette/Vaping Use: Never Used Second Hand Smoke Exposure: No Substance Use Type: Marijuana service: No Current occupational status: employed 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 Neuro: Normal sensation of the tips of all digits of bilateral hands at this time Vascular: Cap refill brisk Pain: Patient reports no tenderness to palpation about the incision site on the right volar wrist ROM: Patient is able to make a closed fist and extend all digits of the right hand fully and without difficulty Skin: Well-approximated well-healing incision site noted on the volar aspect of the right wrist General: No ecchymosis, erythema, or evidence of infection. Psych: Appears grossly normal Affect normal Attitude cooperative Assessment & Plan Assessment & Plan (1) Carpal tunnel syndrome of right wrist: Code(s): G56.01 - Carpal tunnel syndrome, right upper limb Category: Medical (2) Numbness and tingling of left hand: Code(s): R20.0 - Anesthesia of skin; R20.2 - Paresthesia of skin Category: Medical Plan 1. Carpal tunnel syndrome, right, status post carpal tunnel release DOS 03/01/2024 Patient appears to be recovering well postoperatively Patient is educated about the typical recovery course At this time, patient is informed that she will not require any acute follow-up with us, as she appears to be recovering very well from her procedure Patient understands this and is amenable to this plan Patient will follow-up as needed with any acute concerns 2. Numbness and tingling left hand Negative EMG in April of 2023 At this time, repeat EMG is ordered to assess the health of the nerves of the left upper extremity Patient will follow-up after EMG and nerve conduction study for results review and discussion of further treatment options if indicated Orders: Orders NE electromyogram (EMG) Today R20.0 - Anesthesia of skin, R20.2 - Paresthesia of skin NE nerve conduction velocity Today R20.0 - Anesthesia of skin, R20.2 - Paresthesia of skin Coding Level of Care Code Est Pt Level 3 (61945) Diagnoses Carpal tunnel syndrome of right wrist G56.01 Numbness and tingling of left hand R20.0; R20.2
== END 2024-03-14 15:03 | disposition home or self-care (01) ==
PROVIDERS: PCP Internal Medicine
DX: R20.0 Anesthesia of skin (principal); R20.2 Paresthesia of skin; G56.01 Carpal tunnel syndrome, right upper limb
CPT/HCPCS: 99213

== ENCOUNTER → 2024-03-14 14:42 | Outpatient (REF) | payer OTHER, SELFPAY ==
--- NOTE | 2024-03-14 15:15 | ECG_ITS ---
Test Reason : DRUG THERAPY Blood Pressure : / mmHG Vent. Rate : 056 BPM Atrial Rate : 056 BPM P-R Int : 146 ms QRS Dur : 082 ms QT Int : 438 ms P-R-T Axes : -08 030 030 degrees QTc Int : 422 ms Sinus bradycardia Low voltage QRS Borderline ECG When compared with ECG of 05-MAR-2018 09:32, No significant change was found Referred By: Dixie Amaral Electronically Signed By:Norbert Kelly
== END ==
LOC: HO.CARD 14:42
PROVIDERS: Absent Provider Student in an Organized Health Care Education/Training Program; PCP Internal Medicine
DX: Z79.899 Other long term (current) drug therapy (principal); G56.01 Carpal tunnel syndrome, right upper limb; R20.0 Anesthesia of skin; R20.2 Paresthesia of skin
CPT/HCPCS: 93005; 99212

== ENCOUNTER → 2024-03-14 15:15 | Outpatient (BNV) | payer OTHER, SELFPAY | PROVIDERS: Absent Provider Student in an Organized Health Care Education/Training Program; PCP Internal Medicine; Visit Provider Internal Medicine Cardiovascular Disease | DX: R00.1 Bradycardia, unspecified (principal) | CPT/HCPCS: 93010 ==

== ENCOUNTER 2024-04-05 08:59 | Outpatient (AMB) | payer OTHER, SELFPAY ==
--- NOTE | 2024-04-05 08:59 | MHC.OFFVIS ---
Intake Visit Reasons: Colpo Results/ Vulva lesion Biopsy Allergies docusate [From COLACE] Allergy (Intermediate, Verified 03/14/24 14:52) SWELLING, swollen HPI Comments Details: The patient is scheduled a telehealth visit post colpo for follow-up. The patient is doing well with no complaints. The pathology showed the following: Endocervix, curettage: Scant fragments of squamous mucosa within normal limits; no endocervical glands are seen; negative for squamous intraepithelial lesion. COMMENT: The atypical cells noted on the patient's previous Pap smear ([id number]; ASCUS; HPV16+) are not seen in the current biopsy material [facility] Medical History Thumb tendonitis Anxiety Depression Nabothian cyst Left ovarian cyst Prolonged menstrual cycle Lupus Carpal tunnel syndrome on both sides Transaminitis Leukopenia Physical exam Takotsubo syndrome 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 Skin tag Overweight Surgical History History of surgery on arm Hx of foot surgery H/O LEEP History of tubal ligation History of section Family History Father Brain cancer Mother HIV (human immunodeficiency virus infection) Myocardial infarction Hypertension CVD (cardiovascular disease) Drug abuse Brother Legally blind Cancer H/O ETOH abuse Albinism Stroke Maternal Grandfather Stroke H/O ETOH abuse Family/Other Mental health disorder Social History Housing: Apartment Are you a primary progressive care nurse to a significant other at home: No Do you presently have visiting nurse or other home services: No Alcohol intake: former Patient Tobacco Use Status: Former Tobacco user Tobacco use type: Cigarette Years Smoked: 10 e-Cigarette/Vaping Use: Never Used Second Hand Smoke Exposure: No Substance Use Type: Marijuana service: No Current occupational status: employed 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 Current occupational exposures/hazards: No Sexual orientation: Straight/Heterosexual Gender identity: Female Cognitive needs: No Hearing needs: No Vision needs: Yes Female Reproductive History Menstrual Age of Menarche: 14 Review of Systems Const All systems reviewed & are unremarkable except as noted in HPI and below Reports as per HPI and Reports no additional complaints GI Reports no additional complaints Reports no additional complaints Telehealth Telehealth Telehealth Platform: Telephone Location of provider rendering services: practice address Location of patient: address on file Patient Identification confirmed using: Name, : Yes Telehealth method: video Patient verbally consented to treatment: Yes Patient verbally consented to billing insurance company: Yes Patient informed of any privacy concerns related to visit: Yes Assessment & Plan Assessment & Plan (1) ASCUS with positive high risk HPV cervical: Comment: HPV E6 E7 in 16 positive, HPV 18/45 negative h/o DENIS I s/p LEEP cone in 2021 Code(s): R87.610 - Atypical squamous cells of undetermined significance on cytologic smear of cervix (ASC-US); R87.810 - Cervical high risk human papillomavirus (HPV) DNA test positive Category: Medical Plan: Discussed with the patient the pathology results of the colposcopy endocervical curettage ( negative). Discussed with the patient the sensitivity specificity, positive and negative predictive value in detecting cervical cancer in addition discussed the regression, persistence and progression rates. Recommended co-testing in 12 months, if cytology and or HPV are abnormal will proceed was colposcopy biopsy and endocervical curettage, if lesions gets worse or stays persistent for 2 years will proceed with loop electric excision procedure. Instructions given to the patient to schedule a co test appointment in 1 year. All questions answered the patient verbalized understanding. I spent a total of 20 minutes reviewing the chart, talking to the patient via video and documenting in the medical record. Coding Level of Care Code Tele Est Pt Level 1 (75260) Diagnoses ASCUS with positive high risk HPV cervical R87.610; R87.810
== END 2024-04-05 08:59 | disposition home or self-care (01) ==
LOC: HO.HWS 08:59
PROVIDERS: PCP Internal Medicine; Visit Provider Obstetrics & Gynecology
DX: R87.610 Atypical squamous cells of undetermined significance on cytologic smear of cervix (ASC-US) (principal); R87.810 Cervical high risk human papillomavirus (HPV) DNA test positive
CPT/HCPCS: 99211

== ENCOUNTER → 2024-04-05 08:59 | Outpatient (BNVA) | payer OTHER, SELFPAY | PROVIDERS: PCP Internal Medicine; Visit Provider Obstetrics & Gynecology ==

== ENCOUNTER → 2024-04-10 14:21 | Outpatient (REF) | payer OTHER, SELFPAY ==
--- NOTE | 2024-04-10 14:25 | ECG_ITS ---
Test Reason : Z79.899 Blood Pressure : / mmHG Vent. Rate : 064 BPM Atrial Rate : 064 BPM P-R Int : 140 ms QRS Dur : 086 ms QT Int : 422 ms P-R-T Axes : -21 020 028 degrees QTc Int : 435 ms Normal sinus rhythm Normal ECG When compared with ECG of 14-MAR-2024 15:22, No significant change was found Referred By: Dixie Amaral Electronically Signed By:JUSTIN BUTT MD
== END ==
LOC: HO.CARD 14:21
PROVIDERS: PCP Internal Medicine; Visit Provider Student in an Organized Health Care Education/Training Program
DX: Z79.899 Other long term (current) drug therapy (principal)
CPT/HCPCS: 93005

== ENCOUNTER → 2024-04-10 14:25 | Outpatient (BNV) | payer OTHER, SELFPAY | PROVIDERS: PCP Internal Medicine; Visit Provider Internal Medicine Cardiovascular Disease | DX: Z79.899 Other long term (current) drug therapy (principal) | CPT/HCPCS: 93010 ==

== ENCOUNTER 2024-05-29 09:57 | Outpatient (REF) | payer OTHER, SELFPAY ==
[2024-05-29 10:17] LABS: MANUAL DIFF FLAG NO
[2024-05-29 10:45] LABS: Basophils Percent Auto 0.3 % (0-2); Eosinophils Absolute Auto 0.1 X10*3/uL (0.0-0.4); Hematocrit 32.6 % (37.0-47.0); Hemoglobin 11.2 g/dl (12.0-16.0); Imm Gran Abs Auto 0.03 X10*3/uL (0.00-0.03); Imm Gran Pct Auto 0.5 % (0.0-0.4); Lymphocytes Absolute Auto 0.8 X10*3/uL (1.2-4.9); Lymphocytes Percent Auto 13.4 % (20-40); Mean Corpuscular HGB Conc 34.4 g/dl (31.0-35.0); Mean Corpuscular Hemoglobin 31.7 pg (27.0-33.0); Mean Corpuscular Volume 92.4 fL (80.0-98.0); Mean Platelet Volume 10.2 fL (9.4-12.3); Monocytes Absolute Auto 0.4 X10*3/uL (0.1-1.2); Monocytes Percent Auto 7.3 % (2-11); Neutrophils Absolute Auto 4.4 x10*3/uL (2.0-8.3); Neutrophils Percent Auto 77.5 % (45-73); Platelet Count 189 X10*3/uL (160-400); Red Blood Count 3.53 X10*6/uL (4.20-5.50); Red Cell Distribution Width 13.9 % (11.0-16.0); White Blood Count 5.7 X10*3/uL (4.8-10.8)
[2024-05-29 11:01] LABS: Appearance Urine Clear; Color Urine Yellow; Glucose Urine UA Negative (Negative); Leukocyte Esterase Urine Negative (Negative); Nitrite Urine Negative (Negative); PH 5.5 (5.0-9.0); Urine Blood Negative (Negative); Urine Ketones Negative (Negative); Urine Protein Negative (Neg-Trace)
[2024-05-29 11:04] LABS: Bacteria Urine None Seen (None Seen); Hyaline Casts Urine 0-2 /LPF (0-2); RBC Urine 0-2 /HPF (0-2); WBC Urine 0-5 /HPF (0-5)
[2024-05-29 11:21] LABS: Erythrocyte Sedimentation Rate 23 MM/HR (0-20)
[2024-05-29 11:25] LABS: Alanine Aminotransferase 15 U/L (0-31); Alkaline Phosphatase 70 U/L (39-117); Anion Gap 9 (12-20); Aspartate Amino Transferase 26 U/L (5-31); Bilirubin Total 0.5 mg/dL (0.0-1.0); Blood Urea Nitrogen 9 mg/dL (9-16); C Reactive Protein < 0.10 mg/dL (< or = 0.50); Calcium 8.4 mg/dL (8.4-10.2); Carbon Dioxide 22 mmol/L (22-29); Chloride 112 mmol/L (96-108); Estimated Glomerular Filt Rate > 60; Glucose Random 86 mg/dL (60-115); Potassium 3.4 mmol/L (3.3-5.1); Sodium 140 mmol/L (135-145); Total Protein 7.6 g/dL (6.5-8.0)
[2024-05-29 12:47] LABS: Protein/Creatinine Ratio, Ur 0.04 (<0.2); Total Protein Urine Random 8 mg/dL (<12)
[2024-05-30 20:09] LABS: Complement C3 99 mg/dL (83-193)
[2024-05-31 21:28] LABS: Anti DNA DS Antibody 17 IU/mL
[2024-06-01 13:43] LABS: DNAds, Crithidia Antibody Positive (Negative)
[2024-06-01 18:52] LABS: DNAds, Crithidia Antibody 1:40 titer (<1:10)
== END 2024-05-29 09:58 | disposition home or self-care (01) ==
LOC: HO.LAB 09:57
PROVIDERS: PCP Internal Medicine; Visit Provider Student in an Organized Health Care Education/Training Program
DX: M32.9 Systemic lupus erythematosus, unspecified (principal)
CPT/HCPCS: 36415; 80053; 81001; 82570; 84156; 85025; 85652; 86140; 86160; 86225; 86255

== ENCOUNTER 2024-05-30 14:19 | Outpatient (AMB) | payer OTHER, SELFPAY ==
--- NOTE | 2024-05-30 14:29 | A.OFFVIS_ITS ---
Vital Signs 05/30/24 14:33 Height 5 ft 7 in Weight 151 lb 3.794 oz BMI 23.7 BP 102/68 Blood Pressure Location Rt brachial Position Sitting Pulse 70 Pulse Source Pulse Oximeter Pulse Oximetry (%) 98 Oxygen Delivery Method Room Air Intake Visit Reasons: SLE Intake Note: Patient presents for SLE. Allergies docusate [From COLACE] Allergy (Intermediate, Verified 05/30/24 14:32) SWELLING, swollen Medication List - Last Reconciled 05/30/24 by Dixie Amaral MD acetaminophen (Tylenol Extra Strength) 1,000 mg (2 x 500 mg) PO Q6H PRN [black seed oil PO] bupropion HCl XL 150 mg PO QAM 90 days clotrimazole-betamethasone 1-0.05 % 1 appl topical BID 7 days hydroxychloroquine Take 2 tabs daily x5 days a week and 1 tab daily x2 days a week hydroxyzine HCl 10 mg PO TID PRN 30 days ibuprofen 600 mg PO Q6H PRN multivitamin (Daily Multi-Vitamin tablet) 1 tab PO DAILY HPI Comments Details: 44-year-old female with newly diagnosed mild lupus returns for follow-up. She has been taking hydroxychloroquine regularly as prescribed for the last 3 months. She states that her fatigue and generalized achiness is about the same. She has difficulty falling and staying asleep. She has history of anxiety and was referred to see a therapist. She has been waiting on an appointment for about 1 year. The rashes on her thighs resolved. Initial history: This is a 43-year-old female previously evaluated by Dr. Carlin for a positive CHEVY who presents for follow-up. Subsequent labs showed positive dsDNA and low C4. Per Dr. Carlin there was not enough symp toms to diagnosed her with an autoimmune rheumatic disease. She is not on any DMARDs. She states that for the last 2 years or so she has been having waves of fatigue. She has developed bilateral carpal tunnel syndrome slightly worse on the right and she will be going for surgery in the coming few weeks. She states that she has been having skin lesions in the back of her scalp, her vagina and h er legs for years. She was evaluated by her OBGYN for them. She never had a skin biopsy. She states that her fingers change color into pale white, in the cold associated with numbness, she does not recall it changing to blue. She denies any history of DVT/PE. She had 5 pregnancies in total, 4 children and 1 miscarriage, denies any fevers or weight loss. She mentions that she was recently evaluated by Dr. Pacheco and cleared to start a medication for lupus [facility] Medical History Thumb tendonitis Anxiety Depression Nabothian cyst Left ovarian cyst Prolonged menstrual cycle Lupus Carpal tunnel syndrome on both sides Transaminitis Leukopenia Physical exam Takotsubo syndrome 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 Skin tag Overweight Surgical History History of surgery on arm Hx of foot surgery H/O LEEP History of tubal ligation History of section Family History Father Brain cancer Mother HIV (human immunodeficiency virus infection) Myocardial infarction Hypertension CVD (cardiovascular disease) Drug abuse Brother Legally blind Cancer H/O ETOH abuse Albinism Stroke Maternal Grandfather Stroke H/O ETOH abuse Family/Other Mental health disorder Social History Housing: Apartment Are you a primary patient centered care specialist to a significant other at home: No Do you presently have visiting nurse or other home services: No Alcohol intake: former Patient Tobacco Use Status: Former Tobacco user Tobacco use type: Cigarette Years Smoked: 10 e-Cigarette/Vaping Use: Never Used Second Hand Smoke Exposure: No Substance Use Type: Marijuana service: No Current occupational status: employed 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 Current occupational exposures/hazards: No Sexual orientation: Straight/Heterosexual Gender identity: Female Cognitive needs: No Hearing needs: No Vision needs: Yes Female Reproductive History Menstrual Age of Menarche: 14 Review of Systems Const Reports fatigue Musc Reports arthralgias, Denies joint swelling and Reports stiffness Skin/Breast Denies rash Endo Reports fatigue Physical Exam Vital Signs: Last Vital Signs Pulse 70 05/30/24 14:33 BP 102/68 05/30/24 14:33 Pulse Ox 98 05/30/24 14:33 Oxygen Delivery Method Room Air 05/30/24 14:33 BMI result Body Mass Index 23.7 Const General: cooperative, healthy appearing and comfortable Nutritional Appearance: average body habitus Orientation/consciousness: patient oriented x3 Limitations: no limitations HEENT Head: Yes normocephalic and Yes atraumatic Resp Effort & Inspection: normal respiratory effort and able to speak in complete sentences Cardio Rate: regular rate Rhythm: regular rhythm Neuro General: patient oriented x3 Extrem Other: No active synovitis Deformity of left thumb related to injury Normal nailfold capillaroscopy Assessment & Plan Assessment & Plan (1) Lupus (systemic lupus erythematosus): Comment: 2022 CHEVY 1:1280, homogeneuous. positive anti DNA antibody. Low C4 dx 02/2024 (intermittent arthralgias, fatigue, lymphopenia, +++ CHEVY + dsDNA, low C4) Code(s): M32.9 - Systemic lupus erythematosus, unspecified Category: Medical Plan: 44-year-old female with newly diagnosed mild lupus returns for follow-up. She has been taking hydroxychloroquine regularly for the last 3 months. The rashes on her thighs resolved. She has been feeling about the same otherwise. She continues to have generalized achiness. She has done her labs but her C3, C4, dsDNA results are still pending I think at this time patient's arthralgias are likely related to her job, her job is quite physical. There is likely some degree of fibromyalgia. Patient waiting to see a psychotherapist. She remains on hydroxyzine. Advised patient to consider a sleep study. I do not see any active synovitis on exam. Would like to keep patient on hydroxychloroquine at this time and continue to mo nitor her. Labs before next visit in 4 months (2) Long-term use of hydroxychloroquine: Comment: Eye exam okay 01/2024 Code(s): Z79.899 - Other intermediate (current) drug therapy Category: Medical Plan: Discussed risk of retinopathy associated with hydroxychloroquine. Patient already cleared by Dr. Pacheco start hydroxychloroquine Plan I spent 25 minutes reviewing patient's chart, evaluating patient, ordering diagnostic workup, counseling patient and documenting in the chart Orders: Orders C Reactive Protein 4 Months M32.9 - Systemic lupus erythematosus, unspecified Erythrocyte Sedimentation Rate 4 Months M32.9 - Systemic lupus erythematosus, unspecified Complement C3 4 Months M32.9 - Systemic lupus erythematosus, unspecified DNA Double Stranded-Crithidia 4 Months M32.9 - Systemic lupus erythematosus, unspecified UA w Microscopic 4 Months M32.9 - Systemic lupus erythematosus, unspecified Complete Blood Count Auto Diff 4 Months M32.9 - Systemic lupus erythematosus, unspecified Comprehensive Met. Panel 4 Months M32.9 - Systemic lupus erythematosus, unspe cified Anti DNA DS Antibody 4 Months M32.9 - Systemic lupus erythematosus, unspecified Complement C4 4 Months M32.9 - Systemic lupus erythematosus, unspecified Protein Creatinine Ratio, Ur 4 Months M32.9 - Systemic lupus erythematosus, unspecified Coding Level of Care Code Est Pt Level 4 (48166) Diagnoses Lupus (systemic lupus erythematosus) M32.9 Long-term use of hydroxychloroquine Z79.899
[2024-05-30 14:33] VITALS: BP 102/68; PULSE 70; O2SAT 98; BMI 23.7
== END 2024-05-30 14:54 | disposition home or self-care (01) ==
PROVIDERS: PCP Internal Medicine; Visit Provider Student in an Organized Health Care Education/Training Program
DX: M32.9 Systemic lupus erythematosus, unspecified (principal); Z79.899 Other long term (current) drug therapy
CPT/HCPCS: 99214

== ENCOUNTER → 2024-05-30 14:19 | Outpatient (BNVA) | payer OTHER, SELFPAY | PROVIDERS: PCP Internal Medicine; Visit Provider Student in an Organized Health Care Education/Training Program | DX: M32.9 Systemic lupus erythematosus, unspecified (principal); Z79.899 Other long term (current) drug therapy | CPT/HCPCS: 99212 ==

== ENCOUNTER 2024-06-18 08:55 | Emergency (ER) | payer OTHER, SELFPAY ==
[2024-06-18 09:01] VITALS: BP 137/77; PULSE 72; RESP 18; TEMP 36; O2SAT 99; BMI 21.9
[2024-06-18 09:21] LABS: MANUAL DIFF FLAG NO
[2024-06-18 09:23] LABS: Basophils Percent Auto 0.4 % (0-2); Eosinophils Absolute Auto 0.1 X10*3/uL (0.0-0.4); Hematocrit 37.3 % (37.0-47.0); Hemoglobin 12.7 g/dl (12.0-16.0); Imm Gran Abs Auto 0.03 X10*3/uL (0.00-0.03); Imm Gran Pct Auto 0.4 % (0.0-0.4); Lymphocytes Percent Auto 12.4 % (20-40); Mean Corpuscular Hemoglobin 32.2 pg (27.0-33.0); Mean Corpuscular Volume 94.4 fL (80.0-98.0); Mean Platelet Volume 9.5 fL (9.4-12.3); Monocytes Absolute Auto 0.7 X10*3/uL (0.1-1.2); Monocytes Percent Auto 9.7 % (2-11); Neutrophils Absolute Auto 5.8 x10*3/uL (2.0-8.3); Neutrophils Percent Auto 76.1 % (45-73); Platelet Count 205 X10*3/uL (160-400); Red Blood Count 3.95 X10*6/uL (4.20-5.50); Red Cell Distribution Width 13.5 % (11.0-16.0); White Blood Count 7.6 X10*3/uL (4.8-10.8)
[2024-06-18 09:34] LABS: Appearance Urine Clear; Color Urine Yellow; Glucose Urine UA Negative (Negative); Leukocyte Esterase Urine Moderate (2+) (Negative); Nitrite Urine Negative (Negative); PH 7.5 (5.0-9.0); Specific Gravity - Urine 1.015 (1.005-1.025); UMIC TRIGGER UACC YES; Urine Blood Trace (Negative); Urine Ketones Negative (Negative); Urine Protein Negative (Neg-Trace)
[2024-06-18 09:36] LABS: Bacteria Urine 3+ (None Seen); Hyaline Casts Urine 0-2 /LPF (0-2); UACC Culture Trigger YES; WBC Urine >50 /HPF (0-5)
[2024-06-18 10:16] LABS: Alanine Aminotransferase 32 U/L (0-31); Albumin Level 4.3 g/dL (3.5-5.0); Alkaline Phosphatase 106 U/L (39-117); Anion Gap 10 (12-20); Aspartate Amino Transferase 36 U/L (5-31); Bilirubin Total 0.5 mg/dL (0.0-1.0); Blood Urea Nitrogen 6 mg/dL (9-16); Calcium 9.2 mg/dL (8.4-10.2); Carbon Dioxide 27 mmol/L (22-29); Chloride 105 mmol/L (96-108); Creatinine Clr Calc Pharmacy 98.9; Estimated Glomerular Filt Rate > 60; Glucose Random 88 mg/dL (60-115); HCG Quantitative < 2 mIU/mL; Potassium 3.9 mmol/L (3.3-5.1); Sodium 138 mmol/L (135-145); Total Protein 8.8 g/dL (6.5-8.0)
--- NOTE | 2024-06-18 13:15 | ED.GENADULT ---
HPI - General Adult General Chief complaint: Abdominal Pain Stated complaint: lower l side back pain Time Seen by Provider: 06/18/24 13:15 Source: patient Mode of arrival: ambulatory Limitations: no limitations History of Present Illness ED Provider: Juliana Mason PA-C HPI narrative: Patient is a 44 year old assigned female at with a history of anxiety and lupus presenting to the emergency department today with left flank pain. Patient states that over the last 4 days she has had left sided flank pain that feels similar to when she has had a UTI in the past. Patient denies any dizziness, lightheadedness, abdominal pain, nausea, vomiting, fever, chills, blurry vision, double vision, loss of vision, chest pain, difficulty breathing, shortness of breath, back pain, night sweats, pain with urination, increased urinary frequency, increased urinary urgency, blood in her urine or stool, syncope or a near syncopal episode, recent trauma or falls, bowel incontinence, bladder incontinence, or any other complaints at this time. Onset (ago): day(s) (4) Relieving factors: none Exacerbating factors: none Associated symptoms: denies other symptoms Treatments prior to arrival: none Related Data Home Medications ?Medication ?Instructions ?Recorded ?Confirmed multivitamin (Daily Multi-Vitamin 1 tab PO DAILY 05/21/21 03/01/24 tablet) black seed oil PO 12/05/23 02/09/24 Previous Rx's ?Medication ?Instructions ?Recorded acetaminophen 500 mg tablet 1,000 mg (2 x 500 mg) PO Q6H PRN 08/12/23 (Tylenol Extra Strength) pain #30 tabs ibuprofen 600 mg tablet 600 mg PO Q6H PRN pain #30 tabs 08/12/23 clotrimazole-betamethasone 1 1 appl topical BID itching 7 days 01/20/24 %-0.05 % topical cream #45 grams bupropion HCl 150 mg 24 hr tablet, 150 mg PO QAM 90 days #90 tabs 02/09/24 extended release hydroxyzine HCl 10 mg tablet 10 mg PO TID PRN anxiety 30 days 02/09/24 #90 tabs hydroxychloroquine 200 mg tablet See Rx Instructions PO .COMPLEX 02/27/24 #48 tabs cefuroxime axetil 250 mg tablet 250 mg PO BID 7 days #14 tabs 06/18/24 Allergies Allergy/AdvReac Type Severity Reaction Status Date / Time docusate [From COLACE] Allergy Intermediate SWELLING, Verified 06/18/24 09:04 swollen Review of Systems Constitutional: Constitutional: Reports no additional constitutional complaints, Denies chills, Denies fever(s) and Denies night sweats Eyes: Eyes: Reports no additional eye complaints, Denies blurry vision, Denies change in vision, Denies diplopia, Denies eye discharge, Denies loss of vision and Denies eye pain ENT: Denies dizziness Cardiovascular: Cardiovascular: Reports no additional cardiovascular complaints, Denies chest pain, Denies lightheadedness, Denies Loss of Consciousness and Denies dyspnea Respiratory: Respiratory: Reports no additional respiratory complaints and Denies dyspnea Gastrointestinal: Gastrointestinal: Reports no additional gastrointestinal complaints, Denies abdominal pain, Denies melena, Denies hematochezia, Denies change in bowel habits and Denies change in stool character Genitourinary: Genitourinary: Denies hematuria, Denies urinary frequency, Denies dysuria, Reports flank pain (left), Denies urinary incontinence, Denies urinary hesitancy and Denies urinary urgency Musculoskeletal: Musculoskeletal: Reports no additional musculoskeletal complaints, Denies numbness and Denies tingling Neurologic: Denies dizziness, Denies loss of vision, Denies numbness and Denies tingling Psychiatric: Psychiatric: Reports no additional psychiatric complaints Endocrine: Endocrine: Reports no additional endocrine complaints Hematologic/Lymphatic: Hematologic/Lymphatic: Reports no additional hematologic/lymphatic complaints Allergic/Immunologic: Allergic/Immunologic: Reports no additional allergic/immunologic complaints [facility] Past Medical History Attestation statement: The following information was validated with the patient. 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 Skin tag Overweight Surgical History History of surgery on arm Hx of foot surgery H/O LEEP History of tubal ligation History of section Family History Family History Father Brain cancer Mother HIV (human immunodeficiency virus infection) Myocardial infarction Hypertension CVD (cardiovascular disease) Drug abuse Brother Legally blind Cancer H/O ETOH abuse Albinism Stroke Maternal Grandfather Stroke H/O ETOH abuse Family/Other Mental health disorder Social History Social History Housing: Apartment Are you a primary acute care certified nursing assistant to a significant other at home: No Do you presently have visiting nurse or other home services: No Alcohol intake: former Patient Tobacco Use Status: Former Tobacco user Tobacco use type: Cigarette Years Smoked: 10 e-Cigarette/Vaping Use: Never Used Second Hand Smoke Exposure: No Substance Use Type: Marijuana Advance Directives: No Advance Directives Information Provided: Yes Do you have a plan to hurt others: No Plan service: No Current occupational status: employed 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 Current occupational exposures/hazards: No Sexual orientation: Straight/Heterosexual Gender identity: Female Cognitive needs: No Hearing needs: No Vision needs: Yes Physical Exam ED Vital Signs: Vital Signs - 24 hr 06/18/24 09:01 06/18/24 13:18 Temperature 96.8 F 96.8 F Pulse Rate 72 72 Respiratory Rate 18 18 Blood Pressure 137/77 137/77 Pulse Oximetry 99 99 Oxygen Delivery Method Room Air Room Air BMI result Body Mass Index 21.9 Const General: cooperative, no acute distress, alert and awake Nutritional Appearance: well nourished Orientation/consciousness: patient oriented x3 Limitations: no limitations HENMT Head: Yes normal to inspection and Yes atraumatic Ears: hearing grossly normal bilaterally and external ears normal General nose exam: Normal external nose present, no nasal discharge noted and no epistaxis Face and sinus: Yes normal facial exam, No abrasion and No laceration Mouth: Normal oral and palatal mucosa present, no drooling and no muffled voice Eyes General: appearance normal, both eyes and all related structures Periorbital: periorbital findings normal Eyelids: Yes eyelids normal Conjunctivae: conjunctivae normal Pupils: Equal, round and reactive pupils present EOM: EOMs intact bilaterally Neck Neck: Yes normal visual inspection, Yes full ROM and Yes no lymphadenopathy Chest Chest palpation & inspection: normal inspection of the chest Resp Effort & Inspection: normal respiratory effort and able to speak in complete sentences GI Inspection: Yes normal to inspection Neuro General: patient oriented x3 and moves all extremities Cranial nerves: Yes Equal, round and reactive pupils present Cognition (Neuro): normal cognition Extrem General: Yes normal to inspection, Yes full ROM and Yes capillary refill normal Psych Appearance: grossly normal Mental Status: mental status grossly normal Affect: normal affect Attitude: cooperative Thought process: Normal thought process present Thought content: Normal thought content present Insight: Good insight present (Psych) Medical Decision Making Medical Decision Making [facility] Narrative: Patient is a 44 year old assigned female at with a history of anxiety and lupus presenting to the emergency department today with left flank pain. Patient's physical exam was unremarkable. Patient's blood work was unremarkable. Patient's urine showed evidence of acute infection - given the patient's presentation, will treat. I explained my physical exam findings as well as all test results to the patient. I answered all questions asked by the patient. I stressed the importance of the patient taking her medication as directed (either prescribed or as the over the counter packaging recommends). I stressed the importance of the patient following up with her primary care provider. I stressed the importance of the patient returning to the emergency department immediately if her symptoms were to worsen or if she were to develop any dizziness, shortness of breath, difficulty breathing, chest pain, blurry vision, loss of vision, nausea, vomiting, abdominal pain, fever, chills, back pain, or any other complaints. Patient verbalized agreement and understanding with this treatment plan and discharge. Differential Diagnosis Differential Diagnoses: The differential diagnosis associated with the presentation includes Flank pain UTI Admission/Observation Consideration of admission/observation: Escalation of care including admission/observation considered Patient would have been admitted to the hospital had her work up had any findings where hospital admission was appropriate and her clinical presentation warranted hospital admission. Lab Data [facility] Lab Attestation statement: I reviewed the patient's lab results. My interpretation of these results are in the [facility] Rationale portion of this note. 06/18/24 09:15 06/18/24 09:15 Labs: Lab Results 06/18/24 06/18/24 Range/Units 09:15 09:26 WBC 7.6 (4.8-10.8) X10*3/uL RBC 3.95 L (4.20-5.50) X10*6/uL Hgb 12.7 (12.0-16.0) g/dl Hct 37.3 (37.0-47.0) % MCV 94.4 (80.0-98.0) fL MCH 32.2 (27.0-33.0) pg MCHC 34.0 (31.0-35.0) g/dl RDW 13.5 (11.0-16.0) % Plt Count 205 (160-400) X10*3/uL MPV 9.5 (9.4-12.3) fL Immature Gran % (Auto) 0.4 (0.0-0.4) % Neut % (Auto) 76.1 H (45-73) % Lymph % (Auto) 12.4 L (20-40) % [place] % (Auto) 9.7 (2-11) % Eos % (Auto) 1.0 (0-4) % Baso % (Auto) 0.4 (0-2) % Lymph # (Auto) 1.0 L (1.2-4.9) X10*3/uL [place] # (Auto) 0.7 (0.1-1.2) X10*3/uL Eos # (Auto) 0.1 (0.0-0.4) X10*3/uL Baso # (Auto) 0.0 (0.0-0.2) X10*3/uL Abs Immat Gran (auto) 0.03 (0.00-0.03) X10*3/uL Absolute Neuts (auto) 5.8 (2.0-8.3) x10*3/uL Absolute Nucleated RBC 0.000 (0.0-0.012) X10*3/uL Nucleated RBC % (auto) 0.0 (0.0-0.2) /100WBC Sodium 138 (135-145) mmol/L Potassium 3.9 (3.3-5.1) mmol/L Chloride 105 (96-108) mmol/L Carbon Dioxide 27 (22-29) mmol/L Anion Gap 10 L (12-20) BUN 6 L (9-16) mg/dL Creatinine 0.72 (0.5-1.4) mg/dL Estim Creat Clear Calc 98.9 Estimated GFR > 60 Random Glucose 88 (60-115) mg/dL Calcium 9.2 D (8.4-10.2) mg/dL Total Bilirubin 0.5 (0.0-1.0) mg/dL AST 36 H (5-31) U/L ALT 32 H (0-31) U/L Alkaline Phosphatase 106 (39-117) U/L Total Protein 8.8 H (6.5-8.0) g/dL Albumin 4.3 (3.5-5.0) g/dL Beta HCG, Quant < 2 mIU/mL Urine Color Yellow Urine Appearance Clear Urine pH 7.5 (5.0-9.0) Ur Specific [place] 1.015 (1.005-1.025) Urine Protein Negative (Neg-Trace) mg/dL Urine Glucose (UA) Negative (Negative) mg/dL Urine Ketones Negative (Negative) mg/dL Urine Blood Trace H (Negative) Urine Nitrite Negative (Negative) Ur Leukocyte Esterase Moderate (2+) H (Negative) Urine RBC 3-5 H (0-2) /HPF Urine WBC >50 H (0-5) /HPF Ur Squamous Epith Cells 3-5 (0-2) /HPF Urine Bacteria 3+ (None Seen) Hyaline Casts 0-2 (0-2) /LPF Prescription Management I considered prescription management with: Antibiotic (patient prescribed an antibiotic for UTI) Discharge Plan Discharge Clinical Impression: UTI (urinary tract infection) Patient Disposition: Home, Self-Care Instructions: Urinary Tract Infection in Women (DC) Additional Instructions: Follow up with your primary care provider. Return to the emergency department immediately if your symptoms worsen or if you develop any dizziness, shortness of breath, difficulty breathing, chest pain, blurry vision, loss of vision, nausea, vomiting, abdominal pain, fever, chills, back pain, or any other complaints. Prescriptions: New cefuroxime axetil 250 mg tablet 250 mg PO BID 7 Days Qty: 14 0RF No Action ibuprofen 600 mg tablet 600 mg PO Q6H PRN (Reason: pain) Qty: 30 0RF acetaminophen [Tylenol Extra Strength] 500 mg tablet 1,000 mg PO Q6H PRN (Reason: pain) Qty: 30 0RF black seed oil PO multivitamin [Daily Multi-Vitamin] Tablet 1 tab PO DAILY clotrimazole-betamethasone 1-0.05 % cream 1 appl topical BID 7 Days Qty: 45 0RF Rx Instructions: apply externally a thin coat to the area triamcinolone acetonide 40 mg/mL suspension 20 mg Tendon Sheath Inj. ONCE Qty: 0.5 0RF hydroxychloroquine 200 mg tablet See Rx Instructions PO .COMPLEX Qty: 48 2RF Rx Instructions: Take 2 tabs daily x5 days a week and 1 tab daily x2 days a week bupropion HCl 150 mg tablet extended release 24 hr 150 mg PO QAM 90 Days Qty: 90 1RF hydroxyzine HCl 10 mg tablet 10 mg PO TID PRN (Reason: anxiety) 30 Days Qty: 90 6RF Referrals: Donna Galindo MD [Primary Care Provider] - Stand Alone Forms: Work/School Release Interventions: ED Discharge Assessment Last Done: 06/18/24 13:18 Discharge Date/Time: 06/18/24 13:18 Print Language: Montserratian
[2024-06-18 13:18] VITALS: BP 137/77; PULSE 72; RESP 18; TEMP 36; O2SAT 99
== END 2024-06-18 13:18 | disposition home or self-care (01) ==
PROVIDERS: Emergency Provider Emergency Medicine; PCP Internal Medicine
DX: N39.0 Urinary tract infection, site not specified (principal)
CPT/HCPCS: 36415; 80053; 81001; 84702; 85025; 87086; 87088; 87186; 99282; 99283

== ENCOUNTER 2024-07-03 14:34 | Outpatient (AMB) | payer OTHER, SELFPAY ==
--- NOTE | 2024-07-03 14:38 | MHC.OFFVIS ---
Vital Signs 07/03/24 14:40 BP 108/68 Intake Visit Reasons: HSV Web Content Manager: Web Content Manager Present (Meaghan) Allergies docusate [From COLACE] Allergy (Intermediate, Verified 07/03/24 14:39) SWELLING, swollen Is last menstrual period known: Yes Last menstrual period: 07/03/24 HPI Comments Details: Patient is here today with reoccurring painful blisters located on her right lower labia minora, onset of sores 5 days ago. She reports she was given some cream at 1 time and was unsure what the diagnosis was. She reports 4-5 episodes of these reoccurring painful blisters in the last year. She reports some burning with urination today, unsure if it is due to the source. 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 Skin tag Overweight Surgical History History of surgery on arm Hx of foot surgery H/O LEEP History of tubal ligation History of section Family History Father Brain cancer Mother HIV (human immunodeficiency virus infection) Myocardial infarction Hypertension CVD (cardiovascular disease) Drug abuse Brother Legally blind Cancer H/O ETOH abuse Albinism Stroke Maternal Grandfather Stroke H/O ETOH abuse Family/Other Mental health disorder Social History Housing: Apartment Are you a primary daycare worker to a significant other at home: No Do you presently have visiting nurse or other home services: No Alcohol intake: former Patient Tobacco Use Status: Former Tobacco user Tobacco use type: Cigarette Years Smoked: 10 e-Cigarette/Vaping Use: Never Used Second Hand Smoke Exposure: No Substance Use Type: Marijuana service: No Current occupational status: employed 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 Current occupational exposures/hazards: No Sexual orientation: Straight/Heterosexual Gender identity: Female Cognitive needs: No Hearing needs: No Vision needs: Yes Female Reproductive History Menstrual Age of Menarche: 14 Date of last menstrual period: 07/03/24 Review of Systems Const All systems reviewed & are unremarkable except as noted in HPI and below Physical Exam Vital Signs: Last Vital Signs BP 108/68 07/03/24 14:40 Const General: cooperative, healthy appearing and no acute distress Orientation/consciousness: patient oriented x3 GI Inspection: Yes normal to inspection Palpation (GI): Soft to palpation and Other GI palpation findings present (Nontender) Rectal Exam - Female: visual inspection normal Other: Flat dry open lesions lower right labia minora, additionally condylomata lesions noted External Female Exam: normal appearance of the urethra Speculum Exam - Vagina: normal appearance of the vagina, normal palpation and vaginal bleeding Speculum Exam - Cervix: normal appearance of the cervix and normal palpation Bimanual exam- vagina & uterus: normal bimanual exam, normal palpation, uterine size normal, normal palpation, uterine shape normal and non-tender Bimanual Exam- Adnexa, other: normal adnexae OB/external & speculum: vaginal bleeding Neuro General: patient oriented x3 Results AMB Urinalysis, Automated UA Leukoctes 0 Stefan/uL Last Edit by SCOT Shi on 07/03/24 14:48 UA Nitrite Negative Last Edit by SCOT Shi on 07/03/24 14:48 UA Urobilinogen 0 mg/dL Last Edit by SCOT Shi on 07/03/24 14:48 UA Protein 0 mg/dL Last Edit by SCOT Shi on 07/03/24 14:48 UA pH 6.0 Last Edit by SCOT Shi on 07/03/24 14:48 UA Blood 0 Aj/uL Last Edit by SCOT Shi on 07/03/24 14:48 UA Specific Hydro 1.030 Last Edit by SCOT Shi on 07/03/24 14:48 UA Ketone Negative Last Edit by SCOT Shi on 07/03/24 14:48 UA Bilirubin 0 mg/dL Last Edit by SCOT Shi on 07/03/24 14:48 UA Glucose 0 mg/dL Last Edit by SCOT Shi on 07/03/24 14:48 Results Reviewed Results Reviewed: Laboratory Last Values Urine pH (Auto) 6.0 07/03/24 14:47 Specific Hydro (Auto) 1.030 07/03/24 14:47 Urine Protein (Auto) 0 mg/dL 07/03/24 14:47 Glucose (UA)(Auto) 0 mg/dL 07/03/24 14:47 Urine Ketones (Auto) Negative 07/03/24 14:47 Urine Blood (Auto) 0 Aj/uL 07/03/24 14:47 Urine Nitrite (Auto) Negative 07/03/24 14:47 Urine Bilirubin (Auto) 0 mg/dL 07/03/24 14:47 Urine Urobilinogen (Auto) 0 mg/dL 07/03/24 14:47 Leukocyte Esterase (Auto) 0 Stefan/uL 07/03/24 14:47 Assessment & Plan Assessment & Plan (1) Vulvar lesion: Code(s): N90.89 - Other specified noninflammatory disorders of vulva and perineum Category: Medical Plan: Discussed: 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 Plan HSV AB IgG lab work today. Encouraged healthy diet, reduce stress. Common treatment modalities including oral Valtrex and Zovirax. Await test results for plan of care and further discussion/ instructions. The patient expressed understanding and agreement with the plan of care. All of her questions and concerns were addressed to the best of my ability. This note is constructed using voice recognition software. While every effort has been made to ensure accuracy, architectural draftsman errors may have been included. Orders: Orders AMB Urinalysis Automated Today R10.2 - Pelvic and perineal pain Herpes Simplex Virus Ab IgG Today N90.89 - Other specified noninflammatory disorders of vulva and perineum Coding Level of Care Code Est Pt Level 3 (38653) Diagnoses Vulvar lesion N90.89
[2024-07-03 14:40] VITALS: BP 108/68
== END 2024-07-03 15:21 | disposition home or self-care (01) ==
LOC: HO.HWS 14:34
PROVIDERS: PCP Internal Medicine; Visit Provider Advanced Practice Midwife
DX: N90.89 Other specified noninflammatory disorders of vulva and perineum (principal); R10.2 Pelvic and perineal pain
CPT/HCPCS: 99213

== ENCOUNTER 2024-07-03 14:34 | Outpatient (REF) | payer OTHER, SELFPAY | END 2024-07-03 14:35 | disposition home or self-care (01) | LOC: HO.LAB 14:34 | PROVIDERS: PCP Internal Medicine; Visit Provider Advanced Practice Midwife | DX: N90.89 Other specified noninflammatory disorders of vulva and perineum (principal); R10.2 Pelvic and perineal pain | CPT/HCPCS: 36415; 81003; 86695; 86696; 99212 ==

== ENCOUNTER 2024-07-24 13:35 | Outpatient (AMB) | payer OTHER, SELFPAY ==
--- NOTE | 2024-07-24 13:36 | MHC.OFFVIS ---
Intake Visit Reasons: test results/vag inf Disability Program Navigator: Disability Program Navigator Present (Meaghan) Allergies docusate [From COLACE] Allergy (Intermediate, Verified 07/24/24 13:36) SWELLING, swollen HPI Comments Details: Patient is here today for a follow up lab work. Recent history labial lesion. Today she reports increased vaginal discharge that is very mucousy and request all STD testing being completed. She is upset, her partner cheated on her, they are no longer together after 9 years. 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 Skin tag Overweight Surgical History History of surgery on arm Hx of foot surgery H/O LEEP History of tubal ligation History of section Family History Father Brain cancer Mother HIV (human immunodeficiency virus infection) Myocardial infarction Hypertension CVD (cardiovascular disease) Drug abuse Brother Legally blind Cancer H/O ETOH abuse Albinism Stroke Maternal Grandfather Stroke H/O ETOH abuse Family/Other Mental health disorder Social History Housing: Apartment Are you a primary childcare center director to a significant other at home: No Do you presently have visiting nurse or other home services: No Alcohol intake: former Patient Tobacco Use Status: Former Tobacco user Tobacco use type: Cigarette Years Smoked: 10 e-Cigarette/Vaping Use: Never Used Second Hand Smoke Exposure: No Substance Use Type: Marijuana service: No Current occupational status: employed 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 Current occupational exposures/hazards: No Sexual orientation: Straight/Heterosexual Gender identity: Female Cognitive needs: No Hearing needs: No Vision needs: Yes Female Reproductive History Menstrual Age of Menarche: 14 Review of Systems Const All systems reviewed & are unremarkable except as noted in HPI and below Physical Exam Const General: cooperative, healthy appearing and no acute distress Orientation/consciousness: patient oriented x3 GI Inspection: Yes normal to inspection Palpation (GI): Soft to palpation and Other GI palpation findings present (Nontender) Rectal Exam - Female: visual inspection normal Other: External condylomata lesions on the vulva General: Yes bladder normal to palpation External Female Exam: normal appearance of the urethra Speculum Exam - Vagina: normal appearance of the vagina, normal palpation and normal vaginal discharge Speculum Exam - Cervix: normal appearance of the cervix and normal palpation Bimanual exam- vagina & uterus: normal bimanual exam, normal palpation, uterine size normal, bladder normal to palpation, normal palpation, uterine shape normal and non-tender Bimanual Exam- Adnexa, other: normal adnexae Neuro General: patient oriented x3 Assessment & Plan Assessment & Plan (1) Acute reaction to situational stress: Code(s): F43.0 - Acute stress reaction Category: Medical (2) Possible exposure to STD: Code(s): Z20.2 - Contact with and (suspected) exposure to infections with a predominantly sexual mode of transmission Plan Discussed: HSV bled work 1 and 2 positive. If repeat symptoms to notify the office for treatment plan. Reviewed lab work history of elevated LFTs when in the ED when she was seen for her UTI, has follow up with Dr. Huffman in August. Encouraged self care, referral placed for counseling, she has the emergency number on hand. GC chlamydia and BV panel obtained. Patient to go the lab after the visit for STD blood work screening. Follow up pending lab work. The patient expressed understanding and agreement with the plan of care. All of her questions and concerns were addressed to the best of my ability. This note is constructed using voice recognition software. While every effort has been made to ensure accuracy, grocery team member errors may have been included. Orders: Orders Bacterial Vaginosis Panel Today N89.8 - Other specified noninflammatory disorders of vagina HIV Ab/Ag Today Z20.2 - Contact with and (suspected) exposure to infections with a predominantly sexual mode of transmission Syphilis Screen Today Z20.2 - Contact with and (suspected) exposure to infections with a predominantly sexual mode of transmission CT NG by PCR Today N89.8 - Other specified noninflammatory disorders of vagina Hepatitis C Antibody Reflex Today Z20.2 - Contact with and (suspected) exposure to infections with a predominantly sexual mode of transmission Hepatitis B Core Antibody Today Z20.2 - Contact with and (suspected) exposure to infections with a predominantly sexual mode of transmission Referrals Counseling Referral F41.8 - Other specified anxiety disorders, F43.0 - Acute stress reaction Coding Level of Care Code Est Pt Level 3 (87782) Diagnoses Acute reaction to situational stress F43.0 Possible exposure to STD Z20.2
== END 2024-07-24 14:28 | disposition home or self-care (01) ==
LOC: HO.HWS 13:35
PROVIDERS: PCP Internal Medicine; Visit Provider Advanced Practice Midwife
DX: F43.0 Acute stress reaction (principal); Z20.2 Contact with and (suspected) exposure to infections with a predominantly sexual mode of transmission
CPT/HCPCS: 99213

== ENCOUNTER 2024-07-24 13:35 | Outpatient (REF) | payer OTHER, SELFPAY | END 2024-07-24 13:36 | disposition home or self-care (01) | LOC: HO.LAB 13:35 | PROVIDERS: PCP Internal Medicine; Visit Provider Advanced Practice Midwife | DX: F43.0 Acute stress reaction (principal); Z20.2 Contact with and (suspected) exposure to infections with a predominantly sexual mode of transmission | CPT/HCPCS: 81515; 86704; 86780; 86803; 87389; 87491; 87591; 99212 ==

== ENCOUNTER 2024-07-24 14:06 | Outpatient (REF) | payer OTHER, SELFPAY ==
[2024-07-25 08:06] LABS: Syphilis Screen Nonreactive (Nonreactive)
[2024-07-25 08:31] LABS: HBc Num1 0.27 S/CO (0.00-0.79); HIV AB/AG Nonreactive (Nonreactive); HIV Num 1 0.09 S/CO (0.00-0.99); Hepatitis B Core Antibody Nonreactive (Nonreactive); ~HepC Num1 0.15 S/CO (0.00-0.79); ~Hepatitis C Antibody Nonreactive (Nonreactive)
[2024-07-25 11:52] LABS: CT PCR NOT DETECTED (Not Detect.); NG PCR NOT DETECTED (Not Detect.)
[2024-07-25 14:50] LABS: Bacterial Vaginosis PCR NEGATIVE (Negative); Candida Group PCR DETECTED (Not Detect); Candida glab krusei PCR NOT DETECTED (Not Detect); Trichomonas vaginalis PCR NOT DETECTED (Not Detect)
== END 2024-07-24 14:07 | disposition home or self-care (01) ==
LOC: HO.LNP 14:06
PROVIDERS: Visit Provider Advanced Practice Midwife
DX: N89.8 Other specified noninflammatory disorders of vagina (principal); Z20.2 Contact with and (suspected) exposure to infections with a predominantly sexual mode of transmission
CPT/HCPCS: 81515; 86704; 86780; 86803; 87389; 87491; 87591

== ENCOUNTER 2024-07-24 14:38 | Outpatient (REF) | payer OTHER, SELFPAY | END 2024-07-24 14:39 | disposition home or self-care (01) | LOC: HO.LAB 14:38 | PROVIDERS: PCP Internal Medicine; Visit Provider Advanced Practice Midwife | DX: Z13.89 Encounter for screening for other disorder (principal) ==

== ENCOUNTER 2024-08-27 09:17 | Emergency (ER) | payer OTHER, SELFPAY ==
--- NOTE | ~2024-08-27 | XR_ITS ---
EXAMINATION: XR SHOULDER, RIGHT CLINICAL INFORMATION: pain COMPARISON: None available. TECHNIQUE: AP external rotation, Grashey, scapular Y, and axillary views of the right shoulder. FINDINGS: Normal bone mineralization. No fracture, dislocation, or suspicious bone lesion. Normal alignment. The glenohumeral joint is normal. The AC joint is normal. There is a type III acromion. No undersurface spurring. The subacromial space is preserved. Remainder of the soft tissue and bony structures appear normal. XR/XR shoulder RT min 2V IMPRESSION: Normal right shoulder. Electronically signed by: Raúl Jesus MD 08/27/2024 10:03 AM EDT
[2024-08-27 09:23] VITALS: BP 111/80; PULSE 80; RESP 16; TEMP 36.4; O2SAT 98; BMI 21.1
--- NOTE | 2024-08-27 10:06 | ED.EXTPRO ---
HPI - Extremity Problem General Chief complaint: Extremity Injury, Upper Stated complaint: r shoulder pain Time Seen by Provider: 08/27/24 09:30 Source: patient and old records reviewed Mode of arrival: ambulatory Limitations: no limitations History of Present Illness ED Provider: KESHA HASSAN Narrative: 44 yo female with PMH of lupus on hydroxychloroquine, depression, anxiety, Takotsubo who notes some R shoulder pain and pain with ROM yesterday but no known trauma. No fevers, no numbness or weakness. She states it hurts to move the shoulder. No prior shoulder trauma. MD Complaint: joint pain Onset (ago): day(s) (1) Pain Consistency: constant Location: right and other (shoulder) Quality: aching Radiation: none Relieving factors: immobilization Exacerbating factors: range of motion and palpation Associated symptoms: denies other symptoms Related Data Home Medications ?Medication ?Instructions ?Recorded ?Confirmed multivitamin (Daily Multi-Vitamin 1 tab PO DAILY 05/21/21 03/01/24 tablet) black seed oil PO 12/05/23 02/09/24 Previous Rx's ?Medication ?Instructions ?Recorded acetaminophen 500 mg tablet 1,000 mg (2 x 500 mg) PO Q6H PRN 08/12/23 (Tylenol Extra Strength) pain #30 tabs ibuprofen 600 mg tablet 600 mg PO Q6H PRN pain #30 tabs 08/12/23 clotrimazole-betamethasone 1 1 appl topical BID itching 7 days 01/20/24 %-0.05 % topical cream #45 grams hydroxyzine HCl 10 mg tablet 10 mg PO TID PRN anxiety 30 days 02/09/24 #90 tabs cefuroxime axetil 250 mg tablet 250 mg PO BID 7 days #14 tabs 06/18/24 hydroxychloroquine 200 mg tablet 400 mg (2 x 200 mg) PO DAILY 90 07/13/24 days #180 tabs miconazole nitrate 2 % vaginal 1 appful vaginal BEDTIME 7 days 07/26/24 cream (Monistat 7) #45 grams valacyclovir 500 mg tablet 500 mg PO DAILY 90 days #90 tabs 08/07/24 bupropion HCl 150 mg 24 hr tablet, 150 mg PO QAM 90 days #90 tabs 08/16/24 extended release cyclobenzaprine 10 mg tablet 10 mg PO TID PRN muscle spasm #20 08/27/24 tabs lidocaine 5 % topical patch 1 patch topical DAILY #30 ea 08/27/24 Allergies Allergy/AdvReac Type Severity Reaction Status Date / Time docusate [From COLACE] Allergy Intermediate SWELLING, Verified 08/27/24 09:25 swollen Review of Systems Review of Systems: Constitutional : No Fever, No Chills ENT/Mouth : No Ear Pain, No Hoarseness, No sore throat Eyes: No Eye Pain, No Swelling, No Redness, No Foreign Body Cardiovascular : No Chest Pain, No SOB Respiratory : No Cough, No Dyspnea Gastrointestinal : No Nausea, No Vomiting, No Diarrhea, No abdominal Pain Genitourinary : No Dysuria, No Hematuria Musculoskeletal : positive joint pain, No Myalgias, No Joint Swelling Skin : No Skin lacerations, No rash Neuro : No Weakness, No Numbness All other systems reviewed and are negative [facility] Past Medical History Attestation statement: The following information was validated with the patient. 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 Skin tag Overweight Surgical History History of surgery on arm Hx of foot surgery H/O LEEP History of tubal ligation History of section Family History Family History Father Brain cancer Mother HIV (human immunodeficiency virus infection) Myocardial infarction Hypertension CVD (cardiovascular disease) Drug abuse Brother Legally blind Cancer H/O ETOH abuse Albinism Stroke Maternal Grandfather Stroke H/O ETOH abuse Family/Other Mental health disorder Social History Social History Housing: Apartment Are you a primary grounds caretaker to a significant other at home: No Do you presently have visiting nurse or other home services: No Alcohol intake: former Patient Tobacco Use Status: Former Tobacco user Tobacco use type: Cigarette Years Smoked: 10 e-Cigarette/Vaping Use: Never Used Second Hand Smoke Exposure: No Substance Use Type: Marijuana Advance Directives: No Advance Directives Information Provided: Yes Do you have a plan to hurt others: No Plan service: No Current occupational status: employed 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 Oriented X3. No acute distress. Eyes: Pupils equal, round and reactive to light. ENT: Pharynx normal. Neck: Normal inspection. Neck supple. CVS: Normal heart rate and rhythm. Pulses normal. Respiratory: No respiratory distress. Breath sounds normal. Abdomen: Soft and nontender. Skin: Skin warm and dry. Normal skin color. Normal skin turgor. Extremities: No lower extremity edema. R shoulder pain with some rotator cuff testing, she is distal NV intact, 2+ radial pulse, BCR in all digits, SILT intact, no effusion or signs of infection noted on R shoulder joint. She has no rash, there is slight spasm of R trapezius Neuro: Oriented X 3. No motor deficit. No sensory deficit. CN2-12 intact Medical Decision Making Medical Decision Making MDM Narrative: 44 yo female with PMH of lupus on hydroxychloroquine, depression, anxiety, Takotsubo here with R shoulder pain but distal NV intact no rash no effusion. Patient has no signs of infection and no mass noted or swelling. R arm is not swollen doubt infection, trauma, DVT. Differential Diagnosis Differential Diagnoses: The differential diagnosis associated with the presentation includes spasm, strain Independent Interpretation I performed an independent interpretation of an: Plain X-Ray (no trauma) Radiology Impression Discussion of test interpretation with radiology: I have reviewed the radiologist's reading. External Record Review External record reviewed: Outpatient record Prescription Management I considered prescription management with: Pain Medication and Other Discharge Plan Discharge Clinical Impression: Acute shoulder pain Patient Disposition: Home, Self-Care Instructions: Shoulder Pain (ED) Additional Instructions: return for numbness, weakness, cold blue hand or any other concerns follow up with your doctor for physical therapy FINDINGS: Normal bone mineralization. No fracture, dislocation, or suspicious bone lesion. Normal alignment. The glenohumeral joint is normal. The AC joint is normal. There is a type III acromion. No undersurface spurring. The subacromial space is preserved. Remainder of the soft tissue and bony structures appear normal. XR/XR shoulder RT min 2V IMPRESSION: Normal right shoulder. Prescriptions: New cyclobenzaprine 10 mg tablet 10 mg PO TID PRN (Reason: muscle spasm) Qty: 20 0RF lidocaine 5 % adhesive patch,medicated 1 patch topical DAILY Qty: 30 0RF Rx Instructions: leave on most painful area for up to 12 hrs No Action hydroxychloroquine 200 mg tablet 400 mg PO DAILY 90 Days Qty: 180 1RF Rx Instructions: Take 2 tabs daily Mon-Fri and take 1 tab daily Sat-Sun miconazole nitrate [Monistat 7] 2 % cream 1 appful vaginal BEDTIME 7 Days Qty: 45 0RF valacyclovir 500 mg tablet 500 mg PO DAILY 90 Days Qty: 90 1RF bupropion HCl 150 mg tablet extended release 24 hr 150 mg PO QAM 90 Days Qty: 90 1RF ibuprofen 600 mg tablet 600 mg PO Q6H PRN (Reason: pain) Qty: 30 0RF acetaminophen [Tylenol Extra Strength] 500 mg tablet 1,000 mg PO Q6H PRN (Reason: pain) Qty: 30 0RF cefuroxime axetil 250 mg tablet 250 mg PO BID 7 Days Qty: 14 0RF black seed oil PO multivitamin [Daily Multi-Vitamin] Tablet 1 tab PO DAILY clotrimazole-betamethasone 1-0.05 % cream 1 appl topical BID 7 Days Qty: 45 0RF Rx Instructions: apply externally a thin coat to the area triamcinolone acetonide 40 mg/mL suspension 20 mg Tendon Sheath Inj. ONCE Qty: 0.5 0RF hydroxyzine HCl 10 mg tablet 10 mg PO TID PRN (Reason: anxiety) 30 Days Qty: 90 6RF Stand Alone Forms: Work/School Release Print Language: Finnish
[2024-08-27 10:20] VITALS: BP 111/80; PULSE 80; RESP 16; TEMP 36.4; O2SAT 98
== END 2024-08-27 10:23 | disposition home or self-care (01) ==
PROVIDERS: Emergency Provider Emergency Medicine; PCP Internal Medicine
DX: M25.511 Pain in right shoulder (principal); Z79.899 Other long term (current) drug therapy
CPT/HCPCS: 73030; 99282; 99283

== ENCOUNTER → 2024-08-27 09:41 | Outpatient (BNV) | payer OTHER, SELFPAY | PROVIDERS: Emergency Provider Emergency Medicine; PCP Internal Medicine; Visit Provider Radiology Diagnostic Radiology | DX: M25.511 Pain in right shoulder (principal) | CPT/HCPCS: 73030 ==

== ENCOUNTER 2024-09-15 13:26 | Emergency (ER) | payer OTHER, SELFPAY ==
--- NOTE | 2024-09-15 13:28 | ECG_ITS ---
Test Reason : PAIN Blood Pressure : */* mmHG Vent. Rate : 82 BPM Atrial Rate : 82 BPM P-R Int : 150 ms QRS Dur : 78 ms QT Int : 384 ms P-R-T Axes : 68 -8 36 degrees QTcB Int : 448 ms Normal sinus rhythm Low voltage QRS Cannot rule out Anterior infarct , age undetermined Abnormal ECG When compared with ECG of 10-Apr-2024 14:33, No significant change was found Referred By: Surendra Schumacher Electronically Signed By: GERDA HENDRICKS
[2024-09-15 13:30] VITALS: BP 123/84; PULSE 88; RESP 18; TEMP 36.4; O2SAT 99; BMI 23.6
--- NOTE | 2024-09-15 13:30 | ED.GENADULT ---
HPI - General Adult General Chief complaint: Upper Respiratory Symptoms Stated complaint: chest thightness Time Seen by Provider: 09/15/24 14:30 Source: patient Mode of arrival: ambulatory Limitations: no limitations History of Present Illness ED Provider: Raquel Madrigal APRN HPI narrative: 44 year-old female with PMHx of lupus, depression, anxiety, HSV2, presents to the ED due to chest tightness, congestion, and increased green phlegm production for the past 4 days. She states she has taken OTC allergy medications with no improvement. She reports experiencing puritis and watering of bilateral eyes. She states she feels her symptoms increase when she is indoors and improves when she is outside walking. She denies fever, nausea, vomiting, urinary symptoms, sore throat or diarrhea. Related Data Home Medications ?Medication ?Instructions ?Recorded ?Confirmed multivitamin (Daily Multi-Vitamin 1 tab PO DAILY 05/21/21 03/01/24 tablet) black seed oil PO 12/05/23 02/09/24 Previous Rx's ?Medication ?Instructions ?Recorded acetaminophen 500 mg tablet 1,000 mg (2 x 500 mg) PO Q6H PRN 08/12/23 (Tylenol Extra Strength) pain #30 tabs ibuprofen 600 mg tablet 600 mg PO Q6H PRN pain #30 tabs 08/12/23 clotrimazole-betamethasone 1 1 appl topical BID itching 7 days 01/20/24 %-0.05 % topical cream #45 grams hydroxyzine HCl 10 mg tablet 10 mg PO TID PRN anxiety 30 days 02/09/24 #90 tabs cefuroxime axetil 250 mg tablet 250 mg PO BID 7 days #14 tabs 06/18/24 hydroxychloroquine 200 mg tablet 400 mg (2 x 200 mg) PO DAILY 90 07/13/24 days #180 tabs miconazole nitrate 2 % vaginal 1 appful vaginal BEDTIME 7 days 07/26/24 cream (Monistat 7) #45 grams valacyclovir 500 mg tablet 500 mg PO DAILY 90 days #90 tabs 08/07/24 bupropion HCl 150 mg 24 hr tablet, 150 mg PO QAM 90 days #90 tabs 08/16/24 extended release cyclobenzaprine 10 mg tablet 10 mg PO TID PRN muscle spasm #20 08/27/24 tabs lidocaine 5 % topical patch 1 patch topical DAILY #30 ea 08/27/24 cetirizine 10 mg tablet (Zyrtec) 10 mg PO DAILY PRN allergy 09/15/24 symptoms #14 tabs olopatadine 0.2 % eye drops 1 drp ophthalmic (eye) DAILY PRN 09/15/24 (Pataday Once Daily Relief) itching #2.5 mL triamcinolone acetonide 55 mcg 2 spray intranasal DAILY #16.9 mL 09/15/24 nasal spray aerosol (Nasacort Allergy) Allergies Allergy/AdvReac Type Severity Reaction Status Date / Time docusate [From COLACE] Allergy Intermediate SWELLING, Verified 09/15/24 13:32 swollen Review of Systems Review of Systems: Yes all other systems are reviewed and are negative Constitutional: Constitutional: Reports no additional constitutional complaints, Denies body ache(s), Denies chills, Denies fever(s), Denies headache(s) and Denies weakness Eyes: Eyes: Reports no additional eye complaints and Denies change in vision ENT: Reports system reviewed and no additional complaints, except as documented, Denies dizziness, Denies headache(s), Denies nasal congestion, Denies nasal discharge and Denies neck pain Cardiovascular: Cardiovascular: Reports no additional cardiovascular complaints, Denies chest pain, Denies leg edema and Denies dyspnea Respiratory: Respiratory: Reports no additional respiratory complaints, Denies cough and Denies dyspnea Gastrointestinal: Gastrointestinal: Reports no additional gastrointestinal complaints, Denies abdominal pain, Denies diarrhea, Denies nausea and Denies vomiting Genitourinary: Genitourinary: Reports no additional female genitourinary complaints and Denies urinary incontinence Musculoskeletal: Musculoskeletal: Reports no additional musculoskeletal complaints, Denies back pain, Denies arthralgias, Denies joint swelling, Denies neck pain, Denies numbness and Denies tingling Integumentary/Breasts: Skin/Breast: Reports system reviewed and no additional complaints, except as docu and Denies rash Neurologic: Reports system reviewed and no additional complaints, except as documented, Denies Abnormal speech present, Denies dizziness, Denies headache(s), Denies numbness, Denies tingling and Denies weakness PMFSH Past Medical History Attestation statement: The following information was validated with the patient. 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 Skin tag Overweight Surgical History History of surgery on arm Hx of foot surgery H/O LEEP History of tubal ligation History of section Family History Family History Father Brain cancer Mother HIV (human immunodeficiency virus infection) Myocardial infarction Hypertension CVD (cardiovascular disease) Drug abuse Brother Legally blind Cancer H/O ETOH abuse Albinism Stroke Maternal Grandfather Stroke H/O ETOH abuse Family/Other Mental health disorder Social History Social History Housing: Apartment Are you a primary physician primary care sports medicine to a significant other at home: No Do you presently have visiting nurse or other home services: No Alcohol intake: former Patient Tobacco Use Status: Former Tobacco user Tobacco use type: Cigarette Years Smoked: 10 e-Cigarette/Vaping Use: Never Used Second Hand Smoke Exposure: No Substance Use Type: Marijuana Advance Directives: No Advance Directives Information Provided: No service: No Current occupational status: employed 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 Current occupational exposures/hazards: No Sexual orientation: Straight/Heterosexual Gender identity: Female Cognitive needs: No Hearing needs: No Vision needs: Yes Physical Exam ED Vital Signs: Vital Signs - 24 hr 09/15/24 13:30 Temperature 97.5 F Pulse Rate 88 Respiratory Rate 18 Blood Pressure 123/84 Pulse Oximetry 99 Oxygen Delivery Method Room Air BMI result Body Mass Index 23.6 Const General: cooperative, healthy appearing, comfortable and no acute distress Orientation/consciousness: patient oriented x3 Limitations: no limitations HENMT Head: Yes normal to inspection Ears: hearing grossly normal bilaterally General nose exam: Normal external nose present Face and sinus: Yes normal facial exam Mouth: Normal oral and palatal mucosa present Throat: Yes posterior oropharynx normal, Yes tonsils normal and Yes uvula midline Eyes General: appearance normal, both eyes and all related structures Eyelids: Yes other (mildly edematous) Conjunctivae: other (conjunctival injection, watery B/L eyes) Pupils: Equal, round and reactive pupils present Neck Neck: Yes normal visual inspection and Yes full ROM Chest Chest palpation & inspection: normal inspection of the chest Resp Effort & Inspection: normal respiratory effort Auscultation: clear to auscultation bilaterally Cardio Rate: regular rate Rhythm: regular rhythm Peripheral pulses: Peripheral pulses 2+ throughout GI Inspection: Yes normal to inspection Palpation (GI): Soft to palpation and nontender Auscultation: normal bowel sounds Back/Spine/Pelvis Thoracic/Lumbar Spine: thoracic and lumbar spine normal to inspection Skin General skin exam: no rashes or lesions noted Neuro General: patient oriented x3, no focal motor deficits and normal sensation to monofilament Cranial nerves: Yes Equal, round and reactive pupils present Cognition (Neuro): normal cognition Speech: No Abnormal speech present Gait exam (Neuro): Normal gait present Motor exam (neuro): 5/5 motor strength present throughout Extrem General: Yes normal to inspection Course Course Course Narrative: RME, this is a rapid medical exam performed by Joaquin Schumacher please refer to primary provider for complete H&P- 44 year old female presents for evaluation of cough, congestion, and chest tightness for the alst few days. Plan for ekg, viral swabs Reevaluation(s) Reevaluation #1: 15:00- negative swabs, likely allergic rhinitis will discharge with nasacort, zyrtec, and pataday for symptoms. Reviewed concerning signs and symptoms with patient and when to return to ED. Comfortable with plan for discharge home. Medical Decision Making Medical Decision Making MDM Narrative: 44 year-old female with PMHx of lupus, depression, anxiety, HSV2, presents to the ED due to chest tightness, congestion, and increased green phlegm production for the past 4 days. She states she has taken OTC allergy medications with no improvement. She reports experiencing puritis and increased clear discharge of of bilateral eyes. She states she feels her symptoms increase when she is indoors and improves when she is outside walking. She denies fever, nausea, vomiting, urinary symptoms, sore throat or diarrhea. Patients vital signs stable, in no acute distress and non-toxic appearing. On physical exam bilateral eyes have mild edema, conjunctival injection, and note clear discharge, she does state eyes are puritic. Will obtain viral swabs and review EKG order from triage. Differential Diagnosis Differential Diagnoses: The differential diagnosis associated with the presentation includes viral illness, allergic rhinitis, influenza, sinusitis, pneumonia, Admission/Observation Consideration of admission/observation: Escalation of care including admission/observation considered Lab Data Labs: Lab Results 09/15/24 Range/Units 13:52 Influenza Type A (PCR) NEGATIVE (Negative) Influenza Type B (PCR) NEGATIVE (Negative) RSV RNA Qual (PCR) NEGATIVE (Negative) SARS-CoV-2 RNA (RT-PCR) NEGATIVE (Negative) S. pyogenes GrpA MIKAEL Negative (Negative) Independent Interpretation I performed an independent interpretation of an: EKG Interpretation: I independently reveiwed EKG which reveals a normal sinus rhythm and rate of 82 BPM with normal TX, QT/QTC normal Tests considered The following testing was considered but not selected: no hypoxia, no tachypnea, clear lung sounds bilaterally on physical exam, no need for chest x-ray Prescription Management I considered prescription management with: Antibiotic Discharge Plan Discharge Clinical Impression: Seasonal allergies Patient Disposition: Home, Self-Care Instructions: Allergic Rhinitis (ED), How to Use Nasal [place] (ED) Additional Instructions: Your testing for flu, covid and RSV are negative Your EKG is normal Take the medications as prescribed Return to the emergency department for fever, shortness of breath, chest pain Prescriptions: New cetirizine [Zyrtec] 10 mg tablet 10 mg PO DAILY PRN (Reason: allergy symptoms) Qty: 14 0RF triamcinolone acetonide [Nasacort Allergy] 55 mcg aerosol,spray 2 spray intranasal DAILY Qty: 16.9 0RF Rx Instructions: administer into each nostril olopatadine [Pataday Once Daily Relief] 0.2 % drops 1 drp ophthalmic (eye) DAILY PRN (Reason: itching) Qty: 2.5 0RF No Action hydroxychloroquine 200 mg tablet 400 mg PO DAILY 90 Days Qty: 180 1RF Rx Instructions: Take 2 tabs daily Mon-Fri and take 1 tab daily Sat-Sun miconazole nitrate [Monistat 7] 2 % cream 1 appful vaginal BEDTIME 7 Days Qty: 45 0RF valacyclovir 500 mg tablet 500 mg PO DAILY 90 Days Qty: 90 1RF bupropion HCl 150 mg tablet extended release 24 hr 150 mg PO QAM 90 Days Qty: 90 1RF ibuprofen 600 mg tablet 600 mg PO Q6H PRN (Reason: pain) Qty: 30 0RF acetaminophen [Tylenol Extra Strength] 500 mg tablet 1,000 mg PO Q6H PRN (Reason: pain) Qty: 30 0RF cefuroxime axetil 250 mg tablet 250 mg PO BID 7 Days Qty: 14 0RF cyclobenzaprine 10 mg tablet 10 mg PO TID PRN (Reason: muscle spasm) Qty: 20 0RF lidocaine 5 % adhesive patch,medicated 1 patch topical DAILY Qty: 30 0RF Rx Instructions: leave on most painful area for up to 12 hrs black seed oil PO multivitamin [Daily Multi-Vitamin] Tablet 1 tab PO DAILY clotrimazole-betamethasone 1-0.05 % cream 1 appl topical BID 7 Days Qty: 45 0RF Rx Instructions: apply externally a thin coat to the area triamcinolone acetonide 40 mg/mL suspension 20 mg Tendon Sheath Inj. ONCE Qty: 0.5 0RF hydroxyzine HCl 10 mg tablet 10 mg PO TID PRN (Reason: anxiety) 30 Days Qty: 90 6RF Referrals: Donna Galindo MD [Primary Care Provider] - 10 days Print Language: Macedonian
[2024-09-15 14:30] LABS: IDNOW Serial# 55D5AD1C; Strep A Nucleic Acid Negative (Negative)
[2024-09-15 14:50] LABS: Influenza A PCR NEGATIVE (Negative); Influenza B PCR NEGATIVE (Negative); Resp Syncy Virus RNA Qual PCR NEGATIVE (Negative); SARS COV2 PCR INHOUSE NEGATIVE (Negative)
[2024-09-15 15:19] VITALS: BP 123/84; PULSE 88; RESP 18; TEMP 36.4; O2SAT 99
== END 2024-09-15 15:20 | disposition home or self-care (01) ==
PROVIDERS: Physician Assistant; Emergency Provider Emergency Medicine; PCP Internal Medicine
DX: R07.89 Other chest pain (principal); R09.89 Other specified symptoms and signs involving the circulatory and respiratory systems; Z03.818 Encounter for observation for suspected exposure to other biological agents ruled out; Z79.899 Other long term (current) drug therapy; Z87.891 Personal history of nicotine dependence
CPT/HCPCS: 0241U; 87651; 93005; 99283

== ENCOUNTER → 2024-09-15 13:28 | Outpatient (BNV) | payer OTHER, SELFPAY | PROVIDERS: Emergency Provider Emergency Medicine; PCP Internal Medicine; Visit Provider Internal Medicine | DX: R94.31 Abnormal electrocardiogram [ECG] [EKG] (principal); R07.9 Chest pain, unspecified | CPT/HCPCS: 93010 ==

== ENCOUNTER 2024-09-25 11:18 | Outpatient (AMB) | payer MEDICAID, SELFPAY ==
--- NOTE | 2024-09-25 11:20 | MHC.OFFVIS ---
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 Doing well with obstetrics/gynecology nurse concerns: Last in early July. Admits to hot flashes, and thinks her stress level has a affected her cycles. Prior history of abnormal uterine bleeding to include heavy and prolonged cycles. Reports a new skin growth near the anus. Admits to constipation. Loss of appetite, and stress eating less, skips breakfast. Has weekly counseling. She feels very emotional, weeps easily, feels frustrated- trying to be heard or explain herself. Currently is not sexually active since last STD screening. UPT is negative. She denies vaginal itching or irritation. Exercises when possible and feeling well enough. Denies family history of breast, ovarian or colon cancer. History of persistent DENIS 1, positive HPV, last colposcopy January 2024. Mammogram: Booked today. 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 Skin tag Overweight Surgical History History of surgery on arm Hx of foot surgery H/O LEEP History of tubal ligation History of section Family History Father Brain cancer Mother HIV (human immunodeficiency virus infection) Myocardial infarction Hypertension CVD (cardiovascular disease) Drug abuse Brother Legally blind Cancer H/O ETOH abuse Albinism Stroke Maternal Grandfather Stroke H/O ETOH abuse Family/Other Mental health disorder Social History Housing: Apartment Are you a primary childcare provider to a significant other at home: No Do you presently have visiting nurse or other home services: No Alcohol intake: former Patient Tobacco Use Status: Former Tobacco user Tobacco use type: Cigarette Years Smoked: 10 e-Cigarette/Vaping Use: Never Used Second Hand Smoke Exposure: No Substance Use Type: Marijuana service: No Current occupational status: employed 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 Current occupational exposures/hazards: No Sexual orientation: Straight/Heterosexual Gender identity: Female Cognitive needs: No Hearing needs: No Vision needs: Yes Female Reproductive History Menstrual Age of Menarche: 14 control method: permanent sterilization Permanent Sterilization: BTL Total pregnancies: 5 Full term: 4 Number of Living Children: 4 Ab induced: 1 Date of last pap smear: 09/14/23 (ascus +hpv) History of abnormal pap smear: Yes (see intake note) Date of Mammogram: 09/20/23 (Birad 1) Review of Systems Const All systems reviewed & are unremarkable except as noted in HPI and below Reports as per HPI Eyes Reports no additional complaints ENT Reports no additional complaints Card Reports no additional complaints Resp Reports no additional complaints GI Reports as per HPI and Reports no additional complaints Reports as per HPI Musc Reports no additional complaints Skin/Breast Reports as per HPI Neuro Reports no additional complaints Psych Reports no additional complaints Endo Reports no additional complaints Tone/Lymph Reports no additional complaints Aller/Immun Reports no additional complaints Physical Exam Vital Signs: Last Vital Signs BP 114/72 09/25/24 11:23 BMI result Body Mass Index 23.5 Const General: cooperative, healthy appearing, no acute distress, well developed and alert Orientation/consciousness: patient oriented x3 HEENT Head: Yes normal to inspection Eyes General: appearance normal, both eyes and all related structures Neck Neck: Yes normal visual inspection Thyroid: Thyroid normal Chest Chest palpation & inspection: normal inspection of the chest and other (no puckering, dimpling, peau de orange, retraction, discharge, masses) Breast/axilla inspection: normal inspection of the breasts Breast/axilla palpation: normal palpation of the breasts Resp Effort & Inspection: normal respiratory effort GI Inspection: Yes scar Palpation (GI): Soft to palpation Rectal Exam - Female: deferred (External only: hemorrhoidal remnant) General: Yes bladder normal to palpation External Female Exam: other ( Multiple HPV lesion) Speculum Exam - Vagina: normal palpation and abnormal vaginal discharge (Clumpy) white Speculum Exam - Cervix: normal palpation and Other cervical findings present (Anterior position, post LEEP appearance) Bimanual exam- vagina & uterus: normal bimanual exam, normal palpation, uterine size normal, bladder normal to palpation, normal palpation and non-tender Bimanual Exam- Adnexa, other: no masses Skin General skin exam: no rashes or lesions noted Rashes: no rashes Neuro General: patient oriented x3 Cognition (Neuro): normal cognition Extrem General: Yes normal to inspection Psych Attitude: cooperative Thought process: Normal thought process present Results AMB Test Urine AMB Test Urine Negative Last Edit by SCOT Shi on 09/25/24 11:34 Results Reviewed Results Reviewed: Laboratory Last Values Tst Clinic Negative 09/25/24 11:29 Assessment & Plan Assessment & Plan (1) Irregular menstrual cycle: Code(s): N92.6 - Irregular menstruation, unspecified Plan: Discussed: Monitor menstrual cycles, report any unscheduled bleeding, bleeding episodes <24 days apart or heavy/prolonged menstrual bleeding. Call the office for a follow up for any concerns. Menopause verses perimenopause. Menopause is definitive of 1 year of no menses or 12 months in succession. Report any abnormal uterine bleeding in example prolonged episodes, or short intervals less than 24 days. (2) Vulvar lesion: Code(s): N90.89 - Other specified noninflammatory disorders of vulva and perineum Category: Medical Plan: Patient has active referral to Dermatology since January, has not heard from the practice for an appointment. Phone number given for patient to call herself for appointment access, if unsuccessful to call the office. Extra skin appears to be a hemorrhoidal remnant. Reviewed self-help measures for constipation prevention including increasing fluid intake, dietary fiber, and regular exercise. Total time I personally spent on visit and management today: ?20 minutes. Time spent included review of pertinent office notes in the electronic health record; review of laboratory and imaging results; review of personal family medical history; performing physical exam; discussing diagnosis and plan of care with the patient; documenting the encounter in the EMR. (3) Abnormal uterine bleeding: Code(s): N93.9 - Abnormal uterine and vaginal bleeding, unspecified Category: Medical Plan: Advised to monitor menses if heavier prolonged to report to the office. Currently irregular with spacing, plan FSH and LH, and thyroid, follow up pending results. 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 (5) Encounter for well woman exam with routine gynecological exam: Code(s): Z01.419 - Encounter for gynecological examination (general) (routine) without abnormal findings Category: Medical (6) Vaginal discharge: Code(s): N89.8 - Other specified noninflammatory disorders of vagina Category: Medical Plan: BV panel pending. Plan Discussed: Current recommendations for pap smears per ASCCP guidelines. Pap obtained. Breast awareness and periodic breast exams. Mammogram yearly. Maintain a healthy lifestyle including a well balanced diet and routine exercise. Use condoms for STI and prevention. Colonoscopy >45, or at risk sooner. Patient verbalizes understanding and agrees to the plan of care. She was given opportunity to ask questions and all questions were answered to the best of my ability. RTO in one year for annual obstetrics/gynecology nurse examination. This note is constructed using voice recognition software. While every effort has been made to ensure accuracy, celebrity chef entrepreneur media personality errors may have been included. Orders: Orders Follicle Stimulating Hormone Today R23.2 - Flushing Lutenizing Hormone Today N92.6 - Irregular menstruation, unspecified Bacterial Vaginosis Panel Today N89.8 - Other specified noninflammatory disorders of vagina Pap Smear Today N87.0 - Mild cervical dysplasia, Z01.419 - Encounter for gynecological examination (general) (routine) without abnormal findings AMB HCG Urine Test Today N92.6 - Irregular menstruation, unspecified Thyroid Stimulating Hormone Today N92.1 - Excessive and frequent menstruation with irregular cycle HPV High risk Today N87.0 - Mild cervical dysplasia, Z01.419 - Encounter for gynecological examination (general) (routine) without abnormal findings Coding Level of Care Code Est Pt Level 2 (92217) Est Pt Prev Care 40-64y(38882) Diagnoses Irregular menstrual cycle N92.6 Vulvar lesion N90.89 Abnormal uterine bleeding N93.9 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
[2024-09-25 11:23] VITALS: BP 114/72; BMI 23.5
== END 2024-09-25 12:18 | disposition home or self-care (01) ==
LOC: HO.HWS 11:18
PROVIDERS: PCP Internal Medicine; Visit Provider Advanced Practice Midwife
DX: N92.6 Irregular menstruation, unspecified (principal); N90.89 Other specified noninflammatory disorders of vulva and perineum; N93.9 Abnormal uterine and vaginal bleeding, unspecified; R87 Abnormal findings in specimens from female genital organs; Z01.419 Encounter for gynecological examination (general) (routine) without abnormal findings; N89.8 Other specified noninflammatory disorders of vagina
CPT/HCPCS: 99212; 99396; 99459

== ENCOUNTER 2024-09-25 12:04 | Outpatient (REF) | payer MEDICAID, SELFPAY | END 2024-09-25 12:05 | disposition home or self-care (01) | LOC: HO.LAB 12:04 | PROVIDERS: Visit Provider Advanced Practice Midwife | DX: Z13.89 Encounter for screening for other disorder (principal) ==

== ENCOUNTER 2024-09-25 12:04 | Outpatient (REF) | payer MEDICAID, SELFPAY ==
[2024-10-03 11:37] LABS: HPV Genotype 16 Positive (Negative); HPV Genotype 18 Negative (Negative); HPV High Risk Negative (Negative)
== END 2024-09-25 12:05 | disposition home or self-care (01) ==
LOC: HO.LNP 12:04
PROVIDERS: Visit Provider Advanced Practice Midwife
DX: Z01.419 Encounter for gynecological examination (general) (routine) without abnormal findings (principal); N92.6 Irregular menstruation, unspecified
CPT/HCPCS: 87626; 88175

== ENCOUNTER 2024-09-25 12:23 | Outpatient (REF) | payer MEDICAID, SELFPAY ==
--- NOTE | ~2024-09-25 | MM_ITS ---
EXAMINATION: MM SCREENING DIGITAL BREAST TOMOSYNTHESIS, BILATERAL CLINICAL INFORMATION: Screening. Asymptomatic. COMPARISON: Mammography: Comparison is made with available priors TECHNIQUE: Digital breast mammography with tomosynthesis is performed in both the craniocaudal and mediolateral oblique views along with computer-aided detection (CAD). FINDINGS: There are scattered areas of fibroglandular density (ACR BI-RADS breast composition Category b). There are no significant masses, abnormal calcifications, or other abnormalities. MM/MM tomosynthesis screening BI IMPRESSION: No mammographic evidence of malignancy. ASSESSMENT: BI-RADS BI-RADS 1 - Negative RECOMMENDATION: Routine annual mammography screening. 1 year F/U This examination should not preclude the clinical evaluation of a suspicious palpable abnormality. This patient's information was entered into a reminder system with a target due date for their next mammogram. Electronically signed by: Oxana Britton DO 09/30/2024 09:55 PM EDT
[2024-09-25 16:03] LABS: Bacterial Vaginosis PCR NEGATIVE (Negative); Candida Group PCR DETECTED (Not Detect); Candida glab krusei PCR NOT DETECTED (Not Detect); Trichomonas vaginalis PCR NOT DETECTED (Not Detect)
[2024-09-26 05:48] LABS: Follicle Stimulating Hormone 7.6 mIU/mL; Lutenizing Hormone 6.2 mIU/mL
== END 2024-09-25 12:24 | disposition home or self-care (01) ==
LOC: HO.MAMMO 12:23
PROVIDERS: Absent Provider Advanced Practice Midwife; PCP Internal Medicine; Visit Provider Internal Medicine
DX: Z12.31 Encounter for screening mammogram for malignant neoplasm of breast (principal); Z01.419 Encounter for gynecological examination (general) (routine) without abnormal findings; R23.2 Flushing; N92.6 Irregular menstruation, unspecified; N89.8 Other specified noninflammatory disorders of vagina; N90.89 Other specified noninflammatory disorders of vulva and perineum
CPT/HCPCS: 36415; 77063; 77067; 81025; 81515; 83001; 83002; 99212; 99396; 99459

== ENCOUNTER → 2024-09-25 12:30 | Outpatient (BNV) | payer MEDICAID, SELFPAY | PROVIDERS: Absent Provider Advanced Practice Midwife; PCP Internal Medicine; Visit Provider Internal Medicine | DX: Z12.31 Encounter for screening mammogram for malignant neoplasm of breast (principal) | CPT/HCPCS: 77063; 77067 ==

== ENCOUNTER 2024-09-28 10:45 | Outpatient (REF) | payer MEDICAID, SELFPAY ==
[2024-09-28 11:45] LABS: Thyroid Stimulating Hormone 1.89 uIU/mL (0.32-4.0)
== END 2024-09-28 10:46 | disposition home or self-care (01) ==
LOC: HO.LAB 10:45
PROVIDERS: PCP Internal Medicine; Visit Provider Advanced Practice Midwife
DX: N92.1 Excessive and frequent menstruation with irregular cycle (principal)
CPT/HCPCS: 36415; 84443

== ENCOUNTER 2024-10-01 13:52 | Outpatient (REF) | payer MEDICAID, SELFPAY ==
[2024-10-01 14:13] LABS: MANUAL DIFF FLAG NO
[2024-10-01 14:44] LABS: Basophils Percent Auto 0.4 % (0-2); Eosinophils Absolute Auto 0.3 X10*3/uL (0.0-0.4); Eosinophils Percent Auto 3.9 % (0-4); Hematocrit 33.6 % (37.0-47.0); Hemoglobin 11.5 g/dl (12.0-16.0); Imm Gran Abs Auto 0.04 X10*3/uL (0.00-0.03); Imm Gran Pct Auto 0.5 % (0.0-0.4); Lymphocytes Absolute Auto 1.2 X10*3/uL (1.2-4.9); Lymphocytes Percent Auto 15.9 % (20-40); Mean Corpuscular HGB Conc 34.2 g/dl (31.0-35.0); Mean Corpuscular Hemoglobin 31.2 pg (27.0-33.0); Mean Corpuscular Volume 91.1 fL (80.0-98.0); Mean Platelet Volume 10.3 fL (9.4-12.3); Monocytes Absolute Auto 0.7 X10*3/uL (0.1-1.2); Neutrophils Absolute Auto 5.5 x10*3/uL (2.0-8.3); Neutrophils Percent Auto 70.3 % (45-73); Platelet Count 229 X10*3/uL (160-400); Red Blood Count 3.69 X10*6/uL (4.20-5.50); Red Cell Distribution Width 13.8 % (11.0-16.0); White Blood Count 7.8 X10*3/uL (4.8-10.8)
[2024-10-01 14:45] LABS: Appearance Urine Clear; Color Urine Yellow; Glucose Urine UA Negative (Negative); Leukocyte Esterase Urine Trace (Negative); Nitrite Urine Negative (Negative); PH 6.5 (5.0-9.0); Specific Gravity - Urine <= 1.005 (1.005-1.025); UMIC TRIGGER UA YES; Urine Blood Trace (Negative); Urine Ketones Negative (Negative); Urine Protein Negative (Neg-Trace)
[2024-10-01 14:47] LABS: Bacteria Urine None Seen (None Seen); Hyaline Casts Urine 0-2 /LPF (0-2); RBC Urine 0-2 /HPF (0-2); Squamous Epithelial Cell Urine 0-2 /HPF (0-2); WBC Urine 0-5 /HPF (0-5)
[2024-10-01 15:21] LABS: Erythrocyte Sedimentation Rate 32 MM/HR (0-20)
[2024-10-01 15:34] LABS: Creatinine Urine 36.39 mg/dL; Total Protein Urine Random < 7 mg/dL (<12)
[2024-10-01 16:28] LABS: Alanine Aminotransferase 22 U/L (0-31); Anion Gap 9 (12-20); Aspartate Amino Transferase 26 U/L (5-31); Bilirubin Total 0.4 mg/dL (0.0-1.0); Blood Urea Nitrogen 7 mg/dL (9-16); C Reactive Protein 0.25 mg/dL (< or = 0.50); Calcium 9.2 mg/dL (8.4-10.2); Carbon Dioxide 26 mmol/L (22-29); Chloride 104 mmol/L (96-108); Estimated Glomerular Filt Rate > 60; Glucose Random 83 mg/dL (60-115); Potassium 3.9 mmol/L (3.3-5.1); Sodium 135 mmol/L (135-145); Total Protein 7.9 g/dL (6.5-8.0)
[2024-10-01 16:48] LABS: Alkaline Phosphatase 100 U/L (39-117)
[2024-10-02 15:49] LABS: Complement C3 110 mg/dL (83-193)
[2024-10-03 23:38] LABS: Anti DNA DS Antibody 20 IU/mL
[2024-10-05 08:38] LABS: DNAds, Crithidia Antibody Positive (Negative)
== END 2024-10-01 13:53 | disposition home or self-care (01) ==
LOC: HO.LAB 13:52
PROVIDERS: Visit Provider Student in an Organized Health Care Education/Training Program
DX: M32.9 Systemic lupus erythematosus, unspecified (principal)
CPT/HCPCS: 36415; 80053; 81001; 82570; 84156; 85025; 85652; 86140; 86160; 86225; 86255

== ENCOUNTER 2024-10-03 12:45 | Outpatient (AMB) | payer MEDICAID, SELFPAY ==
[2024-10-03 13:02] VITALS: BP 118/72; PULSE 79; O2SAT 98; BMI 23.3
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
== END 2024-10-03 13:51 | disposition home or self-care (01) ==
LOC: HO.RHE 12:46
PROVIDERS: PCP Internal Medicine; Visit Provider Student in an Organized Health Care Education/Training Program
DX: M32.9 Systemic lupus erythematosus, unspecified (principal); M79.7 Fibromyalgia; Z79.899 Other long term (current) drug therapy
CPT/HCPCS: 99214

== ENCOUNTER → 2024-10-03 12:45 | Outpatient (BNVA) | payer MEDICAID, SELFPAY | PROVIDERS: PCP Internal Medicine; Visit Provider Student in an Organized Health Care Education/Training Program | DX: M32.9 Systemic lupus erythematosus, unspecified (principal); M79.7 Fibromyalgia; F41.9 Anxiety disorder, unspecified; Z79.899 Other long term (current) drug therapy | CPT/HCPCS: 99212 ==

== ENCOUNTER 2024-11-28 10:50 | Outpatient (AMB) | payer MEDICAID, SELFPAY ==
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
[2024-11-28 10:53] VITALS: BP 112/80; BMI 23.8
== END 2024-11-28 11:48 | disposition home or self-care (01) ==
PROVIDERS: PCP Internal Medicine; Visit Provider Internal Medicine
DX: Z00.00 Encounter for general adult medical examination without abnormal findings (principal); M32.9 Systemic lupus erythematosus, unspecified; F33.1 Major depressive disorder, recurrent, moderate; M79.7 Fibromyalgia; F41.9 Anxiety disorder, unspecified; G47.00 Insomnia, unspecified

== ENCOUNTER → 2024-11-28 10:50 | Outpatient (BNVA) | payer OTHER, SELFPAY | PROVIDERS: PCP Internal Medicine; Visit Provider Internal Medicine | DX: Z00.00 Encounter for general adult medical examination without abnormal findings (principal); M79.7 Fibromyalgia; F33.1 Major depressive disorder, recurrent, moderate; F41.9 Anxiety disorder, unspecified; M32.9 Systemic lupus erythematosus, unspecified; G47.00 Insomnia, unspecified; E78.5 Hyperlipidemia, unspecified | CPT/HCPCS: 96127; 99212; 99396 ==

== ENCOUNTER 2025-01-17 08:04 | Outpatient (REF) | payer OTHER, SELFPAY ==
[2025-01-17 09:37] LABS: Albumin Level 4.0 g/dL (3.5-5.0); Alkaline Phosphatase 99 U/L (39-117); Anion Gap 9 (12-20); Aspartate Amino Transferase 38 U/L (5-31); Blood Urea Nitrogen 12 mg/dL (9-16); Calcium 9.0 mg/dL (8.4-10.2); Carbon Dioxide 29 mmol/L (22-29); Chloride 105 mmol/L (96-108); Cholesterol 188 mg/dL (<200); Estimated Glomerular Filt Rate > 60; HDL Cholesterol 32 mg/dL (>40); Potassium 3.8 mmol/L (3.3-5.1); Sodium 139 mmol/L (135-145); Total Protein 7.5 g/dL (6.5-8.0); Triglycerides 135 mg/dL (<150)
[2025-01-17 09:49] LABS: Alanine Aminotransferase 35 U/L (0-31)
== END 2025-01-17 08:05 | disposition home or self-care (01) ==
LOC: HO.LAB 08:04
PROVIDERS: PCP Internal Medicine; Visit Provider Internal Medicine
DX: Z00.00 Encounter for general adult medical examination without abnormal findings (principal); E78.5 Hyperlipidemia, unspecified
CPT/HCPCS: 36415; 80053; 80061

== ENCOUNTER 2025-02-01 07:58 | Outpatient (REF) | payer OTHER, SELFPAY ==
[2025-02-01 08:16] LABS: MANUAL DIFF FLAG NO
[2025-02-01 08:28] LABS: Hematocrit 32.8 % (37.0-47.0); Hemoglobin 11.6 g/dl (12.0-16.0); Imm Gran Abs Auto 0.02 X10*3/uL (0.00-0.03); Imm Gran Pct Auto 0.4 % (0.0-0.4); Lymphocytes Absolute Auto 1.0 X10*3/uL (1.2-4.9); Mean Corpuscular HGB Conc 35.4 g/dl (31.0-35.0); Mean Corpuscular Hemoglobin 31.4 pg (27.0-33.0); Mean Corpuscular Volume 88.6 fL (80.0-98.0); NRBC Abs Auto 0.000 X10*3/uL (0.0-0.012); NRBC Pct Auto 0.0 /100WBC (0.0-0.2); Platelet Count 200 X10*3/uL (160-400); Red Blood Count 3.70 X10*6/uL (4.20-5.50); White Blood Count 5.1 X10*3/uL (4.8-10.8)
[2025-02-01 09:10] LABS: Alanine Aminotransferase 21 U/L (0-31); Albumin Level 4.2 g/dL (3.5-5.0); Alkaline Phosphatase 89 U/L (39-117); Anion Gap 12 (12-20); Aspartate Amino Transferase 25 U/L (5-31); Blood Urea Nitrogen 16 mg/dL (9-16); Calcium 9.1 mg/dL (8.4-10.2); Carbon Dioxide 26 mmol/L (22-29); Chloride 107 mmol/L (96-108); Estimated Glomerular Filt Rate > 60; Potassium 3.9 mmol/L (3.3-5.1); Sodium 141 mmol/L (135-145); Total Protein 7.7 g/dL (6.5-8.0)
[2025-02-01 10:51] LABS: Appearance Urine Clear; Glucose Urine UA Negative (Negative); PH 5.5 (5.0-9.0); Specific Gravity - Urine 1.025 (1.005-1.025); UMIC TRIGGER UA YES
[2025-02-01 11:42] LABS: Protein/Creatinine Ratio, Ur 0.05 (<0.2); Total Protein Urine Random 9 mg/dL (<12)
== END 2025-02-01 07:59 | disposition home or self-care (01) ==
LOC: HO.LAB 07:58
PROVIDERS: PCP Internal Medicine; Visit Provider Student in an Organized Health Care Education/Training Program
DX: M32.9 Systemic lupus erythematosus, unspecified (principal)
CPT/HCPCS: 36415; 80053; 81001; 82570; 84156; 85025; 85652; 86140; 86160; 86225

== ENCOUNTER 2025-02-05 10:24 | Outpatient (AMB) | payer OTHER, SELFPAY ==
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
[2025-02-05 10:31] VITALS: BP 115/80; PULSE 74; O2SAT 97; BMI 24.0
== END 2025-02-05 10:55 | disposition home or self-care (01) ==
LOC: HO.RHES 10:25
PROVIDERS: PCP Internal Medicine; Visit Provider Student in an Organized Health Care Education/Training Program
DX: M32.9 Systemic lupus erythematosus, unspecified (principal); G56.02 Carpal tunnel syndrome, left upper limb; M79.7 Fibromyalgia; Z79.899 Other long term (current) drug therapy
CPT/HCPCS: 99214

== ENCOUNTER → 2025-02-05 10:24 | Outpatient (BNVA) | payer OTHER, SELFPAY | PROVIDERS: PCP Internal Medicine; Visit Provider Student in an Organized Health Care Education/Training Program | DX: M79.7 Fibromyalgia (principal); M32.9 Systemic lupus erythematosus, unspecified; G56.02 Carpal tunnel syndrome, left upper limb; Z79.899 Other long term (current) drug therapy | CPT/HCPCS: 99212 ==

== ENCOUNTER 2025-03-04 01:40 | Emergency (ER) | payer OTHER, SELFPAY ==
[2025-03-04 01:57] VITALS: BP 119/63; BP 133/64; PULSE 64; PULSE 71; RESP 16; TEMP 36.6; O2SAT 97; O2SAT 99; BMI 25.9
--- NOTE | 2025-03-04 02:16 | PC.NURSE ---
pt biba from [facility], a&ox4, respirations even and unlabored. pt reports onset of left lower left back pain x1 day, pt denies any trauma but reports she has hx of lupus. pt denies any urinary issues. per pt, pt provider recommended pt come to ed for evaluation. pending labs and provider. vss
[2025-03-04 02:20] LABS: MANUAL DIFF FLAG NO
[2025-03-04 02:21] LABS: Hematocrit 34.9 % (37.0-47.0); Hemoglobin 11.8 g/dl (12.0-16.0); Imm Gran Abs Auto 0.03 X10*3/uL (0.00-0.03); Imm Gran Pct Auto 0.6 % (0.0-0.4); Lymphocytes Absolute Auto 1.4 X10*3/uL (1.2-4.9); Mean Corpuscular HGB Conc 33.8 g/dl (31.0-35.0); Mean Corpuscular Hemoglobin 30.9 pg (27.0-33.0); Mean Corpuscular Volume 91.4 fL (80.0-98.0); NRBC Abs Auto 0.000 X10*3/uL (0.0-0.012); NRBC Pct Auto 0.0 /100WBC (0.0-0.2); Platelet Count 184 X10*3/uL (160-400); Red Blood Count 3.82 X10*6/uL (4.20-5.50); White Blood Count 5.4 X10*3/uL (4.8-10.8)
[2025-03-04 02:36] LABS: Appearance Urine Clear; Glucose Urine UA Negative (Negative); PH 7.0 (5.0-9.0); Specific Gravity - Urine 1.020 (1.005-1.025); UMIC TRIGGER UACC YES
[2025-03-04 02:38] LABS: Alanine Aminotransferase 13 U/L (0-31); Albumin Level 4.0 g/dL (3.5-5.0); Alkaline Phosphatase 90 U/L (39-117); Anion Gap 10 (12-20); Aspartate Amino Transferase 22 U/L (5-31); Blood Urea Nitrogen 13 mg/dL (9-16); Calcium 8.5 mg/dL (8.4-10.2); Carbon Dioxide 26 mmol/L (22-29); Chloride 106 mmol/L (96-108); Creatinine Clr Calc Pharmacy 118.7; Estimated Glomerular Filt Rate > 60; Potassium 3.4 mmol/L (3.3-5.1); Sodium 139 mmol/L (135-145); Total Protein 7.4 g/dL (6.5-8.0)
[2025-03-04 02:46] LABS: UACC Culture Trigger YES
--- NOTE | 2025-03-04 03:55 | ED.GENADULT ---
HPI - General Adult General Chief complaint: Back Pain/Injury Stated complaint: lower back pain, hx lupus Time Seen by Provider: 03/04/25 03:44 Source: patient Limitations: no limitations History of Present Illness ED Provider: Kimberli Brandt PA-C HPI narrative: 44F with past medical history of lupus, fibromyalgia, depression/anxiety, takotsubo cardiomyopathy presents to the ED for evaluation of left lower back pain, nonradiating. No recent injury or heavy lifting. States she has had similar intermittent pain for over 5 years but it has been an 8/10 since yesterday morning upon waking. Worse with position changes, describes it as localized spasms. Denies urinary retention or incontinence, dysuria, frequency, urgency. 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 Related Data Home Medications ?Medication ?Instructions ?Recorded ?Confirmed multivitamin (Daily Multi-Vitamin 1 tab PO DAILY 05/21/21 02/05/25 tablet) black seed oil PO 12/05/23 02/05/25 Previous Rx's ?Medication ?Instructions ?Recorded acetaminophen 500 mg tablet 1,000 mg (2 x 500 mg) PO Q6H PRN 08/12/23 (Tylenol Extra Strength) pain #30 tabs valacyclovir 500 mg tablet 500 mg PO DAILY 90 days #90 tabs 08/07/24 cyclobenzaprine 10 mg tablet 10 mg PO TID PRN muscle spasm #20 08/27/24 tabs lidocaine 5 % topical patch 1 patch topical DAILY #30 ea 08/27/24 triamcinolone acetonide 55 mcg 2 spray intranasal DAILY #16.9 mL 09/15/24 nasal spray aerosol (Nasacort Allergy) miconazole nitrate 2 % vaginal 1 appful vaginal BEDTIME 7 days 09/26/24 cream (Monistat 7) #45 grams cetirizine 10 mg tablet (Zyrtec) 10 mg PO DAILY PRN allergy 11/28/24 symptoms 90 days #90 tabs ibuprofen 600 mg tablet 600 mg PO Q8H PRN pain 30 days #90 11/28/24 tabs olopatadine 0.2 % eye drops 1 drp ophthalmic (eye) DAILY PRN 11/28/24 (Pataday Once Daily Relief) itching #2.5 mL hydroxyzine HCl 50 mg tablet 50 mg PO BID PRN itching 30 days 01/14/25 #60 tabs hydroxychloroquine 200 mg tablet 400 mg (2 x 200 mg) PO DAILY 90 02/05/25 days #180 tabs bupropion HCl 150 mg 24 hr tablet, 150 mg PO QAM 90 days #90 tabs 02/28/25 extended release ketorolac 10 mg tablet 10 mg PO Q6H PRN pain #20 tabs 03/04/25 methocarbamol 750 mg tablet 1,500 mg (2 x 750 mg) PO Q8H PRN 03/04/25 pain, moderate #24 tabs nitrofurantoin 100 mg PO Q12H 3 days #6 caps 03/04/25 monohydrate/macrocrystals 100 mg capsule (Macrobid) Allergies Allergy/AdvReac Type Severity Reaction Status Date / Time docusate (From COLACE) Allergy Intermediate SWELLING, Verified 03/04/25 02:01 swollen Review of Systems Review of Systems: Yes all other systems are reviewed and are negative Constitutional: Constitutional: Denies chills and Denies fever(s) Cardiovascular: Cardiovascular: Denies chest pain and Denies dyspnea Respiratory: Respiratory: Denies dyspnea Gastrointestinal: Gastrointestinal: Denies abdominal pain, Denies constipation and Denies diarrhea Genitourinary: Genitourinary: Denies hematuria and Denies difficulty voiding Musculoskeletal: Musculoskeletal: Reports back pain and Denies tingling Neurologic: Denies radicular pain, Denies tingling and Denies paresthesias Psychiatric: Psychiatric: Reports anxiety and Reports depression PMF Past Medical History Attestation statement: The following information was validated with the patient. 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 Skin tag Overweight Surgical History History of surgery on arm Hx of foot surgery H/O LEEP History of tubal ligation History of section Family History Family History Father Brain cancer Mother HIV (human immunodeficiency virus infection) Myocardial infarction Hypertension CVD (cardiovascular disease) Drug abuse Brother Legally blind Cancer H/O ETOH abuse Albinism Stroke Maternal Grandfather Stroke H/O ETOH abuse Family/Other Mental health disorder Social History Social History Housing: Apartment Are you a primary cardiac care unit nurse to a significant other at home: No Do you presently have visiting nurse or other home services: No Alcohol intake: former Patient Tobacco Use Status: Former Tobacco user Tobacco use type: Cigarette Years Smoked: 10 Smoked in Last 30 Days: No e-Cigarette/Vaping Use: Never Used Second Hand Smoke Exposure: No Use of substances other than those prescribed or required for medical reasons: No Substance Use Type: Marijuana Advance Directives: No Advance Directives Information Provided: No Do you have a plan to hurt others: No Plan Patient : No service: No Current occupational status: employed 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 Current occupational exposures/hazards: No Sexual orientation: Straight/Heterosexual Gender identity: Female Cognitive needs: No Hearing needs: No Vision needs: Yes Physical Exam ED Vital Signs: Vital Signs - 24 hr 03/04/25 01:57 03/04/25 05:27 03/04/25 05:28 Temperature 97.9 F 97.8 F 97.8 F Pulse Rate 64 77 77 Respiratory Rate 16 16 16 Blood Pressure 119/63 112/77 112/77 Pulse Oximetry 97 99 99 Oxygen Delivery Method Room Air Room Air Room Air BMI result Body Mass Index 25.9 Const Other: Alert well-appearing Orientation/consciousness: patient oriented x3 Resp Effort & Inspection: normal respiratory effort Cardio Other: Normal peripheral perfusion GI Other: No distention nontender no guarding Back/Spine/Pelvis Other: localized left sided lower back tenderness. no midline or paraspinal tenderness. negative straight leg test. Skin Other: Warm dry no rash Neuro General: patient oriented x3, gait normal, no focal motor deficits and CN's II-XI intact bilaterally Psych Other: cooperative Course Course Course Narrative: Felisa Brandt PA-C have personally obtained the history, performed the physical and assessment. Viktoriya GEORGE helped to formulate the documentation Medications Administered Discontinued Medications Generic Name Dose Route Start Last Admin Trade Name Freq PRN Reason Stop Dose Admin Ketorolac Tromethamine 15 mg 10/13/25 04:21 03/04/25 05:06 Ketorolac Tromethamine 15 Mg/Ml Vial IM 03/04/25 04:22 15 mg ONCE ONE Administration Methocarbamol 1,500 mg 03/04/25 04:21 03/04/25 05:06 Methocarbamol 750 Mg Tablet PO 03/04/25 04:22 1,500 mg ONCE ONE Administration Nitrofurantoin Macrocrystals 100 mg 03/04/25 04:29 03/04/25 05:06 Nitrofurantoin Monohyd/M-Cryst 100 Mg Capsule PO 03/04/25 04:30 100 mg ONCE ONE Administration Medical Decision Making Medical Decision Making [facility] Narrative: 44F with past medical history of lupus, fibromyalgia, depression/anxiety, takotsubo cardiomyopathy presents to the ED for evaluation of left lower back pain, nonradiating. No recent injury or heavy lifting. States she has had similar intermittent pain for over 5 years but it has been an 8/10 since yesterday morning upon waking. Worse with position changes, describes it as localized spasms. Denies urinary retention or incontinence, dysuria, frequency, urgency. 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 I've considered the following diagnoses: musculoskeletal pain, herniated disk, cauda equina, nephrolithiasis Plan: The nature of her back pain is consistent with musculoskeletal pain. Urine with evidence of UTI. Normal kidney function on labs. per Kimberli Brandt PA-C patient here with left-sided low back pain without radiation, she does have fibromyalgia and lupus, likely from these underlying conditions, she is not having radicular symptoms she is has no red flag signs symptoms concerning for cord compression we will treat accordingly. I've reviewed the following tests: CBC showing mild chronic anemia. No leukocytosis. CMP with no evidence of electrolyte abnormalities. ... Questionable UTI will treat with a course of Macrobid, she says she is prone to UTIs she has no dysuria Differential Diagnosis Differential Diagnoses: The differential diagnosis associated with the presentation includes See medical decision-making Admission/Observation Consideration of admission/observation: Escalation of care including admission/observation considered Not applicable Lab Data MDM Lab Attestation statement: I reviewed the patient's lab results. 03/04/25 02:16 10/13/25 02:16 Labs: Lab Results 03/04/25 03/04/25 Range/Units 02:16 02:29 WBC 5.4 (4.8-10.8) X10*3/uL RBC 3.82 L (4.20-5.50) X10*6/uL Hgb 11.8 L (12.0-16.0) g/dl Hct 34.9 L (37.0-47.0) % MCV 91.4 (80.0-98.0) fL MCH 30.9 (27.0-33.0) pg MCHC 33.8 (31.0-35.0) g/dl RDW 13.5 (11.0-16.0) % Plt Count 184 (160-400) X10*3/uL MPV 9.3 L (9.4-12.3) fL Immature Gran % (Auto) 0.6 H (0.0-0.4) % Neut % (Auto) 61.1 (45-73) % Lymph % (Auto) 26.4 (20-40) % [place] % (Auto) 10.0 (2-11) % Eos % (Auto) 1.5 (0-4) % Baso % (Auto) 0.4 (0-2) % Lymph # (Auto) 1.4 (1.2-4.9) X10*3/uL [place] # (Auto) 0.5 (0.1-1.2) X10*3/uL Eos # (Auto) 0.1 (0.0-0.4) X10*3/uL Baso # (Auto) 0.0 (0.0-0.2) X10*3/uL Abs Immat Gran (auto) 0.03 (0.00-0.03) X10*3/uL Absolute Neuts (auto) 3.3 (2.0-8.3) x10*3/uL Absolute Nucleated RBC 0.000 (0.0-0.012) X10*3/uL Nucleated RBC % (auto) 0.0 (0.0-0.2) /100WBC Sodium 139 (135-145) mmol/L Potassium 3.4 (3.3-5.1) mmol/L Chloride 106 (96-108) mmol/L Carbon Dioxide 26 (22-29) mmol/L Anion Gap 10 L (12-20) BUN 13 (9-16) mg/dL Creatinine 0.63 (0.5-1.4) mg/dL Estim Creat Clear Calc 118.7 Estimated GFR > 60 Random Glucose 96 (60-115) mg/dL Calcium 8.5 D (8.4-10.2) mg/dL Total Bilirubin 0.3 (0.0-1.0) mg/dL AST 22 (5-31) U/L ALT 13 (0-31) U/L Alkaline Phosphatase 90 (39-117) U/L Total Protein 7.4 (6.5-8.0) g/dL Albumin 4.0 (3.5-5.0) g/dL Urine Color Yellow Urine Appearance Clear Urine pH 7.0 (5.0-9.0) Ur Specific Mouthcard 1.020 (1.005-1.025) Urine Protein Trace (Neg-Trace) mg/dL Urine Glucose (UA) Negative (Negative) mg/dL Urine Ketones Negative (Negative) mg/dL Urine Blood Negative (Negative) Urine Nitrite Negative (Negative) Ur Leukocyte Esterase Moderate (2+) H (Negative) Urine RBC 0-2 (0-2) /HPF Urine WBC >50 H (0-5) /HPF Ur Squamous Epith Cells 0-2 (0-2) /HPF Urine Bacteria 1+ (None Seen) Hyaline Casts 0-2 (0-2) /LPF Discharge Plan Discharge Clinical Impression: Low back pain, UTI (urinary tract infection) Patient Disposition: Home, Self-Care Instructions: Urinary Tract Infection in Women (ED), Acute Low Back Pain (ED) Additional Instructions: All of your screening labs were normal, it is questionable whether you have a urinary tract infection, we are treating you with the Macrobid. In regard to the back pain, take the ketorolac as directed this is an anti-inflammatory take it with food. Use the methocarbamol as needed for further pain this is a muscle relaxant. The medication may cause drowsiness do not drive or operate machinery while taking the medication. Follow up with your primary care as needed. Prescriptions: New nitrofurantoin monohyd/m-cryst [Macrobid] 100 mg capsule 100 mg PO Q12H 3 Days Qty: 6 0RF Rx Instructions: must administer with a meal/food methocarbamol 750 mg tablet 1,500 mg PO Q8H PRN (Reason: pain, moderate) Qty: 24 0RF ketorolac 10 mg tablet 10 mg PO Q6H PRN (Reason: pain) Qty: 20 0RF Rx Instructions: maximum total duration of 5 days from all oral, intranasal, or parenteral formulations. The patient received an intramuscular dose of Toradol here in the emergency room. No Action valacyclovir 500 mg tablet 500 mg PO DAILY 90 Days Qty: 90 1RF miconazole nitrate [Monistat 7] 2 % cream 1 appful vaginal BEDTIME 7 Days Qty: 45 0RF hydroxyzine HCl 50 mg tablet 50 mg PO BID PRN (Reason: itching) 30 Days Qty: 60 2RF bupropion HCl 150 mg tablet extended release 24 hr 150 mg PO QAM 90 Days Qty: 90 1RF acetaminophen [Tylenol Extra Strength] 500 mg tablet 1,000 mg PO Q6H PRN (Reason: pain) Qty: 30 0RF cyclobenzaprine 10 mg tablet 10 mg PO TID PRN (Reason: muscle spasm) Qty: 20 0RF lidocaine 5 % adhesive patch,medicated 1 patch topical DAILY Qty: 30 0RF Rx Instructions: leave on most painful area for up to 12 hrs triamcinolone acetonide [Nasacort Allergy] 55 mcg aerosol,spray 2 spray intranasal DAILY Qty: 16.9 0RF Rx Instructions: administer into each nostril black seed oil PO multivitamin [Daily Multi-Vitamin] Tablet 1 tab PO DAILY triamcinolone acetonide 40 mg/mL suspension 20 mg Tendon Sheath Inj. ONCE Qty: 0.5 0RF hydroxychloroquine 200 mg tablet 400 mg PO DAILY 90 Days Qty: 180 1RF Rx Instructions: Take 2 tabs daily Mon-Fri and take 1 tab daily Sat-Sun olopatadine [Pataday Once Daily Relief] 0.2 % drops 1 drp ophthalmic (eye) DAILY PRN (Reason: itching) Qty: 2.5 0RF cetirizine [Zyrtec] 10 mg tablet 10 mg PO DAILY PRN (Reason: allergy symptoms) 90 Days Qty: 90 1RF ibuprofen 600 mg tablet 600 mg PO Q8H PRN (Reason: pain) 30 Days Qty: 90 1RF Interventions: ED Discharge Assessment Last Done: 03/04/25 05:28 Discharge Date/Time: 03/04/25 05:28 Print Language: Kittitian
[2025-03-04 05:27] VITALS: BP 112/77; PULSE 77; RESP 16; TEMP 36.6; O2SAT 99
[2025-03-04 05:28] VITALS: BP 112/77; PULSE 77; RESP 16; TEMP 36.6; O2SAT 99
== END 2025-03-04 05:28 | disposition home or self-care (01) ==
PROVIDERS: Emergency Provider Emergency Medicine; PCP Internal Medicine
DX: N39.0 Urinary tract infection, site not specified (principal); M54.50 Low back pain, unspecified
CPT/HCPCS: 36415; 80053; 81001; 85025; 87086; 87088; 87186; 96372; 99284; J1885

== ENCOUNTER 2025-04-09 12:58 | Outpatient (AMB) | payer OTHER, SELFPAY ==
[2025-04-09 13:13] VITALS: BP 150/100; PULSE 69; TEMP 36.3; O2SAT 98; BMI 24.5
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
== END 2025-04-09 14:07 | disposition home or self-care (01) ==
LOC: HO.HMCH 12:59
PROVIDERS: PCP Internal Medicine; Visit Provider Internal Medicine
DX: F33.1 Major depressive disorder, recurrent, moderate (principal); F41.9 Anxiety disorder, unspecified; M32.9 Systemic lupus erythematosus, unspecified; M79.7 Fibromyalgia; G47.00 Insomnia, unspecified

== ENCOUNTER → 2025-04-09 12:58 | Outpatient (BNVA) | payer OTHER, SELFPAY | PROVIDERS: PCP Internal Medicine; Visit Provider Internal Medicine | DX: F33.1 Major depressive disorder, recurrent, moderate (principal); F41.9 Anxiety disorder, unspecified; M32.9 Systemic lupus erythematosus, unspecified; M79.7 Fibromyalgia; G47.00 Insomnia, unspecified | CPT/HCPCS: 96127; 99212 ==